=== PATIENT | male | born 1940 | race African-American/Black ===

== ENCOUNTER 2018-02-11 23:10 | Inpatient (IN) | payer OTHER ==
--- NOTE | 2018-02-11 23:20 | PDOC ---
History of Present Illness - General Stated Complaint: CHEST PAIN Time Seen by Provider: 02/11/18 23:20 - History of Present Illness Initial Comments: 02/11/18 23:20 Mr. Odell is a 77 yo male w/ pmh of HTN, HLD, CHF, IDDM, GERD, CVA (on eliquis) who presents for evaluation of 2-3 day history of chest pain to left and right chest he reports moves back and forth. Patient reports it got worse today and he decided to come in for evaluation. Patient reports pain is constant however exacerbated by movement. Further endorses cough over same time period however reports it is non-productive. Also endorses pain exacerbated by deep inspiration and SOB when helping his move in/out of wheelchair. The patient denies headache and dizziness. Denies fever, chills, nausea, vomit, diarrhea and constipation. Denies dysuria, frequency, urgency and hematuria. Allergies: NKDA Past History - Past Medical History Allergies/Adverse Reactions: Allergies Allergy/AdvReac Type Severity Reaction Status Date / Time No Known Allergies Allergy Verified 02/23/16 11:22 Home Medications: Ambulatory Orders Amlodipine Besylate [Norvasc -] 10 mg PO DAILY 02/23/16 Apixaban [Eliquis -] 5 mg PO BID 02/23/16 Carvedilol [Coreg -] 12.5 mg PO BID 02/23/16 Furosemide [Lasix -] 40 mg PO DAILY 02/23/16 Isosorbide Mononitrate [Imdur -] 30 mg PO DAILY 02/23/16 Rosuvastatin [Crestor -] 10 mg PO HS 02/23/16 Tamsulosin HCl [Flomax] 0.4 mg PO DAILY 02/23/16 Valsartan [Diovan] 80 mg PO BID 02/23/16 Anemia: No Asthma: No Cancer: No Cardiac Disorders: Yes CVA: Yes COPD: No CHF: Yes Dementia: No Diabetes: Yes GI Disorders: Yes (gerd) Disorders: No HTN: Yes Hypercholesterolemia: Yes Liver Disease: No Seizures: No Thyroid Disease: No - Surgical History Abdominal Surgery: No Appendectomy: No Cardiac Surgery: Yes (pacemaker, stent placement) Cholecystectomy: No Lung Surgery: No Neurologic Surgery: No Orthopedic Surgery: No - Suicide/Smoking/Psychosocial Hx Smoking Status: No Smoking History: Never smoked Years of Tobacco Use: 0 Have you smoked in the past 12 months: No Number of Cigarettes Smoked Daily: 0 Cigars Per Day: 0 Hx Alcohol Use: No Drug/Substance Use Hx: No Substance Use Type: None Hx Substance Use Treatment: No Review of Systems - Review of Systems Comments:: 02/11/18 23:21 GENERAL/CONSTITUTIONAL: No fever or chills. No weakness. HEAD, EYES, EARS, NOSE AND THROAT: No change in vision. No ear pain or discharge. No sore throat. CARDIOVASCULAR: +Chest pain / SOB as described. RESPIRATORY: +Non-productive cough; no wheezing or hemoptysis. GASTROINTESTINAL: No nausea, vomiting, diarrhea or constipation. GENITOURINARY: No dysuria, frequency, or change in urination. MUSCULOSKELETAL: No joint or muscle swelling or pain. No neck or back pain. SKIN: No rash NEUROLOGIC: No headache, vertigo, loss of consciousness, or change in strength/ sensation. ENDOCRINE: No increased thirst. No abnormal weight change HEMATOLOGIC/LYMPHATIC: No anemia, easy bleeding, or history of blood clots. ALLERGIC/IMMUNOLOGIC: No hives or skin allergy. *Physical Exam - Physical Exam Comments: 02/11/18 23:21 GENERAL: Awake, alert, and fully oriented, in no acute distress HEAD: No signs of trauma, normocephalic, atraumatic EYES: PERRLA, EOMI, sclera anicteric, conjunctiva clear ENT: Auricles normal inspection, hearing grossly normal, nares patent, oropharynx clear without exudates. Moist mucosa NECK: Normal ROM, supple, no lymphadenopathy, JVD, or masses LUNGS: +Coarse lung sounds appreciated in lower lung patel bilaterally. No distress, speaks full sentences HEART: Regular rate and rhythm, normal S1 and S2, no murmurs, rubs or gallops, peripheral pulses normal and equal bilaterally. ABDOMEN: Soft, nontender, normoactive bowel sounds. No guarding, no rebound. No masses EXTREMITIES: Normal inspection, Normal range of motion, no edema. No clubbing or cyanosis. NEUROLOGICAL: Cranial nerves II through XII grossly intact. Normal speech, normal gait, no focal sensorimotor deficits SKIN: Warm, Dry, normal turgor, no rashes or lesions noted. Heart Score/ECG Review - History History: Moderately suspicious - Electrocardiogram EKG: Non specific repolarization disturbance - Age Age: >/= 65 - Risk Factors Risk Factors Heart Score: Yes Hx Hypercholesterolemia, Yes Hx Hypertension, Yes Hx Diabetes Based on the list above the patient has:: >/=3 risk factors or Hx atherosclerotic disease - Troponin Troponin: </= normal limit - Score Heart Score - Total: 6 ED Treatment Course - LABORATORY CBC & Chemistry Diagram: 02/11/18 23:46 02/11/18 23:46 Medical Decision Making - Medical Decision Making 02/12/18 01:03 Mr. Odell is a 77 yo male w/ pmh as described who presents for evaluation of chest pain as described. Patient cardiac workup started w/ labs, CXR, EKG. EKG notable for flipped t waves in V5, V6, elongated MT interval (first degree heart block), intermittent pacing spikes, regular rhythm, normal access, no ST elevations or depressions. Abnormal EKG. 02/12/18 01:23 Patient Heart score 6. Labs as below. Patient reporting pain improved when not moving however returns with movement. Admitting patient for cardiac workup. *DC/Admit/Observation/Transfer Diagnosis at time of Disposition: Chest pain Qualifiers: Chest pain type: unspecified Qualified Code(s): R07.9 - Chest pain, unspecified - Discharge Dispostion Decision to Admit order: Yes - Referrals Referrals: Beka Lima MD [Primary Care Provider] - - Patient Instructions - Post Discharge Activity
[2018-02-11] MEDS ORDERED: ASPIRIN 81 MG CHEWABLE TABLETS PO ONE (23:21)
--- NOTE | 2018-02-11 23:26 | PDOC ---
Attending Attestation - HPI HPI: 02/12/18 00:17 The patient is a 77 year male with past medical history significant for HTN, HLD , CAD, paroxysmal atrial flutter (s/p pacemaker), AFib, DM type II and CKD presents to the emergency department with chest pain. The patient states the pain presented 2 days ago to the L. side of the chest; initially, he thought it was gas. The patient reports earlier today the pain spread across the chest with a change in severity, secondary to prior cardiac issues patient was concerned. The patient reports associated concern of shortness of breath. The patient reports he is the hha of this , who isnt ambulatory. The patient reports the SOB is exacerbated with strenuous activity. Patient denies the symptoms are similar to prior heart attack. 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 Allergies: NKA Social history: No past or present use of tobacco, alcohol or recreational drug use reported. Surgical history: Pacemaker and Stent placement. PCP: Dr. Beka Lima Ship Laborer: Dr. Horner - Physicial Exam PE: 02/12/18 00:17 GENERAL: The patient is in no acute distress. HEAD: Normal with no signs of trauma. EYES: PERRLA, EOMI, sclera anicteric, conjunctiva clear. ENT: Ears normal, nares patent, oropharynx clear without exudates. Moist mucous membranes. NECK: Normal range of motion, supple without lymphadenopathy, JVD, or masses. LUNGS: Breath sounds equal, clear to auscultation bilaterally. No wheezes, and no crackles. HEART:Regular rate and rhythm, normal S1 and S2 without murmur, rub or gallop. ABDOMEN: Soft, nontender, normoactive bowel sounds. No guarding, no rebound. No masses palpable. EXTREMITIES: Normal range of motion, no edema. No clubbing or cyanosis. No erythema, or tenderness. NEUROLOGICAL: Cranial nerves II through XII grossly intact. Normal speech. No focal neurological deficits. MUSCULOSKELETAL: Back non-tender to palpation, no CVA tenderness SKIN: Warm, Dry, normal turgor, no rashes or lesions noted. - Medical Decision Making 02/12/18 00:17 Documentation prepared by Leticia Johnston, acting as medical office administrator for Lilian Gabriel MD. <Leticia Johsnton - Last Filed: 02/12/18 00:17> - Resident Resident Name: Jason Bailey - ED Attending Attestation I have performed the following: I have examined & evaluated the patient, The case was reviewed & discussed with the resident, I agree w/resident's findings & plan, Exceptions are as noted - Medical Decision Making Mr Odell is a 77 yo M presenting to the ER with a complaint of chest pain pt has multiple risk factors for CAD and prior [place] Pain has been present for the past 2 days intermittently and worsened this evening Pain is described as "gas pain" DD: ACS, Gastritis, Pancreatitis, PE, Dissection Will do: Labs, EKG, CXR Anticipate Admission HEART score 6 02/12/18 00:52 Laboratory Tests 02/11/18 23:46 WBC 4.3 Hgb 12.3 Hct 34.9 L Plt Count 183 02/12/18 00:57 02/12/18 01:02 EKG: NSR rate of 60 bpm, axis nml, no ST elevation or depression, t wave inversion v5 , v6, intervals abn: pr:400ms, QRS nml, QTc: 418ms 02/12/18 01:09 Laboratory Tests 02/11/18 23:46 PT with INR 14.50 H INR 1.28 H <Lilian Gabriel - Last Filed: 02/12/18 01:10> Heart Score/ECG Review - History History: Highly suspicious - Electrocardiogram EKG: Normal - Age Age: >/= 65 - Risk Factors Risk Factors Heart Score: Yes Hx Hypercholesterolemia, Yes Hx Hypertension, Yes Hx Diabetes Based on the list above the patient has:: >/=3 risk factors or Hx atherosclerotic disease - Troponin Troponin: </= normal limit - Score Heart Score - Total: 6 <Lilian Gabriel - Last Filed: 02/12/18 01:10>
[2018-02-11] MEDS ORDERED: ASPIRIN 81 MG CHEWABLE TABLETS ONE (23:58)
[2018-02-12 00:01] LABS: BASO % 1.1 % (0-2.0); EOS % 7.2 % (0-4.5); HEMATOCRIT 34.9 % (35.4-49); HEMOGLOBIN 12.3 GM/dL (11.7-16.9); LYMPH % 22.3 % (8-40); MCH 31.8 pg (25.7-33.7); MCHC 35.3 g/dl (32.0-35.9); MEAN CELL VOLUME 90.1 fl (80-96); MEAN PLT VOLUME 7.1 fl (7.5-11.1); MONO % 11.4 % (3.8-10.2); PLATELET COUNT 183 K/MM3 (134-434); RBC 3.87 M/mm3 (4.00-5.60); RDW 13.5 % (11.9-15.9); WHITE BLOOD COUNT 4.3 K/mm3 (4.0-10.0)
[2018-02-12 00:37] LABS: INR 1.28 (0.83-1.09); PROTHROMBIN TIME (PATIENT) 14.5 SEC (9.7-13.0)
[2018-02-12 01:14] LABS: ALBUMIN 3.8 g/dl (3.4-5.0); ALK PHOS 62 U/L (45-117); ANION GAP 5 MMOL/L (8-16); BILIRUBIN,TOTAL 0.3 mg/dL (0.2-1); BLOOD UREA NITROGEN 47 mg/dL (7-18); CALCIUM 8.9 mg/dL (8.5-10.1); CHLORIDE 104 mmol/L (98-107); CO2 28 mmol/L (21-32); CREATININE 2.3 mg/dL (0.55-1.3); GLUCOSE,RANDOM 221 mg/dL (74-106); LIPASE 212 U/L (73-393); MAGNESIUM 2.1 mg/dL (1.8-2.4); POTASSIUM 5.2 mmol/L (3.5-5.1); SGOT/AST 19 U/L (15-37); SGPT/ALT 20 U/L (13-61); SODIUM 137 mmol/L (136-145)
[2018-02-12] MEDS ORDERED: SODIUM POLYSTYRENE SULFONATE 15 GM/60 ML BOTTLE PO ONE (01:36)
[2018-02-12] MEDS ORDERED: FAMOTIDINE 20 MG/50 ML IVPB 20 MG/50 ML MG IVPB SCH (01:45)
[2018-02-12] MEDS ORDERED: SODIUM POLYSTYRENE SULFONATE 15 GM/60 ML BOTTLE ONE (01:52)
[2018-02-12] MEDS: ACETAMINOPHEN 325 MG TABLET (FP) PO SCH ×2 (02:00→09:06)
[2018-02-12] MEDS ORDERED: AZITHROMYCIN IVPB 500 MG in DEXTROSE 5%-WATER - 250 ML IVPB ONE (02:01)
[2018-02-12] MEDS ORDERED: CEFTRIAXONE 1 GM in DEXTROSE 5%-WATER - 50 ML IVPB ONE (02:01)
[2018-02-12] MEDS ORDERED: AZITHROMYCIN IVPB 250 ML IVPB ONE (02:10)
[2018-02-12] MEDS ORDERED: CEFTRIAXONE 1 GM/50 ML BAG ONE ×2 (02:10→02:11)
[2018-02-12 02:20] LABS: N-TERMINAL BNP 1522.7 pg/ml (5-450)
[2018-02-12 04:58] VITALS: BMI 25.9
[2018-02-12] MEDS: INSULIN SLIDING SCALE (NOVOLOG) 1 VIAL SQ SCH ×3 (06:02→16:48)
[2018-02-12 06:12] LABS: EOS % 7.5 % (0-4.5); HEMATOCRIT 36.6 % (35.4-49); HEMOGLOBIN 12.6 GM/dL (11.7-16.9); LYMPH % 29.7 % (8-40); MCHC 34.5 g/dl (32.0-35.9); MEAN CELL VOLUME 89.9 fl (80-96); MEAN PLT VOLUME 7.1 fl (7.5-11.1); MONO % 11.5 % (3.8-10.2); NEUT % 50.3 % (42.8-82.8); PLATELET COUNT 171 K/MM3 (134-434); RBC 4.07 M/mm3 (4.00-5.60); RDW 13.3 % (11.9-15.9); WHITE BLOOD COUNT 5.1 K/mm3 (4.0-10.0)
[2018-02-12 06:51] LABS: ALBUMIN 3.9 g/dl (3.4-5.0); ALK PHOS 65 U/L (45-117); ANION GAP 5 MMOL/L (8-16); BILIRUBIN,TOTAL 0.4 mg/dL (0.2-1); BLOOD UREA NITROGEN 40 mg/dL (7-18); CHLORIDE 103 mmol/L (98-107); CHOLESTEROL 157 mg/dL (50-200); CO2 29 mmol/L (21-32); GLUCOSE,RANDOM 205 mg/dL (74-106); HDL CHOLESTEROL 69 mg/dL (40-60); POTASSIUM 4.5 mmol/L (3.5-5.1); SGOT/AST 16 U/L (15-37); SGPT/ALT 20 U/L (13-61); SODIUM 138 mmol/L (136-145); TOT PROT 7.2 g/dl (6.4-8.2); TRIGLYCERIDES 76 mg/dL (0-150)
[2018-02-12] MEDS ORDERED: ACETAMINOPHEN 325 MG TABLET (FP) PO PRN (08:04)
[2018-02-12] MEDS: TAMSULOSIN HCL 0.4 MG CAP.ER.24H (FP) PO SCH (09:03)
[2018-02-12] MEDS: CARVEDILOL 12.5 MG TABLET (FP) PO SCH ×2 (09:03→21:27)
[2018-02-12] MEDS: amLODIPine BESYLATE 10 MG TABLET (FP) PO SCH (09:03)
[2018-02-12] MEDS: ASPIRIN 81 MG CHEWABLE TABLETS PO SCH (09:03)
[2018-02-12] MEDS: APIXABAN 5 MG TABLET PO SCH ×2 (09:03→21:27)
[2018-02-12] MEDS: VALSARTAN 80 MG TABLET (UD) PO SCH ×2 (09:03→21:26)
[2018-02-12] MEDS: FUROSEMIDE 40 MG TABLET (FP) PO SCH (09:04)
[2018-02-12] MEDS: ISOSORBIDE MONONITRATE 30 MG TAB.SR.24H (FP) PO SCH (09:04)
[2018-02-12] MEDS: RANITIDINE HCL 150 MG TABLET (FP) PO SCH (09:04)
--- NOTE | 2018-02-12 13:16 | HP ---
Admitting History and Physical - Primary Care Physician PCP: Beka Lima - Admission Chief Complaint: chest pain History of Present Illness: 77 yrs old pleasant, multiple medical Co-morbidities H/O HTN, Dyslipedemia, T2DM on Insulin, CKD stage 3, CAD s/p PCI, Sick sinus syndrome, PAfib s/p Ablation and sequential AV pacemaker, dHF with EF 60-65%, CVa s/p Tpa no residual weakness, present with Left sided chest pain, that he developed 2 days ago, reproducible localized in interscapular area and left shoulder blade medial aspect 7/10 aggravates with passive movement, prior to this patient had left sided pressure like pain, came to Ed for evaluation, hemodynamically stablea, EKG paced rhythm no acute St T changes admitted to R/O ACS, evaluated by cardiology consult. 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 [employer] Home Medications - Allergies Allergies/Adverse Reactions: Allergies Allergy/AdvReac Type Severity Reaction Status Date / Time No Known Allergies Allergy Verified 02/12/18 01:56 - Home Medications Home Medications: Ambulatory Orders Amlodipine Besylate [Norvasc -] 10 mg PO DAILY 02/23/16 Apixaban [Eliquis -] 5 mg PO BID 02/23/16 Carvedilol [Coreg -] 12.5 mg PO BID 02/23/16 Furosemide [Lasix -] 40 mg PO DAILY 02/23/16 Isosorbide Mononitrate [Imdur -] 30 mg PO DAILY 02/23/16 Rosuvastatin [Crestor -] 10 mg PO HS 02/23/16 Tamsulosin HCl [Flomax] 0.4 mg PO DAILY 02/23/16 Valsartan [Diovan] 80 mg PO BID 02/23/16 Family Disease History - Family Disease History Family History: Unremarkable Review of Systems - Review of Systems Constitutional: denies: Chills, Diaphoresis, Fever, Lethargy Eyes: reports: Blind Spots. denies: Blurred Vision, Double Vision, Recent Change in Vision HENT: denies: Difficult Swallowing, Ear Discharge Neck: denies: Decreased ROM, Lumps, Pain on Movement Cardiovascular: reports: Chest Pain, Edema, Shortness of Breath. denies: Palpitations Respiratory: denies: Cough, Exercise Intolerance, Hemoptysis, Orthopnea Genitourinary: denies: Burning, Discharge, Dysuria, Flank Pain, Frequency Musculoskeletal: denies: Back Pain, Crepitus, Decreased ROM, Extremity Pain Integumentary: denies: Blister, Bruising, Change in Color Neurological: denies: Change in LOC, Change in Speech, Confusion, Dizziness Endocrine: denies: Excessive Sweating, Flushing, Increased Hunger Hematology/Lymphatic: denies: Easily Bruised, Excessive Bleeding Psychiatric: denies: Altered Sleep Pattern Physical Examination Vital Signs: Vital Signs Temperature 97.6 F 02/12/18 08:56 Pulse Rate 64 02/12/18 08:56 Respiratory Rate 18 02/12/18 08:57 Blood Pressure 149/81 02/12/18 08:56 O2 Sat by Pulse Oximetry (%) 99 02/12/18 08:57 Constitutional: Yes: Well Nourished, No Distress, Calm, Diaphoresis. No: Mild Distress, Moderate Distress Eyes: Yes: Conjunctiva Clear, EOM Intact HENT: No: Atraumatic, Normocephalic Neck: Yes: Supple, Trachea Midline. No: Decreased ROM, Lymphadenopathy Cardiovascular: Yes: Regular Rate and Rhythm, JVD, S1, S2. No: Bradycardia, Tachycardia Respiratory: Yes: Regular, CTA Bilaterally, Other (Left sided interscapular tenderness) Gastrointestinal: Yes: Normal Bowel Sounds, Soft Extremities: Yes: Amputation. No: Calf Tenderness, Cold Edema: RUE: 1+, LLE: 1+ Peripheral Pulses WNL: Yes Peripheral Pulses: Left Doralis Pedis: 1+, Right Dorsalis Pedis: 1+ Neurological: Yes: WNL, Alert, Oriented ...Motor Strength: LUE, RUE, RLE Labs: CBC, BMP 02/12/18 05:03 02/12/18 05:03 Imaging - Results X-ray: Report Reviewed (no acute changes) EKG: Report Reviewed (65 AV sequential paced rhythm) Problem List - Problems (1) Chest pain Assessment/Plan: Patient has H/O CAD s/p PCI atypical chest pain considering risk factor admitted to R/O ACS cont ASA, Statin, B Blockers, Nitroglycerine PRN and Imdur, Ranexa, telemonitoring, Cardiac diet, serial ECHO and EKG, ECHO cardiogram Cardiology recommended inpatient NST. Code(s): R07.9 - CHEST PAIN, UNSPECIFIED Qualifiers: Chest pain type: unspecified Qualified Code(s): R07.9 - Chest pain, unspecified (2) Atrial fibrillation Assessment/Plan: s/p abalation AV sequential pacemaker on AC Code(s): I48.91 - UNSPECIFIED ATRIAL FIBRILLATION Qualifiers: Atrial fibrillation type: paroxysmal Qualified Code(s): I48.0 - Paroxysmal atrial fibrillation (3) Cerebrovascular accident (CVA) Assessment/Plan: in 2016 no residual weakness s/o tpa Code(s): I63.9 - CEREBRAL INFARCTION, UNSPECIFIED (4) Cardiac pacemaker in situ Assessment/Plan: Sick sinus syndrom s/p abalation and AV sequential pacemaker Code(s): Z95.0 - PRESENCE OF CARDIAC PACEMAKER (5) Coronary artery disease Assessment/Plan: H/O CAD s/p LAD PCI on ASA, imdur, Ranexa B Blockers, Code(s): I25.10 - ATHSCL HEART DISEASE OF [place] CORONARY ARTERY W/O ANG PCTRS (6) Chronic renal insufficiency Assessment/Plan: CKD stage 3 renal funcyionsa are at base line Code(s): N18.9 - CHRONIC KIDNEY DISEASE, UNSPECIFIED Qualifiers: Chronic kidney disease stage: stage 3 (moderate) Qualified Code(s): N18.3 - Chronic kidney disease, stage 3 (moderate) (7) Type 2 diabetes mellitus Assessment/Plan: Retinopathy and nephropathy on Lantus will switch to Levimer and correction dose insulin diabetic diet f/u HbA1C level Code(s): E11.9 - TYPE 2 DIABETES MELLITUS WITHOUT COMPLICATIONS (8) Dyslipidemia Assessment/Plan: On statin Code(s): E78.5 - HYPERLIPIDEMIA, UNSPECIFIED
--- NOTE | 2018-02-12 16:56 | CONS ---
DATE OF CONSULTATION: 02/12/2018 CARDIOLOGY CONSULTATION REQUESTED BY: Beka Lima MD CHIEF COMPLAINT: 1. Chest pain. 2. Fatigue. 3. Shortness of breath. The patient is a 77-year-old gentleman with long-standing history of coronary artery disease, status post myocardial infarction, status post PCI/stenting, angina pectoris, history of left ventricular systolic dysfunction, congestive heart failure, hypertension, hypertensive cardiovascular disease, diabetes mellitus type 2, chronic kidney disease, paroxysmal atrial fibrillation/flutter, status post cerebrovascular accident with left hemiparesis, history of diabetic nephropathy and retinopathy. Patient states that for the past 2 days he has been experiencing anterior pressure-like chest discomfort while taking care of his invalid , especially in helping her get to bed or pushing her wheelchair. Patient has been noticing fatigue. Patient, on the day of admission, developed anterior sharp chest pain, only associated with change in posture or movement. PAST HISTORY: As mentioned in the history of present illness. SURGICAL HISTORY: Status post pacemaker insertion. 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 He has never smoked and does not imbibe alcohol. He has 1 to 2 cups of coffee. FAMILY HISTORY: Father at age 58 of unknown cause. Mother at age 53 of sudden . He has no siblings. There is strong family history of coronary artery disease on the maternal side. ALLERGIES: None reported. CURRENT MEDICATIONS: 1. Valsartan 80 mg p.o. b.i.d. 2. Flomax 0.4 mg p.o. daily. 3. Eliquis 5 mg p.o. b.i.d. 4. Carvedilol 12.5 mg p.o. b.i.d. 5. Tylenol 650 mg p.o. q.6 h. p.r.n. 6. Amlodipine 10 mg p.o. daily. 7. Ranitidine 150 mg p.o. daily. 8. Rosuvastatin 10 mg p.o. daily. 9. NovoLog insulin according to sliding scale. 10. Isosorbide mononitrate 30 mg p.o. daily. 11. Furosemide 40 mg p.o. daily. 12. Aspirin 81 mg p.o. daily. REVIEW OF SYSTEMS: Constitutional: No history of chills, fever or night sweats. No history of unintentional weight loss. HEENT: No history of headaches, history of visual field cut, history of diabetic retinopathy. No history of epistaxis or hoarseness. No history of tinnitus. History of decreased hearing. Cardiovascular: See history of present illness. Respiratory: History of intermittent nonproductive cough. No history of hemoptysis. Gastrointestinal: Denies having any nausea, vomiting, melena, or hematemesis. No history of abdominal pain or discomfort or change in bowel habits. Neurological: See history of present illness. Endocrine: See history of present illness. No history of polyuria or polydipsia. Denies having intolerance to cold or warm weather. Musculoskeletal: Denies having myalgias or arthralgias. EXAMINATION: General: A 77-year-old gentleman, at the time of examination was in no acute distress. No pallor, cyanosis, clubbing, or jaundice. Vital Signs: Weight 181 pounds. Blood pressure 149/81 mmHg. Pulse 64 beats per minute and regular. Respirations 18 per minute. Oxygen saturation 99% on room air. Neck: Supple. No jugular venous distention. Carotids were equal. Upstrokes were normal. No bruits were heard and no thyromegaly was present. Heart: PMI was in the 5th intercostal space. No heaves or thrills. S1 and S2 were normal. Grade 1/6 decrescendo systolic murmur was heard at the apex. No gallops or rubs were heard. Lungs: Clear on auscultation. Abdomen: Soft, nontender. No hepatosplenomegaly or palpable masses were felt. Bowel sounds were present. No bruits were appreciated. Extremities: No calf tenderness. There was 1+ bilateral ankle edema. Dorsalis pedis and posterior tibial pulses could not be palpated. Femoral pulses were 2+. LABORATORY DATA: CBC, February 12, 2018: WBC 5100, hemoglobin 12.6 g/dL, hematocrit 36.6%, platelet count 171,000. Differential revealed elevated monocytes of 11.5%, eosinophils were elevated at 7.5%. Chemistry on admission, February 11: Sodium 137, potassium 5.2, chloride 104, CO2 28 mmol/L, BUN 47, creatinine 2.3 mg/dL, random glucose 221 mg/dL, calcium 8.9 mg/dL, magnesium 2.1 mg/dL. Normal liver function tests. CK was 82, troponins were less than 0.02, BNP was elevated at 1522.7. Total cholesterol 157, LDL cholesterol 81, HDL cholesterol 69, triglycerides 76 mg/dL on February 12, 2018. X-ray of chest, February 11, 2018. Shallow inspirations with low lung volume. No evidence of airspace consolidation or pleural effusion. Electrocardiogram, February 11, 2018, AV sequential pacemaker was functioning appropriately with appropriate capture. IMPRESSION: 1. Coronary artery disease, status post myocardial infarction, status post percutaneous coronary intervention/stenting, suspect recurrence of angina pectoris. 2. Sharp pleuritic chest pain. Clinical presentation is compatible with pain of musculoskeletal origin. 3. Left ventricular failure. 4. Left ventricular systolic dysfunction. 5. Hypertension, hypertensive cardiovascular disease. 6. Chronic kidney disease. 7. Diabetes mellitus type 2. 8. Diabetic nephropathy. 9. Hypercholesterolemia. 10. Status post cerebrovascular accident with left hemiparesis. 11. History of paroxysmal atrial fibrillation/flutter. 12. Status post permanent pacemaker. RECOMMENDATIONS: 1. Echocardiogram is pending. 2. Lexiscan Myoview stress test. 3. Dose of carvedilol could be increased to 25 mg p.o. b.i.d., provided blood pressure remains stable. 4. If pains were recur, isosorbide could be increased to 60 mg p.o. daily. 5. Patient may require extra dose of Lasix. 6. Hemoglobin A1c. 7. Further suggestions will depend upon the results of the above-mentioned tests. Prognosis guarded. Thank you for your referral. Yours sincerely, LEO STACK M.D. [id number]
--- NOTE | 2018-02-12 17:06 | EKG ---
Test Reason : Blood Pressure : / mmHG Vent. Rate : 060 BPM Atrial Rate : 060 BPM P-R Int : 000 ms QRS Dur : 124 ms QT Int : 418 ms P-R-T Axes : -20 -09 -25 degrees QTc Int : 418 ms AV SEQUENTIAL OR DUAL CHAMBER ELECTRONIC PACEMAKER Confirmed by MD Blake Daniel ([id number]) on 02/12/2018 5:05:52 PM Referred By: Confirmed By:Osiel Blake MD
[2018-02-12] MEDS: ROSUVASTATIN CA 10 MG TABLET (FP) PO SCH (21:27)
[2018-02-13] MEDS: INSULIN SLIDING SCALE (NOVOLOG) 1 VIAL SQ SCH ×3 (06:29→16:42)
--- NOTE | 2018-02-13 08:36 | PN ---
Progress Note, Physician Chief Complaint: Left sided reproducible CP - Current Medication List Current Medications: Active Medications Acetaminophen (Tylenol -) 650 mg PO Q6H PRN PRN Reason: PAIN LEVEL 1-5 Amlodipine Besylate (Norvasc -) 10 mg PO DAILY [facility] Last Admin: 02/12/18 09:03 Dose: 10 mg Apixaban (Eliquis -) 5 mg PO BID [facility] Last Admin: 02/12/18 21:27 Dose: 5 mg Aspirin (Asa -) 81 mg PO DAILY [facility] Last Admin: 02/12/18 09:03 Dose: 81 mg Carvedilol (Coreg -) 12.5 mg PO BID [facility] Last Admin: 02/12/18 21:27 Dose: 12.5 mg Furosemide (Lasix -) 40 mg PO DAILY [facility] Last Admin: 02/12/18 09:04 Dose: 40 mg Insulin Aspart (Novolog Vial Sliding Scale -) 1 vial SQ TIDAC [facility]; Protocol Last Admin: 02/13/18 06:29 Dose: Not Given Isosorbide Mononitrate (Imdur -) 30 mg PO DAILY [facility] Last Admin: 02/12/18 09:04 Dose: 30 mg Ranitidine HCl (Zantac -) 150 mg PO DAILY [facility] Last Admin: 02/12/18 09:04 Dose: 150 mg Rosuvastatin Calcium (Crestor -) 10 mg PO HS [facility] Last Admin: 02/12/18 21:27 Dose: 10 mg Tamsulosin HCl (Flomax -) 0.4 mg PO DAILY@0830 [facility] Last Admin: 02/12/18 09:03 Dose: 0.4 mg Valsartan (Diovan -) 80 mg PO BID [facility] Last Admin: 02/12/18 21:26 Dose: 80 mg - Objective Vital Signs: Vital Signs Temperature 98.4 F 02/13/18 01:25 Pulse Rate 78 02/13/18 06:00 Respiratory Rate 18 02/13/18 06:00 Blood Pressure 115/65 02/13/18 06:00 O2 Sat by Pulse Oximetry (%) 100 02/12/18 21:00 Constitutional: Well Nourished, No Distress, Calm, Diaphoresis. No: Mild Distress, Moderate Distress HEENT: : Conjunctiva Clear, EOM Intact, Atraumatic, Normocephalic Neck: Supple, Trachea Midline. No: Decreased ROM, Lymphadenopathy Cardiovascular: Regular Rate and Rhythm, JVD, S1, S2. No: Bradycardia, Tachycardia Respiratory: Yes: Regular, CTA Bilaterally Gastrointestinal: Yes: Normal Bowel Sounds, Soft Extremities: No Calf Tenderness, no Edema: RUE: 1+, LLE: 1+Peripheral Pulses Left Doralis Pedis: 1+, Right Dorsalis Pedis: 1+ Neurological: WNL, Alert, Oriented, Motor Strength: LUE, RUE, RLE Constitutional: Yes: Pallor Labs: CBC, BMP 02/12/18 05:03 02/12/18 05:03 INR, PTT INR 1.28 (0.83-1.09) H 02/11/18 23:46 Problem List - Problems (1) Chest pain Assessment/Plan: Normal serial CE and stable EKGs F/U NST result and cardiology input Code(s): R07.9 - CHEST PAIN, UNSPECIFIED Qualifiers: Chest pain type: unspecified Qualified Code(s): R07.9 - Chest pain, unspecified (2) Atrial fibrillation Assessment/Plan: s/p abalation AV sequential pacemaker on AC Code(s): I48.91 - UNSPECIFIED ATRIAL FIBRILLATION Qualifiers: Atrial fibrillation type: paroxysmal Qualified Code(s): I48.0 - Paroxysmal atrial fibrillation (3) Cerebrovascular accident (CVA) Assessment/Plan: in 2016 no residual weakness s/o tpa Code(s): I63.9 - CEREBRAL INFARCTION, UNSPECIFIED (4) Cardiac pacemaker in situ Assessment/Plan: Sick sinus syndrom s/p ablation and AV sequential pacemaker Code(s): Z95.0 - PRESENCE OF CARDIAC PACEMAKER (5) Coronary artery disease Assessment/Plan: H/O CAD s/p LAD PCI on ASA, imdur, Ranexa B Blockers, Code(s): I25.10 - ATHSCL HEART DISEASE OF [place] CORONARY ARTERY W/O ANG PCTRS (6) Chronic renal insufficiency Assessment/Plan: CKD stage 3 renal funcyionsa are at base line Code(s): N18.9 - CHRONIC KIDNEY DISEASE, UNSPECIFIED Qualifiers: Chronic kidney disease stage: stage 3 (moderate) Qualified Code(s): N18.3 - Chronic kidney disease, stage 3 (moderate) (7) Type 2 diabetes mellitus Assessment/Plan: Retinopathy and nephropathy on Lantus will switch to Levimer and correction dose insulin diabetic diet f/u HbA1C level Code(s): E11.9 - TYPE 2 DIABETES MELLITUS WITHOUT COMPLICATIONS (8) Dyslipidemia Assessment/Plan: On statin Code(s): E78.5 - HYPERLIPIDEMIA, UNSPECIFIED
[2018-02-13] MEDS ORDERED: REGADENOSON 0.4 MG/5 ML PRE-FILLED SYRINGE IVPUSH ONE ×2 (11:00→11:36)
[2018-02-13] MEDS: APIXABAN 5 MG TABLET PO SCH ×2 (13:06→23:27)
[2018-02-13] MEDS: ISOSORBIDE MONONITRATE 30 MG TAB.SR.24H (FP) PO SCH (13:07)
[2018-02-13] MEDS: RANITIDINE HCL 150 MG TABLET (FP) PO SCH (13:07)
[2018-02-13] MEDS: CARVEDILOL 12.5 MG TABLET (FP) PO SCH ×2 (13:07→23:32)
[2018-02-13] MEDS: VALSARTAN 80 MG TABLET (UD) PO SCH ×2 (13:07→23:32)
[2018-02-13] MEDS: amLODIPine BESYLATE 10 MG TABLET (FP) PO SCH (13:07)
[2018-02-13] MEDS: FUROSEMIDE 40 MG TABLET (FP) PO SCH (13:07)
[2018-02-13] MEDS: ASPIRIN 81 MG CHEWABLE TABLETS PO SCH (13:08)
[2018-02-13] MEDS: TAMSULOSIN HCL 0.4 MG CAP.ER.24H (FP) PO SCH (13:08)
[2018-02-13] MEDS ORDERED: INSULIN (NOVOLOG) ASPART 100 UNITS/ML 10ML VIAL ONE (13:15)
--- NOTE | 2018-02-13 18:13 | ECHO ---
Name: PALLAVI PETERS Exam:Adult Echocardiogram Study Date: 02/13/2018 08:04 AM Age: 77 yrs Reason For Study: SYNCOPE Height: 70 in Weight: 175 lb BSA: 2.0 m2 MMode/2D Measurements & Calculations IVSd: 1.2 cm Ao root diam: 3.4 cm LVIDd: 4.7 cm LA dimension: 3.9 cm LVIDs: 3.5 cm LVPWd: 1.1 cm EDV(Teich): 100.9 ml LAV (MOD-bp): 47.0 ml ESV(Teich): 50.2 ml Doppler Measurements & Calculations MV E max neil: 64.5 cm/sec MR max neil: 491.6 cm/sec MV A max neil: 103.3 cm/sec MR max P.3 mmHg MV E/A: 0.62 MV dec time: 0.08 sec TR max neil: 192.2 cm/sec Med Peak E' Neil: 6.2 cm/sec TR max P.1 mmHg Med E/e': 10.4 Lat Peak E' Neil: 20.3 cm/sec Lat E/e': 3.2 PI Vmax: 118.1 cm/sec Procedure The study was technically adequate with some images being suboptimal in quality. Left Ventricle The left ventricular size, thickness and function are normal. Ejection Fraction = 60-65%. Apical wall motion abnormality may reflect pacemaker activation. Right Ventricle The right ventricle is normal in size and function. There is a pacemaker lead in the right ventricle. Atria The left atrium is borderline dilated. Borderline right atrial enlargement. Mitral Valve The mitral valve is normal in structure and function. There is trace to mild mitral regurgitation. Tricuspid Valve The tricuspid valve is not well visualized, but is grossly normal. There is trace tricuspid regurgita tion. There was insufficient TR detected to calculate RV systolic pressure. Aortic Valve The aortic valve opens well. Trace aortic regurgitation. Pulmonic Valve The pulmonic valve is not well visualized. There is no pulmonic valvular regurgitation. Great Vessels The aortic root is normal size. Pericardium/Pleura There is no pericardial effusion. Interpretation Summary Compared to the prior echo report on 07/03/2015, there is no significant change. The left ventricular size, thickness and function are normal The right ventricle is normal in size and function. Trace aortic regurgitation. The left atrium is borderline dilated. There is trace tricuspid regurgitation. Ejection Fraction = 60-65%. There is trace to mild mitral regurgitation. Cristofer Sam MD 02/13/2018 06:12 PM
--- NOTE | 2018-02-13 20:38 | PN ---
Progress Note (short form) - Note Progress Note: 77 year old AA male known case of CAD angina pectoris, HTN,CVA, paroxysmal atrial fib.dyslipidemia,h/o CHF,s/p PPM DM type II with multisystem involved including CKD, PAD admitted with recurring chest pains, fatigue and SOB , had myocardial perfusion scam and reveals a moderate size reversible defect consistent with ischemia. No chest pain or discomfort reported, no SOB. Active Medications Acetaminophen (Tylenol -) 650 mg PO Q6H PRN PRN Reason: PAIN LEVEL 1-5 Amlodipine Besylate (Norvasc -) 10 mg PO DAILY [facility] Last Admin: 02/13/18 13:07 Dose: 10 mg Apixaban (Eliquis -) 5 mg PO BID [facility] Last Admin: 02/13/18 13:06 Dose: 5 mg Aspirin (Asa -) 81 mg PO DAILY [facility] Last Admin: 02/13/18 13:08 Dose: 81 mg Carvedilol (Coreg -) 12.5 mg PO BID [facility] Last Admin: 02/13/18 13:07 Dose: 12.5 mg Furosemide (Lasix -) 40 mg PO DAILY [facility] Last Admin: 02/13/18 13:07 Dose: 40 mg Insulin Aspart (Novolog Vial Sliding Scale -) 1 vial SQ TIDAC [facility]; Protocol Last Admin: 02/13/18 16:42 Dose: 12 units Isosorbide Mononitrate (Imdur -) 30 mg PO DAILY [facility] Last Admin: 02/13/18 13:07 Dose: 30 mg Ranitidine HCl (Zantac -) 150 mg PO DAILY [facility] Last Admin: 02/13/18 13:07 Dose: 150 mg Rosuvastatin Calcium (Crestor -) 10 mg PO HS [facility] Last Admin: 02/12/18 21:27 Dose: 10 mg Tamsulosin HCl (Flomax -) 0.4 mg PO DAILY@0830 [facility] Last Admin: 02/13/18 13:08 Dose: 0.4 mg Valsartan (Diovan -) 80 mg PO BID [facility] Last Admin: 02/13/18 13:07 Dose: 80 mg Last Vital Signs Temp Pulse Resp BP Pulse Ox 98.0 F 60 18 120/57 L 100 02/13/18 17:15 02/13/18 17:15 02/13/18 17:15 02/13/18 17:15 02/13/18 09:00 NECK: supple, no JVD, HJR-ve. HEART: S1&S2 grade I/ systolic murmur, no gallops. LUNGS: Clear on auscultation. ABDOMEN: Soft, nontender, no organomegaly. EXTREMITIES: no calf tenderness or dependent edema. CBC, BMP 02/12/18 05:03 02/12/18 05:03 IMPRESSION: 1. CAD,s/p PCI/stenting, progressive angina pectoris. 2. DM wih multisystem involvement. 3. HTN/HCVD. 4. S/p CVA with left hemiparesis. 5. Paroxysmal atrial fib. 6. Dyslipidemia. RECOMMENDATIONS: 1. In view of clinical presentation and moderate size reversible inferolateral defect coronary angiography needs to to considered. 2. Patient is agreeable and understands the risks, including but not limited to renal failure requiring dialysis. 3. Continue current therapy. 4. D/C Eliquis. 5. May start heparin according to protocal without bolus. 6. NPO after midnight.
[2018-02-13] MEDS: ROSUVASTATIN CA 10 MG TABLET (FP) PO SCH (23:29)
[2018-02-13] MEDS: RANOLAZINE E.R. 500 MG TABLET (FP) PO SCH (23:38)
[2018-02-14] MEDS: INSULIN SLIDING SCALE (NOVOLOG) 1 VIAL SQ SCH ×3 (06:37→16:40)
[2018-02-14 06:48] LABS: BASO % 0.9 % (0-2.0); EOS % 5.4 % (0-4.5); HEMATOCRIT 32.4 % (35.4-49); HEMOGLOBIN 11.2 GM/dL (11.7-16.9); LYMPH % 26.9 % (8-40); MCHC 34.5 g/dl (32.0-35.9); MEAN CELL VOLUME 89.9 fl (80-96); MEAN PLT VOLUME 7.1 fl (7.5-11.1); MONO % 11.5 % (3.8-10.2); NEUT % 55.3 % (42.8-82.8); PLATELET COUNT 158 K/MM3 (134-434); RBC 3.61 M/mm3 (4.00-5.60); RDW 13.1 % (11.9-15.9); WHITE BLOOD COUNT 4.7 K/mm3 (4.0-10.0)
[2018-02-14 07:20] LABS: ANION GAP 9 MMOL/L (8-16); BLOOD UREA NITROGEN 41 mg/dL (7-18); CALCIUM 8.7 mg/dL (8.5-10.1); CHLORIDE 108 mmol/L (98-107); CO2 26 mmol/L (21-32); CREATININE 1.9 mg/dL (0.55-1.3); GLUCOSE,RANDOM 146 mg/dL (74-106); POTASSIUM 4.4 mmol/L (3.5-5.1); SODIUM 143 mmol/L (136-145)
--- NOTE | 2018-02-14 07:51 | PN ---
Progress Note, Physician Chief Complaint: Left sided reproducible CP in interscapular area - Current Medication List Current Medications: Active Medications Acetaminophen (Tylenol -) 650 mg PO Q6H PRN PRN Reason: PAIN LEVEL 1-5 Amlodipine Besylate (Norvasc -) 10 mg PO DAILY [facility] Last Admin: 02/13/18 13:07 Dose: 10 mg Aspirin (Asa -) 81 mg PO DAILY [facility] Last Admin: 02/13/18 13:08 Dose: 81 mg Carvedilol (Coreg -) 12.5 mg PO BID [facility] Last Admin: 02/13/18 23:32 Dose: 12.5 mg Furosemide (Lasix -) 40 mg PO DAILY [facility] Last Admin: 02/13/18 13:07 Dose: 40 mg Insulin Aspart (Novolog Vial Sliding Scale -) 1 vial SQ TIDAC [facility]; Protocol Last Admin: 02/14/18 06:37 Dose: Not Given Isosorbide Mononitrate (Imdur -) 30 mg PO DAILY [facility] Last Admin: 02/13/18 13:07 Dose: 30 mg Ranitidine HCl (Zantac -) 150 mg PO DAILY [facility] Last Admin: 02/13/18 13:07 Dose: 150 mg Ranolazine (Ranexa -) 500 mg PO BID [facility] Last Admin: 02/13/18 23:38 Dose: 500 mg Rosuvastatin Calcium (Crestor -) 10 mg PO HS [facility] Last Admin: 02/13/18 23:29 Dose: 10 mg Tamsulosin HCl (Flomax -) 0.4 mg PO DAILY@0830 [facility] Last Admin: 02/13/18 13:08 Dose: 0.4 mg Valsartan (Diovan -) 80 mg PO BID [facility] Last Admin: 02/13/18 23:32 Dose: Not Given - Objective Vital Signs: Vital Signs Temperature 98.8 F 02/14/18 01:30 Pulse Rate 71 02/14/18 01:30 Respiratory Rate 18 02/14/18 01:30 Blood Pressure 115/60 02/14/18 01:30 O2 Sat by Pulse Oximetry (%) 100 02/13/18 09:00 Constitutional: Well Nourished, No Distress, Calm, Diaphoresis. No: Mild Distress, Moderate Distress HEENT: : Conjunctiva Clear, EOM Intact, Atraumatic, Normocephalic Neck: Supple, Trachea Midline. No: Decreased ROM, Lymphadenopathy Cardiovascular: Regular Rate and Rhythm, JVD, S1, S2. No: Bradycardia, Tachycardia Respiratory: Yes: Regular, CTA Bilaterally Gastrointestinal: Yes: Normal Bowel Sounds, Soft Extremities: No Calf Tenderness, no Edema: RUE: 1+, LLE: 1+Peripheral Pulses Left Doralis Pedis: 1+, Right Dorsalis Pedis: 1+ Neurological: WNL, Alert, Oriented, Motor Strength: LUE, RUE, RLE Labs: CBC, BMP 02/14/18 05:30 02/14/18 05:30 INR, PTT INR 1.28 (0.83-1.09) H 02/11/18 23:46 - ....Imaging Other: Report Reviewed (NST: Moderate size reversible schemia) Problem List - Problems (1) Chest pain Assessment/Plan: Normal serial CE and stable EKGs F/U NST result +, agrees for cath will F/U cardiology Code(s): R07.9 - CHEST PAIN, UNSPECIFIED Qualifiers: Chest pain type: unspecified Qualified Code(s): R07.9 - Chest pain, unspecified (2) Atrial fibrillation Assessment/Plan: s/p abalation AV sequential pacemaker off AC for possible cath. Code(s): I48.91 - UNSPECIFIED ATRIAL FIBRILLATION Qualifiers: Atrial fibrillation type: paroxysmal Qualified Code(s): I48.0 - Paroxysmal atrial fibrillation (3) Cerebrovascular accident (CVA) Assessment/Plan: in 2016 no residual weakness s/o tpa Code(s): I63.9 - CEREBRAL INFARCTION, UNSPECIFIED (4) Cardiac pacemaker in situ Assessment/Plan: Sick sinus syndrom s/p ablation and AV sequential pacemaker Code(s): Z95.0 - PRESENCE OF CARDIAC PACEMAKER (5) Coronary artery disease Assessment/Plan: H/O CAD s/p LAD PCI on ASA, imdur, Ranexa B Blockers, stress test + agrees forcath will F/U with Cardiology consult for arrangement. Code(s): I25.10 - ATHSCL HEART DISEASE OF [place] CORONARY ARTERY W/O ANG PCTRS (6) Chronic renal insufficiency Assessment/Plan: CKD stage 3 renal funcyionsa are at base line Code(s): N18.9 - CHRONIC KIDNEY DISEASE, UNSPECIFIED Qualifiers: Chronic kidney disease stage: stage 3 (moderate) Qualified Code(s): N18.3 - Chronic kidney disease, stage 3 (moderate) (7) Type 2 diabetes mellitus Assessment/Plan: Retinopathy and nephropathy on Lantus will switch to Levimer and correction dose insulin diabetic diet f/u HbA1C level Code(s): E11.9 - TYPE 2 DIABETES MELLITUS WITHOUT COMPLICATIONS (8) Dyslipidemia Assessment/Plan: On statin Code(s): E78.5 - HYPERLIPIDEMIA, UNSPECIFIED
[2018-02-14] MEDS: RANOLAZINE E.R. 500 MG TABLET (FP) PO SCH ×2 (09:11→21:12)
[2018-02-14] MEDS: VALSARTAN 80 MG TABLET (UD) PO SCH ×2 (09:11→21:12)
[2018-02-14] MEDS: ASPIRIN 81 MG CHEWABLE TABLETS PO SCH (09:11)
[2018-02-14] MEDS: FUROSEMIDE 40 MG TABLET (FP) PO SCH (09:11)
[2018-02-14] MEDS: CARVEDILOL 12.5 MG TABLET (FP) PO SCH ×2 (09:11→21:12)
[2018-02-14] MEDS: ISOSORBIDE MONONITRATE 30 MG TAB.SR.24H (FP) PO SCH (09:11)
[2018-02-14] MEDS: TAMSULOSIN HCL 0.4 MG CAP.ER.24H (FP) PO SCH (09:11)
[2018-02-14] MEDS: RANITIDINE HCL 150 MG TABLET (FP) PO SCH (09:11)
[2018-02-14] MEDS: amLODIPine BESYLATE 10 MG TABLET (FP) PO SCH (09:11)
--- NOTE | 2018-02-14 09:57 | PN ---
Progress Note (short form) - Note Progress Note: 77 year old AA male known case of CAD angina pectoris, HTN,CVA, paroxysmal atrial fib.dyslipidemia,h/o CHF,s/p PPM DM type II with multisystem involved including CKD, PAD admitted with recurring chest pains, fatigue and SOB , had myocardial perfusion scan and reveals a moderate size reversible defect consistent with ischemia.ambulating, no chest pain or discomfort, no SOB Spoke to photographic laboratory supervisor at [facility] and and to be transferred for further evaluation and cardiac cath. Active Medications Generic Name Dose Route Start Last Admin Trade Name Freq PRN Reason Stop Dose Admin Acetaminophen 650 mg 02/12/18 08:04 Tylenol - PO Q6H PRN PAIN LEVEL 1-5 Amlodipine Besylate 10 mg 02/12/18 10:00 02/14/18 09:11 Norvasc - PO 10 mg DAILY [facility] Administration Aspirin 81 mg 02/12/18 10:00 02/14/18 09:11 Asa - PO 81 mg DAILY [facility] Administration Carvedilol 12.5 mg 02/12/18 10:00 02/14/18 09:11 Coreg - PO 12.5 mg BID [facility] Administration Furosemide 40 mg 02/12/18 10:00 02/14/18 09:11 Lasix - PO 40 mg DAILY [facility] Administration Insulin Aspart 1 vial 02/12/18 07:00 02/14/18 06:37 Novolog Vial Sliding Scale - SQ Not Given TIDAC [facility] Protocol Isosorbide Mononitrate 30 mg 02/12/18 10:00 02/14/18 09:11 Imdur - PO 30 mg DAILY [facility] Administration Ranitidine HCl 150 mg 02/12/18 10:00 02/14/18 09:11 Zantac - PO 150 mg DAILY [facility] Administration Ranolazine 500 mg 02/13/18 23:00 02/14/18 09:11 Ranexa - PO 500 mg BID [facility] Administration Rosuvastatin Calcium 10 mg 02/12/18 22:00 02/13/18 23:29 Crestor - PO 10 mg HS [facility] Administration Tamsulosin HCl 0.4 mg 02/12/18 08:30 02/14/18 09:11 Flomax - PO 0.4 mg DAILY@0830 [facility] Administration Valsartan 80 mg 02/12/18 10:00 02/14/18 09:11 Diovan - PO 80 mg BID [facility] Administration Last Vital Signs Temp Pulse Resp BP Pulse Ox 98.8 F 71 18 115/60 100 02/14/18 01:30 02/14/18 01:30 02/14/18 01:30 02/14/18 01:30 02/13/18 09:00 NECK: supple, no JVD, HJR-ve. HEART: S1&S2 grade I/ systolic murmur, no gallops. LUNGS: Clear on auscultation. ABDOMEN: Soft, nontender, no organomegaly. EXTREMITIES: no calf tenderness or dependent edema. CBC, BMP 02/14/18 05:30 02/14/18 05:30 IMPRESSION: 1. CAD,s/p PCI/stenting, progressive angina pectoris. 2. DM wih multisystem involvement. 3. HTN/HCVD. 4. S/p CVA with left hemiparesis. 5. Paroxysmal atrial fib. 6. Dyslipidemia. 7. S/p LV failure. 8. S/p PPM. 9. CKD. RECOMMENDATIONS: 1. In view of clinical presentation and moderate size reversible inferolateral defect coronary angiography. 2. Patient is agreeable and understands the risks, including but not limited to renal failure requiring dialysis. 3. Continue current therapy. 4. No anticoagulation. 5. Patient can be feed. 6. On list for transfer to [facility].
[2018-02-14] MEDS ORDERED: COMBIGAN 0.2% OP SCH (12:00)
[2018-02-14] MEDS: ROSUVASTATIN CA 10 MG TABLET (FP) PO SCH (21:12)
[2018-02-15] MEDS: INSULIN SLIDING SCALE (NOVOLOG) 1 VIAL SQ SCH ×2 (06:18→12:49)
[2018-02-15 06:19] LABS: BASO % 0.6 % (0-2.0); EOS % 6.4 % (0-4.5); HEMATOCRIT 31.7 % (35.4-49); HEMOGLOBIN 11.1 GM/dL (11.7-16.9); LYMPH % 23.6 % (8-40); MCH 31.2 pg (25.7-33.7); MEAN CELL VOLUME 89.3 fl (80-96); MEAN PLT VOLUME 7.1 fl (7.5-11.1); MONO % 12.4 % (3.8-10.2); PLATELET COUNT 159 K/MM3 (134-434); RBC 3.55 M/mm3 (4.00-5.60); RDW 13.3 % (11.9-15.9); WHITE BLOOD COUNT 4.5 K/mm3 (4.0-10.0)
[2018-02-15 06:48] LABS: ANION GAP 7 MMOL/L (8-16); BLOOD UREA NITROGEN 46 mg/dL (7-18); CHLORIDE 108 mmol/L (98-107); CO2 27 mmol/L (21-32); CREATININE 1.9 mg/dL (0.55-1.3); GLUCOSE,RANDOM 259 mg/dL (74-106); POTASSIUM 4.6 mmol/L (3.5-5.1); SODIUM 141 mmol/L (136-145)
[2018-02-15] MEDS: TAMSULOSIN HCL 0.4 MG CAP.ER.24H (FP) PO SCH (10:16)
[2018-02-15] MEDS: ASPIRIN 81 MG CHEWABLE TABLETS PO SCH (10:16)
[2018-02-15] MEDS: VALSARTAN 80 MG TABLET (UD) PO SCH (10:17)
[2018-02-15] MEDS: CARVEDILOL 12.5 MG TABLET (FP) PO SCH (10:17)
[2018-02-15] MEDS: ISOSORBIDE MONONITRATE 30 MG TAB.SR.24H (FP) PO SCH (10:17)
[2018-02-15] MEDS: amLODIPine BESYLATE 10 MG TABLET (FP) PO SCH (10:18)
[2018-02-15] MEDS: RANITIDINE HCL 150 MG TABLET (FP) PO SCH (10:18)
[2018-02-15] MEDS: FUROSEMIDE 40 MG TABLET (FP) PO SCH (10:18)
[2018-02-15] MEDS: RANOLAZINE E.R. 500 MG TABLET (FP) PO SCH (10:18)
--- NOTE | 2018-02-15 11:46 | PN ---
Progress Note, Physician Chief Complaint: Left sided reproducible CP in interscapular area, awaiting transfer to [facility] for Cath - Current Medication List Current Medications: Active Medications Acetaminophen (Tylenol -) 650 mg PO Q6H PRN PRN Reason: PAIN LEVEL 1-5 Amlodipine Besylate (Norvasc -) 10 mg PO DAILY [facility] Last Admin: 02/15/18 10:18 Dose: 10 mg Aspirin (Asa -) 81 mg PO DAILY [facility] Last Admin: 02/15/18 10:16 Dose: 81 mg Carvedilol (Coreg -) 12.5 mg PO BID [facility] Last Admin: 02/15/18 10:17 Dose: 12.5 mg Furosemide (Lasix -) 40 mg PO DAILY [facility] Last Admin: 02/15/18 10:18 Dose: 40 mg Insulin Aspart ([facility] Vial Sliding Scale -) [facility] Protocol Last Admin: 02/15/18 06:18 Dose: 4 units Isosorbide Mononitrate (Imdur -) 30 mg PO DAILY [facility] Last Admin: 02/15/18 10:17 Dose: 30 mg Non-Formulary Medication (Travatan 0.004%) 1 drop OP [facility] Non-Formulary Medication (Combigan 0.2%) 1 drop OP BID [facility] Ranitidine HCl (Zantac -) 150 mg PO DAILY [facility] Last Admin: 02/15/18 10:18 Dose: 150 mg Ranolazine (Ranexa -) 500 mg PO BID [facility] Last Admin: 02/15/18 10:18 Dose: 500 mg Rosuvastatin Calcium (Crestor -) 10 mg PO [facility] Last Admin: 02/14/18 21:12 Dose: 10 mg Tamsulosin HCl (Flomax -) 0.4 mg PO DAILY@0830 [facility] Last Admin: 02/15/18 10:16 Dose: 0.4 mg Valsartan (Diovan -) 80 mg PO BID [facility] Last Admin: 02/15/18 10:17 Dose: 80 mg - Objective Vital Signs: Vital Signs Temperature 97.8 F 02/15/18 10:12 Pulse Rate 60 02/15/18 10:12 Respiratory Rate 18 02/15/18 10:12 Blood Pressure 124/62 02/15/18 10:12 O2 Sat by Pulse Oximetry (%) 98 02/14/18 21:00 Constitutional: Well Nourished, No Distress, Calm, Diaphoresis. No: Mild Distress, Moderate Distress HEENT: : Conjunctiva Clear, EOM Intact, Atraumatic, Normocephalic Neck: Supple, Trachea Midline. No: Decreased ROM, Lymphadenopathy Cardiovascular: Regular Rate and Rhythm, JVD, S1, S2. No: Bradycardia, Tachycardia Respiratory: Yes: Regular, CTA Bilaterally Gastrointestinal: Yes: Normal Bowel Sounds, Soft Extremities: No Calf Tenderness, no Edema: RUE: 1+, LLE: 1+Peripheral Pulses Left Doralis Pedis: 1+, Right Dorsalis Pedis: 1+ Neurological: WNL, Alert, Oriented, Motor Strength: LUE, RUE, RLE Labs: CBC, BMP 02/15/18 05:30 02/15/18 05:30 INR, PTT INR 1.28 (0.83-1.09) H 02/11/18 23:46 Problem List - Problems (1) Chest pain Assessment/Plan: Normal serial CE and stable EKGs F/U NST result +, agrees for cath will F/U cardiology Code(s): R07.9 - CHEST PAIN, UNSPECIFIED Qualifiers: Chest pain type: unspecified Qualified Code(s): R07.9 - Chest pain, unspecified (2) Atrial fibrillation Assessment/Plan: s/p abalation AV sequential pacemaker off AC for possible cath. Code(s): I48.91 - UNSPECIFIED ATRIAL FIBRILLATION Qualifiers: Atrial fibrillation type: paroxysmal Qualified Code(s): I48.0 - Paroxysmal atrial fibrillation (3) Cerebrovascular accident (CVA) Assessment/Plan: in 2016 no residual weakness s/o tpa Code(s): I63.9 - CEREBRAL INFARCTION, UNSPECIFIED (4) Cardiac pacemaker in situ Assessment/Plan: Sick sinus syndrom s/p ablation and AV sequential pacemaker Code(s): Z95.0 - PRESENCE OF CARDIAC PACEMAKER (5) Coronary artery disease Assessment/Plan: H/O CAD s/p LAD PCI on ASA, imdur, Ranexa B Blockers, stress test + agrees forcath will F/U with Cardiology consult for arrangement. Code(s): I25.10 - ATHSCL HEART DISEASE OF [place] CORONARY ARTERY W/O ANG PCTRS (6) Chronic renal insufficiency Assessment/Plan: CKD stage 3 renal funcyionsa are at base line Code(s): N18.9 - CHRONIC KIDNEY DISEASE, UNSPECIFIED Qualifiers: Chronic kidney disease stage: stage 3 (moderate) Qualified Code(s): N18.3 - Chronic kidney disease, stage 3 (moderate) (7) Type 2 diabetes mellitus Assessment/Plan: Retinopathy and nephropathy on Lantus will switch to Levimer and correction dose insulin diabetic diet f/u HbA1C level Code(s): E11.9 - TYPE 2 DIABETES MELLITUS WITHOUT COMPLICATIONS (8) Dyslipidemia Assessment/Plan: On statin Code(s): E78.5 - HYPERLIPIDEMIA, UNSPECIFIED
--- NOTE | 2018-02-15 13:32 | PN ---
Progress Note (short form) - Note Progress Note: 77 year old AA male known case of CAD angina pectoris, HTN,CVA, paroxysmal atrial fib.dyslipidemia,h/o CHF,s/p PPM DM type II with multisystem involved including CKD, PAD admitted with recurring chest pains, fatigue and SOB , had myocardial perfusion scan and reveals a moderate size reversible defect consistent with ischemia. No chest pain or discomfort, no SOB. Awaiting transfer to [facility]. Spoke to the call center, there is no bed available and advised to check if patient is going to have a cardiac cath today, and if not patient is to be given his lunch. Active Medications Acetaminophen (Tylenol -) 650 mg PO Q6H PRN PRN Reason: PAIN LEVEL 1-5 Amlodipine Besylate (Norvasc -) 10 mg PO DAILY [facility] Last Admin: 02/15/18 10:18 Dose: 10 mg Aspirin (Asa -) 81 mg PO DAILY [facility] Last Admin: 02/15/18 10:16 Dose: 81 mg Carvedilol (Coreg -) 12.5 mg PO BID [facility] Last Admin: 02/15/18 10:17 Dose: 12.5 mg Furosemide (Lasix -) 40 mg PO DAILY [facility] Last Admin: 02/15/18 10:18 Dose: 40 mg Insulin Aspart (Novolog Vial Sliding Scale -) 1 vial SQ TIDAC [facility]; Protocol Last Admin: 02/15/18 12:49 Dose: Not Given Isosorbide Mononitrate (Imdur -) 30 mg PO DAILY [facility] Last Admin: 02/15/18 10:17 Dose: 30 mg Non-Formulary Medication (Travatan 0.004%) 1 drop OP [facility] Non-Formulary Medication (Combigan 0.2%) 1 drop OP BID [facility] Ranitidine HCl (Zantac -) 150 mg PO DAILY [facility] Last Admin: 02/15/18 10:18 Dose: 150 mg Ranolazine (Ranexa -) 500 mg PO BID [facility] Last Admin: 02/15/18 10:18 Dose: 500 mg Rosuvastatin Calcium (Crestor -) 10 mg PO HS [facility] Last Admin: 02/14/18 21:12 Dose: 10 mg Tamsulosin HCl (Flomax -) 0.4 mg PO DAILY@0830 [facility] Last Admin: 02/15/18 10:16 Dose: 0.4 mg Valsartan (Diovan -) 80 mg PO BID [facility] Last Admin: 02/15/18 10:17 Dose: 80 mg Last Vital Signs Temp Pulse Resp BP Pulse Ox 97.8 F 60 18 124/62 98 02/15/18 10:12 02/15/18 10:12 02/15/18 10:12 02/15/18 10:12 02/14/18 21:00 NECK: supple, no JVD, HJR-ve. HEART: S1&S2 grade I/ systolic murmur, no gallops. LUNGS: Clear on auscultation. ABDOMEN: Soft, nontender, no organomegaly. EXTREMITIES: no calf tenderness or dependent edema. CBC, BMP 02/15/18 05:30 02/15/18 05:30 Laboratory Results - last 24 hr 02/14/18 02/15/18 02/15/18 16:38 05:30 05:30 WBC 4.5 RBC 3.55 L Hgb 11.1 L Hct 31.7 L MCV 89.3 MCH 31.2 MCHC 35.0 RDW 13.3 Plt Count 159 MPV 7.1 L Absolute Neuts (auto) 2.6 Neutrophils % 57.0 Lymphocytes % 23.6 Monocytes % 12.4 H Eosinophils % 6.4 H Basophils % 0.6 Nucleated RBC % 0 Sodium 141 Potassium 4.6 Chloride 108 H Carbon Dioxide 27 Anion Gap 7 L BUN 46 H Creatinine 1.9 H Creat Clearance w eGFR 34.55 POC Glucometer 209 Random Glucose 259 H Calcium 9.0 02/15/18 02/15/18 05:42 12:48 WBC RBC Hgb Hct MCV MCH MCHC RDW Plt Count MPV Absolute Neuts (auto) Neutrophils % Lymphocytes % Monocytes % Eosinophils % Basophils % Nucleated RBC % Sodium Potassium Chloride Carbon Dioxide Anion Gap BUN Creatinine Creat Clearance w eGFR POC Glucometer 242 148 Random Glucose Calcium IMPRESSION: 1. CAD,s/p PCI/stenting, progressive angina pectoris. 2. DM wih multisystem involvement. 3. HTN/HCVD. 4. S/p CVA with left hemiparesis. 5. Paroxysmal atrial fib. 6. Dyslipidemia. 7. S/p LV failure. 8. S/p PPM for advanced AV block. 9. CKD. RECOMMENDATIONS: 1. Awaiting transfer to [facility]. 2. Call center contacted to find when bed will be available. 3. Continue current medications.
[2018-02-15 15:50] VITALS: BP 122/73; PULSE 61; TEMP 98
[2018-02-15] MEDS ORDERED: BRIMONIDINE TARTRATE 0.2% OPHTHALMIC 5 ML BOTTLE OU SCH (22:00)
[2018-02-15] MEDS ORDERED: TIMOLOL 0.5% OPHTHALMIC SOL 5 ML BOTTLE OU SCH (22:00)
[2018-02-15] MEDS ORDERED: LATANOPROST 0.005% OPHTH SOLN 2.5ML BOTTLE OU SCH (22:00)
--- NOTE | 2018-02-16 03:30 | DS ---
Physical Examination Vital Signs: Vital Signs Temperature 98 F 02/15/18 14:10 Pulse Rate 61 02/15/18 14:10 Respiratory Rate 18 02/15/18 14:10 Blood Pressure 122/73 02/15/18 14:10 O2 Sat by Pulse Oximetry (%) 99 02/15/18 09:00 Constitutional: Well Nourished, No Distress, Calm, Diaphoresis. No: Mild Distress, Moderate Distress HEENT: : Conjunctiva Clear, EOM Intact, Atraumatic, Normocephalic Neck: Supple, Trachea Midline. No: Decreased ROM, Lymphadenopathy Cardiovascular: Regular Rate and Rhythm, JVD, S1, S2. No: Bradycardia, Tachycardia Respiratory: Yes: Regular, CTA Bilaterally Gastrointestinal: Yes: Normal Bowel Sounds, Soft Extremities: No Calf Tenderness, no Edema: RUE: 1+, LLE: 1+Peripheral Pulses Left Doralis Pedis: 1+, Right Dorsalis Pedis: 1+ Neurological: WNL, Alert, Oriented, Motor Strength: LUE, RUE, RLE Labs: CBC, BMP 02/15/18 05:30 02/15/18 05:30 Discharge Summary Reason For Visit: CHEST PAIN Procedures: Principal: stress test Hospital Course: 77 yrs old pleasant, multiple medical Co-morbidities H/O HTN, Dyslipedemia, T2DM on Insulin, CKD stage 3, CAD s/p PCI, Sick sinus syndrome, PAfib s/p Ablation and sequential AV pacemaker, dHF with EF 60-65%, CVa s/p Tpa no residual weakness, present with Left sided chest pain, that he developed 2 days ago, reproducible localized in interscapular area and left shoulder blade medial aspect 7/10 aggravates with passive movement, marco serial CE, normal echo , perfusion scan moderate size inf and inf lateral ischemia Condition: Improved - Instructions Referrals: Beka Lima MD [Primary Care Provider] - Disposition: TRANSFER ACUTE CARE/OTHER HOSP - Home Medications Comprehensive Discharge Medication List: Ambulatory Orders Amlodipine Besylate [Norvasc -] 10 mg PO DAILY 02/23/16 Apixaban [Eliquis -] 5 mg PO BID 02/23/16 Carvedilol [Coreg -] 12.5 mg PO BID 02/23/16 Furosemide [Lasix -] 40 mg PO DAILY 02/23/16 Isosorbide Mononitrate [Imdur -] 30 mg PO DAILY 02/23/16 Rosuvastatin [Crestor -] 10 mg PO HS 02/23/16 Tamsulosin HCl [Flomax] 0.4 mg PO DAILY 02/23/16 Valsartan [Diovan] 80 mg PO BID 02/23/16
== END 2018-02-15 16:30 | disposition short-term general hospital (02) | DRG 303 ==
LOC: JER 23:10 → JERBED 02-12 01:28 → J4W 02-12 02:38
PROVIDERS: ADMIT Internal Medicine; ATTEND Internal Medicine
DX: I25.110 Atherosclerotic heart disease of native coronary artery with unstable angina pectoris (principal); I48.1 Persistent atrial fibrillation; I69.354 Hemiplegia and hemiparesis following cerebral infarction affecting left non-dominant side; I13.0 Hypertensive heart and chronic kidney disease with heart failure and stage 1 through stage 4 chronic kidney disease, or unspecified chronic kidney disease; I10 Essential (primary) hypertension; E78.5 Hyperlipidemia, unspecified; K21.9 Gastro-esophageal reflux disease without esophagitis; I48.0 Paroxysmal atrial fibrillation; E11.22 Type 2 diabetes mellitus with diabetic chronic kidney disease; N18.3 Chronic kidney disease, stage 3 (moderate); E11.51 Type 2 diabetes mellitus with diabetic peripheral angiopathy without gangrene; Z95.5 Presence of coronary angioplasty implant and graft; Z95.0 Presence of cardiac pacemaker; Z79.4 Long term (current) use of insulin
CPT/HCPCS: 36415; 71045-TC-FY; 78452-TC; 80048; 80053; 80061; 82550; 82962; 83036; 83690; 83721; 83735; 83880; 84484; 85025; 85610; 86850; 86900; 86901; 87040; 93005; 93010; 93017; 93306-TC; 99282-25; A9502; J2785

== ENCOUNTER 2018-11-24 18:09 | Inpatient (IN) | payer OTHER ==
--- NOTE | 2018-11-24 18:16 | PDOC ---
Rapid Medical Evaluation Time Seen by Provider: 11/24/18 18:14 Medical Evaluation: Allergies Allergy/AdvReac Type Severity Reaction Status Date / Time No Known Allergies Allergy Verified 02/12/18 01:56 11/24/18 18:14 HPI:hematuria x2 days sent by PCP Beka Lima PE: ambulates ORDERS: Labs Discharge Disposition - Diagnosis Hematuria - Referrals Referrals: Beka Lima MD [Primary Care Provider] - - Patient Instructions - Post Discharge Activity
--- NOTE | 2018-11-24 19:16 | PDOC ---
History of Present Illness - History of Present Illness Initial Comments: The pt is a 78M w/ a history of CVA, CAD, T2DM, s/p stent, HLD, A-fib who presents from his PMD's office for evaluation of 2 days of painless hematuria. He has never had this happen before, endorses 2 days of NB diarrhea. Denies fevers/chills, chest pain, increased WINKLER/SOB, abdominal pain, dysuria, or change in sensation. Denies history of tobacco or EtOH use. 11/24/18 19:36 <Owen Mitchell - Last Filed: 11/24/18 21:45> <Margarita Austin - Last Filed: 11/25/18 02:37> - General Chief Complaint: Hematuria Stated Complaint: REF. BY DOC. ADMISSION Time Seen by Provider: 11/24/18 18:14 Past History - Past Medical History Anemia: No Asthma: No Cancer: No Cardiac Disorders: Yes CVA: Yes COPD: No CHF: Yes Dementia: No Diabetes: Yes GI Disorders: Yes (gerd) Disorders: No HTN: Yes Hypercholesterolemia: Yes Liver Disease: No Seizures: No Thyroid Disease: No - Surgical History Abdominal Surgery: No Appendectomy: No Cardiac Surgery: Yes (pacemaker, stent placement) Cholecystectomy: No Lung Surgery: No Neurologic Surgery: No Orthopedic Surgery: No - Suicide/Smoking/Psychosocial Hx Smoking Status: No Smoking History: Unknown if ever smoked Years of Tobacco Use: 0 Have you smoked in the past 12 months: No Number of Cigarettes Smoked Daily: 0 Cigars Per Day: 0 Hx Alcohol Use: No Drug/Substance Use Hx: No Substance Use Type: None Hx Substance Use Treatment: No <Owen Mitchell - Last Filed: 11/24/18 21:45> <Margarita Austin - Last Filed: 11/25/18 02:37> - Past Medical History Allergies/Adverse Reactions: Allergies Allergy/AdvReac Type Severity Reaction Status Date / Time No Known Allergies Allergy Verified 11/24/18 18:15 Home Medications: Ambulatory Orders Amlodipine Besylate [Norvasc -] 10 mg PO DAILY 02/23/16 Apixaban [Eliquis -] 5 mg PO BID 02/23/16 Carvedilol [Coreg -] 12.5 mg PO BID 02/23/16 Furosemide [Lasix -] 40 mg PO DAILY 02/23/16 Isosorbide Mononitrate [Imdur -] 30 mg PO DAILY 02/23/16 Tamsulosin HCl [Flomax] 0.4 mg PO DAILY 02/23/16 Valsartan [Diovan] 80 mg PO BID 02/23/16 Review of Systems - Review of Systems Able to Perform ROS?: Yes Comments:: GENERAL/CONSTITUTIONAL: No fever or chills. No weakness HEAD, EYES, EARS, NOSE AND THROAT: No change in vision. No ear pain or discharge. No sore throat CARDIOVASCULAR: No chest pain or shortness of breath RESPIRATORY: Denies cough, hemoptysis GASTROINTESTINAL: No nausea, vomiting, diarrhea or constipation GENITOURINARY: +hematuria; denies dysuria MUSCULOSKELETAL: No joint or muscle swelling or pain. No neck or back pain SKIN: No rash NEUROLOGIC: No headache, vertigo, loss of consciousness, or change in strength/ sensation ENDOCRINE: No increased thirst. No abnormal weight change HEMATOLOGIC/LYMPHATIC: No anemia, easy bleeding, or history of blood clots ALLERGIC/IMMUNOLOGIC: No hives or skin allergy 11/24/18 19:20 Is the patient limited [place] Islander proficient: No <Owen Mitchell - Last Filed: 11/24/18 21:45> *Physical Exam - Vital Signs Last Vital Signs Temp Pulse Resp BP Pulse Ox 98.4 F 60 20 129/67 100 11/24/18 18:18 11/24/18 18:18 11/24/18 18:18 11/24/18 18:18 11/24/18 18:18 - Physical Exam Comments: GENERAL: Awake, alert, and oriented to person/place/time, in no acute distress HEAD: No signs of trauma, normocephalic, atraumatic EYES: PERRLA, EOMI, sclera anicteric, conjunctiva clear ENT: Hearing grossly normal, nares patent, oropharynx clear without exudates. No uvular deviation. Moist mucosa CHEST: pacemaker in place LUNGS: No distress, speaks in full sentences, clear to auscultation bilaterally HEART: Regular rate and rhythm, normal S1 and S2, no murmurs appreciated, peripheral pulses normal and equal bilaterally ABDOMEN: Soft, nontender, normoactive bowel sounds. No guarding, no rebound EXTREMITIES: Normal inspection, Normal range of motion, no edema. No clubbing or cyanosis NEUROLOGICAL: Cranial nerves II through XII grossly intact. Normal speech, normal gait, no focal sensorimotor deficits SKIN: Warm, Dry 11/24/18 19:20 11/24/18 19:41 <Owen Mitchell - Last Filed: 11/24/18 21:45> - Vital Signs Last Vital Signs Temp Pulse Resp BP Pulse Ox 98.5 F 78 19 123/78 100 11/24/18 22:19 11/24/18 22:19 11/24/18 22:19 11/24/18 22:19 11/24/18 22:19 <Margarita Austin - Last Filed: 11/25/18 02:37> ED Treatment Course - LABORATORY CBC & Chemistry Diagram: 11/24/18 20:18 11/24/18 20:18 <Owen Mitchell - Last Filed: 11/24/18 21:45> - LABORATORY CBC & Chemistry Diagram: 11/24/18 20:18 11/24/18 20:18 <Margarita Austin - Last Filed: 11/25/18 02:37> Medical Decision Making - Medical Decision Making The pt is a 78M who presents for evaluation of 2 days of painless hematuria Ddx includes being 2/2 AC use, cystitis/UTI, nephrolithiasis, malignancy ED Course Labs sent ECG Renal and Bladder US No leukocytosis No anemia Lytes unremarkable LFTs unremarkable Cr near baseline 2.3 from 1.9 US w/o hydronephrosis or acute renal pathology. Possible bladder mass versus protruding prostate. Plan for admission for further evaluation and likely cystoscopy Dispo: Admit 11/24/18 21:44 <Owen Mitchell - Last Filed: 11/24/18 21:45> *DC/Admit/Observation/Transfer - Discharge Dispostion Decision to Admit order: Yes <Owen Mitchell - Last Filed: 11/24/18 21:45> <Margarita Austin - Last Filed: 11/25/18 02:37> Diagnosis at time of Disposition: Hematuria Qualifiers: Hematuria type: unspecified type Qualified Code(s): R31.9 - Hematuria, unspecified - Discharge Dispostion Condition at time of disposition: Good
--- NOTE | 2018-11-24 20:22 | PDOC ---
Documentation entered by Chantell Arias SCRIBE, acting as scribe for Margarita Autsin MD. Margarita Austin MD: This documentation has been prepared by the Hugo kohler Adrianna, SCRIBE, under my direction and personally reviewed by me in its entirety. I confirm that the documentation accurately reflects all work, treatment, procedures, and medical decision making performed by me. Attending Attestation - Resident Resident Name: PaulaOwen - ED Attending Attestation I have performed the following: I have examined & evaluated the patient, The case was reviewed & discussed with the resident, I agree w/resident's findings & plan, Exceptions are as noted - HPI HPI: The patient is a 78 year old male, with a significant PMH of HTN, HLD, CAD, paroxysmal atrial flutter (s/p pacemaker), AFib, DM type II, chronic SOB, and CKD, who presents to the ED for evaluation of hematuria for two days. Patient states he has been experiencing red-tinged urine, without dysuria. He additionally endorses associated NB diarrhea. Patient was seen in his PCPs office today for this complaint, who advised the patient to come to the ED for admission. He denies any history of similar symptoms. Denies CP, SOB, headache, focal weakness/numbness, abd pain, LE edema, rashes. [facility] office today Allergies: NKA, NKDA Social history: Denies EtOH, tobacco, or illicit drug use Surgical history: Pacemaker and Stent placement PCP: Dr. Beka Lima Industrial Engineering Analyst: Dr. Horner - Physicial Exam PE: 11/24/18 20:18 agree with resident exam - Medical Decision Making 11/24/18 20:18 78yo M presents to the ED with painless hematuria Vitals wnl DDx includes bleeding 2/2 AC vs malignancy vs UTI Plan for labs, US, UA, admission per Dr. Gay ED Treatment Course - LABORATORY CBC & Chemistry Diagram: 11/24/18 20:18 11/24/18 20:18 - RADIOLOGY Radiology Studies Ordered: EXAM#: TYPE/EXAM: RESULT: [id number] US/KIDNEY / RENAL US Impression: The kidneys appear unremarkable demonstrating no sonographic abnormality. There has been no definite interval change in comparison to a prior ultrasound exam of 07/06/2015. A post void residual urinary volume of 280 mL is noted. Prevoid volume 660 mL. Enlarged prostate gland. Reported By: Corky Sofia MD 11/24/18 21:41 EXAM#: TYPE/EXAM: RESULT: [id number] US/PELVIC / BLADDER US ADDENDUM ADDENDUM #1 Addendum: Additional review of the exam demonstrates a possible approximately 4 x 4 x 3 cm soft tissue mass lesion along the floor of the urinary bladder versus representing invagination of the enlarged prostate gland. Correlate with cystoscopy. ORIGINAL REPORT Impression: A post void residual urinary volume of 280 mL is noted. Prevoid volume 660 mL. Enlarged prostate gland. Reported By: Corky Sofia MD 11/24/18 21:41
[2018-11-24 20:26] LABS: EOS % 5.5 % (0-4.5); HEMATOCRIT 34.7 % (35.4-49); HEMOGLOBIN 11.7 GM/dL (11.7-16.9); LYMPH % 23.5 % (8-40); MCH 30.4 pg (25.7-33.7); MCHC 33.6 g/dl (32.0-35.9); MEAN CELL VOLUME 90.4 fl (80-96); MEAN PLT VOLUME 7.2 fl (7.5-11.1); MONO % 13.7 % (3.8-10.2); NEUT % 56.3 % (42.8-82.8); PLATELET COUNT 177 K/MM3 (134-434); RBC 3.84 M/mm3 (4.00-5.60); RDW 13.9 % (11.9-15.9); RETICULOCYTES 0.99 % (0.5-1.5); WHITE BLOOD COUNT 4.9 K/mm3 (4.0-10.0)
[2018-11-24 20:44] LABS: ALBUMIN 3.7 g/dl (3.4-5.0); BILIRUBIN,TOTAL 0.4 mg/dL (0.2-1); BLOOD UREA NITROGEN 45.9 mg/dL (7-18); CALCIUM 9.3 mg/dL (8.5-10.1); CREATININE 2.3 mg/dL (0.55-1.3); INR 1.61 (0.83-1.09); POTASSIUM 4.7 mmol/L (3.5-5.1); PROTHROMBIN TIME (PATIENT) 19.1 SEC (9.7-13.0); TOT PROT 6.5 g/dl (6.4-8.2)
[2018-11-24 22:48] LABS: EPI CELLS 0.1 /HPF (0-5/HPF); HYALINE CASTS 1 /lpf (0-8); PH,URINE 5.5 (5.0-8.0); URINE APPEARANCE CLEAR; URINE BACTERIA 0.8 /hpf (NEGATIVE); URINE BILIRUBIN NEGATIVE (NEGATIVE); URINE COLOR YELLOW; URINE GLUCOSE (UA) NEGATIVE (NEGATIVE); URINE KETONE NEGATIVE (NEGATIVE); URINE LEUK ESTERASE NEGATIVE (NEGATIVE); URINE NITRITE NEGATIVE (NEGATIVE); URINE PROTEIN 2+ (NEGATIVE); URINE RBC 22 /hpf (0-4); URINE UROBILINOGEN 0.2 mg/dL (0.2-1.0); URINE WBC 1 /hpf (0-5)
--- NOTE | 2018-11-25 09:29 | HP ---
DATE OF ADMISSION: 11/24/2018 A 78-year-old male, well known to me, history of CVA, coronary artery disease, diabetes, status post stent, atrial fibrillation; came to my office yesterday with complaints of hematuria, no pain. No abdominal pain. No fever. No chills. No diarrhea. 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 Has grown-up children. Not a smoker. No alcohol abuse. PRESENT MEDICATIONS: Amlodipine 10 mg daily, Eliquis 5 mg b.i.d., carvedilol 12.5 b.i.d., Lasix 40 mg daily, isosorbide 30 mg daily, Flomax 0.4 mg daily, and Diovan 80 mg b.i.d. He is also followed by Dr. Horner, the licensed optical dispenser. At present, this morning, patient says he still has bloody urine. PHYSICAL EXAMINATION: Vital Signs: Blood pressure 145/74, pulse 64, respirations 20, temperature 98.6. HEENT: Unremarkable. Neck: Supple. No JVD. Lungs: Clear. Heart: S1, S2. Normal. No S3, S4. Abdomen: Soft. Legs: No edema. Genitourinary: No scrotal swelling. No urethral discharge. Neurological: Grossly normal. DIAGNOSES: 1. Hematuria. 2. Benign prostatic hypertrophy. 3. Old cerebrovascular accident. 4. Atrial fibrillation. PLAN: Continue his present medications. Stop Eliquis for the time being. consult, Dr. Leong; Dr. Schafer. Will follow. Sharlene [id number]
[2018-11-25] MEDS: amLODIPine BESYLATE 10 MG TABLET (FP) PO SCH (10:18)
[2018-11-25] MEDS: CARVEDILOL 12.5 MG TABLET (FP) PO SCH ×2 (10:18→21:19)
[2018-11-25] MEDS: ISOSORBIDE MONONITRATE 30 MG TAB.SR.24H (FP) PO SCH (10:18)
[2018-11-25] MEDS: VALSARTAN 80 MG TABLET (UD) PO SCH ×2 (10:18→21:19)
[2018-11-25] MEDS: FUROSEMIDE 40 MG TABLET (FP) PO SCH (10:18)
[2018-11-26] MEDS: TAMSULOSIN HCL 0.4 MG CAP PO SCH (08:34)
[2018-11-26] MEDS ORDERED: PT OWN MED DRAWER 7, Y5N ONE (09:35)
[2018-11-26] MEDS: ISOSORBIDE MONONITRATE 30 MG TAB.SR.24H (FP) PO SCH (09:36)
[2018-11-26] MEDS: CARVEDILOL 12.5 MG TABLET (FP) PO SCH ×2 (09:36→21:41)
[2018-11-26] MEDS: FUROSEMIDE 40 MG TABLET (FP) PO SCH (09:36)
[2018-11-26] MEDS: VALSARTAN 80 MG TABLET (UD) PO SCH ×2 (09:36→21:41)
[2018-11-26] MEDS: amLODIPine BESYLATE 10 MG TABLET (FP) PO SCH (09:36)
--- NOTE | 2018-11-26 12:13 | PN ---
Progress Note, Physician Chief Complaint: non new complaints - Current Medication List Current Medications: Active Medications Amlodipine Besylate (Norvasc -) 10 mg PO DAILY [facility] Last Admin: 11/26/18 09:36 Dose: 10 mg Brimonidine Tartrate (Alphagan 0.2% -) 1 drop OU BID [facility] Carvedilol (Coreg -) 12.5 mg PO BID [facility] Last Admin: 11/26/18 09:36 Dose: 12.5 mg Furosemide (Lasix -) 40 mg PO DAILY [facility] Last Admin: 11/26/18 09:36 Dose: 40 mg Isosorbide Mononitrate (Imdur -) 30 mg PO DAILY [facility] Last Admin: 11/26/18 09:36 Dose: 30 mg Latanoprost (Xalatan 0.005% Eye Drops -) 1 drop OU [facility] Tamsulosin HCl (Flomax -) 0.4 mg PO DAILY@0830 [facility] Last Admin: 11/26/18 08:34 Dose: 0.4 mg Timolol Maleate (Timoptic 0.5%) 1 drop OU BID [facility] Valsartan (Diovan -) 80 mg PO BID [facility] Last Admin: 11/26/18 09:36 Dose: 80 mg - Objective Vital Signs: Vital Signs Temperature 98.2 F 11/26/18 09:03 Pulse Rate 60 11/26/18 09:03 Respiratory Rate 20 11/26/18 09:03 Blood Pressure 141/65 11/26/18 09:03 O2 Sat by Pulse Oximetry (%) 99 11/26/18 09:00 Constitutional: Yes: Well Nourished, No Distress Eyes: Yes: Conjunctiva Clear HENT: Yes: Atraumatic, Normocephalic Neck: Yes: Supple, Trachea Midline Cardiovascular: Yes: Regular Rate and Rhythm, S1, S2. No: JVD, Gallop, Murmur Respiratory: Yes: Regular, CTA Bilaterally Gastrointestinal: Yes: Normal Bowel Sounds, Soft Edema: Yes Edema: LLE: 1+, RLE: 1+ Peripheral Pulses WNL: Yes Peripheral Pulses: Left Doralis Pedis: 2+, Right Dorsalis Pedis: 2+ Neurological: Yes: Alert, Oriented, Cran Nerves II-XII Intact ...Motor Strength: WNL, LUE, LLE, RUE, RLE Labs: CBC, BMP 11/24/18 20:18 07/05/19 20:18 INR, PTT INR 1.61 (0.83-1.09) H 11/24/18 20:18 Problem List - Problems (1) Hematuria Assessment/Plan: Due to retention and BPH on AC will Hold AC F/U recommondations Code(s): R31.9 - HEMATURIA, UNSPECIFIED Qualifiers: Hematuria type: unspecified type Qualified Code(s): R31.9 - Hematuria, unspecified (2) Atrial fibrillation Assessment/Plan: Rtae controlled off AC Code(s): I48.91 - UNSPECIFIED ATRIAL FIBRILLATION Qualifiers: (3) Cardiac pacemaker in situ Assessment/Plan: Recently interogated Code(s): Z95.0 - PRESENCE OF CARDIAC PACEMAKER (4) Cerebrovascular accident (CVA) Assessment/Plan: No residual weakness cont Statin of AC Code(s): I63.9 - CEREBRAL INFARCTION, UNSPECIFIED (5) Coronary artery disease Assessment/Plan: No actibve issue currently stable cont home meds Code(s): I25.10 - ATHSCL HEART DISEASE OF [place] CORONARY ARTERY W/O ANG PCTRS (6) Diabetes mellitus Assessment/Plan: T2 Hold Po meds cont correction dose Insulin with accu checks Code(s): E11.9 - TYPE 2 DIABETES MELLITUS WITHOUT COMPLICATIONS (7) Chronic renal insufficiency Assessment/Plan: Due to DM renl function are stable Code(s): N18.9 - CHRONIC KIDNEY DISEASE, UNSPECIFIED Qualifiers: Chronic kidney disease stage: stage 3 (moderate) Qualified Code(s): N18.3 - Chronic kidney disease, stage 3 (moderate) (8) Diastolic dysfunction without heart failure Assessment/Plan: compensated cont current meds Code(s): I51.9 - HEART DISEASE, UNSPECIFIED (9) S/P coronary artery stent placement Assessment/Plan: S/P revascularization no active issue Code(s): Z95.5 - PRESENCE OF CORONARY ANGIOPLASTY IMPLANT AND GRAFT (10) Pre-op evaluation Assessment/Plan: 78 yrs old man with multiple co-morbidities H/O HTN, CAD, CHF Afib CKD stage 3 admitted with hematuria , needs cystoscopy , at present patient is compensated, if indicated surgery can be performed, will closely observe perioperative care should take B Blockers 6.00 am on the day of surgery. Code(s): Z01.818 - ENCOUNTER FOR OTHER PREPROCEDURAL EXAMINATION
[2018-11-26] MEDS: BRIMONIDINE TARTRATE 0.2% OPHTHALMIC 5 ML BOTTLE OU SCH ×2 (12:26→21:41)
--- NOTE | 2018-11-26 12:33 | CONSULT ---
Consult Consult Specialty:: UROLOGY Reason for Consultation:: Gross hematuria - History of Present Illness Chief Complaint: 78 Y/O Male patient with history of DM, AF, CAD, CVA and BPH deveolped gross hematuria last week for 2 days, void with hesitency, no dysuria. O/E soft abd no palpable bladder. 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: CVA Cardio/Vascular: Yes: AFIB, CAD, CHF, HTN, Hyperlipdemia Renal/: Yes: Renal Inusuff Endocrine: Yes: Diabetes Mellitus - Past Surgical History Past Surgical History: Yes: Permanent Pacemaker, Stent - Alcohol/Substance Use Hx Alcohol Use: No - Smoking History Smoking history: Unknown if ever smoked Have you smoked in the past 12 months: No Aproximately how many cigarettes per day: 0 - Social History ADL: Independent Occupation: [employer] in [place] Home Medications - Allergies Allergies/Adverse Reactions: Allergies Allergy/AdvReac Type Severity Reaction Status Date / Time No Known Allergies Allergy Verified 11/24/18 18:15 - Home Medications Home Medications: Ambulatory Orders Amlodipine Besylate [Norvasc -] 10 mg PO DAILY 02/23/16 Apixaban [Eliquis -] 5 mg PO BID 02/23/16 Carvedilol [Coreg -] 12.5 mg PO BID 02/23/16 Furosemide [Lasix -] 40 mg PO DAILY 02/23/16 Isosorbide Mononitrate [Imdur -] 30 mg PO DAILY 02/23/16 Tamsulosin HCl [Flomax] 0.4 mg PO DAILY 02/23/16 Valsartan [Diovan] 80 mg PO BID 02/23/16 Physical Exam Vital Signs: Vital Signs Temperature 98.2 F 11/26/18 09:03 Pulse Rate 60 11/26/18 09:03 Respiratory Rate 20 11/26/18 09:03 Blood Pressure 141/65 11/26/18 09:03 O2 Sat by Pulse Oximetry (%) 99 11/26/18 09:00 Labs: CBC, BMP 11/24/18 20:18 11/24/18 20:18 Assessment/Plan BPH Gross hematuria Plan: cystoscopy and TUVP, will need cardiology clearance.
--- NOTE | 2018-11-26 13:29 | EKG ---
Test Reason : Blood Pressure : / mmHG Vent. Rate : 060 BPM Atrial Rate : 059 BPM P-R Int : 190 ms QRS Dur : 190 ms QT Int : 504 ms P-R-T Axes : 000 -65 093 degrees QTc Int : 504 ms AV SEQUENTIAL OR DUAL CHAMBER ELECTRONIC PACEMAKER ABNORMAL ECG Confirmed by MD NATE, TRISTIN ([id number]) on 11/26/2018 1:28:41 PM Referred By: Confirmed By:TRISTIN SULLIVAN MD
--- NOTE | 2018-11-26 16:16 | CONS ---
CARDIOLOGY CONSULTATION DATE OF CONSULTATION: DATE OF DICTATION: 11/26/2018 CONSULTATION REQUESTED BY: Beka Lima MD CHIEF COMPLAINT: Painless hematuria; preoperative evaluation for urological procedure. HISTORY OF PRESENT ILLNESS: The patient is a 78-year-old gentleman with a longstanding history of coronary artery disease status post myocardial infarction, status post PCI/stenting, angina pectoris, history of left ventricular systolic dysfunction, status post congestive heart failure, hypertension, hypertensive cardiovascular disease, history of diabetes mellitus type 2, chronic kidney disease, paroxysmal atrial fibrillation/flutter, status post cerebrovascular accident with left hemiparesis, history of diabetic retinopathy and nephropathy. The patient was admitted with recurring episodes of painless hematuria. He denies having recent shortness of breath either at rest or with exertion, no exertional dyspnea, paroxysmal nocturnal dyspnea or orthopnea reported. No history of recent chest, arm, back, jaw pain or discomfort. No history of pedal edema. No history of palpitations, lightheadedness, dizziness, presyncope or syncope. No history of cough or expectoration. PAST HISTORY: As mentioned in the history of present illness. History of glaucoma. SURGICAL HISTORY: 1. Status post pacemaker insertion. 2. Status post PCI/stenting. 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 Does not drink. Has 1-2 cups of caffeine. FAMILY HISTORY: Father at age 50 of unknown cause. Mother had sudden at age 53. He has no sibling. There is a strong family history from the maternal side of coronary artery disease. ALLERGIES: None reported. MEDICATIONS: 1. Alphagan 0.2% 1 drop both eyes b.i.d. 2. Timolol maleate 0.5% 1 drop both eyes. 3. Flomax 0.4 mg p.o. daily. 4. Diovan 80 mg p.o. b.i.d. 5. Amlodipine 10 mg p.o. daily. 6. Furosemide 40 mg p.o. daily. 7. Isosorbide mononitrate 50 mg p.o. daily. 8. Latanoprost 0.005% one drop both eyes at bedtime. Prior to admission the patient had been on Eliquis which has been discontinued. REVIEW OF SYSTEMS:Constitutional: No history of chills, fever or night sweats. History of unintentional weight loss. HEENT: No history of headaches. History of visual disturbances with decreased visual acuity and apparently has field cuts. No history of epistaxis, hoarseness, tinnitus or deafness reported. Cardiovascular: See history of present illness. No history of recent chest pain or dyspnea. Respiratory: No history of cough, expectoration or hemoptysis. No history of tuberculosis. Gastrointestinal: Denies having nausea, vomiting, melena or hematemesis. No history of early satiety. No history of abdominal pain or discomfort. No history of change in bowel habits. Neurologic: See history of present illness. No history of recent seizures or syncope. History of hemiparesis. Musculoskeletal: No history of myalgias or arthralgias reported. Endocrine: See history of present illness. Genitourinary: See history of present illness. Hematologic: History of painless hematuria. No history of ecchymosis. PHYSICAL EXAMINATION: General: A 78-year-old gentleman was in no acute distress, no pallor, cyanosis, clubbing or jaundice. Vital Signs: Weight 77.247 kg. Blood pressure 135/59 mmHg, pulse 62 beats per minute, respirations 20 per minute, temperature 98.5 degrees Fahrenheit, oxygen saturation 99% on room air. Neck: Supple. No jugular venous distention. Carotids were 2+, upstrokes were normal. No bruits were heard and there was no thyromegaly. Heart: PMI was in the 5th intercostal space, no heaves or thrills, S1 and S2 are normal. A grade 1/6 decrescendo systolic murmur was heard at the apex. No gallops or diastolic murmur were heard. Lungs: Clear to auscultation. Chest: Normal AP diameter, expansion was symmetrical. There was a well-healed surgical scar over the upper left anterior chest (back ). Abdomen: Soft, nontender, no hepatosplenomegaly or palpable masses were felt. Extremities: No calf tenderness or dependent edema. Femoral pulses were 2+, dorsalis pedis and posterior tibial pulses could not be palpated. LABORATORY DATA: X-ray chest dated September 09, 2018, impression: No acute chest pathology. ECG: November 24, 2018: Atrial rhythm is uncertain. AV sequential pacemaker was seen functioning appropriately. Her lab data November 24, 2018: CBC: WBC 4900, hemoglobin 11.7 g/dL, hematocrit 34.7%, platelet count 177,000. Differential revealed elevated monocytes, 13.7%, and eosinophils 5.5%. Chemistry: Sodium 142, potassium 4.7, chloride 109, CO2 27 Mmole/L. BUN 45.9, creatinine 2.3 mg/dL. Random glucose 181 mg/dL. INR on November 24, 2018, was 1.61. IMPRESSION:1. Coronary artery disease, status post myocardial infarction, status post percutaneous coronary intervention/stenting, angina pectoris, clinically stable. 2. History of paroxysmal atrial fibrillation/ flutter. 3. Status post permanent pacemaker. 4. Diabetes mellitus with multisystem involvement. 5. Hypertension, hypertensive cardiovascular disease. 6. History of congestive heart failure, currently compensated. 7. Hypercholesterolemia. 8. Painless hematuria. RECOMMENDATIONS: There appears to be no absolute contraindication to the contemplated procedure, but patient is at higher risk for cardiopulmonary event in view of multiple comorbid conditions. 1. Close cardiopulmonary monitoring. 2. Postoperative followup on telemetry. 3. APTT. 4. Postoperative ECG and cardiac enzymes. PROGNOSIS: Guarded. Thank you for your referral. LEO STACK M.D. [id number]
[2018-11-26] MEDS: LATANOPROST 0.005% OPHTH SOLN 2.5ML BOTTLE OU SCH (21:41)
[2018-11-26] MEDS: TIMOLOL 0.5% OPHTHALMIC SOL 5 ML BOTTLE OU SCH (21:41)
[2018-11-27 07:28] LABS: BASO % 0.8 % (0-2.0); EOS % 5.5 % (0-4.5); HEMATOCRIT 35.7 % (35.4-49); HEMOGLOBIN 12.4 GM/dL (11.7-16.9); LYMPH % 22.7 % (8-40); MCHC 34.8 g/dl (32.0-35.9); MEAN CELL VOLUME 89.1 fl (80-96); MEAN PLT VOLUME 7.2 fl (7.5-11.1); MONO % 13.1 % (3.8-10.2); NEUT % 57.9 % (42.8-82.8); PLATELET COUNT 161 K/MM3 (134-434); RDW 13.7 % (11.9-15.9); WHITE BLOOD COUNT 4.4 K/mm3 (4.0-10.0)
[2018-11-27 07:40] LABS: BILIRUBIN,TOTAL 0.5 mg/dL (0.2-1); BLOOD UREA NITROGEN 37.2 mg/dL (7-18); CALCIUM 8.6 mg/dL (8.5-10.1); CREATININE 1.6 mg/dL (0.55-1.3); POTASSIUM 4.1 mmol/L (3.5-5.1); TOT PROT 5.6 g/dl (6.4-8.2)
[2018-11-27 07:53] LABS: INR 1.08 (0.83-1.09); PROTHROMBIN TIME (PATIENT) 12.8 SEC (9.7-13.0)
--- NOTE | 2018-11-27 09:20 | PN ---
Progress Note, Physician Chief Complaint: No urine bleeding History of Present Illness: Dr Cervantes cardiology consult and clearance appreciated No hematuria now - Current Medication List Current Medications: Active Medications Amlodipine Besylate (Norvasc -) 10 mg PO DAILY [facility] Last Admin: 11/26/18 09:36 Dose: 10 mg Brimonidine Tartrate (Alphagan 0.2% -) 1 drop OU BID [facility] Last Admin: 11/26/18 21:41 Dose: 1 drop Carvedilol (Coreg -) 12.5 mg PO BID [facility] Last Admin: 11/26/18 21:41 Dose: 12.5 mg Furosemide (Lasix -) 40 mg PO DAILY [facility] Last Admin: 11/26/18 09:36 Dose: 40 mg Isosorbide Mononitrate (Imdur -) 30 mg PO DAILY [facility] Last Admin: 11/26/18 09:36 Dose: 30 mg Latanoprost (Xalatan 0.005% Eye Drops -) 1 drop OU HS [facility] Last Admin: 11/26/18 21:41 Dose: 1 drop Tamsulosin HCl (Flomax -) 0.4 mg PO DAILY@0830 [facility] Last Admin: 11/26/18 08:34 Dose: 0.4 mg Timolol Maleate (Timoptic 0.5%) 1 drop OU BID [facility] Last Admin: 11/26/18 21:41 Dose: 1 drop Valsartan (Diovan -) 80 mg PO BID [facility] Last Admin: 11/26/18 21:41 Dose: 80 mg - Objective Vital Signs: Vital Signs Temperature 97.9 F 11/27/18 05:00 Pulse Rate 60 11/27/18 05:00 Respiratory Rate 18 11/26/18 21:51 Blood Pressure 143/69 11/27/18 05:00 O2 Sat by Pulse Oximetry (%) 99 11/26/18 21:00 Constitutional: Yes: No Distress Eyes: Yes: WNL HENT: Yes: WNL Neck: Yes: WNL Cardiovascular: Yes: WNL Respiratory: Yes: Regular Gastrointestinal: Yes: WNL ...Rectal Exam: Yes: Deferred Breast(s): Yes: WNL Edema: No Labs: CBC, BMP 11/27/18 06:45 11/27/18 06:45 INR, PTT INR 1.08 (0.83-1.09) 11/27/18 06:45 Assessment/Plan Cleared for TURP in am
[2018-11-27] MEDS ORDERED: PT OWN MED DRAWER 7, Y5N ONE (09:37)
[2018-11-27] MEDS: CARVEDILOL 12.5 MG TABLET (FP) PO SCH ×2 (09:40→21:35)
[2018-11-27] MEDS: TAMSULOSIN HCL 0.4 MG CAP PO SCH (09:40)
[2018-11-27] MEDS: FUROSEMIDE 40 MG TABLET (FP) PO SCH (09:40)
[2018-11-27] MEDS: amLODIPine BESYLATE 10 MG TABLET (FP) PO SCH (09:41)
[2018-11-27] MEDS: ISOSORBIDE MONONITRATE 30 MG TAB.SR.24H (FP) PO SCH (09:41)
[2018-11-27] MEDS: VALSARTAN 80 MG TABLET (UD) PO SCH ×2 (09:41→21:35)
[2018-11-27] MEDS: TIMOLOL 0.5% OPHTHALMIC SOL 5 ML BOTTLE OU SCH ×2 (09:41→21:35)
[2018-11-27] MEDS: BRIMONIDINE TARTRATE 0.2% OPHTHALMIC 5 ML BOTTLE OU SCH ×2 (09:42→21:36)
--- NOTE | 2018-11-27 18:02 | PN ---
Progress Note (short form) - Note Progress Note: 78 year old AA male, admitted with gross painless hematuria. h/o of CAD, s/p [place] / PCI/ stenting, LV systolic dysfunction. IDDM, h/o CHF.Hypertension/HCVD, dyslipidemia. No further hematuria, awaiting cystoscopy, no chest pain or discomfort. No SOB, palpitations, dizziness or syncope. tolerating his medications. Active Medications Amlodipine Besylate (Norvasc -) 10 mg PO DAILY [facility] Last Admin: 11/27/18 09:41 Dose: 10 mg Brimonidine Tartrate (Alphagan 0.2% -) 1 drop OU BID [facility] Last Admin: 11/27/18 09:42 Dose: 1 drop Carvedilol (Coreg -) 12.5 mg PO BID [facility] Last Admin: 11/27/18 09:40 Dose: 12.5 mg Furosemide (Lasix -) 40 mg PO DAILY [facility] Last Admin: 11/27/18 09:40 Dose: 40 mg Isosorbide Mononitrate (Imdur -) 30 mg PO DAILY [facility] Last Admin: 11/27/18 09:41 Dose: 30 mg Latanoprost (Xalatan 0.005% Eye Drops -) 1 drop OU HS [facility] Last Admin: 11/26/18 21:41 Dose: 1 drop Tamsulosin HCl (Flomax -) 0.4 mg PO DAILY@0830 [facility] Last Admin: 11/27/18 09:40 Dose: 0.4 mg Timolol Maleate (Timoptic 0.5%) 1 drop OU BID [facility] Last Admin: 11/27/18 09:41 Dose: 1 drop Valsartan (Diovan -) 80 mg PO BID [facility] Last Admin: 11/27/18 09:41 Dose: 80 mg Last Vital Signs Temp Pulse Resp BP Pulse Ox 97.6 F 61 20 126/66 97 11/27/18 15:37 11/27/18 15:37 11/27/18 15:37 11/27/18 15:37 11/27/18 09:00 NECK: Supple, no JVD, carotids equal. HEART: PMI in the 5th ICS, no HJR, carotids 2+, no bruits. LUNGS: Clear on auscultation. ABDOMEN: soft, nontender, no organomegaly. EXTREMITIES: No calf tenderness or dependent edema. CBC, BMP 11/27/18 06:45 11/27/18 06:45 IMPRESSION: 1. CAD, s/p AK, s/p PCI/DAISY. 2. Dyslipidemia. 3. S/p CHF. 4. H/o LV systolic dysfunction. 5. Painless hematuria. 6. CKD. 7. DM. RECOMMENDATIONS: 1. Continue medications. 2. Please refer to consultation..
--- NOTE | 2018-11-27 21:38 | PN ---
Progress Note (short form) - Note Progress Note: UROLOGY NOTE BPH and Gross hematuria. Plan: NPO after midnight for tomorrow TURP and TURBT
[2018-11-27] MEDS: LATANOPROST 0.005% OPHTH SOLN 2.5ML BOTTLE OU SCH (21:40)
[2018-11-28] MEDS: TAMSULOSIN HCL 0.4 MG CAP PO SCH (09:00)
--- NOTE | 2018-11-28 09:04 | PN ---
Progress Note, Physician Chief Complaint: Feels sleepy No hematuria History of Present Illness: Scheduled for TURP to day - Current Medication List Current Medications: Active Medications Amlodipine Besylate (Norvasc -) 10 mg PO DAILY [facility] Last Admin: 11/27/18 09:41 Dose: 10 mg Brimonidine Tartrate (Alphagan 0.2% -) 1 drop OU BID [facility] Last Admin: 11/27/18 21:36 Dose: 1 drop Carvedilol (Coreg -) 12.5 mg PO BID [facility] Last Admin: 11/27/18 21:35 Dose: 12.5 mg Furosemide (Lasix -) 40 mg PO DAILY [facility] Last Admin: 11/27/18 09:40 Dose: 40 mg Isosorbide Mononitrate (Imdur -) 30 mg PO DAILY [facility] Last Admin: 11/27/18 09:41 Dose: 30 mg Latanoprost (Xalatan 0.005% Eye Drops -) 1 drop OU HS [facility] Last Admin: 11/27/18 21:40 Dose: 1 drop Tamsulosin HCl (Flomax -) 0.4 mg PO DAILY@0830 [facility] Last Admin: 11/27/18 09:40 Dose: 0.4 mg Timolol Maleate (Timoptic 0.5%) 1 drop OU BID [facility] Last Admin: 11/27/18 21:35 Dose: 1 drop Valsartan (Diovan -) 80 mg PO BID [facility] Last Admin: 11/27/18 21:35 Dose: 80 mg - Objective Vital Signs: Vital Signs Temperature 98.1 F 11/28/18 06:51 Pulse Rate 65 11/28/18 06:51 Respiratory Rate 21 H 11/28/18 06:51 Blood Pressure 133/74 11/28/18 06:51 O2 Sat by Pulse Oximetry (%) 98 11/27/18 20:35 Constitutional: Yes: No Distress Eyes: Yes: WNL HENT: Yes: WNL Neck: Yes: WNL Cardiovascular: Yes: Pulse Irregular Respiratory: Yes: WNL Gastrointestinal: Yes: WNL ...Rectal Exam: Yes: Deferred Genitourinary: Yes: WNL Breast(s): Yes: WNL Extremities: Yes: WNL Neurological: Yes: Alert Psychiatric: Yes: Alert Labs: CBC, BMP 11/27/18 06:45 11/27/18 06:45 INR, PTT INR 1.08 (0.83-1.09) 11/27/18 06:45 Assessment/Plan Cleared for surgery
[2018-11-28] MEDS: CARVEDILOL 12.5 MG TABLET (FP) PO SCH ×2 (10:44→21:46)
[2018-11-28] MEDS: ISOSORBIDE MONONITRATE 30 MG TAB.SR.24H (FP) PO SCH (10:44)
[2018-11-28] MEDS: VALSARTAN 80 MG TABLET (UD) PO SCH ×2 (10:44→21:47)
[2018-11-28] MEDS: amLODIPine BESYLATE 10 MG TABLET (FP) PO SCH (10:44)
[2018-11-28] MEDS: FUROSEMIDE 40 MG TABLET (FP) PO SCH (10:45)
[2018-11-28] MEDS: BRIMONIDINE TARTRATE 0.2% OPHTHALMIC 5 ML BOTTLE OU SCH ×2 (10:45→21:48)
[2018-11-28] MEDS: TIMOLOL 0.5% OPHTHALMIC SOL 5 ML BOTTLE OU SCH ×2 (10:47→21:47)
--- NOTE | 2018-11-28 12:17 | PN ---
Progress Note (short form) - Note Progress Note: 78 year old AA male, admitted with gross painless hematuria. h/o of CAD, s/p [place] / PCI/ stenting, LV systolic dysfunction. IDDM, history of CHF. Hypertension/ hypertensive cardiovascular disease, dyslipidemia. History of CVA with right hemiparesis. No further hematuria, awaiting cystoscopy, no chest pain or discomfort. No SOB, palpitations, dizziness or syncope. tolerating his medications. Active Medications Amlodipine Besylate (Norvasc -) 10 mg PO DAILY [facility] Last Admin: 11/28/18 10:44 Dose: 10 mg Brimonidine Tartrate (Alphagan 0.2% -) 1 drop OU BID [facility] Last Admin: 11/28/18 10:45 Dose: 1 drop Carvedilol (Coreg -) 12.5 mg PO BID [facility] Last Admin: 11/28/18 10:44 Dose: 12.5 mg Furosemide (Lasix -) 40 mg PO DAILY [facility] Last Admin: 11/28/18 10:45 Dose: Not Given Isosorbide Mononitrate (Imdur -) 30 mg PO DAILY [facility] Last Admin: 11/28/18 10:44 Dose: 30 mg Latanoprost (Xalatan 0.005% Eye Drops -) 1 drop OU HS [facility] Last Admin: 11/27/18 21:40 Dose: 1 drop Tamsulosin HCl (Flomax -) 0.4 mg PO DAILY@0830 [facility] Last Admin: 11/28/18 09:00 Dose: 0.4 mg Timolol Maleate (Timoptic 0.5%) 1 drop OU BID [facility] Last Admin: 11/28/18 10:47 Dose: 1 drop Valsartan (Diovan -) 80 mg PO BID [facility] Last Admin: 11/28/18 10:44 Dose: 80 mg Last Vital Signs Temp Pulse Resp BP Pulse Ox 99.2 F 62 20 135/71 98 11/28/18 10:00 11/28/18 10:00 11/28/18 10:00 11/28/18 10:00 11/27/18 20:35 NECK: Supple, no jugular venous distention, carotids equal. HEART: PMI in the 5th intercostal space, no hepatojugular reflux, carotids 2+, no bruits. LUNGS: Clear on auscultation. ABDOMEN: soft, nontender, no organomegaly. EXTREMITIES: No calf tenderness or dependent edema. CBC, BMP 11/27/18 06:45 11/27/18 06:45 IMPRESSION: 1. CAD, s/p [place], s/p PCI/DAISY. 2. Dyslipidemia. 3. S/p CHF. 4. H/o LV systolic dysfunction. 5. Painless hematuria. 6. CKD. 7. DM. 8. 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 RECOMMENDATIONS: 1. Continue medications. 2. Please refer to consultation. Javier Horner M.D. ADDENDUM 2:10pm 11/28/18: Spoke to the anesthesiologist Dr. Lisa Israel regarding patient's cardiac status and advised he has multi-vessel coronary artery disease along with multiple co-morbid conditions (see above diagnoses). She is aware that patient is at a high risk for a cardiopulmonary event and the case needs to be discussed with the urologist. Dr. Schafer was present in the OR and spoke to him about the patient's status and it was decided that he will only perform a cystoscopy to determine the source of bleeding and then determine what other procedure will need to be undertaken and will be scheduled for a later date ( patient was scheduled for TURP). Following the procedure, if there is no obvious source of bleeding, anticoagulation with Eliquis should be re-started as soon as possible and in view of underlying coronary artery disease, patient should also be on low dose Aspirin.
[2018-11-28] MEDS ORDERED: LIDOCAINE HCL 2% JELLY (5 ML/TUBE) ONE (14:13)
[2018-11-28] MEDS ORDERED: PROPOFOL 20 ML ONE (14:14)
[2018-11-28] MEDS ORDERED: MIDAZOLAM HCL 2 MG/2 ML SINGLE DOSE VIAL ONE (14:14)
[2018-11-28] MEDS ORDERED: LIDOCAINE HCL 2% JELLY 10 ML CARTRIDGE ONE ×2 (14:23→16:46)
[2018-11-28] MEDS ORDERED: ONDANSETRON 4 MG/2 ML VIAL IVPUSH PRN ×2 (14:33→15:19)
--- NOTE | 2018-11-28 15:13 | OP ---
Operative Note - Note: Operative Date: 11/28/18 Pre-Operative Diagnosis: Hematuria Operation: Cysto Findings: Severe bleeding from prostatic urethra. Bladder could not be examined properly as pt. was having pain. Post-Operative Diagnosis: Same as Pre-op Surgeon: Rosendo Schafer Anesthesia: Fractional Operative Report Dictated: Yes
[2018-11-28] MEDS ORDERED: LIDOCAINE HCL 2% JELLY 10 ML CARTRIDGE UR ONE (16:49)
--- NOTE | 2018-11-28 17:06 | PN ---
Progress Note (short form) - Note Progress Note: Pt started having severe bleeding from leger. 3 way leger inserted and CBI started.
--- NOTE | 2018-11-28 21:12 | OP ---
DATE OF OPERATION: 11/28/2018 SURGEON: Rosendo Schafer MD ANESTHESIA: Fractional sedation. PREOPERATIVE DIAGNOSIS: Hematuria. POSTOPERATIVE DIAGNOSIS: Hematuria, enlarged prostate, and hemostatic prostatitis. PROCEDURE: Cystoscopy. FINDINGS: Urethra were normal. Bladder neck obstructed with large prostate with severe, hemorrhagic varices. The bladder visualization was grossly limited because the patient was squirming with pain. Unable to see the full bladder completely. Ureteral orifices normally located. Bladder was markedly trabeculated. DESCRIPTION OF PROCEDURE: Patient in lithotomy position under anesthesia was prepped and draped in the usual manner. Using 22 scope, cystoscopy performed, and findings were noted above. Patient tolerated the procedure well and left the operating room under satisfactory condition. ROSENDO SCHAFER M.D. [id number]
[2018-11-28] MEDS: LATANOPROST 0.005% OPHTH SOLN 2.5ML BOTTLE OU SCH (21:48)
[2018-11-28] MEDS ORDERED: CARVEDILOL 12.5 MG TABLET (FP) PO SCH ×2 (22:00)
[2018-11-28] MEDS ORDERED: APIXABAN 5 MG TABLET PO SCH ×2 (22:00)
[2018-11-29 08:11] LABS: BASO % 0.4 % (0-2.0); EOS % 0.3 % (0-4.5); HEMOGLOBIN 13.1 GM/dL (11.7-16.9); LYMPH % 6.9 % (8-40); MCH 30.6 pg (25.7-33.7); MCHC 34.6 g/dl (32.0-35.9); MEAN CELL VOLUME 88.4 fl (80-96); MEAN PLT VOLUME 7.4 fl (7.5-11.1); MONO % 7.3 % (3.8-10.2); NEUT % 85.1 % (42.8-82.8); PLATELET COUNT 194 K/MM3 (134-434); RBC 4.29 M/mm3 (4.00-5.60); RDW 13.6 % (11.9-15.9); WHITE BLOOD COUNT 8.9 K/mm3 (4.0-10.0)
[2018-11-29] MEDS: TAMSULOSIN HCL 0.4 MG CAP PO SCH (08:30)
[2018-11-29] MEDS: ACETAMINOPHEN WITH CODEINE 300MG/30MG TABLET PO PRN ×5 (08:31→20:18)
[2018-11-29 08:59] LABS: ALBUMIN 3.3 g/dl (3.4-5.0); BILIRUBIN,TOTAL 0.5 mg/dL (0.2-1); BLOOD UREA NITROGEN 34.7 mg/dL (7-18); CREATININE 1.5 mg/dL (0.55-1.3); POTASSIUM 4.5 mmol/L (3.5-5.1); TOT PROT 6.3 g/dl (6.4-8.2)
--- NOTE | 2018-11-29 09:09 | PN ---
Progress Note, Physician Chief Complaint: Pain when urine comes History of Present Illness: S/P cystoscopy on CBI - Current Medication List Current Medications: Active Medications Acetaminophen/Codeine Phosphate (Tylenol # 3 -) 1 tab PO Q4H PRN PRN Reason: PAIN LEVEL 4 - 6 Last Admin: 11/29/18 08:31 Dose: 1 tab Amlodipine Besylate (Norvasc -) 10 mg PO DAILY [facility] Apixaban (Eliquis -) 5 mg PO BID [facility] Last Admin: 11/28/18 21:47 Dose: 5 mg Brimonidine Tartrate (Alphagan 0.2% -) 1 drop OU BID [facility] Last Admin: 11/28/18 21:48 Dose: 1 drop Carvedilol (Coreg -) 12.5 mg PO BID [facility] Last Admin: 11/28/18 21:46 Dose: 12.5 mg Furosemide (Lasix -) 40 mg PO DAILY [facility] Isosorbide Mononitrate (Imdur -) 30 mg PO DAILY [facility] Latanoprost (Xalatan 0.005% Eye Drops -) 1 drop OU HS [facility] Last Admin: 11/28/18 21:48 Dose: 1 drop Ondansetron HCl (Zofran Injection) 4 mg IVPUSH Q6H PRN PRN Reason: NAUSEA AND/OR VOMITING Tamsulosin HCl (Flomax -) 0.4 mg PO DAILY@0830 [facility] Last Admin: 11/29/18 08:30 Dose: 0.4 mg Timolol Maleate (Timoptic 0.5%) 1 drop OU BID [facility] Last Admin: 11/28/18 21:47 Dose: 1 drop Valsartan (Diovan -) 80 mg PO BID [facility] Last Admin: 11/28/18 21:47 Dose: 80 mg - Objective Vital Signs: Vital Signs Temperature 99.1 F 11/29/18 06:22 Pulse Rate 63 11/29/18 06:22 Respiratory Rate 18 11/29/18 06:22 Blood Pressure 152/71 11/29/18 06:22 O2 Sat by Pulse Oximetry (%) 100 11/28/18 21:00 Constitutional: Yes: Moderate Distress Eyes: Yes: WNL HENT: Yes: WNL Neck: Yes: WNL Cardiovascular: Yes: WNL Respiratory: Yes: WNL Gastrointestinal: Yes: WNL ...Rectal Exam: Yes: Deferred Genitourinary: Yes: Kumar Present, Hematuria Psychiatric: Yes: Alert Labs: CBC, BMP 11/29/18 06:55 11/29/18 06:55 INR, PTT INR 1.08 (0.83-1.09) 11/27/18 06:45 Assessment/Plan KOLBY grullon
[2018-11-29] MEDS ORDERED: FUROSEMIDE 40 MG TABLET (FP) PO SCH ×2 (10:00)
[2018-11-29] MEDS ORDERED: ISOSORBIDE MONONITRATE 30 MG TAB.SR.24H (FP) PO SCH ×2 (10:00)
[2018-11-29] MEDS ORDERED: TAMSULOSIN HCL 0.4 MG CAP PO SCH ×2 (10:00)
[2018-11-29] MEDS ORDERED: amLODIPine BESYLATE 10 MG TABLET (FP) PO SCH ×2 (10:00)
[2018-11-29] MEDS: amLODIPine BESYLATE 10 MG TABLET (FP) PO SCH (10:08)
[2018-11-29] MEDS: CARVEDILOL 12.5 MG TABLET (FP) PO SCH ×2 (10:08→21:43)
[2018-11-29] MEDS: ISOSORBIDE MONONITRATE 30 MG TAB.SR.24H (FP) PO SCH (10:08)
[2018-11-29] MEDS: VALSARTAN 80 MG TABLET (UD) PO SCH ×2 (10:08→21:43)
[2018-11-29] MEDS: FUROSEMIDE 40 MG TABLET (FP) PO SCH (10:09)
[2018-11-29] MEDS: BRIMONIDINE TARTRATE 0.2% OPHTHALMIC 5 ML BOTTLE OU SCH ×2 (10:10→21:44)
[2018-11-29] MEDS: TIMOLOL 0.5% OPHTHALMIC SOL 5 ML BOTTLE OU SCH ×2 (10:11→21:44)
--- NOTE | 2018-11-29 14:34 | PN ---
Progress Note (short form) - Note Progress Note: Pt. is doing well. Urine return is clear, Will dc CBI. If urine is clear tomorrow will discontinue leger in am. If pt. requires prostate surgery, may consider sending him to [facility] for surgery where interventional cardiology will be available should he require it during any urological procedure as per anesthesia and cardiology.
--- NOTE | 2018-11-29 20:30 | PN ---
Progress Note (short form) - Note Progress Note: 78 year old AA male, admitted with gross painless hematuria. h/o of CAD, s/p [place] / PCI/ stenting, LV systolic dysfunction. IDDM, history of CHF. Hypertension/ hypertensive cardiovascular disease, dyslipidemia. History of CVA with right hemiparesis. Patient had cystoscopy, and has leger in place. Mild hematuria noted. No chest pain or discomfort. Active Medications Acetaminophen/Codeine Phosphate (Tylenol # 3 -) 1 tab PO Q4H PRN PRN Reason: PAIN LEVEL 4 - 6 Last Admin: 11/29/18 20:18 Dose: 1 tab Acetaminophen/Codeine Phosphate (Tylenol # 3 -) 2 tab PO Q4H PRN PRN Reason: PAIN SCALE 7-10 Last Admin: 11/30/18 06:33 Dose: 2 tab Amlodipine Besylate (Norvasc -) 10 mg PO DAILY [facility] Last Admin: 11/30/18 10:11 Dose: 10 mg Brimonidine Tartrate (Alphagan 0.2% -) 1 drop OU BID [facility] Last Admin: 11/30/18 10:16 Dose: 1 drop Carvedilol (Coreg -) 12.5 mg PO BID [facility] Last Admin: 11/30/18 10:11 Dose: 12.5 mg Furosemide (Lasix -) 40 mg PO DAILY [facility] Last Admin: 11/30/18 10:11 Dose: 40 mg Insulin Aspart (Novolog Vial Sliding Scale -) 1 vial SQ [facility]; Protocol Last Admin: 11/30/18 06:32 Dose: 3 units Isosorbide Mononitrate (Imdur -) 30 mg PO DAILY [facility] Last Admin: 11/30/18 10:11 Dose: 30 mg Latanoprost (Xalatan 0.005% Eye Drops -) 1 drop OU HS [facility] Last Admin: 11/29/18 21:45 Dose: 1 drop Ondansetron HCl (Zofran Injection) 4 mg IVPUSH Q6H PRN PRN Reason: NAUSEA AND/OR VOMITING Tamsulosin HCl (Flomax -) 0.4 mg PO DAILY@0830 [facility] Last Admin: 11/30/18 10:11 Dose: 0.4 mg Timolol Maleate (Timoptic 0.5%) 1 drop OU BID [facility] Last Admin: 11/30/18 10:14 Dose: 1 drop Valsartan (Diovan -) 80 mg PO BID [facility] Last Admin: 11/30/18 10:10 Dose: 80 mg Last Vital Signs Temp Pulse Resp BP Pulse Ox 99.1 63 18 152/71 98 11/29/18 06:22 11/29/18 06:22 11/29/18 06:22 11/29/18 06:22 11/29/18 06:22 NECK: Supple, no jugular venous distention, carotids equal. HEART: PMI in the 5th intercostal space, no hepatojugular reflux, carotids 2+, no bruits. LUNGS: Clear on auscultation. ABDOMEN: soft, nontender, no organomegaly. EXTREMITIES: No calf tenderness or dependent edema. 1. CAD, s/p [place], s/p PCI/DAISY. 2. Dyslipidemia. 3. S/p CHF. 4. H/o LV systolic dysfunction. 5. S/p cystoscopy, BPH. 6. CKD. 7. DM. 8. 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 RECOMMENDATIONS: 1. Case to be discussed with urologist regards further management of BPH and whether patient requires further surgical intervention. 2. Resume anticoagulation as soon as possible. 3. Follow-up CBC and BMP. Javier Horner M.D.
[2018-11-29] MEDS ORDERED: INSULIN (NOVOLOG) ASPART 100 UNITS/ML 10ML VIAL ONE (21:26)
[2018-11-29] MEDS: INSULIN SLIDING SCALE (NOVOLOG) 1 VIAL SQ SCH (21:39)
[2018-11-29] MEDS: LATANOPROST 0.005% OPHTH SOLN 2.5ML BOTTLE OU SCH (21:45)
[2018-11-30] MEDS: ACETAMINOPHEN WITH CODEINE 300MG/30MG TABLET PO PRN ×4 (01:57→20:05)
[2018-11-30] MEDS: INSULIN SLIDING SCALE (NOVOLOG) 1 VIAL SQ SCH ×4 (06:32→22:05)
[2018-11-30 07:47] LABS: BASO % 0.4 % (0-2.0); HEMOGLOBIN 10.8 GM/dL (11.7-16.9); LYMPH % 12.6 % (8-40); MCH 31.1 pg (25.7-33.7); MCHC 34.9 g/dl (32.0-35.9); MEAN PLT VOLUME 7.5 fl (7.5-11.1); MONO % 10.2 % (3.8-10.2); NEUT % 74.8 % (42.8-82.8); PLATELET COUNT 165 K/MM3 (134-434); RBC 3.48 M/mm3 (4.00-5.60); RDW 14.2 % (11.9-15.9)
[2018-11-30 08:06] LABS: ALBUMIN 2.7 g/dl (3.4-5.0); BILIRUBIN,TOTAL 0.4 mg/dL (0.2-1); BLOOD UREA NITROGEN 42.7 mg/dL (7-18); CALCIUM 8.3 mg/dL (8.5-10.1); CREATININE 1.9 mg/dL (0.55-1.3); POTASSIUM 4.6 mmol/L (3.5-5.1); TOT PROT 5.3 g/dl (6.4-8.2)
--- NOTE | 2018-11-30 09:15 | PN ---
Progress Note, Physician Chief Complaint: Feels better History of Present Illness: CBI off,has leger with some blood stains - Current Medication List Current Medications: Active Medications Acetaminophen/Codeine Phosphate (Tylenol # 3 -) 1 tab PO Q4H PRN PRN Reason: PAIN LEVEL 4 - 6 Last Admin: 11/29/18 20:18 Dose: 1 tab Acetaminophen/Codeine Phosphate (Tylenol # 3 -) 2 tab PO Q4H PRN PRN Reason: PAIN SCALE 7-10 Last Admin: 11/30/18 06:33 Dose: 2 tab Amlodipine Besylate (Norvasc -) 10 mg PO DAILY [facility] Last Admin: 11/29/18 10:08 Dose: 10 mg Brimonidine Tartrate (Alphagan 0.2% -) 1 drop OU BID [facility] Last Admin: 11/29/18 21:44 Dose: 1 drop Carvedilol (Coreg -) 12.5 mg PO BID [facility] Last Admin: 11/29/18 21:43 Dose: 12.5 mg Furosemide (Lasix -) 40 mg PO DAILY [facility] Last Admin: 11/29/18 10:09 Dose: 40 mg Insulin Aspart (Novolog Vial Sliding Scale -) [address] [facility]; Protocol Last Admin: 11/30/18 06:32 Dose: 3 units Isosorbide Mononitrate (Imdur -) 30 mg PO DAILY [facility] Last Admin: 11/29/18 10:08 Dose: 30 mg Latanoprost (Xalatan 0.005% Eye Drops -) 1 drop OU HS [facility] Last Admin: 11/29/18 21:45 Dose: 1 drop Ondansetron HCl (Zofran Injection) 4 mg IVPUSH Q6H PRN PRN Reason: NAUSEA AND/OR VOMITING Tamsulosin HCl (Flomax -) 0.4 mg PO DAILY@0830 [facility] Last Admin: 11/29/18 08:30 Dose: 0.4 mg Timolol Maleate (Timoptic 0.5%) 1 drop OU BID [facility] Last Admin: 11/29/18 21:44 Dose: 1 drop Valsartan (Diovan -) 80 mg PO BID [facility] Last Admin: 11/29/18 21:43 Dose: 80 mg - Objective Vital Signs: Vital Signs Temperature 98.6 F 11/30/18 05:56 Pulse Rate 61 11/30/18 05:56 Respiratory Rate 20 07/11/19 05:56 Blood Pressure 111/61 11/30/18 05:56 O2 Sat by Pulse Oximetry (%) 98 11/29/18 22:00 Constitutional: Yes: Mild Distress Eyes: Yes: WNL HENT: Yes: WNL Neck: Yes: WNL Cardiovascular: Yes: WNL Respiratory: Yes: WNL Gastrointestinal: Yes: Normal Bowel Sounds ...Rectal Exam: Yes: Deferred Genitourinary: Yes: Leger Present Breast(s): Yes: WNL Musculoskeletal: Yes: Muscle Weakness Edema: No Neurological: Yes: Alert Labs: CBC, BMP 11/30/18 06:45 11/30/18 06:45 INR, PTT INR 1.08 (0.83-1.09) 11/27/18 06:45 Assessment/Plan Continue same trt
[2018-11-30] MEDS: VALSARTAN 80 MG TABLET (UD) PO SCH ×2 (10:10→22:05)
[2018-11-30] MEDS: CARVEDILOL 12.5 MG TABLET (FP) PO SCH ×2 (10:11→22:05)
[2018-11-30] MEDS: TAMSULOSIN HCL 0.4 MG CAP PO SCH (10:11)
[2018-11-30] MEDS: amLODIPine BESYLATE 10 MG TABLET (FP) PO SCH (10:11)
[2018-11-30] MEDS: ISOSORBIDE MONONITRATE 30 MG TAB.SR.24H (FP) PO SCH (10:11)
[2018-11-30] MEDS: FUROSEMIDE 40 MG TABLET (FP) PO SCH (10:11)
[2018-11-30] MEDS: TIMOLOL 0.5% OPHTHALMIC SOL 5 ML BOTTLE OU SCH ×2 (10:14→22:00)
--- NOTE | 2018-11-30 10:15 | PN ---
Progress Note (short form) - Note Progress Note: 78 year old AA male, admitted with gross painless hematuria. h/o of CAD, s/p [place] / PCI/ stenting, LV systolic dysfunction. IDDM, history of CHF. Hypertension/ hypertensive cardiovascular disease, dyslipidemia. History of CVA with right hemiparesis. Patient had cystoscopy, and has leger in place. Mild bleeding noted. No chest pain or discomfort. Active Medications Acetaminophen/Codeine Phosphate (Tylenol # 3 -) 1 tab PO Q4H PRN PRN Reason: PAIN LEVEL 4 - 6 Last Admin: 11/29/18 20:18 Dose: 1 tab Acetaminophen/Codeine Phosphate (Tylenol # 3 -) 2 tab PO Q4H PRN PRN Reason: PAIN SCALE 7-10 Last Admin: 11/30/18 06:33 Dose: 2 tab Amlodipine Besylate (Norvasc -) 10 mg PO DAILY [facility] Last Admin: 11/29/18 10:08 Dose: 10 mg Brimonidine Tartrate (Alphagan 0.2% -) 1 drop OU BID [facility] Last Admin: 11/29/18 21:44 Dose: 1 drop Carvedilol (Coreg -) 12.5 mg PO BID [facility] Last Admin: 11/29/18 21:43 Dose: 12.5 mg Furosemide (Lasix -) 40 mg PO DAILY [facility] Last Admin: 11/29/18 10:09 Dose: 40 mg Insulin Aspart (Novolog Vial Sliding Scale -) 1 vial SQ [facility]; Protocol Last Admin: 11/30/18 06:32 Dose: 3 units Isosorbide Mononitrate (Imdur -) 30 mg PO DAILY [facility] Last Admin: 11/29/18 10:08 Dose: 30 mg Latanoprost (Xalatan 0.005% Eye Drops -) 1 drop OU HS [facility] Last Admin: 11/29/18 21:45 Dose: 1 drop Ondansetron HCl (Zofran Injection) 4 mg IVPUSH Q6H PRN PRN Reason: NAUSEA AND/OR VOMITING Tamsulosin HCl (Flomax -) 0.4 mg PO DAILY@0830 [facility] Last Admin: 11/29/18 08:30 Dose: 0.4 mg Timolol Maleate (Timoptic 0.5%) 1 drop OU BID [facility] Last Admin: 11/29/18 21:44 Dose: 1 drop Valsartan (Diovan -) 80 mg PO BID [facility] Last Admin: 11/29/18 21:43 Dose: 80 mg Last Vital Signs Temp Pulse Resp BP Pulse Ox 98.6 F 61 20 111/61 98 11/30/18 05:56 11/30/18 05:56 11/30/18 05:56 11/30/18 05:56 11/29/18 22:00 NECK: Supple, no jugular venous distention, carotids equal. HEART: PMI in the 5th intercostal space, no hepatojugular reflux, carotids 2+, no bruits. LUNGS: Clear on auscultation. ABDOMEN: soft, nontender, no organomegaly. EXTREMITIES: No calf tenderness or dependent edema. CBC, BMP 11/30/18 06:45 11/30/18 06:45 Impression: 1. CAD, s/p [place], s/p PCI/DAISY. 2. Dyslipidemia. 3. S/p CHF. 4. H/o LV systolic dysfunction. 5. Painless hematuria. 6. CKD. 7. DM. 8. 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 Recommendations: 1. Continue medications. 2. Resume further management of hemeturia with urologist. 3. Anticoagulation should be resumed. Prognosis: Javier Horner M.D.
[2018-11-30] MEDS: BRIMONIDINE TARTRATE 0.2% OPHTHALMIC 5 ML BOTTLE OU SCH ×2 (10:16→22:00)
--- NOTE | 2018-11-30 15:26 | PN ---
Progress Note (short form) - Note Progress Note: 78 year old AA male, admitted with gross painless hematuria. h/o of CAD, s/p [place] / PCI/ stenting, LV systolic dysfunction. IDDM, history of CHF. Hypertension/ hypertensive cardiovascular disease, dyslipidemia. History of CVA with right hemiparesis. Spoke to Dr. Schafer earlier and he could not fully visualised the bladder, patient apparently had arrhythmias and procedure was aborted. Patient is experiencing spasmodic pain, leger still in place. Active Medications Acetaminophen/Codeine Phosphate (Tylenol # 3 -) 1 tab PO Q4H PRN PRN Reason: PAIN LEVEL 4 - 6 Last Admin: 11/29/18 20:18 Dose: 1 tab Acetaminophen/Codeine Phosphate (Tylenol # 3 -) 2 tab PO Q4H PRN PRN Reason: PAIN SCALE 7-10 Last Admin: 11/30/18 06:33 Dose: 2 tab Amlodipine Besylate (Norvasc -) 10 mg PO DAILY [facility] Last Admin: 11/30/18 10:11 Dose: 10 mg Brimonidine Tartrate (Alphagan 0.2% -) 1 drop OU BID [facility] Last Admin: 11/30/18 10:16 Dose: 1 drop Carvedilol (Coreg -) 12.5 mg PO BID [facility] Last Admin: 11/30/18 10:11 Dose: 12.5 mg Furosemide (Lasix -) 40 mg PO DAILY [facility] Last Admin: 11/30/18 10:11 Dose: 40 mg Insulin Aspart (Novolog Vial Sliding Scale -) 1 vial SQ [facility]; Protocol Last Admin: 11/30/18 12:01 Dose: 3 units Isosorbide Mononitrate (Imdur -) 30 mg PO DAILY [facility] Last Admin: 11/30/18 10:11 Dose: 30 mg Latanoprost (Xalatan 0.005% Eye Drops -) 1 drop OU HS [facility] Last Admin: 11/29/18 21:45 Dose: 1 drop Ondansetron HCl (Zofran Injection) 4 mg IVPUSH Q6H PRN PRN Reason: NAUSEA AND/OR VOMITING Tamsulosin HCl (Flomax -) 0.4 mg PO DAILY@0830 [facility] Last Admin: 11/30/18 10:11 Dose: 0.4 mg Timolol Maleate (Timoptic 0.5%) 1 drop OU BID [facility] Last Admin: 11/30/18 10:14 Dose: 1 drop Valsartan (Diovan -) 80 mg PO BID [facility] Last Admin: 11/30/18 10:10 Dose: 80 mg Last Vital Signs Temp Pulse Resp BP Pulse Ox 99.0 F 61 20 139/68 95 11/30/18 14:25 11/30/18 14:25 11/30/18 10:00 11/30/18 14:25 11/30/18 10:00 NECK: Supple, no jugular venous distention, carotids equal. HEART: PMI in the 5th intercostal space, no hepatojugular reflux, carotids 2+, no bruits. LUNGS: Clear on auscultation. ABDOMEN: soft, nontender, no organomegaly. EXTREMITIES: No calf tenderness or dependent edema. CBC, BMP 11/30/18 06:45 11/30/18 06:45 Impression: 1. CAD, s/p VT, s/p PCI/DAISY. 2. Dyslipidemia. 3. S/p CHF. 4. H/o LV systolic dysfunction. 5. Painless hematuria. 6. CKD. 7. DM. 8. 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 RECOMMENDATIONS: 1. Urologist feels patient should be managed at medical center. 2. Resume anticoagulation as soon as possible. 3. Follow-up CBC and BMP. 4. Leger should be removed NESTOR. Javier Horner M.D.
[2018-11-30] MEDS: LATANOPROST 0.005% OPHTH SOLN 2.5ML BOTTLE OU SCH (22:00)
[2018-12-01] MEDS: INSULIN SLIDING SCALE (NOVOLOG) 1 VIAL SQ SCH ×4 (06:40→21:42)
[2018-12-01] MEDS: ACETAMINOPHEN WITH CODEINE 300MG/30MG TABLET PO PRN ×2 (06:47→21:45)
[2018-12-01] MEDS: TAMSULOSIN HCL 0.4 MG CAP PO SCH (08:45)
--- NOTE | 2018-12-01 09:36 | DS ---
Physical Examination Vital Signs: Vital Signs Temperature 98.1 F 12/01/18 08:37 Pulse Rate 63 12/01/18 08:37 Respiratory Rate 16 12/01/18 08:37 Blood Pressure 140/70 12/01/18 08:37 O2 Sat by Pulse Oximetry (%) 97 11/30/18 21:00 Findings/Remarks: Admitted with hematuria Cystoscopy done by Dr Polk ,no bladder findings,bleeding probably from prostate Constitutional: Yes: No Distress Eyes: Yes: WNL HENT: Yes: WNL Neck: Yes: WNL Cardiovascular: Yes: WNL Respiratory: Yes: Regular Gastrointestinal: Yes: WNL ...Rectal Exam: Yes: Deferred Renal/: Yes: WNL, Other (will DC leger before he leaves) Edema: No Neurological: Yes: Alert Labs: CBC, BMP 11/30/18 06:45 11/30/18 06:45 Discharge Summary Reason For Visit: HEMATURIA,TYPE 2 DIABETES MELLITUS, Current Active Problems Hematuria (Acute) Pre-op evaluation (Acute) Condition: Good - Instructions - Home Medications Comprehensive Discharge Medication List: Ambulatory Orders Amlodipine Besylate [Norvasc -] 10 mg PO DAILY 02/23/16 Apixaban [Eliquis -] 5 mg PO BID 02/23/16 Carvedilol [Coreg -] 12.5 mg PO BID 02/23/16 Furosemide [Lasix -] 40 mg PO DAILY 02/23/16 Isosorbide Mononitrate [Imdur -] 30 mg PO DAILY 02/23/16 Tamsulosin HCl [Flomax] 0.4 mg PO DAILY 02/23/16 Valsartan [Diovan] 80 mg PO BID 02/23/16
[2018-12-01] MEDS: amLODIPine BESYLATE 10 MG TABLET (FP) PO SCH (09:53)
[2018-12-01] MEDS: VALSARTAN 80 MG TABLET (UD) PO SCH ×2 (09:53→21:43)
[2018-12-01] MEDS: FUROSEMIDE 40 MG TABLET (FP) PO SCH (09:53)
[2018-12-01] MEDS: CARVEDILOL 12.5 MG TABLET (FP) PO SCH ×2 (09:53→21:43)
[2018-12-01] MEDS: ISOSORBIDE MONONITRATE 30 MG TAB.SR.24H (FP) PO SCH (09:53)
[2018-12-01] MEDS: POLYETHYLENE GLYCOL 3350 119 GM BTL PO SCH (09:54)
[2018-12-01] MEDS: BRIMONIDINE TARTRATE 0.2% OPHTHALMIC 5 ML BOTTLE OU SCH ×2 (09:54→21:43)
[2018-12-01] MEDS: TIMOLOL 0.5% OPHTHALMIC SOL 5 ML BOTTLE OU SCH ×2 (09:55→21:43)
[2018-12-01] MEDS: APIXABAN 2.5 MG TABLET PO SCH ×2 (11:00→21:43)
[2018-12-01] MEDS ORDERED: INSULIN (NOVOLOG) ASPART 100 UNITS/ML 10ML VIAL ONE (11:36)
--- NOTE | 2018-12-01 16:29 | PN ---
Progress Note (short form) - Note Progress Note: 78 year old AA male, admitted with gross painless hematuria. h/o of CAD, s/p [place] / PCI/ stenting, LV systolic dysfunction. IDDM, history of CHF. Hypertension/ hypertensive cardiovascular disease, dyslipidemia. History of CVA with right hemiparesis. Spoke to Dr. Schafer earlier and he could not fully visualised the bladder, patient apparently had arrhythmias and procedure was aborted. Patient is experiencing spasmodic pain, leger still in place. Active Medications Acetaminophen/Codeine Phosphate (Tylenol # 3 -) 1 tab PO Q4H PRN PRN Reason: PAIN LEVEL 4 - 6 Last Admin: 11/29/18 20:18 Dose: 1 tab Acetaminophen/Codeine Phosphate (Tylenol # 3 -) 2 tab PO Q4H PRN PRN Reason: PAIN SCALE 7-10 Last Admin: 12/01/18 06:47 Dose: 2 tab Amlodipine Besylate (Norvasc -) 10 mg PO DAILY [facility] Last Admin: 12/01/18 09:53 Dose: 10 mg Apixaban (Eliquis -) 2.5 mg PO BID [facility] Last Admin: 12/01/18 11:00 Dose: 2.5 mg Brimonidine Tartrate (Alphagan 0.2% -) 1 drop OU BID [facility] Last Admin: 12/01/18 09:54 Dose: 1 drop Carvedilol (Coreg -) 12.5 mg PO BID [facility] Last Admin: 12/01/18 09:53 Dose: 12.5 mg Furosemide (Lasix -) 40 mg PO DAILY [facility] Last Admin: 12/01/18 09:53 Dose: 40 mg Insulin Aspart (Novolog Vial Sliding Scale -) 1 vial SQ [facility]; Protocol Last Admin: 12/01/18 11:44 Dose: 9 units Isosorbide Mononitrate (Imdur -) 30 mg PO DAILY [facility] Last Admin: 12/01/18 09:53 Dose: 30 mg Latanoprost (Xalatan 0.005% Eye Drops -) 1 drop OU HS [facility] Last Admin: 11/30/18 22:00 Dose: 1 drop Ondansetron HCl (Zofran Injection) 4 mg IVPUSH Q6H PRN PRN Reason: NAUSEA AND/OR VOMITING Polyethylene Glycol (Miralax (For Daily Use) -) 17 gm PO DAILY [facility] Last Admin: 12/01/18 09:54 Dose: Not Given Tamsulosin HCl (Flomax -) 0.4 mg PO DAILY@0830 [facility] Last Admin: 12/01/18 08:45 Dose: 0.4 mg Timolol Maleate (Timoptic 0.5%) 1 drop OU BID [facility] Last Admin: 12/01/18 09:55 Dose: 1 drop Valsartan (Diovan -) 80 mg PO BID [facility] Last Admin: 12/01/18 09:53 Dose: 80 mg Last Vital Signs Temp Pulse Resp BP Pulse Ox 97.3 F L 66 16 153/83 97 12/01/18 15:27 12/01/18 15:27 12/01/18 08:37 12/01/18 15:27 12/01/18 09:00 NECK: Supple, no jugular venous distention, carotids equal. HEART: PMI in the 5th intercostal space, no hepatojugular reflux, carotids 2+, no bruits. LUNGS: Clear on auscultation. ABDOMEN: soft, nontender, no organomegaly. EXTREMITIES: No calf tenderness or dependent edema. CBC, BMP 11/30/18 06:45 11/30/18 06:45 Impression: 1. CAD, s/p [place], s/p PCI/DAISY. 2. Dyslipidemia. 3. S/p CHF. 4. H/o LV systolic dysfunction. 5. Painless hematuria. 6. CKD. 7. DM. 8. 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 RECOMMENDATIONS: 1. Urologist feels patient should be managed at medical center. 2. Resume anticoagulation as soon as possible. 3. Follow-up CBC and BMP. 4. Leger should be removed NESTOR. Javier Horner M.D.
[2018-12-01] MEDS: LATANOPROST 0.005% OPHTH SOLN 2.5ML BOTTLE OU SCH (21:43)
[2018-12-02] MEDS: INSULIN SLIDING SCALE (NOVOLOG) 1 VIAL SQ SCH ×4 (06:25→22:39)
[2018-12-02] MEDS: ISOSORBIDE MONONITRATE 30 MG TAB.SR.24H (FP) PO SCH (09:19)
[2018-12-02] MEDS: VALSARTAN 80 MG TABLET (UD) PO SCH ×2 (09:19→22:38)
[2018-12-02] MEDS: TAMSULOSIN HCL 0.4 MG CAP PO SCH (09:19)
[2018-12-02] MEDS: amLODIPine BESYLATE 10 MG TABLET (FP) PO SCH (09:19)
[2018-12-02] MEDS: BRIMONIDINE TARTRATE 0.2% OPHTHALMIC 5 ML BOTTLE OU SCH ×2 (09:19→22:38)
[2018-12-02] MEDS: FUROSEMIDE 40 MG TABLET (FP) PO SCH (09:19)
[2018-12-02] MEDS: APIXABAN 2.5 MG TABLET PO SCH ×2 (09:19→22:38)
[2018-12-02] MEDS: CARVEDILOL 12.5 MG TABLET (FP) PO SCH ×2 (09:19→22:38)
[2018-12-02] MEDS: TIMOLOL 0.5% OPHTHALMIC SOL 5 ML BOTTLE OU SCH ×2 (09:20→22:39)
[2018-12-02] MEDS: POLYETHYLENE GLYCOL 3350 119 GM BTL PO SCH (09:25)
[2018-12-02] MEDS: ACETAMINOPHEN WITH CODEINE 300MG/30MG TABLET PO PRN (09:47)
--- NOTE | 2018-12-02 12:04 | PN ---
Progress Note, Physician Chief Complaint: Low grade fever last night mild dysuria still mild hematuria - Current Medication List Current Medications: Active Medications Acetaminophen/Codeine Phosphate (Tylenol # 3 -) 1 tab PO Q4H PRN PRN Reason: PAIN LEVEL 4 - 6 Last Admin: 12/02/18 09:47 Dose: 1 tab Amlodipine Besylate (Norvasc -) 10 mg PO DAILY [facility] Last Admin: 12/02/18 09:19 Dose: 10 mg Apixaban (Eliquis -) 2.5 mg PO BID [facility] Last Admin: 12/02/18 09:19 Dose: 2.5 mg Brimonidine Tartrate (Alphagan 0.2% -) 1 drop OU BID [facility] Last Admin: 12/02/18 09:19 Dose: 1 drop Carvedilol (Coreg -) 12.5 mg PO BID [facility] Last Admin: 12/02/18 09:19 Dose: 12.5 mg Furosemide (Lasix -) 40 mg PO DAILY [facility] Last Admin: 12/02/18 09:19 Dose: 40 mg Insulin Aspart (Novolog Vial Sliding Scale -) 1 vial SQ [facility]; Protocol Last Admin: 12/02/18 11:43 Dose: 6 units Isosorbide Mononitrate (Imdur -) 30 mg PO DAILY [facility] Last Admin: 12/02/18 09:19 Dose: 30 mg Latanoprost (Xalatan 0.005% Eye Drops -) 1 drop OU HS [facility] Last Admin: 12/01/18 21:43 Dose: 1 drop Ondansetron HCl (Zofran Injection) 4 mg IVPUSH Q6H PRN PRN Reason: NAUSEA AND/OR VOMITING Polyethylene Glycol (Miralax (For Daily Use) -) 17 gm PO DAILY [facility] Last Admin: 12/02/18 09:25 Dose: 17 gm Tamsulosin HCl (Flomax -) 0.4 mg PO DAILY@0830 [facility] Last Admin: 12/02/18 09:19 Dose: 0.4 mg Timolol Maleate (Timoptic 0.5%) 1 drop OU BID [facility] Last Admin: 12/02/18 09:20 Dose: 1 drop Valsartan (Diovan -) 80 mg PO BID [facility] Last Admin: 12/02/18 09:19 Dose: 80 mg - Objective Vital Signs: Vital Signs Temperature 98.8 F 12/02/18 08:07 Pulse Rate 64 12/02/18 08:07 Respiratory Rate 14 12/02/18 08:07 Blood Pressure 123/60 12/02/18 08:07 O2 Sat by Pulse Oximetry (%) 98 12/02/18 09:00 Elderly man not in distress HEENT: Mm moist, no anemia, PERRLA, EOMI NECK: No JVd No Bruit CHEST: CTA B/L CVS: s1 S2 R no m/g/r ABD: No distention, non tender , mild suprapubic Tenderness, no CVA Tenderness EXT: No edema feet, no calf tenderness [employer]: AOX3 non focal Labs: CBC, BMP 11/30/18 06:45 11/30/18 06:45 INR, PTT INR 1.08 (0.83-1.09) 11/27/18 06:45 Problem List - Problems (1) Hematuria Assessment/Plan: Due to retention and BPH tolerating AC F/U recommendations, patient will go home with Foleys Code(s): R31.9 - HEMATURIA, UNSPECIFIED Qualifiers: Hematuria type: unspecified type Qualified Code(s): R31.9 - Hematuria, unspecified (2) Atrial fibrillation Assessment/Plan: Rate controlled on Apaxiban 2.5 mg BID Code(s): I48.91 - UNSPECIFIED ATRIAL FIBRILLATION Qualifiers: (3) Cardiac pacemaker in situ Assessment/Plan: Recently interogated Code(s): Z95.0 - PRESENCE OF CARDIAC PACEMAKER (4) Cerebrovascular accident (CVA) Assessment/Plan: No residual weakness cont Statin of AC Code(s): I63.9 - CEREBRAL INFARCTION, UNSPECIFIED (5) Coronary artery disease Assessment/Plan: No actibve issue currently stable cont home meds Code(s): I25.10 - ATHSCL HEART DISEASE OF [place] CORONARY ARTERY W/O ANG PCTRS (6) Diabetes mellitus Assessment/Plan: T2 Hold Po meds cont correction dose Insulin with accu checks Code(s): E11.9 - TYPE 2 DIABETES MELLITUS WITHOUT COMPLICATIONS (7) Chronic renal insufficiency Assessment/Plan: Due to DM renl function are stable Code(s): N18.9 - CHRONIC KIDNEY DISEASE, UNSPECIFIED Qualifiers: Chronic kidney disease stage: stage 3 (moderate) Qualified Code(s): N18.3 - Chronic kidney disease, stage 3 (moderate) (8) Diastolic dysfunction without heart failure Assessment/Plan: compensated cont current meds Code(s): I51.9 - HEART DISEASE, UNSPECIFIED (9) S/P coronary artery stent placement Assessment/Plan: S/P revascularization no active issue Code(s): Z95.5 - PRESENCE OF CORONARY ANGIOPLASTY IMPLANT AND GRAFT (10) Fever Assessment/Plan: Low grade fever on Foleys F/U UA, CBC, BMP subsequent management as per lab resulrt. Code(s): R50.9 - FEVER, UNSPECIFIED
[2018-12-02 13:39] LABS: BASO % 0.6 % (0-2.0); EOS % 2.4 % (0-4.5); HEMATOCRIT 31.7 % (35.4-49); LYMPH % 9.1 % (8-40); MCH 31.2 pg (25.7-33.7); MCHC 34.7 g/dl (32.0-35.9); MEAN PLT VOLUME 7.4 fl (7.5-11.1); MONO % 11.4 % (3.8-10.2); NEUT % 76.5 % (42.8-82.8); RBC 3.52 M/mm3 (4.00-5.60); RDW 14.3 % (11.9-15.9); WHITE BLOOD COUNT 8.5 K/mm3 (4.0-10.0)
[2018-12-02 14:04] LABS: CALCIUM 9.3 mg/dL (8.5-10.1); POTASSIUM 4.6 mmol/L (3.5-5.1)
[2018-12-02 14:21] LABS: EPI CELLS 0.6 /HPF (0-5/HPF); HYALINE CASTS 13 /lpf (0-8); URINE APPEARANCE CLOUDY; URINE BACTERIA 1339.4 /hpf (NEGATIVE); URINE BILIRUBIN NEGATIVE (NEGATIVE); URINE COLOR YELLOW; URINE GLUCOSE (UA) NEGATIVE (NEGATIVE); URINE KETONE NEGATIVE (NEGATIVE); URINE LEUK ESTERASE 2+ (NEGATIVE); URINE NITRITE NEGATIVE (NEGATIVE); URINE PROTEIN 3+ (NEGATIVE); URINE RBC 334 /hpf (0-4); URINE UROBILINOGEN 0.2 mg/dL (0.2-1.0); URINE WBC 93 /hpf (0-5)
[2018-12-02 14:22] LABS: PLATELET COUNT 183 K/MM3 (134-434)
--- NOTE | 2018-12-02 18:01 | PN ---
Progress Note (short form) - Note Progress Note: 78 year old AA male, admitted with gross painless hematuria. h/o of CAD, s/p [place] / PCI/ stenting, LV systolic dysfunction. IDDM, history of CHF. Hypertension/ hypertensive cardiovascular disease, dyslipidemia. History of CVA with right hemiparesis. Patient is experiencing spasmodic Penile and suprapubic pain, had low grade temp. no chills or fever reported. Hematuria persists. Active Medications Generic Name Dose Route Start Last Admin Trade Name Freq PRN Reason Stop Dose Admin Acetaminophen/Codeine Phosphate 1 tab 11/28/18 19:23 12/02/18 09:47 Tylenol # 3 - PO 1 tab Q4H PRN Administration PAIN LEVEL 4 - 6 Amlodipine Besylate 10 mg 11/29/18 10:00 12/02/18 09:19 Norvasc - PO 10 mg DAILY [facility] Administration Apixaban 2.5 mg 12/01/18 10:00 12/02/18 09:19 Eliquis - PO 2.5 mg BID [facility] Administration Brimonidine Tartrate 1 drop 11/28/18 22:00 12/02/18 09:19 Alphagan 0.2% - OU 1 drop BID [facility] Administration Carvedilol 12.5 mg 11/28/18 22:00 12/02/18 09:19 Coreg - PO 12.5 mg BID [facility] Administration Furosemide 40 mg 11/29/18 10:00 12/02/18 09:19 Lasix - PO 40 mg DAILY [facility] Administration Insulin Aspart 1 vial 11/29/18 22:00 12/02/18 17:17 Novolog Vial Sliding Scale - SQ 6 units ACHS [facility] Administration Protocol Isosorbide Mononitrate 30 mg 11/29/18 10:00 12/02/18 09:19 Imdur - PO 30 mg DAILY [facility] Administration Latanoprost 1 drop 11/28/18 22:00 12/01/18 21:43 Xalatan 0.005% Eye Drops - OU 1 drop HS [facility] Administration Levofloxacin 250 mg 12/03/18 06:00 Levaquin - PO 12/08/18 06:01 DAILY@0600 [facility] Ondansetron HCl 4 mg 11/28/18 15:19 Zofran Injection IVPUSH Q6H PRN NAUSEA AND/OR VOMITING Polyethylene Glycol 17 gm 12/01/18 10:00 12/02/18 09:25 Miralax (For Daily Use) - PO 17 gm DAILY [facility] Administration Tamsulosin HCl 0.4 mg 11/29/18 08:30 12/02/18 09:19 Flomax - PO 0.4 mg DAILY@0830 [facility] Administration Timolol Maleate 1 drop 11/28/18 22:00 12/02/18 09:20 Timoptic 0.5% OU 1 drop BID [facility] Administration Valsartan 80 mg 11/28/18 22:00 12/02/18 09:19 Diovan - PO 80 mg BID [facility] Administration Last Vital Signs Temp Pulse Resp BP Pulse Ox 98.6 F 63 14 133/73 98 12/02/18 15:21 12/02/18 15:21 12/02/18 08:07 12/02/18 15:21 12/02/18 09:00 NECK: Supple, no jugular venous distention, carotids equal. HEART: PMI in the 5th intercostal space, no hepatojugular reflux, carotids 2+, no bruits. LUNGS: Clear on auscultation. ABDOMEN: Soft, nontender, no organomegaly. EXTREMITIES: No calf tenderness or dependent edema. CBC, BMP 12/02/18 12:55 12/02/18 12:55 Intake & Output 11/29/18 11/30/18 12/01/18 12/02/18 23:59 23:59 23:59 23:59 Intake Total 16403 840 1210 590 Output Total 52198 1100 2450 600 Balance -1630 -260 -1240 -10 Weight 77.111 kg 77.111 kg 78.018 kg 76.113 kg Impression: 1. CAD, s/p [place], s/p PCI/DAISY, Stable angina. 2. Dyslipidemia. 3. S/p CHF. 4. H/o LV systolic dysfunction. 5. Hematuria/ BPH 6. CKD. 7. DM. 8. 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 9. Low grade Temp RECOMMENDATIONS: 1. Continue cardiac therapy. 2. Consider low dose ASA, in view of underlying CAD. 3. Decision regarding further management of urological issues need to be discussed with urologist. Javier Horner M.D.
[2018-12-02] MEDS: LATANOPROST 0.005% OPHTH SOLN 2.5ML BOTTLE OU SCH (22:39)
[2018-12-03] MEDS: INSULIN SLIDING SCALE (NOVOLOG) 1 VIAL SQ SCH ×4 (06:55→21:05)
[2018-12-03] MEDS: APIXABAN 2.5 MG TABLET PO SCH ×2 (10:18→21:04)
[2018-12-03] MEDS: CARVEDILOL 12.5 MG TABLET (FP) PO SCH ×2 (10:18→21:05)
[2018-12-03] MEDS: FUROSEMIDE 40 MG TABLET (FP) PO SCH (10:18)
[2018-12-03] MEDS: TAMSULOSIN HCL 0.4 MG CAP PO SCH (10:18)
[2018-12-03] MEDS: amLODIPine BESYLATE 10 MG TABLET (FP) PO SCH (10:18)
[2018-12-03] MEDS: VALSARTAN 80 MG TABLET (UD) PO SCH ×2 (10:18→21:05)
[2018-12-03] MEDS: ISOSORBIDE MONONITRATE 30 MG TAB.SR.24H (FP) PO SCH (10:18)
[2018-12-03] MEDS: BRIMONIDINE TARTRATE 0.2% OPHTHALMIC 5 ML BOTTLE OU SCH ×2 (10:20→21:09)
[2018-12-03] MEDS: TIMOLOL 0.5% OPHTHALMIC SOL 5 ML BOTTLE OU SCH ×2 (10:21→21:09)
[2018-12-03] MEDS ORDERED: INSULIN (NOVOLOG) ASPART 100 UNITS/ML 10ML VIAL ONE (11:44)
[2018-12-03] MEDS: POLYETHYLENE GLYCOL 3350 119 GM BTL PO SCH (11:55)
--- NOTE | 2018-12-03 12:21 | PN ---
Progress Note, Physician Chief Complaint: Feels weak and tired no fever UA + - Current Medication List Current Medications: Active Medications Acetaminophen/Codeine Phosphate (Tylenol # 3 -) 1 tab PO Q4H PRN PRN Reason: PAIN LEVEL 4 - 6 Last Admin: 12/02/18 09:47 Dose: 1 tab Amlodipine Besylate (Norvasc -) 10 mg PO DAILY [facility] Last Admin: 12/03/18 10:18 Dose: 10 mg Apixaban (Eliquis -) 2.5 mg PO BID [facility] Last Admin: 12/03/18 10:18 Dose: 2.5 mg Brimonidine Tartrate (Alphagan 0.2% -) 1 drop OU BID [facility] Last Admin: 12/03/18 10:20 Dose: 1 drop Carvedilol (Coreg -) 12.5 mg PO BID [facility] Last Admin: 12/03/18 10:18 Dose: 12.5 mg Furosemide (Lasix -) 40 mg PO DAILY [facility] Last Admin: 12/03/18 10:18 Dose: 40 mg Sodium Chloride (Normal Saline -) 1,000 mls @ 75 mls/hr IV ASDIR [facility] Insulin Aspart (Novolog Vial Sliding Scale -) 1 vial SQ ACHS [facility]; Protocol Last Admin: 12/03/18 11:55 Dose: 9 units Isosorbide Mononitrate (Imdur -) 30 mg PO DAILY [facility] Last Admin: 12/03/18 10:18 Dose: 30 mg Latanoprost (Xalatan 0.005% Eye Drops -) 1 drop OU HS [facility] Last Admin: 12/02/18 22:39 Dose: 1 drop Levofloxacin (Levaquin -) 250 mg PO DAILY@0600 [facility] Stop: 12/08/18 06:01 Last Admin: 12/03/18 06:55 Dose: 250 mg Ondansetron HCl (Zofran Injection) 4 mg IVPUSH Q6H PRN PRN Reason: NAUSEA AND/OR VOMITING Polyethylene Glycol (Miralax (For Daily Use) -) 17 gm PO DAILY [facility] Last Admin: 12/03/18 11:55 Dose: 17 gm Tamsulosin HCl (Flomax -) 0.4 mg PO DAILY@0830 [facility] Last Admin: 12/03/18 10:18 Dose: 0.4 mg Timolol Maleate (Timoptic 0.5%) 1 drop OU BID [facility] Last Admin: 12/03/18 10:21 Dose: 1 drop Valsartan (Diovan -) 80 mg PO BID [facility] Last Admin: 12/03/18 10:18 Dose: 80 mg - Objective Vital Signs: Vital Signs Temperature 98.7 F 12/03/18 10:00 Pulse Rate 61 12/03/18 10:00 Respiratory Rate 16 12/03/18 10:00 Blood Pressure 138/69 12/03/18 10:00 O2 Sat by Pulse Oximetry (%) 98 12/03/18 09:00 Elderly man not in distress, looks lethargic HEENT: Mm moist, no anemia, PERRLA, EOMI NECK: No JVd No Bruit CHEST: CTA B/L CVS: s1 S2 R no m/g/r ABD: No distention, non tender , mild suprapubic Tenderness, no CVA Tenderness EXT: No edema feet, no calf tenderness [employer]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 grossly non focal Labs: CBC, BMP 12/02/18 12:55 12/02/18 12:55 INR, PTT INR 1.08 (0.83-1.09) 11/27/18 06:45 UA WBC 93 Problem List - Problems (1) Hematuria Assessment/Plan: Due to retention and BPH tolerating AC F/U recommendations, patient will go home with Foleys Code(s): R31.9 - HEMATURIA, UNSPECIFIED Qualifiers: Hematuria type: unspecified type Qualified Code(s): R31.9 - Hematuria, unspecified (2) Atrial fibrillation Assessment/Plan: Rate controlled on Apaxiban 2.5 mg BID Code(s): I48.91 - UNSPECIFIED ATRIAL FIBRILLATION Qualifiers: (3) Cardiac pacemaker in situ Assessment/Plan: Recently interogated Code(s): Z95.0 - PRESENCE OF CARDIAC PACEMAKER (4) Cerebrovascular accident (CVA) Assessment/Plan: No residual weakness cont Statin of AC Code(s): I63.9 - CEREBRAL INFARCTION, UNSPECIFIED (5) Coronary artery disease Assessment/Plan: No actibve issue currently stable cont home meds Code(s): I25.10 - ATHSCL HEART DISEASE OF [place] CORONARY ARTERY W/O ANG PCTRS (6) Diabetes mellitus Assessment/Plan: T2 Hold Po meds cont correction dose Insulin with accu checks Code(s): E11.9 - TYPE 2 DIABETES MELLITUS WITHOUT COMPLICATIONS (7) Chronic renal insufficiency Assessment/Plan: Due to DM renl function are stable Code(s): N18.9 - CHRONIC KIDNEY DISEASE, UNSPECIFIED Qualifiers: Chronic kidney disease stage: stage 3 (moderate) Qualified Code(s): N18.3 - Chronic kidney disease, stage 3 (moderate) (8) Diastolic dysfunction without heart failure Assessment/Plan: compensated cont current meds Code(s): I51.9 - HEART DISEASE, UNSPECIFIED (9) S/P coronary artery stent placement Assessment/Plan: S/P revascularization no active issue Code(s): Z95.5 - PRESENCE OF CORONARY ANGIOPLASTY IMPLANT AND GRAFT (10) Fever Assessment/Plan: Low grade fever on Foleys F/U UA, CBC, BMP subsequent management as per lab resulrt. Code(s): R50.9 - FEVER, UNSPECIFIED (11) UTI (urinary tract infection) Assessment/Plan: On IV abx FU Urine culture Code(s): N39.0 - URINARY TRACT INFECTION, SITE NOT SPECIFIED (12) Dehydration Assessment/Plan: Clinically dehydrated add Ns 75 Cc /HR F/U BMP Code(s): E86.0 - DEHYDRATION
[2018-12-03] MEDS ORDERED: SODIUM CHLORIDE 1,000 ML IV SCH (12:30)
[2018-12-03] MEDS ORDERED: ACETAMINOPHEN 325 MG TABLET (FP) PO ONE (14:45)
--- NOTE | 2018-12-03 15:33 | PN ---
Progress Note (short form) - Note Progress Note: 78 year old AA male, admitted with gross painless hematuria. h/o of CAD, s/p MT / PCI/ stenting, LV systolic dysfunction. IDDM, history of CHF. Hypertension/ hypertensive cardiovascular disease, dyslipidemia. History of CVA with right hemiparesis. Since cystosopy patient continues to have hematuria and developed low grade temp.was on oral antibiotics. Patient c/o of feeling cold around 11Am according to the nurse and found to have a fever of 102.9F. Received Tylenol 2tabs. Complained severe bladder spasms. found to dyspneic, diaphoretic, cold and clammy. No chest pain or discomfort reported. Confused and lethargic. and daughter were present and spoke to them in detailed regarding the status of the patient, and advised them thay he is critically ill and has sepsis and also suspect CHF. Will be transferred to CCU, IV fluids were in progress. Active Medications Acetaminophen/Codeine Phosphate (Tylenol # 3 -) 1 tab PO Q4H PRN PRN Reason: PAIN LEVEL 4 - 6 Last Admin: 12/02/18 09:47 Dose: 1 tab Amlodipine Besylate (Norvasc -) 10 mg PO DAILY [facility] Last Admin: 12/03/18 10:18 Dose: 10 mg Apixaban (Eliquis -) 2.5 mg PO BID [facility] Last Admin: 12/03/18 10:18 Dose: 2.5 mg Brimonidine Tartrate (Alphagan 0.2% -) 1 drop OU BID [facility] Last Admin: 12/03/18 10:20 Dose: 1 drop Carvedilol (Coreg -) 12.5 mg PO BID [facility] Last Admin: 12/03/18 10:18 Dose: 12.5 mg Furosemide (Lasix -) 40 mg PO DAILY [facility] Last Admin: 12/03/18 10:18 Dose: 40 mg Sodium Chloride (Normal Saline -) 1,000 mls @ 75 mls/hr IV ASDIR [facility] Last Admin: 12/03/18 12:00 Dose: 75 mls/hr Meropenem 1 gm/ Dextrose 100 mls @ 200 mls/hr IVPB Q12H [facility] Stop: 12/04/18 03:44 Last Admin: 12/03/18 16:00 Dose: 200 mls/hr Insulin Aspart (Novolog Vial Sliding Scale -) 1 vial SQ ACHS [facility]; Protocol Last Admin: 12/03/18 17:01 Dose: Not Given Isosorbide Mononitrate (Imdur -) 30 mg PO DAILY [facility] Last Admin: 12/03/18 10:18 Dose: 30 mg Latanoprost (Xalatan 0.005% Eye Drops -) 1 drop OU HS [facility] Last Admin: 12/02/18 22:39 Dose: 1 drop Ondansetron HCl (Zofran Injection) 4 mg IVPUSH Q6H PRN PRN Reason: NAUSEA AND/OR VOMITING Polyethylene Glycol (Miralax (For Daily Use) -) 17 gm PO DAILY [facility] Last Admin: 12/03/18 11:55 Dose: 17 gm Tamsulosin HCl (Flomax -) 0.4 mg PO DAILY@0830 [facility] Last Admin: 12/03/18 10:18 Dose: 0.4 mg Timolol Maleate (Timoptic 0.5%) 1 drop OU BID [facility] Last Admin: 12/03/18 10:21 Dose: 1 drop Valsartan (Diovan -) 80 mg PO BID [facility] Last Admin: 12/03/18 10:18 Dose: 80 mg Lethargic, confused diaphoretic and tachypneic. Last Vital Signs Temp Pulse Resp BP Pulse Ox 98.9 F 61 26 and shallow 111/54 L 98 12/03/18 16:34 12/03/18 16:34 12/03/18 16:34 12/03/18 16:34 12/03/18 09:00 NECK: Supple, no JVD,+ve HJR, carotids2+, no bruits heard. HEART: PMI in the 5th ICS, no heaves or thrills.S1 normal, S2 split grade I/ apical systolic murmur, ?S3 gallop. LUNGS: scattered fine creps. ABDOMEN: Soft nontender, no organomegaly or palpable masses. EXTREMITIES: No dependent edema or calf tenderness. CBC, BMP 12/02/18 12:55 12/03/18 16:37 EK12/03/18 16:51 AV sequentional pacemaker is sensing and pacing appropriately.Occasional single SPBs. Impression: 1. Clinical presentation consistent with acute sepsis 2. CAD, s/p MT,s/p PCI/DAISY, 3. Acute LV failure needs exclusion. 4. H/o LV systolic dysfunction. 5. Ongoing hematuria with probable UTI 6. CKD. 7. Type II DM. 8. 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 RECOMMENDATIONS: 1. Transfer to CCU ( notified). 2. BNP and BMP STAT. 3. ABG STAT. 4. Xray chest STAT. 5. ECG STAT. 6. Lactic acid level STAT. 7. CK and trop.STAT and F/U. 8. F/u EKG. In attendance 2:10PM to 6:15PM. Provided care on 6S. Stablised patient and was alert,hemodynamically stable prior to transfer. ABG were pending. 12/03/18 16:37 Troponin I 0.05 B-Natriuretic Peptide 81859.5 H Addendum: Increase BNP may also be related to sepsis, Repeat lasix as necessary , received morning dose 40mg. Javier Horner M.D.
[2018-12-03] MEDS ORDERED: DEXTROSE 5%-WATER 100 ML IVPB ONE (15:36)
[2018-12-03] MEDS ORDERED: MEROPENEM 1 GM VIAL (RESTRICTED TO ID) IVPB ONE (15:36)
[2018-12-03] MEDS: MEROPENEM 1 GM in DEXTROSE 5%-WATER 100 ML IVPB SCH (16:00)
[2018-12-03 17:31] LABS: ARTERIAL BLD GAS O2 SATURATION 98.8 % (95-98); ARTERIAL BLOOD GAS BASE EXCESS -3.2 meq/l (-2-2); ARTERIAL BLOOD GAS PCO2 25.5 mmHg (35-45); ARTERIAL BLOOD GAS PO2 110 mmHg (80-105); ARTERIAL BLOOD GAS pH 7.49 (7.35-7.45)
[2018-12-03 17:32] LABS: ALLENS TEST POSITIVE
[2018-12-03 17:35] LABS: BLOOD UREA NITROGEN 67.2 mg/dL (7-18); CALCIUM 8.3 mg/dL (8.5-10.1); CREATININE 2.2 mg/dL (0.55-1.3); N-TERMINAL BNP 11199.5 pg/ml (5-450); POTASSIUM 4.1 mmol/L (3.5-5.1)
--- NOTE | 2018-12-03 18:23 | CONSULT ---
Consult - text type - Consultation Consultation Note: PULMONARY / CRITICAL CARE CONSULT: HPI: Briefly, 78 M IDDM with significant vascular disease including CAD s/p ME, multiple revascularization procedures, CHF and CVA with R hemiparesis. He presented to the hospital with painless hematurea. He underwent cystoscopy, which was challenging, and a leger was placed for CBI. He was on the floor doing well until today when he began having fevers to 103 with tachycardia and SOB. He was cultured, UA is dirty, no other obvious source. He was given IVF and stated on Meropenem. He was transferred to ICU for closer monitoring. Current Medications Acetaminophen/Codeine Phosphate (Tylenol # 3 -) 1 tab PO Q4H PRN PRN Reason: PAIN LEVEL 4 - 6 Last Admin: 12/02/18 09:47 Dose: 1 tab Amlodipine Besylate (Norvasc -) 10 mg PO DAILY [facility] Last Admin: 12/03/18 10:18 Dose: 10 mg Apixaban (Eliquis -) 2.5 mg PO BID [facility] Last Admin: 12/03/18 10:18 Dose: 2.5 mg Brimonidine Tartrate (Alphagan 0.2% -) 1 drop OU BID [facility] Last Admin: 12/03/18 10:20 Dose: 1 drop Carvedilol (Coreg -) 12.5 mg PO BID [facility] Last Admin: 12/03/18 10:18 Dose: 12.5 mg Furosemide (Lasix -) 40 mg PO DAILY [facility] Last Admin: 12/03/18 10:18 Dose: 40 mg Sodium Chloride (Normal Saline -) 1,000 mls @ 75 mls/hr IV ASDIR [facility] Last Admin: 12/03/18 12:00 Dose: 75 mls/hr Meropenem 1 gm/ Dextrose 100 mls @ 200 mls/hr IVPB Q12H [facility] Stop: 12/04/18 03:44 Last Admin: 12/03/18 16:00 Dose: 200 mls/hr Insulin Aspart (Novolog Vial Sliding Scale -) 1 vial SQ ACHS [facility]; Protocol Last Admin: 12/03/18 17:01 Dose: Not Given Isosorbide Mononitrate (Imdur -) 30 mg PO DAILY [facility] Last Admin: 12/03/18 10:18 Dose: 30 mg Latanoprost (Xalatan 0.005% Eye Drops -) 1 drop OU HS [facility] Last Admin: 12/02/18 22:39 Dose: 1 drop Ondansetron HCl (Zofran Injection) 4 mg IVPUSH Q6H PRN PRN Reason: NAUSEA AND/OR VOMITING Polyethylene Glycol (Miralax (For Daily Use) -) 17 gm PO DAILY [facility] Last Admin: 12/03/18 11:55 Dose: 17 gm Tamsulosin HCl (Flomax -) 0.4 mg PO DAILY@0830 [facility] Last Admin: 12/03/18 10:18 Dose: 0.4 mg Timolol Maleate (Timoptic 0.5%) 1 drop OU BID [facility] Last Admin: 12/03/18 10:21 Dose: 1 drop Valsartan (Diovan -) 80 mg PO BID [facility] Last Admin: 12/03/18 10:18 Dose: 80 mg Vital Signs Temp 98.9 F 12/03/18 16:34 Pulse 61 12/03/18 16:34 Resp 18 12/03/18 16:34 BP 111/54 L 12/03/18 16:34 Pulse Ox 98 12/03/18 09:00 Intake & Output 12/02/18 12/03/18 12/03/18 18:59 06:59 18:59 Intake Total 350 1650 Output Total 639 205 0031 Balance -50 -500 -600 Weight 76.385 kg Intake: IV 600 Normal Saline - 1,000 ml 600 @ 75 mls/hr IV ASDIR [facility] Rx#:[id number] Oral 350 250 CBI Intake 800 Output: Urine 489 230 8269 [place] 197 374 9120 Other: Voiding Method Indwelling Catheter Indwelling Catheter Bowel Movement No Weight Measurement Method Built in [facility] EXAM: neuro: alert HEENT: PERRL chest: clear lungs heart: RRR abd: soft, non-tender ext: warm, no edema skin: warm, dry CBC, BMP 12/02/18 12:55 12/03/18 16:37 ASSESSMENT: -Urosepsis -CAD -IDDM -CHF -CVA -CKD -Hematurea -BPH PLAN: -Antibiotics -Follow up cultures -CBI - consider leger removal if ok with -Fever control -Cardiac meds -PPx Critically ill CCT 45" [facility] [employer] MAINTENAN[employer]IST
[2018-12-03 19:54] LABS: BASO % 0.1 % (0-2.0); EOS % 0.1 % (0-4.5); HEMATOCRIT 31.7 % (35.4-49); HEMOGLOBIN 10.7 GM/dL (11.7-16.9); LYMPH % 1.7 % (8-40); MCH 31.3 pg (25.7-33.7); MCHC 33.6 g/dl (32.0-35.9); MONO % 14.1 % (3.8-10.2); PLATELET COUNT 160 K/MM3 (134-434); RBC 3.41 M/mm3 (4.00-5.60); RDW 14.6 % (11.9-15.9); WHITE BLOOD COUNT 14.8 K/mm3 (4.0-10.0)
[2018-12-03] MEDS: LATANOPROST 0.005% OPHTH SOLN 2.5ML BOTTLE OU SCH (21:10)
[2018-12-04] MEDS ORDERED: DEXTROSE 5%-WATER 100 ML IVPB ONE (03:27)
[2018-12-04] MEDS ORDERED: MEROPENEM 1 GM VIAL (RESTRICTED TO ID) IVPB ONE (03:27)
[2018-12-04] MEDS: MEROPENEM 1 GM in DEXTROSE 5%-WATER 100 ML IVPB SCH (03:32)
[2018-12-04] MEDS: INSULIN SLIDING SCALE (NOVOLOG) 1 VIAL SQ SCH ×4 (06:16→22:05)
[2018-12-04 06:30] LABS: BASO % 0.3 % (0-2.0); EOS % 1.4 % (0-4.5); HEMATOCRIT 32.4 % (35.4-49); HEMOGLOBIN 11.1 GM/dL (11.7-16.9); LYMPH % 6.7 % (8-40); MCH 31.2 pg (25.7-33.7); MCHC 34.3 g/dl (32.0-35.9); MEAN PLT VOLUME 7.7 fl (7.5-11.1); MONO % 14.6 % (3.8-10.2); PLATELET COUNT 164 K/MM3 (134-434); RBC 3.56 M/mm3 (4.00-5.60); RDW 13.9 % (11.9-15.9); WHITE BLOOD COUNT 13.2 K/mm3 (4.0-10.0)
[2018-12-04] MEDS: TAMSULOSIN HCL 0.4 MG CAP PO SCH (08:42)
[2018-12-04] MEDS: BRIMONIDINE TARTRATE 0.2% OPHTHALMIC 5 ML BOTTLE OU SCH ×2 (09:42→22:05)
[2018-12-04] MEDS: VALSARTAN 80 MG TABLET (UD) PO SCH ×2 (09:42→23:27)
[2018-12-04] MEDS: FUROSEMIDE 40 MG TABLET (FP) PO SCH (09:42)
[2018-12-04] MEDS: ISOSORBIDE MONONITRATE 30 MG TAB.SR.24H (FP) PO SCH (09:43)
[2018-12-04] MEDS: APIXABAN 2.5 MG TABLET PO SCH ×2 (09:43→22:04)
[2018-12-04] MEDS: amLODIPine BESYLATE 10 MG TABLET (FP) PO SCH (09:43)
[2018-12-04] MEDS: CARVEDILOL 12.5 MG TABLET (FP) PO SCH ×2 (09:43→22:04)
--- NOTE | 2018-12-04 09:55 | PN ---
Progress Note, Physician Chief Complaint: Feels better History of Present Illness: Was in sepsis ,in ICU on CBI - Current Medication List Current Medications: Active Medications Acetaminophen/Codeine Phosphate (Tylenol # 3 -) 1 tab PO Q4H PRN PRN Reason: PAIN LEVEL 4 - 6 Last Admin: 12/02/18 09:47 Dose: 1 tab Amlodipine Besylate (Norvasc -) 10 mg PO DAILY [facility] Last Admin: 12/04/18 09:43 Dose: 10 mg Apixaban (Eliquis -) 2.5 mg PO BID [facility] Last Admin: 12/04/18 09:43 Dose: 2.5 mg Brimonidine Tartrate (Alphagan 0.2% -) 1 drop OU BID [facility] Last Admin: 12/04/18 09:42 Dose: 1 drop Carvedilol (Coreg -) 12.5 mg PO BID [facility] Last Admin: 12/04/18 09:43 Dose: 12.5 mg Furosemide (Lasix -) 40 mg PO DAILY [facility] Last Admin: 12/04/18 09:42 Dose: 40 mg Insulin Aspart (Novolog Vial Sliding Scale -) 1 [facility]; Protocol Last Admin: 12/04/18 06:16 Dose: 9 units Isosorbide Mononitrate (Imdur -) 30 mg PO DAILY [facility] Last Admin: 12/04/18 09:43 Dose: 30 mg Latanoprost (Xalatan 0.005% Eye Drops -) 1 drop OU HS [facility] Last Admin: 12/03/18 21:10 Dose: 1 drop Ondansetron HCl (Zofran Injection) 4 mg IVPUSH Q6H PRN PRN Reason: NAUSEA AND/OR VOMITING Polyethylene Glycol (Miralax (For Daily Use) -) 17 gm PO DAILY [facility] Last Admin: 12/03/18 11:55 Dose: 17 gm Tamsulosin HCl (Flomax -) 0.4 mg PO DAILY@0830 [facility] Last Admin: 12/04/18 08:42 Dose: 0.4 mg Timolol Maleate (Timoptic 0.5%) 1 drop OU BID [facility] Last Admin: 12/03/18 21:09 Dose: 1 drop Valsartan (Diovan -) 80 mg PO BID [facility] Last Admin: 12/04/18 09:42 Dose: 80 mg - Objective Vital Signs: Vital Signs Temperature 98.0 F 12/04/18 08:00 Pulse Rate 65 12/04/18 09:00 Respiratory Rate 16 12/04/18 09:00 Blood Pressure 125/59 L 12/04/18 09:00 O2 Sat by Pulse Oximetry (%) 100 12/04/18 08:09 Constitutional: Yes: No Distress Eyes: Yes: WNL HENT: Yes: WNL Neck: Yes: WNL, Rigid Respiratory: Yes: WNL Gastrointestinal: Yes: WNL ...Rectal Exam: Yes: Deferred Genitourinary: Yes: Kumar Present Musculoskeletal: Yes: WNL Edema: No Integumentary: Yes: WNL Neurological: Yes: Alert Labs: CBC, BMP 12/04/18 05:50 12/03/18 16:37 INR, PTT INR 1.08 (0.83-1.09) 11/27/18 06:45 Assessment/Plan Continue same trt
[2018-12-04] MEDS: POLYETHYLENE GLYCOL 3350 119 GM BTL PO SCH ×2 (10:09→10:16)
[2018-12-04] MEDS: TIMOLOL 0.5% OPHTHALMIC SOL 5 ML BOTTLE OU SCH ×2 (10:11→22:05)
--- NOTE | 2018-12-04 10:39 | CON.ID ---
Consult Consult Specialty:: infectious diseases Referred by:: Reason for Consultation:: sepsis - History of Present Illness Chief Complaint: fever History of Present Illness: 78 year old male, with a significant PMH of HTN, HLD, CAD, paroxysmal atrial flutter (s/p pacemaker), AFib, DM type II, chronic SOB, and CKD, who presents to the ED for evaluation of hematuria for two days. Patient states he has been experiencing red-tinged urine, without dysuria. He additionally endorses associated NB diarrhea. Patient was seen in his PCPs office today for this complaint, who advised the patient to come to the ED for admission. He denies any history of similar symptoms. the above was the admission history patient was then seen by urology and the patient was taken to the or for cystoscopy post procedure patient became septic confused and started spiking fever and i was called to evalaute the patient and the patient was txed to ICU Patient received fluids and after discussion patient was started on mahogany patient initially had got levoflox currently patient looks stable - History Source History Provided By: Patient, Medical Record Limitations to Obtaining History: Clinical Condition - Past Medical History TOMATO GRADER: Yes: CVA Cardio/Vascular: Yes: AFIB, CAD, CHF, HTN, Hyperlipdemia Renal/: Yes: Renal Inusuff Endocrine: Yes: Diabetes Mellitus - Past Surgical History Past Surgical History: Yes: Permanent Pacemaker, Stent - Alcohol/Substance Use Hx Alcohol Use: No - Smoking History Smoking history: Unknown if ever smoked Have you smoked in the past 12 months: No Aproximately how many cigarettes per day: 0 - Social History ADL: Independent 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 [employer] Home Medications - Allergies Allergies/Adverse Reactions: Allergies Allergy/AdvReac Type Severity Reaction Status Date / Time No Known Allergies Allergy Verified 11/24/18 18:15 - Home Medications Home Medications: Ambulatory Orders Amlodipine Besylate [Norvasc -] 10 mg PO DAILY 02/23/16 Apixaban [Eliquis -] 5 mg PO BID 02/23/16 Carvedilol [Coreg -] 12.5 mg PO BID 02/23/16 Furosemide [Lasix -] 40 mg PO DAILY 02/23/16 Isosorbide Mononitrate [Imdur -] 30 mg PO DAILY 02/23/16 Tamsulosin HCl [Flomax] 0.4 mg PO DAILY 02/23/16 Valsartan [Diovan] 80 mg PO BID 02/23/16 Apixaban [Eliquis] 5 mg PO DAILY #30 tablet 12/01/18 Review of Systems - Review of Systems Constitutional: reports: Chills, Fever Eyes: reports: No Symptoms HENT: reports: No Symptoms Neck: reports: No Symptoms Cardiovascular: reports: No Symptoms Respiratory: reports: No Symptoms Gastrointestinal: reports: No Symptoms Genitourinary: reports: Burning, Hematuria Musculoskeletal: reports: No Symptoms Integumentary: reports: No Symptoms Neurological: reports: No Symptoms Endocrine: reports: No Symptoms Hematology/Lymphatic: reports: No Symptoms Psychiatric: reports: No Symptoms Physical Exam Vital Signs: Vital Signs Temperature 98.0 F 12/04/18 08:00 Pulse Rate 65 12/04/18 09:00 Respiratory Rate 16 12/04/18 09:00 Blood Pressure 125/59 L 12/04/18 09:00 O2 Sat by Pulse Oximetry (%) 100 12/04/18 08:09 Constitutional: Yes: No Distress, Calm Cardiovascular: Yes: Pulse Irregular, S1, S2 Respiratory: Yes: Regular, CTA Bilaterally Gastrointestinal: Yes: Normal Bowel Sounds, Soft Renal/: Yes: Kumar Present Musculoskeletal: Yes: WNL Extremities: Yes: WNL Neurological: Yes: Alert, Oriented Psychiatric: Yes: Alert, Oriented Labs: CBC, BMP 12/04/18 05:50 12/03/18 16:37 Imaging - Results Chest X-ray: Report Reviewed, Image Reviewed Ultrasound: Report Reviewed, Image Reviewed Assessment/Plan Problem List - Problems (1) Hematuria Code(s): R31.9 - HEMATURIA, UNSPECIFIED Qualifiers: Hematuria type: unspecified type Qualified Code(s): R31.9 - Hematuria, unspecified (2) Atrial fibrillation Code(s): I48.91 - UNSPECIFIED ATRIAL FIBRILLATION Qualifiers: (3) Cardiac pacemaker in situ Code(s): Z95.0 - PRESENCE OF CARDIAC PACEMAKER (4) Cerebrovascular accident (CVA) Code(s): I63.9 - CEREBRAL INFARCTION, UNSPECIFIED (5) Coronary artery disease Code(s): I25.10 - ATHSCL HEART DISEASE OF [place] CORONARY ARTERY W/O ANG PCTRS (6) Diabetes mellitus Code(s): E11.9 - TYPE 2 DIABETES MELLITUS WITHOUT COMPLICATIONS (7) Chronic renal insufficiency Code(s): N18.9 - CHRONIC KIDNEY DISEASE, UNSPECIFIED Qualifiers: Chronic kidney disease stage: stage 3 (moderate) Qualified Code(s): N18.3 - Chronic kidney disease, stage 3 (moderate) (8) Diastolic dysfunction without heart failure Code(s): I51.9 - HEART DISEASE, UNSPECIFIED (9) S/P coronary artery stent placement Code(s): Z95.5 - PRESENCE OF CORONARY ANGIOPLASTY IMPLANT AND GRAFT (10) Fever Code(s): R50.9 - FEVER, UNSPECIFIED (11) UTI (urinary tract infection) Code(s): N39.0 - URINARY TRACT INFECTION, SITE NOT SPECIFIED (12) Dehydration Code(s): E86.0 - DEHYDRATION plan will switch to zosyn iv fluids rest as per the icu await for finalization of the cx close watch cc 40 min
[2018-12-04] MEDS ORDERED: PIPERACILLIN/TAZOBACTAM 2.25 GM VIAL IVPB ONE ×3 (11:19→21:29)
[2018-12-04] MEDS ORDERED: DEXTROSE 5%-WATER - 50 ML IVPB ONE ×3 (11:20→21:29)
[2018-12-04] MEDS: PIPERACILLIN/TAZOB 2.25 GM 2.25 GM in DEXTROSE 5%-WATER - 50 ML IVPB SCH ×3 (11:24→22:03)
[2018-12-04 11:43] LABS: BLOOD UREA NITROGEN 67.2 mg/dL (7-18); CALCIUM 8.7 mg/dL (8.5-10.1); CREATININE 2.2 mg/dL (0.55-1.3); N-TERMINAL BNP 10794.5 pg/ml (5-450); POTASSIUM 4.4 mmol/L (3.5-5.1)
--- NOTE | 2018-12-04 12:22 | PN ---
Teaching Attending Note Name of Resident: River Gallardo ATTENDING PHYSICIAN STATEMENT I saw and evaluated the patient. I reviewed the resident's note and discussed the case with the resident. I agree with the resident's findings and plan as documented. SUBJECTIVE: Patient seen and examined in the ICU. Awake and alert. Denies CP or SOB. Hemodynamics are currently stable. Intake & Output 12/01/18 12/02/18 12/03/18 12/04/18 23:59 23:59 23:59 23:59 Intake Total 0291 671 7146 Output Total 2450 600 2750 17040 Balance -1240 -10 -1100 -86061 Weight 172 lb 167 lb 12.8 oz 168 lb 6.4 oz 179 lb 4.8 oz Last Vital Signs Temp Pulse Resp BP Pulse Ox 98.0 F 63 16 129/60 100 12/04/18 08:00 12/04/18 11:00 12/04/18 09:00 12/04/18 11:00 12/04/18 08:09 Active Medications Acetaminophen/Codeine Phosphate (Tylenol # 3 -) 1 tab PO Q4H PRN PRN Reason: PAIN LEVEL 4 - 6 Last Admin: 12/02/18 09:47 Dose: 1 tab Amlodipine Besylate (Norvasc -) 10 mg PO DAILY [facility] Last Admin: 12/04/18 09:43 Dose: 10 mg Apixaban (Eliquis -) 2.5 mg PO BID [facility] Last Admin: 12/04/18 09:43 Dose: 2.5 mg Brimonidine Tartrate (Alphagan 0.2% -) 1 drop OU BID [facility] Last Admin: 12/04/18 09:42 Dose: 1 drop Carvedilol (Coreg -) 12.5 mg PO BID [facility] Last Admin: 12/04/18 09:43 Dose: 12.5 mg Furosemide (Lasix -) 40 mg PO DAILY [facility] Last Admin: 12/04/18 09:42 Dose: 40 mg Piperacillin Sod/Tazobactam (Sod 2.25 gm/ Dextrose) 50 mls @ 100 mls/hr IVPB Q6H-IV [facility]; Protocol Last Admin: 12/04/18 11:24 Dose: 100 mls/hr Insulin Aspart (Novolog Vial Sliding Scale -) 1 vial SQ ACHS [facility]; Protocol Last Admin: 12/04/18 12:17 Dose: 12 units Isosorbide Mononitrate (Imdur -) 30 mg PO DAILY [facility] Last Admin: 12/04/18 09:43 Dose: 30 mg Latanoprost (Xalatan 0.005% Eye Drops -) 1 drop OU HS [facility] Last Admin: 12/03/18 21:10 Dose: 1 drop Ondansetron HCl (Zofran Injection) 4 mg IVPUSH Q6H PRN PRN Reason: NAUSEA AND/OR VOMITING Polyethylene Glycol (Miralax (For Daily Use) -) 17 gm PO DAILY [facility] Last Admin: 12/04/18 10:16 Dose: Not Given Tamsulosin HCl (Flomax -) 0.4 mg PO DAILY@0830 [facility] Last Admin: 12/04/18 08:42 Dose: 0.4 mg Timolol Maleate (Timoptic 0.5%) 1 drop OU BID [facility] Last Admin: 12/04/18 10:11 Dose: 1 drop Valsartan (Diovan -) 80 mg PO BID [facility] Last Admin: 12/04/18 09:42 Dose: 80 mg GENERAL: Awake, alert, and oriented, NAD HEAD: No signs of trauma, normocephalic, atraumatic EYES: sclera anicteric, conjunctiva clear ENT: Moist mucosa CHEST: pacemaker in place LUNGS: Clear to auscultation HEART: S1 and S2, (+) ESM ABDOMEN: Soft, nontender, normoactive bowel sounds. No guarding, no rebound EXTREMITIES: Normal inspection, Normal range of motion, no edema. No clubbing or cyanosis NEUROLOGICAL: Non-focal SKIN: Warm Laboratory Results - last 24 hr 12/01/18 12/01/18 12/01/18 11:34 16:06 20:48 WBC RBC Hgb Hct MCV MCH MCHC RDW Plt Count MPV Absolute Neuts (auto) Neutrophils % Lymphocytes % Monocytes % Eosinophils % Basophils % Nucleated RBC % Anticoagulation Therapy Puncture Site ABG pH ABG pCO2 at Pt Temp ABG pO2 at Pt Temp ABG HCO3 ABG O2 Sat (Measured) ABG O2 Content ABG Base Excess Cain Test O2 Delivery Device Oxygen Flow Rate Vent Mode Vent Rate Mechanical Rate Pressure Support Vent Sodium Potassium Chloride Carbon Dioxide Anion Gap BUN Creatinine Est GFR (CKD-EPI)AfAm Est GFR (CKD-EPI)NonAf POC Glucometer 278 199 173 Random Glucose Lactic Acid Calcium Creatine Kinase Troponin I B-Natriuretic Peptide 12/02/18 12/02/18 12/02/18 05:53 11:41 16:32 WBC RBC Hgb Hct MCV MCH MCHC RDW Plt Count MPV Absolute Neuts (auto) Neutrophils % Lymphocytes % Monocytes % Eosinophils % Basophils % Nucleated RBC % Anticoagulation Therapy Puncture Site ABG pH ABG pCO2 at Pt Temp ABG pO2 at Pt Temp ABG HCO3 ABG O2 Sat (Measured) ABG O2 Content ABG Base Excess Cain Test O2 Delivery Device Oxygen Flow Rate Vent Mode Vent Rate Mechanical Rate Pressure Support Vent Sodium Potassium Chloride Carbon Dioxide Anion Gap BUN Creatinine Est GFR (CKD-EPI)AfAm Est GFR (CKD-EPI)NonAf POC Glucometer 294 214 240 Random Glucose Lactic Acid Calcium Creatine Kinase Troponin I B-Natriuretic Peptide 12/02/18 12/03/18 12/03/18 22:37 06:54 11:39 WBC RBC Hgb Hct MCV MCH MCHC RDW Plt Count MPV Absolute Neuts (auto) Neutrophils % Lymphocytes % Monocytes % Eosinophils % Basophils % Nucleated RBC % Anticoagulation Therapy Puncture Site ABG pH ABG pCO2 at Pt Temp ABG pO2 at Pt Temp ABG HCO3 ABG O2 Sat (Measured) ABG O2 Content ABG Base Excess Cain Test O2 Delivery Device Oxygen Flow Rate Vent Mode Vent Rate Mechanical Rate Pressure Support Vent Sodium Potassium Chloride Carbon Dioxide Anion Gap BUN Creatinine Est GFR (CKD-EPI)AfAm Est GFR (CKD-EPI)NonAf POC Glucometer 342 185 265 Random Glucose Lactic Acid Calcium Creatine Kinase Troponin I B-Natriuretic Peptide 12/03/18 12/03/18 12/03/18 16:21 16:37 16:37 WBC RBC Hgb Hct MCV MCH MCHC RDW Plt Count MPV Absolute Neuts (auto) Neutrophils % Lymphocytes % Monocytes % Eosinophils % Basophils % Nucleated RBC % Anticoagulation Therapy Puncture Site ABG pH ABG pCO2 at Pt Temp ABG pO2 at Pt Temp ABG HCO3 ABG O2 Sat (Measured) ABG O2 Content ABG Base Excess Cain Test O2 Delivery Device Oxygen Flow Rate Vent Mode Vent Rate Mechanical Rate Pressure Support Vent Sodium 142 Potassium 4.1 Chloride 110 H Carbon Dioxide 23 Anion Gap 9 BUN 67.2 H Creatinine 2.2 H Est GFR (CKD-EPI)AfAm 32.06 Est GFR (CKD-EPI)NonAf 27.67 POC Glucometer 117 Random Glucose 122 H Lactic Acid 1.7 Calcium 8.3 L Creatine Kinase 25 L Troponin I 0.05 B-Natriuretic Peptide 07186.5 H 12/03/18 12/03/18 12/03/18 17:20 19:39 19:39 WBC 14.8 H RBC 3.41 L Hgb 10.7 L Hct 31.7 L MCV 93.0 MCH 31.3 MCHC 33.6 RDW 14.6 Plt Count 160 MPV 8.0 Absolute Neuts (auto) 12.4 H Neutrophils % 84.0 H Lymphocytes % 1.7 L D Monocytes % 14.1 H Eosinophils % 0.1 D Basophils % 0.1 Nucleated RBC % 0 Anticoagulation Therapy No Result Required. Puncture Site Right radial ABG pH 7.49 H ABG pCO2 at Pt Temp 25.5 L ABG pO2 at Pt Temp 110 H ABG HCO3 19.0 L ABG O2 Sat (Measured) 98.8 H ABG O2 Content 11.9 L ABG Base Excess -3.2 L Cain Test Positive O2 Delivery Device Room air Oxygen Flow Rate No Result Required. Vent Mode No Result Required. Vent Rate No Result Required. Mechanical Rate No Result Required. Pressure Support Vent No Result Required. Sodium Potassium Chloride Carbon Dioxide Anion Gap BUN Creatinine Est GFR (CKD-EPI)AfAm Est GFR (CKD-EPI)NonAf POC Glucometer Random Glucose Lactic Acid 1.7 Calcium Creatine Kinase Troponin I B-Natriuretic Peptide 12/03/18 12/04/18 12/04/18 20:50 05:39 05:50 WBC 13.2 H RBC 3.56 L Hgb 11.1 L Hct 32.4 L MCV 91.0 MCH 31.2 MCHC 34.3 RDW 13.9 Plt Count 164 MPV 7.7 Absolute Neuts (auto) 10.1 H Neutrophils % 77.0 Lymphocytes % 6.7 L D Monocytes % 14.6 H Eosinophils % 1.4 D Basophils % 0.3 Nucleated RBC % 0 Anticoagulation Therapy Puncture Site ABG pH ABG pCO2 at Pt Temp ABG pO2 at Pt Temp ABG HCO3 ABG O2 Sat (Measured) ABG O2 Content ABG Base Excess Cain Test O2 Delivery Device Oxygen Flow Rate Vent Mode Vent Rate Mechanical Rate Pressure Support Vent Sodium Potassium Chloride Carbon Dioxide Anion Gap BUN Creatinine Est GFR (CKD-EPI)AfAm Est GFR (CKD-EPI)NonAf POC Glucometer 285 255 Random Glucose Lactic Acid Calcium Creatine Kinase Troponin I B-Natriuretic Peptide 12/04/18 12/04/18 12/04/18 08:30 10:54 12:13 WBC RBC Hgb Hct MCV MCH MCHC RDW Plt Count MPV Absolute Neuts (auto) Neutrophils % Lymphocytes % Monocytes % Eosinophils % Basophils % Nucleated RBC % Anticoagulation Therapy Puncture Site ABG pH ABG pCO2 at Pt Temp ABG pO2 at Pt Temp ABG HCO3 ABG O2 Sat (Measured) ABG O2 Content ABG Base Excess Cain Test O2 Delivery Device Oxygen Flow Rate Vent Mode Vent Rate Mechanical Rate Pressure Support Vent Sodium 140 Potassium 4.4 Chloride 110 H Carbon Dioxide 23 Anion Gap 7 L BUN 67.2 H Creatinine 2.2 H Est GFR (CKD-EPI)AfAm 32.06 Est GFR (CKD-EPI)NonAf 27.67 POC Glucometer 158 310 Random Glucose 299 H Lactic Acid Calcium 8.7 Creatine Kinase Troponin I B-Natriuretic Peptide 76202.5 H ASSESSMENT: -Sepsis due to a source -CAD -IDDM -CHF -CVA -CKD -Hematurea -BPH PLAN: -Antibiotics per ID -Follow up final cultures -CBI - Kumar management per -Cardiac meds as ordered -Cardiac Telemetry monitoring Dr Jones
--- NOTE | 2018-12-04 15:12 | PN ---
Physical Exam: SUBJECTIVE: Patient seen and examined at the bedside. Overnight, patient was having fevers to 103, tachycardia, and shortness of breath. Septic workup was started and patient was started on meropenem and received 1L of fluids and brought to the ICU. Today, patient is stable, doing well. Complained of painful urination. Denied cp, sob, abd pain, n/v, headache, fever, chills, swellings of extremities, dizziness, weakness. OBJECTIVE: Vital Signs Period Temp Pulse Resp BP Sys/Guardado Pulse Ox Last 24 Hr 97.9 F-98.9 F 61-109 12-20 101-176/47-112 98-100 GENERAL: The patient is awake, alert, and fully oriented, in no acute distress. HEAD: Normal with no signs of trauma. EYES: PERRL, extraocular movements intact, sclera anicteric, conjunctiva clear. No ptosis. NECK: Trachea midline, full range of motion, supple. LUNGS: Breath sounds equal, clear to auscultation bilaterally, no wheezes, no crackles, no accessory muscle use. HEART: Regular rate and rhythm, S1, S2 without murmur, rub or gallop. ABDOMEN: Soft, nontender, nondistended, normoactive bowel sounds, no guarding, no rebound, no masses. UROLOGIC: leger in place, no blood or discharge at the urethral meatus EXTREMITIES: 1+ pulses, warm, well-perfused, no edema. NEUROLOGICAL: Cranial nerves II through XII grossly intact. Normal speech, gait not observed. PSYCH: Normal mood, normal affect. SKIN: Warm, dry, normal turgor, no rashes or lesions noted. Laboratory Results - last 24 hr 12/01/18 12/01/18 12/01/18 11:34 16:06 20:48 WBC RBC Hgb Hct MCV MCH MCHC RDW Plt Count MPV Absolute Neuts (auto) Neutrophils % Lymphocytes % Monocytes % Eosinophils % Basophils % Nucleated RBC % Anticoagulation Therapy Puncture Site ABG pH ABG pCO2 at Pt Temp ABG pO2 at Pt Temp ABG HCO3 ABG O2 Sat (Measured) ABG O2 Content ABG Base Excess Cain Test O2 Delivery Device Oxygen Flow Rate Vent Mode Vent Rate Mechanical Rate Pressure Support Vent Sodium Potassium Chloride Carbon Dioxide Anion Gap BUN Creatinine Est GFR (CKD-EPI)AfAm Est GFR (CKD-EPI)NonAf POC Glucometer 278 199 173 Random Glucose Lactic Acid Calcium Creatine Kinase Troponin I B-Natriuretic Peptide 12/02/18 12/02/18 12/02/18 05:53 11:41 16:32 WBC RBC Hgb Hct MCV MCH MCHC RDW Plt Count MPV Absolute Neuts (auto) Neutrophils % Lymphocytes % Monocytes % Eosinophils % Basophils % Nucleated RBC % Anticoagulation Therapy Puncture Site ABG pH ABG pCO2 at Pt Temp ABG pO2 at Pt Temp ABG HCO3 ABG O2 Sat (Measured) ABG O2 Content ABG Base Excess Cain Test O2 Delivery Device Oxygen Flow Rate Vent Mode Vent Rate Mechanical Rate Pressure Support Vent Sodium Potassium Chloride Carbon Dioxide Anion Gap BUN Creatinine Est GFR (CKD-EPI)AfAm Est GFR (CKD-EPI)NonAf POC Glucometer 294 214 240 Random Glucose Lactic Acid Calcium Creatine Kinase Troponin I B-Natriuretic Peptide 12/02/18 12/03/18 12/03/18 22:37 06:54 11:39 WBC RBC Hgb Hct MCV MCH MCHC RDW Plt Count MPV Absolute Neuts (auto) Neutrophils % Lymphocytes % Monocytes % Eosinophils % Basophils % Nucleated RBC % Anticoagulation Therapy Puncture Site ABG pH ABG pCO2 at Pt Temp ABG pO2 at Pt Temp ABG HCO3 ABG O2 Sat (Measured) ABG O2 Content ABG Base Excess Cain Test O2 Delivery Device Oxygen Flow Rate Vent Mode Vent Rate Mechanical Rate Pressure Support Vent Sodium Potassium Chloride Carbon Dioxide Anion Gap BUN Creatinine Est GFR (CKD-EPI)AfAm Est GFR (CKD-EPI)NonAf POC Glucometer 342 185 265 Random Glucose Lactic Acid Calcium Creatine Kinase Troponin I B-Natriuretic Peptide 12/03/18 12/03/18 12/03/18 16:21 16:37 16:37 WBC RBC Hgb Hct MCV MCH MCHC RDW Plt Count MPV Absolute Neuts (auto) Neutrophils % Lymphocytes % Monocytes % Eosinophils % Basophils % Nucleated RBC % Anticoagulation Therapy Puncture Site ABG pH ABG pCO2 at Pt Temp ABG pO2 at Pt Temp ABG HCO3 ABG O2 Sat (Measured) ABG O2 Content ABG Base Excess Cain Test O2 Delivery Device Oxygen Flow Rate Vent Mode Vent Rate Mechanical Rate Pressure Support Vent Sodium 142 Potassium 4.1 Chloride 110 H Carbon Dioxide 23 Anion Gap 9 BUN 67.2 H Creatinine 2.2 H Est GFR (CKD-EPI)AfAm 32.06 Est GFR (CKD-EPI)NonAf 27.67 POC Glucometer 117 Random Glucose 122 H Lactic Acid 1.7 Calcium 8.3 L Creatine Kinase 25 L Troponin I 0.05 B-Natriuretic Peptide 25986.5 H 12/03/18 12/03/18 12/03/18 17:20 19:39 19:39 WBC 14.8 H RBC 3.41 L Hgb 10.7 L Hct 31.7 L MCV 93.0 MCH 31.3 MCHC 33.6 RDW 14.6 Plt Count 160 MPV 8.0 Absolute Neuts (auto) 12.4 H Neutrophils % 84.0 H Lymphocytes % 1.7 L D Monocytes % 14.1 H Eosinophils % 0.1 D Basophils % 0.1 Nucleated RBC % 0 Anticoagulation Therapy No Result Required. Puncture Site Right radial ABG pH 7.49 H ABG pCO2 at Pt Temp 25.5 L ABG pO2 at Pt Temp 110 H ABG HCO3 19.0 L ABG O2 Sat (Measured) 98.8 H ABG O2 Content 11.9 L ABG Base Excess -3.2 L Cain Test Positive O2 Delivery Device Room air Oxygen Flow Rate No Result Required. Vent Mode No Result Required. Vent Rate No Result Required. Mechanical Rate No Result Required. Pressure Support Vent No Result Required. Sodium Potassium Chloride Carbon Dioxide Anion Gap BUN Creatinine Est GFR (CKD-EPI)AfAm Est GFR (CKD-EPI)NonAf POC Glucometer Random Glucose Lactic Acid 1.7 Calcium Creatine Kinase Troponin I B-Natriuretic Peptide 12/03/18 12/04/18 12/04/18 20:50 05:39 05:50 WBC 13.2 H RBC 3.56 L Hgb 11.1 L Hct 32.4 L MCV 91.0 MCH 31.2 MCHC 34.3 RDW 13.9 Plt Count 164 MPV 7.7 Absolute Neuts (auto) 10.1 H Neutrophils % 77.0 Lymphocytes % 6.7 L D Monocytes % 14.6 H Eosinophils % 1.4 D Basophils % 0.3 Nucleated RBC % 0 Anticoagulation Therapy Puncture Site ABG pH ABG pCO2 at Pt Temp ABG pO2 at Pt Temp ABG HCO3 ABG O2 Sat (Measured) ABG O2 Content ABG Base Excess Cain Test O2 Delivery Device Oxygen Flow Rate Vent Mode Vent Rate Mechanical Rate Pressure Support Vent Sodium Potassium Chloride Carbon Dioxide Anion Gap BUN Creatinine Est GFR (CKD-EPI)AfAm Est GFR (CKD-EPI)NonAf POC Glucometer 285 255 Random Glucose Lactic Acid Calcium Creatine Kinase Troponin I B-Natriuretic Peptide 12/04/18 12/04/18 12/04/18 08:30 10:54 12:13 WBC RBC Hgb Hct MCV MCH MCHC RDW Plt Count MPV Absolute Neuts (auto) Neutrophils % Lymphocytes % Monocytes % Eosinophils % Basophils % Nucleated RBC % Anticoagulation Therapy Puncture Site ABG pH ABG pCO2 at Pt Temp ABG pO2 at Pt Temp ABG HCO3 ABG O2 Sat (Measured) ABG O2 Content ABG Base Excess Cain Test O2 Delivery Device Oxygen Flow Rate Vent Mode Vent Rate Mechanical Rate Pressure Support Vent Sodium 140 Potassium 4.4 Chloride 110 H Carbon Dioxide 23 Anion Gap 7 L BUN 67.2 H Creatinine 2.2 H Est GFR (CKD-EPI)AfAm 32.06 Est GFR (CKD-EPI)NonAf 27.67 POC Glucometer 158 310 Random Glucose 299 H Lactic Acid Calcium 8.7 Creatine Kinase Troponin I B-Natriuretic Peptide 08834.5 H Active Medications Generic Name Dose Route Start Last Admin Trade Name Freq PRN Reason Stop Dose Admin Acetaminophen/Codeine Phosphate 1 tab 11/28/18 19:23 12/02/18 09:47 Tylenol # 3 - PO 1 tab Q4H PRN Administration PAIN LEVEL 4 - 6 Amlodipine Besylate 10 mg 11/29/18 10:00 12/04/18 09:43 Norvasc - PO 10 mg DAILY [facility] Administration Apixaban 2.5 mg 12/01/18 10:00 12/04/18 09:43 Eliquis - PO 2.5 mg BID [facility] Administration Brimonidine Tartrate 1 drop 11/28/18 22:00 12/04/18 09:42 Alphagan 0.2% - OU 1 drop BID [facility] Administration Carvedilol 12.5 mg 11/28/18 22:00 12/04/18 09:43 Coreg - PO 12.5 mg BID [facility] Administration Furosemide 40 mg 11/29/18 10:00 12/04/18 09:42 Lasix - PO 40 mg DAILY [facility] Administration Piperacillin Sod/Tazobactam 50 mls @ 100 mls/hr 12/04/18 11:00 12/04/18 15:05 Sod 2.25 gm/ Dextrose IVPB 100 mls/hr Q6H-IV [facility] Administration Protocol Insulin Aspart 1 vial 11/29/18 22:00 12/04/18 12:17 Novolog Vial Sliding Scale - SQ 12 units ACHS [facility] Administration Protocol Isosorbide Mononitrate 30 mg 11/29/18 10:00 12/04/18 09:43 Imdur - PO 30 mg DAILY [facility] Administration Latanoprost 1 drop 11/28/18 22:00 12/03/18 21:10 Xalatan 0.005% Eye Drops - OU 1 drop HS [facility] Administration Ondansetron HCl 4 mg 11/28/18 15:19 Zofran Injection IVPUSH Q6H PRN NAUSEA AND/OR VOMITING Polyethylene Glycol 17 gm 12/01/18 10:00 12/04/18 10:16 Miralax (For Daily Use) - PO Not Given DAILY [facility] Tamsulosin HCl 0.4 mg 11/29/18 08:30 12/04/18 08:42 Flomax - PO 0.4 mg DAILY@0830 [facility] Administration Timolol Maleate 1 drop 11/28/18 22:00 12/04/18 10:11 Timoptic 0.5% OU 1 drop BID [facility] Administration Valsartan 80 mg 11/28/18 22:00 12/04/18 09:42 Diovan - PO 80 mg BID [facility] Administration ASSESSMENT/PLAN: Dale Odell is a 78 year old male with a PMHx of DM, AF, CAD, CVA and BPH who presented to the hospital with painless hematuria and was admitted to the ICU after developing sepsis likely 2/2 to urinary tract infection. Sepsis 2/2 urinary tract infection CAD IDDM CHF CVA CKD Hematuria BPH NEUROLOGIC - stable CARDIOLOGY - continue home amlodipine 10mg daily - continue home Elliquis 2.mg bid - continue home Coreg 12.5mg bid - continue home Lasix 40mg daily - continue home isosoribide mononitrate 30mg daily - continue home valsartan 80mg bid RESPIRATORY - stable, no acute issues RENAL - DALI, CRE 2.2 likely 2/2 from sepsis - fluids given, 1 bag LR @ 83cc/hr GASTROINTESTINAL - no acute issues GENITOURINARY - s/p cystoscopy - leger in, continue as per urology - likely bleeding from prostatic urethra - Dr. Mccarty consulted, recs appreciated INFECTIOUS DISEASE - UA shows infection, 2+ LE, 93 WBC, 1339 bacteria - meropenem given once - Zosyn 2.25 q6h - Dr. Logan consulted, recs appreciated - Cxs show lactose and non lactose fermenting gram negative bacteria - blood cxs negative after 24 hours ENDOCRINE - BGM ACHS - ISS HEMATOLOGY - WBC count likely 2/2 infection MUSCULOSKELETAL - no acute issues PSYCHIATRY - no acute issues OPTHALMOLOGY - continue home eye drops F/E/N - 1L of fluid LR @ 83cc/hr - monitor electrolytes, replete as necessary - sodium controlled diet PROPHYLAXIS - on Elliquis CODE - full code DISPO - stable for transfer to telemetry CASE DISCUSSED WITH DR. ROSENTHAL AND PRIMARY TEAM KEITH INTERIANO DO - PGY-1 INTERNAL MEDICINE Visit type - Emergency Visit Emergency Visit: No - New Patient This patient is new to me today: Yes Date on this admission: 12/04/18 - Critical Care Critical Care patient: Yes Total Critical Care Time (in minutes): 35 Critical Care Statement: The care of this patient involved high complexity decision making to prevent further life threatening deterioration of the patient 's condition and/or to evaluate & treat vital organ system(s) failure or risk of failure. ATTENDING PHYSICIAN STATEMENT I saw and evaluated the patient. I reviewed the resident's note and discussed the case with the resident. I agree with the resident's findings and plan as documented. SUBJECTIVE: OBJECTIVE: ASSESSMENT AND PLAN:
[2018-12-04] MEDS ORDERED: LACTATED RINGERS SOLUTION 1,000 ML/1,000 ML INFUS.BAG IV SCH (15:30)
--- NOTE | 2018-12-04 16:45 | PN ---
Progress Note (short form) - Note Progress Note: CCU Followup: 78 year old AA male, admitted with gross painless hematuria. h/o of CAD, s/p OR / PCI/ stenting, LV systolic dysfunction. IDDM, history of CHF. Hypertension/ hypertensive cardiovascular disease, dyslipidemia. History of CVA with right hemiparesis. Acute urinary sepsis. Patient complains of weakness, is lethargic, hemodynamically has stabilized. No chest pain or discomfort reported. Patient is afebrile. Active Medications Acetaminophen/Codeine Phosphate (Tylenol # 3 -) 1 tab PO Q4H PRN PRN Reason: PAIN LEVEL 4 - 6 Last Admin: 12/02/18 09:47 Dose: 1 tab Amlodipine Besylate (Norvasc -) 10 mg PO DAILY [facility] Last Admin: 12/04/18 09:43 Dose: 10 mg Apixaban (Eliquis -) 2.5 mg PO BID [facility] Last Admin: 12/04/18 09:43 Dose: 2.5 mg Brimonidine Tartrate (Alphagan 0.2% -) 1 drop OU BID [facility] Last Admin: 12/04/18 09:42 Dose: 1 drop Carvedilol (Coreg -) 12.5 mg PO BID [facility] Last Admin: 12/04/18 09:43 Dose: 12.5 mg Furosemide (Lasix -) 40 mg PO DAILY [facility] Last Admin: 12/04/18 09:42 Dose: 40 mg Piperacillin Sod/Tazobactam (Sod 2.25 gm/ Dextrose) 50 mls @ 100 mls/hr IVPB Q6H-IV [facility]; Protocol Last Admin: 12/04/18 15:05 Dose: 100 mls/hr Lactated Ringer's (Lactated Ringers Solution) 1,000 ml in 1,000 mls @ 83 mls/ hr IV ASDIR [facility] Stop: 12/05/18 03:33 Insulin Aspart (Novolog Vial Sliding Scale -) 1 vial SQ ACHS [facility]; Protocol Last Admin: 12/04/18 12:17 Dose: 12 units Isosorbide Mononitrate (Imdur -) 30 mg PO DAILY [facility] Last Admin: 12/04/18 09:43 Dose: 30 mg Latanoprost (Xalatan 0.005% Eye Drops -) 1 drop OU HS [facility] Last Admin: 12/03/18 21:10 Dose: 1 drop Ondansetron HCl (Zofran Injection) 4 mg IVPUSH Q6H PRN PRN Reason: NAUSEA AND/OR VOMITING Polyethylene Glycol (Miralax (For Daily Use) -) 17 gm PO DAILY [facility] Last Admin: 12/04/18 10:16 Dose: Not Given Tamsulosin HCl (Flomax -) 0.4 mg PO DAILY@0830 [facility] Last Admin: 12/04/18 08:42 Dose: 0.4 mg Timolol Maleate (Timoptic 0.5%) 1 drop OU BID [facility] Last Admin: 12/04/18 10:11 Dose: 1 drop Valsartan (Diovan -) 80 mg PO BID [facility] Last Admin: 12/04/18 09:42 Dose: 80 mg Last Vital Signs Temp Pulse Resp BP Pulse Ox 98.9 F 63 18 109/56 L 100 12/04/18 13:00 12/04/18 15:00 12/04/18 15:00 12/04/18 15:00 12/04/18 08:09 NECK: Supple, no JVD,+ve HJR, carotids2+, no bruits heard. HEART: PMI in the 5th ICS, no heaves or thrills.S1 normal, S2 split grade I/ apical systolic murmur, ?S3 gallop. LUNGS: Fine right lower lobe crepitation. ABDOMEN: Soft nontender, no organomegaly or palpable masses. EXTREMITIES: No dependent edema or calf tenderness. CBC, BMP 12/04/18 05:50 12/04/18 10:54 Impression: 1. Recent urinary tract sepsis. 2. CAD, s/p OR,s/p PCI/DAISY, 3. Acute LV failure needs exclusion. 4. H/o LV systolic dysfunction. 5. Ongoing hematuria. 6. CKD. 7. Type II DM. 8. 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 RECOMMENDATIONS: 1. Continue current cardiac medications. 2. Family is aware of his status and seriousness of his current condition. 3. Followup x-ray chest. Prognosis: Critical Javier Horner M.D.
[2018-12-04] MEDS ORDERED: ONDANSETRON 4 MG/2 ML VIAL IVPUSH PRN (20:53)
[2018-12-04] MEDS ORDERED: INSULIN (NOVOLOG) ASPART 100 UNITS/ML 10ML VIAL ONE (21:58)
[2018-12-04] MEDS: LATANOPROST 0.005% OPHTH SOLN 2.5ML BOTTLE OU SCH (22:06)
[2018-12-05] MEDS ORDERED: DEXTROSE 5%-WATER - 50 ML IVPB ONE ×4 (02:32→21:20)
[2018-12-05] MEDS ORDERED: PIPERACILLIN/TAZOBACTAM 2.25 GM VIAL IVPB ONE ×4 (02:32→21:19)
[2018-12-05] MEDS: PIPERACILLIN/TAZOB 2.25 GM 2.25 GM in DEXTROSE 5%-WATER - 50 ML IVPB SCH ×4 (02:48→21:54)
[2018-12-05] MEDS: INSULIN SLIDING SCALE (NOVOLOG) 1 VIAL SQ SCH ×4 (06:57→21:55)
[2018-12-05] MEDS: TAMSULOSIN HCL 0.4 MG CAP PO SCH (09:17)
[2018-12-05] MEDS: VALSARTAN 80 MG TABLET (UD) PO SCH ×2 (09:17→22:22)
[2018-12-05] MEDS: CARVEDILOL 12.5 MG TABLET (FP) PO SCH ×2 (09:17→21:54)
[2018-12-05] MEDS: APIXABAN 2.5 MG TABLET PO SCH ×2 (09:17→21:54)
[2018-12-05] MEDS: POLYETHYLENE GLYCOL 3350 119 GM BTL PO SCH (09:20)
[2018-12-05] MEDS: FUROSEMIDE 40 MG TABLET (FP) PO SCH (09:20)
[2018-12-05] MEDS: amLODIPine BESYLATE 10 MG TABLET (FP) PO SCH (09:20)
[2018-12-05] MEDS: ISOSORBIDE MONONITRATE 30 MG TAB.SR.24H (FP) PO SCH (09:20)
[2018-12-05] MEDS: BRIMONIDINE TARTRATE 0.2% OPHTHALMIC 5 ML BOTTLE OU SCH ×2 (09:23→22:05)
[2018-12-05] MEDS: TIMOLOL 0.5% OPHTHALMIC SOL 5 ML BOTTLE OU SCH ×2 (09:23→22:05)
--- NOTE | 2018-12-05 09:43 | PN ---
Progress Note, Physician Chief Complaint: Feels better History of Present Illness: Urine culture grew Group D strep - Current Medication List Current Medications: Active Medications Amlodipine Besylate (Norvasc -) 10 mg PO DAILY [facility] Last Admin: 12/05/18 09:20 Dose: 10 mg Apixaban (Eliquis -) 2.5 mg PO BID [facility] Last Admin: 12/05/18 09:17 Dose: 2.5 mg Brimonidine Tartrate (Alphagan 0.2% -) 1 drop OU BID [facility] Last Admin: 12/05/18 09:23 Dose: 1 drop Carvedilol (Coreg -) 12.5 mg PO BID [facility] Last Admin: 12/05/18 09:17 Dose: 12.5 mg Furosemide (Lasix -) 40 mg PO DAILY [facility] Last Admin: 12/05/18 09:20 Dose: 40 mg Piperacillin Sod/Tazobactam (Sod 2.25 gm/ Dextrose) 50 mls @ 100 mls/hr IVPB Q6H-IV [facility]; Protocol Last Admin: 12/05/18 09:17 Dose: 100 mls/hr Insulin Aspart (Novolog Vial Sliding Scale -) 1 vial SQ ACHS [facility]; Protocol Last Admin: 12/05/18 06:57 Dose: 6 units Isosorbide Mononitrate (Imdur -) 30 mg PO DAILY [facility] Last Admin: 12/05/18 09:20 Dose: 30 mg Latanoprost (Xalatan 0.005% Eye Drops -) 1 drop OU HS [facility] Last Admin: 12/04/18 22:06 Dose: 1 drop Ondansetron HCl (Zofran Injection) 4 mg IVPUSH Q6H PRN PRN Reason: NAUSEA AND/OR VOMITING Polyethylene Glycol (Miralax (For Daily Use) -) 17 gm PO DAILY [facility] Last Admin: 12/05/18 09:20 Dose: Not Given Tamsulosin HCl (Flomax -) 0.4 mg PO DAILY@0830 [facility] Last Admin: 12/05/18 09:17 Dose: 0.4 mg Timolol Maleate (Timoptic 0.5%) 1 drop OU BID [facility] Last Admin: 12/05/18 09:23 Dose: 1 drop Valsartan (Diovan -) 80 mg PO BID [facility] Last Admin: 12/05/18 09:17 Dose: 80 mg - Objective Vital Signs: Vital Signs Temperature 98.9 F 12/05/18 08:04 Pulse Rate 72 12/05/18 08:04 Respiratory Rate 18 12/05/18 08:04 Blood Pressure 130/63 12/05/18 08:04 O2 Sat by Pulse Oximetry (%) 99 12/05/18 08:04 Constitutional: Yes: No Distress Eyes: Yes: WNL HENT: Yes: WNL Neck: Yes: WNL Cardiovascular: Yes: WNL Respiratory: Yes: Regular Gastrointestinal: Yes: WNL Genitourinary: Yes: Kumar Present Breast(s): Yes: WNL Musculoskeletal: Yes: Muscle Weakness Edema: No Neurological: Yes: Alert ...Motor Strength: WNL Labs: CBC, BMP 12/04/18 05:50 12/04/18 10:54 INR, PTT INR 1.08 (0.83-1.09) 11/27/18 06:45 Assessment/Plan DC CBI Trasfer to regular floor
--- NOTE | 2018-12-05 09:44 | PN ---
Progress Note, Physician - Current Medication List Current Medications: Active Medications Amlodipine Besylate (Norvasc -) [address] [facility] Last Admin: 12/05/18 09:20 Dose: 10 mg Apixaban (Eliquis -) 2.[address] [facility] Last Admin: 12/05/18 09:17 Dose: 2.5 mg Brimonidine Tartrate (Alphagan 0.2% -) [address] [facility] Last Admin: 12/05/18 09:23 Dose: 1 drop Carvedilol (Coreg -) 12.[address] [facility] Last Admin: 12/05/18 09:17 Dose: 12.5 mg Furosemide (Lasix -) [address] [facility] Last Admin: 12/05/18 09:20 Dose: 40 mg Piperacillin Sod/Tazobactam (Sod 2.25 gm/ Dextrose) 50 mls @ 100 mls/hr IVPB Q6H-IV [facility]; Protocol Last Admin: 12/05/18 09:17 Dose: 100 mls/hr Insulin Aspart (Novolog Vial Sliding Scale -) [address] [facility]; Protocol Last Admin: 12/05/18 06:57 Dose: 6 units Isosorbide Mononitrate (Imdur -) [address] [facility] Last Admin: 12/05/18 09:20 Dose: 30 mg Latanoprost (Xalatan 0.005% Eye Drops -) [address] [facility] Last Admin: 12/04/18 22:06 Dose: 1 drop Ondansetron HCl (Zofran Injection) 4 mg IVPUSH Q6H PRN PRN Reason: NAUSEA AND/OR VOMITING Polyethylene Glycol (Miralax (For Daily Use) -) [address] [facility] Last Admin: 12/05/18 09:20 Dose: Not Given Tamsulosin HCl (Flomax -) 0.4 mg PO DAILY@0830 [facility] Last Admin: 12/05/18 09:17 Dose: 0.4 mg Timolol Maleate (Timoptic 0.5%) [address] [facility] Last Admin: 12/05/18 09:23 Dose: 1 drop Valsartan (Diovan -) [address] [facility] Last Admin: 12/05/18 09:17 Dose: 80 mg - Objective Vital Signs: Vital Signs Temperature 98.9 F 12/05/18 08:04 Pulse Rate 72 12/05/18 08:04 Respiratory Rate 18 12/05/18 08:04 Blood Pressure 130/63 12/05/18 08:04 O2 Sat by Pulse Oximetry (%) 99 12/05/18 08:04 Labs: CBC, BMP 12/04/18 05:50 12/04/18 10:54 INR, PTT INR 1.08 (0.83-1.09) 11/27/18 06:45
--- NOTE | 2018-12-05 10:25 | PN ---
Progress Note (short form) - Note Progress Note: UROLOGY NOTE BPH and Gross hematuria. Plan: NPO after midnight for tomorrow TURP and TURBT
--- NOTE | 2018-12-05 10:28 | PN ---
Progress Note (short form) - Note Progress Note: UROLOGY NOTE BPH and Gross hematuria. S/P Cystoscopy on leger catheter, doing well no hematuria. off CBI with clear urine drainage. Plan: Leger to leg bag, RTC 1 week for D/C leger.
--- NOTE | 2018-12-05 10:46 | PN ---
Progress Note (short form) - Note Progress Note: CCU Followup: 78 year old AA male, admitted with gross painless hematuria. h/o of CAD, s/p [place] / PCI/ stenting, LV systolic dysfunction. IDDM, history of CHF. Hypertension/ hypertensive cardiovascular disease, dyslipidemia. History of CVA with right hemiparesis, recent sepsis related to urinary tract infection. Patient is hemodynamically stable complaining of lethargy and weakness. No chest pain or discomfort, no dyspnea, palpitations, or lightheadedness reported. Active Medications Amlodipine Besylate (Norvasc -) 10 mg PO DAILY [facility] Last Admin: 12/05/18 09:20 Dose: 10 mg Apixaban (Eliquis -) 2.5 mg PO BID [facility] Last Admin: 12/05/18 09:17 Dose: 2.5 mg Brimonidine Tartrate (Alphagan 0.2% -) 1 drop OU BID [facility] Last Admin: 12/05/18 09:23 Dose: 1 drop Carvedilol (Coreg -) 12.5 mg PO BID [facility] Last Admin: 12/05/18 09:17 Dose: 12.5 mg Furosemide (Lasix -) 40 mg PO DAILY [facility] Last Admin: 12/05/18 09:20 Dose: 40 mg Piperacillin Sod/Tazobactam (Sod 2.25 gm/ Dextrose) 50 mls @ 100 mls/hr IVPB Q6H-IV [facility]; Protocol Last Admin: 12/05/18 09:17 Dose: 100 mls/hr Insulin Aspart (Novolog Vial Sliding Scale -) 1 vial SQ ACHS [facility]; Protocol Last Admin: 12/05/18 06:57 Dose: 6 units Isosorbide Mononitrate (Imdur -) 30 mg PO DAILY [facility] Last Admin: 12/05/18 09:20 Dose: 30 mg Latanoprost (Xalatan 0.005% Eye Drops -) 1 drop OU HS [facility] Last Admin: 12/04/18 22:06 Dose: 1 drop Ondansetron HCl (Zofran Injection) 4 mg IVPUSH Q6H PRN PRN Reason: NAUSEA AND/OR VOMITING Polyethylene Glycol (Miralax (For Daily Use) -) 17 gm PO DAILY [facility] Last Admin: 12/05/18 09:20 Dose: Not Given Tamsulosin HCl (Flomax -) 0.4 mg PO DAILY@0830 [facility] Last Admin: 12/05/18 09:17 Dose: 0.4 mg Timolol Maleate (Timoptic 0.5%) 1 drop OU BID [facility] Last Admin: 12/05/18 09:23 Dose: 1 drop Valsartan (Diovan -) 80 mg PO BID [facility] Last Admin: 12/05/18 09:17 Dose: 80 mg Last Vital Signs Temp Pulse Resp BP Pulse Ox 98.9 F 72 18 130/63 99 12/05/18 08:04 12/05/18 08:04 12/05/18 08:04 12/05/18 08:04 12/05/18 08:04 NECK: Supple, no JVD,+ve HJR, carotids2+, no bruits heard. HEART: PMI in the 5th ICS, no heaves or thrills.S1 normal, S2 split grade I/ apical systolic murmur, ?S3 gallop. LUNGS: Clear on auscultation. ABDOMEN: Soft nontender, no organomegaly or palpable masses. EXTREMITIES: No dependent edema or calf tenderness. CBC, BMP 12/04/18 05:50 12/04/18 10:54 Impression: 1. Acute urinary sepsis, resolved. 2. CAD, s/p PR,s/p PCI/DAISY, 3. Acute LV failure resolved. 4. H/o LV systolic dysfunction. 5. Ongoing hematuria. 6. CKD. 7. Type II DM. 8. 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 RECOMMENDATIONS: 1.Continue current medications. 2. Increase ambulation. Javier Horner M.D.
--- NOTE | 2018-12-05 15:18 | PN ---
Progress Note, Physician History of Present Illness: stable no new issues hematuria resolving - Current Medication List Current Medications: Active Medications Amlodipine Besylate (Norvasc -) 10 mg PO DAILY [facility] Last Admin: 12/05/18 09:20 Dose: 10 mg Apixaban (Eliquis -) 2.5 mg PO BID [facility] Last Admin: 12/05/18 09:17 Dose: 2.5 mg Brimonidine Tartrate (Alphagan 0.2% -) 1 drop OU BID [facility] Last Admin: 12/05/18 09:23 Dose: 1 drop Carvedilol (Coreg -) 12.5 mg PO BID [facility] Last Admin: 12/05/18 09:17 Dose: 12.5 mg Furosemide (Lasix -) 40 mg PO DAILY [facility] Last Admin: 12/05/18 09:20 Dose: 40 mg Piperacillin Sod/Tazobactam (Sod 2.25 gm/ Dextrose) 50 mls @ 100 mls/hr IVPB Q6H-IV [facility]; Protocol Last Admin: 12/05/18 15:16 Dose: 100 mls/hr Insulin Aspart (Novolog Vial Sliding Scale -) 1 vial SQ ACHS [facility]; Protocol Last Admin: 12/05/18 11:22 Dose: 9 units Isosorbide Mononitrate (Imdur -) 30 mg PO DAILY [facility] Last Admin: 12/05/18 09:20 Dose: 30 mg Latanoprost (Xalatan 0.005% Eye Drops -) 1 drop OU HS [facility] Last Admin: 12/04/18 22:06 Dose: 1 drop Ondansetron HCl (Zofran Injection) 4 mg IVPUSH Q6H PRN PRN Reason: NAUSEA AND/OR VOMITING Polyethylene Glycol (Miralax (For Daily Use) -) 17 gm PO DAILY [facility] Last Admin: 12/05/18 09:20 Dose: Not Given Tamsulosin HCl (Flomax -) 0.4 mg PO DAILY@0830 [facility] Last Admin: 12/05/18 09:17 Dose: 0.4 mg Timolol Maleate (Timoptic 0.5%) 1 drop OU BID [facility] Last Admin: 12/05/18 09:23 Dose: 1 drop Valsartan (Diovan -) 80 mg PO BID [facility] Last Admin: 12/05/18 09:17 Dose: 80 mg - Objective Vital Signs: Vital Signs Temperature 97.8 F 12/05/18 14:00 Pulse Rate 61 12/05/18 14:00 Respiratory Rate 20 12/05/18 14:00 Blood Pressure 119/56 L 12/05/18 14:00 O2 Sat by Pulse Oximetry (%) 99 12/05/18 08:04 Constitutional: Yes: No Distress, Calm Cardiovascular: Yes: Regular Rate and Rhythm Respiratory: Yes: Regular, CTA Bilaterally Gastrointestinal: Yes: Normal Bowel Sounds, Soft Genitourinary: Yes: Kumar Present Musculoskeletal: Yes: WNL Extremities: Yes: WNL Neurological: Yes: Alert, Oriented Psychiatric: Yes: Alert, Oriented Labs: CBC, BMP 12/04/18 05:50 12/04/18 10:54 INR, PTT INR 1.08 (0.83-1.09) 11/27/18 06:45 Assessment/Plan Problem List - Problems (1) Hematuria Code(s): R31.9 - HEMATURIA, UNSPECIFIED Qualifiers: Hematuria type: unspecified type Qualified Code(s): R31.9 - Hematuria, unspecified (2) Atrial fibrillation Code(s): I48.91 - UNSPECIFIED ATRIAL FIBRILLATION Qualifiers: (3) Cardiac pacemaker in situ Code(s): Z95.0 - PRESENCE OF CARDIAC PACEMAKER (4) Cerebrovascular accident (CVA) Code(s): I63.9 - CEREBRAL INFARCTION, UNSPECIFIED (5) Coronary artery disease Code(s): I25.10 - ATHSCL HEART DISEASE OF [place] CORONARY ARTERY W/O ANG PCTRS (6) Diabetes mellitus Code(s): E11.9 - TYPE 2 DIABETES MELLITUS WITHOUT COMPLICATIONS (7) Chronic renal insufficiency Code(s): N18.9 - CHRONIC KIDNEY DISEASE, UNSPECIFIED Qualifiers: Chronic kidney disease stage: stage 3 (moderate) Qualified Code(s): N18.3 - Chronic kidney disease, stage 3 (moderate) (8) Diastolic dysfunction without heart failure Code(s): I51.9 - HEART DISEASE, UNSPECIFIED (9) S/P coronary artery stent placement Code(s): Z95.5 - PRESENCE OF CORONARY ANGIOPLASTY IMPLANT AND GRAFT (10) Fever Code(s): R50.9 - FEVER, UNSPECIFIED (11) UTI (urinary tract infection) Code(s): N39.0 - URINARY TRACT INFECTION, SITE NOT SPECIFIED (12) Dehydration Code(s): E86.0 - DEHYDRATION plan zosyn monitor hematuria
[2018-12-05] MEDS: LATANOPROST 0.005% OPHTH SOLN 2.5ML BOTTLE OU SCH (22:04)
[2018-12-06] MEDS ORDERED: PIPERACILLIN/TAZOBACTAM 2.25 GM VIAL IVPB ONE ×4 (01:12→20:03)
[2018-12-06] MEDS ORDERED: DEXTROSE 5%-WATER - 50 ML IVPB ONE ×4 (01:12→20:04)
[2018-12-06] MEDS: PIPERACILLIN/TAZOB 2.25 GM 2.25 GM in DEXTROSE 5%-WATER - 50 ML IVPB SCH ×4 (03:11→20:08)
[2018-12-06] MEDS: INSULIN SLIDING SCALE (NOVOLOG) 1 VIAL SQ SCH ×4 (06:45→21:26)
--- NOTE | 2018-12-06 09:16 | PN ---
Progress Note, Physician Chief Complaint: Feels OK History of Present Illness: Admitted with hematuria Developed urosepsis,on IV antibiotics - Current Medication List Current Medications: Active Medications Amlodipine Besylate (Norvasc -) 10 mg PO DAILY [facility] Last Admin: 12/05/18 09:20 Dose: 10 mg Apixaban (Eliquis -) 2.5 mg PO BID [facility] Last Admin: 12/05/18 21:54 Dose: 2.5 mg Brimonidine Tartrate (Alphagan 0.2% -) 1 drop OU BID [facility] Last Admin: 12/05/18 22:05 Dose: 1 drop Carvedilol (Coreg -) 12.5 mg PO BID [facility] Last Admin: 12/05/18 21:54 Dose: 12.5 mg Furosemide (Lasix -) 40 mg PO DAILY [facility] Last Admin: 12/05/18 09:20 Dose: 40 mg Piperacillin Sod/Tazobactam (Sod 2.25 gm/ Dextrose) 50 mls @ 100 mls/hr IVPB Q6H-IV [facility]; Protocol Last Admin: 12/06/18 03:11 Dose: 100 mls/hr Insulin Aspart (Novolog Vial Sliding Scale -) 1 vial SQ ACHS [facility]; Protocol Last Admin: 12/06/18 06:45 Dose: 3 units Isosorbide Mononitrate (Imdur -) 30 mg PO DAILY [facility] Last Admin: 12/05/18 09:20 Dose: 30 mg Latanoprost (Xalatan 0.005% Eye Drops -) 1 drop OU HS [facility] Last Admin: 12/05/18 22:04 Dose: 1 drop Ondansetron HCl (Zofran Injection) 4 mg IVPUSH Q6H PRN PRN Reason: NAUSEA AND/OR VOMITING Polyethylene Glycol (Miralax (For Daily Use) -) 17 gm PO DAILY [facility] Last Admin: 12/05/18 09:20 Dose: Not Given Tamsulosin HCl (Flomax -) 0.4 mg PO DAILY@0830 [facility] Last Admin: 12/05/18 09:17 Dose: 0.4 mg Timolol Maleate (Timoptic 0.5%) 1 drop OU BID [facility] Last Admin: 12/05/18 22:05 Dose: 1 drop Valsartan (Diovan -) 80 mg PO BID [facility] Last Admin: 07/16/19 22:22 Dose: 80 mg - Objective Vital Signs: Vital Signs Temperature 97.4 F L 12/06/18 04:53 Pulse Rate 65 12/06/18 04:53 Respiratory Rate 20 12/06/18 04:53 Blood Pressure 145/70 12/06/18 04:53 O2 Sat by Pulse Oximetry (%) 99 12/05/18 08:04 Constitutional: Yes: Anxious Eyes: Yes: WNL HENT: Yes: WNL Neck: Yes: WNL Cardiovascular: Yes: WNL Respiratory: Yes: WNL Gastrointestinal: Yes: WNL ...Rectal Exam: Yes: Deferred Genitourinary: Yes: Kumar Present Musculoskeletal: Yes: WNL Edema: No Neurological: Yes: Alert Labs: CBC, BMP 12/04/18 05:50 12/04/18 10:54 INR, PTT INR 1.08 (0.83-1.09) 11/27/18 06:45 Assessment/Plan PT for ambulation
[2018-12-06] MEDS ORDERED: PT OWN MED DRAWER 7, Y5N ONE (09:20)
[2018-12-06] MEDS: CARVEDILOL 12.5 MG TABLET (FP) PO SCH ×2 (09:33→21:25)
[2018-12-06] MEDS: FUROSEMIDE 40 MG TABLET (FP) PO SCH (09:33)
[2018-12-06] MEDS: VALSARTAN 80 MG TABLET (UD) PO SCH ×2 (09:33→21:25)
[2018-12-06] MEDS: BRIMONIDINE TARTRATE 0.2% OPHTHALMIC 5 ML BOTTLE OU SCH ×2 (09:34→21:29)
[2018-12-06] MEDS: POLYETHYLENE GLYCOL 3350 119 GM BTL PO SCH (09:34)
[2018-12-06] MEDS: APIXABAN 2.5 MG TABLET PO SCH ×2 (09:34→21:25)
[2018-12-06] MEDS: TIMOLOL 0.5% OPHTHALMIC SOL 5 ML BOTTLE OU SCH ×2 (09:34→21:31)
[2018-12-06] MEDS: amLODIPine BESYLATE 10 MG TABLET (FP) PO SCH (09:34)
[2018-12-06] MEDS: TAMSULOSIN HCL 0.4 MG CAP PO SCH (09:34)
[2018-12-06] MEDS: ISOSORBIDE MONONITRATE 30 MG TAB.SR.24H (FP) PO SCH (09:34)
[2018-12-06] MEDS ORDERED: INSULIN (NOVOLOG) ASPART 100 UNITS/ML 10ML VIAL ONE (11:47)
--- NOTE | 2018-12-06 12:55 | PN ---
Progress Note, Physician History of Present Illness: comfortable no new issues - Current Medication List Current Medications: Active Medications Amlodipine Besylate (Norvasc -) 10 mg PO DAILY [facility] Last Admin: 12/06/18 09:34 Dose: 10 mg Apixaban (Eliquis -) 2.5 mg PO BID [facility] Last Admin: 12/06/18 09:34 Dose: 2.5 mg Brimonidine Tartrate (Alphagan 0.2% -) 1 drop OU BID [facility] Last Admin: 12/06/18 09:34 Dose: 1 drop Carvedilol (Coreg -) 12.5 mg PO BID [facility] Last Admin: 12/06/18 09:33 Dose: 12.5 mg Furosemide (Lasix -) 40 mg PO DAILY [facility] Last Admin: 12/06/18 09:33 Dose: 40 mg Piperacillin Sod/Tazobactam (Sod 2.25 gm/ Dextrose) 50 mls @ 100 mls/hr IVPB Q6H-IV [facility]; Protocol Last Admin: 12/06/18 09:33 Dose: 100 mls/hr Insulin Aspart (Novolog Vial Sliding Scale -) 1 vial SQ ACHS [facility]; Protocol Last Admin: 12/06/18 11:48 Dose: 12 units Isosorbide Mononitrate (Imdur -) 30 mg PO DAILY [facility] Last Admin: 12/06/18 09:34 Dose: 30 mg Latanoprost (Xalatan 0.005% Eye Drops -) 1 drop OU HS [facility] Last Admin: 12/05/18 22:04 Dose: 1 drop Ondansetron HCl (Zofran Injection) 4 mg IVPUSH Q6H PRN PRN Reason: NAUSEA AND/OR VOMITING Polyethylene Glycol (Miralax (For Daily Use) -) 17 gm PO DAILY [facility] Last Admin: 12/06/18 09:34 Dose: Not Given Tamsulosin HCl (Flomax -) 0.4 mg PO DAILY@0830 [facility] Last Admin: 12/06/18 09:34 Dose: 0.4 mg Timolol Maleate (Timoptic 0.5%) 1 drop OU BID [facility] Last Admin: 12/06/18 09:34 Dose: 1 drop Valsartan (Diovan -) 80 mg PO BID [facility] Last Admin: 12/06/18 09:33 Dose: 80 mg - Objective Vital Signs: Vital Signs Temperature 97.4 F L 12/06/18 04:53 Pulse Rate 65 12/06/18 04:53 Respiratory Rate 20 12/06/18 04:53 Blood Pressure 145/70 12/06/18 04:53 O2 Sat by Pulse Oximetry (%) 99 12/05/18 08:04 Constitutional: Yes: No Distress, Calm Cardiovascular: Yes: S1, S2 Respiratory: Yes: Regular, CTA Bilaterally Gastrointestinal: Yes: Normal Bowel Sounds, Soft Musculoskeletal: Yes: WNL Extremities: Yes: WNL Neurological: Yes: Alert, Oriented Psychiatric: Yes: Alert, Oriented Labs: CBC, BMP 12/04/18 05:50 12/04/18 10:54 INR, PTT INR 1.08 (0.83-1.09) 11/27/18 06:45 Assessment/Plan Problem List - Problems (1) Hematuria Code(s): R31.9 - HEMATURIA, UNSPECIFIED Qualifiers: Hematuria type: unspecified type Qualified Code(s): R31.9 - Hematuria, unspecified (2) Atrial fibrillation Code(s): I48.91 - UNSPECIFIED ATRIAL FIBRILLATION Qualifiers: (3) Cardiac pacemaker in situ Code(s): Z95.0 - PRESENCE OF CARDIAC PACEMAKER (4) Cerebrovascular accident (CVA) Code(s): I63.9 - CEREBRAL INFARCTION, UNSPECIFIED (5) Coronary artery disease Code(s): I25.10 - ATHSCL HEART DISEASE OF [place] CORONARY ARTERY W/O ANG PCTRS (6) Diabetes mellitus Code(s): E11.9 - TYPE 2 DIABETES MELLITUS WITHOUT COMPLICATIONS (7) Chronic renal insufficiency Code(s): N18.9 - CHRONIC KIDNEY DISEASE, UNSPECIFIED Qualifiers: Chronic kidney disease stage: stage 3 (moderate) Qualified Code(s): N18.3 - Chronic kidney disease, stage 3 (moderate) (8) Diastolic dysfunction without heart failure Code(s): I51.9 - HEART DISEASE, UNSPECIFIED (9) S/P coronary artery stent placement Code(s): Z95.5 - PRESENCE OF CORONARY ANGIOPLASTY IMPLANT AND GRAFT (10) Fever Code(s): R50.9 - FEVER, UNSPECIFIED (11) UTI (urinary tract infection) Code(s): N39.0 - URINARY TRACT INFECTION, SITE NOT SPECIFIED (12) Dehydration Code(s): E86.0 - DEHYDRATION plan zosyn monitor hematuria will send a stat blood cx rest as per the team
--- NOTE | 2018-12-06 18:12 | PN ---
Progress Note (short form) - Note Progress Note: CCU Followup: 78 year old AA male, admitted with gross painless hematuria. h/o of CAD, s/p [place] / PCI/ stenting, LV systolic dysfunction. IDDM, history of CHF. Hypertension/ hypertensive cardiovascular disease, dyslipidemia. History of CVA with right hemiparesis. Acute urinary sepsis. Patient complains of weakness, is lethargic, hemodynamically has stabilized. No chest pain or discomfort reported. Patient is afebrile. Active Medications Amlodipine Besylate (Norvasc -) 10 mg PO DAILY [facility] Last Admin: 12/06/18 09:34 Dose: 10 mg Apixaban (Eliquis -) 2.5 mg PO BID [facility] Last Admin: 12/06/18 09:34 Dose: 2.5 mg Brimonidine Tartrate (Alphagan 0.2% -) 1 drop OU BID [facility] Last Admin: 12/06/18 09:34 Dose: 1 drop Carvedilol (Coreg -) 12.5 mg PO BID [facility] Last Admin: 12/06/18 09:33 Dose: 12.5 mg Furosemide (Lasix -) 40 mg PO DAILY [facility] Last Admin: 12/06/18 09:33 Dose: 40 mg Piperacillin Sod/Tazobactam (Sod 2.25 gm/ Dextrose) 50 mls @ 100 mls/hr IVPB Q6H-IV [facility]; Protocol Last Admin: 12/06/18 15:47 Dose: 100 mls/hr Insulin Aspart (Novolog Vial Sliding Scale -) 1 vial SQ ACHS [facility]; Protocol Last Admin: 12/06/18 16:43 Dose: 2 units Isosorbide Mononitrate (Imdur -) 30 mg PO DAILY [facility] Last Admin: 12/06/18 09:34 Dose: 30 mg Latanoprost (Xalatan 0.005% Eye Drops -) 1 drop OU HS [facility] Last Admin: 12/05/18 22:04 Dose: 1 drop Ondansetron HCl (Zofran Injection) 4 mg IVPUSH Q6H PRN PRN Reason: NAUSEA AND/OR VOMITING Polyethylene Glycol (Miralax (For Daily Use) -) 17 gm PO DAILY [facility] Last Admin: 12/06/18 09:34 Dose: Not Given Tamsulosin HCl (Flomax -) 0.4 mg PO DAILY@0830 [facility] Last Admin: 12/06/18 09:34 Dose: 0.4 mg Timolol Maleate (Timoptic 0.5%) 1 drop OU BID [facility] Last Admin: 12/06/18 09:34 Dose: 1 drop Valsartan (Diovan -) 80 mg PO BID [facility] Last Admin: 12/06/18 09:33 Dose: 80 mg Last Vital Signs Temp Pulse Resp BP Pulse Ox 98.5 F 66 20 114/56 L 99 12/06/18 17:18 12/06/18 17:18 12/06/18 17:18 12/06/18 17:18 12/05/18 08:04 NECK: Supple, no JVD,+ve HJR, carotids2+, no bruits heard. HEART: PMI in the 5th ICS, no heaves or thrills.S1 normal, S2 split grade I/ apical systolic murmur, ?S3 gallop. LUNGS: Fine right lower lobe crepitation. ABDOMEN: Soft nontender, no organomegaly or palpable masses. EXTREMITIES: No dependent edema or calf tenderness. CBC, BMP 12/04/18 05:50 12/04/18 10:54 Impression: 1. Recent urinary tract sepsis. 2. CAD, s/p [place],s/p PCI/DAISY, 3. Acute LV failure needs exclusion. 4. H/o LV systolic dysfunction. 5. Ongoing hematuria. 6. CKD. 7. Type II DM. 8. 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 RECOMMENDATIONS: 1. Continue current cardiac medications. 2. Family is aware of his status and seriousness of his current condition. 3. Followup x-ray chest. Prognosis: Critical Javier Horner M.D.
[2018-12-06] MEDS: LATANOPROST 0.005% OPHTH SOLN 2.5ML BOTTLE OU SCH (21:31)
[2018-12-07] MEDS ORDERED: DEXTROSE 5%-WATER - 50 ML IVPB ONE ×3 (02:08→20:32)
[2018-12-07] MEDS ORDERED: PIPERACILLIN/TAZOBACTAM 2.25 GM VIAL IVPB ONE ×3 (02:08→20:32)
[2018-12-07] MEDS: PIPERACILLIN/TAZOB 2.25 GM 2.25 GM in DEXTROSE 5%-WATER - 50 ML IVPB SCH ×5 (02:54→20:34)
[2018-12-07] MEDS: INSULIN SLIDING SCALE (NOVOLOG) 1 VIAL SQ SCH ×4 (07:07→22:31)
[2018-12-07] MEDS: amLODIPine BESYLATE 10 MG TABLET (FP) PO SCH (11:25)
[2018-12-07] MEDS: APIXABAN 2.5 MG TABLET PO SCH ×2 (11:25→22:25)
[2018-12-07] MEDS: VALSARTAN 80 MG TABLET (UD) PO SCH ×2 (11:25→22:25)
[2018-12-07] MEDS: CARVEDILOL 12.5 MG TABLET (FP) PO SCH ×2 (11:25→22:25)
[2018-12-07] MEDS: FUROSEMIDE 40 MG TABLET (FP) PO SCH (11:25)
[2018-12-07] MEDS: TAMSULOSIN HCL 0.4 MG CAP PO SCH (11:25)
[2018-12-07] MEDS: ISOSORBIDE MONONITRATE 30 MG TAB.SR.24H (FP) PO SCH (11:25)
[2018-12-07] MEDS: BRIMONIDINE TARTRATE 0.2% OPHTHALMIC 5 ML BOTTLE OU SCH ×2 (11:29→22:28)
[2018-12-07] MEDS: POLYETHYLENE GLYCOL 3350 119 GM BTL PO SCH (11:30)
[2018-12-07] MEDS: TIMOLOL 0.5% OPHTHALMIC SOL 5 ML BOTTLE OU SCH ×2 (11:30→22:28)
[2018-12-07] MEDS ORDERED: AMOX TR/POT CLAV 875MG/125MG TABLETS (FP) PO ONE (12:15)
[2018-12-07] MEDS ORDERED: INSULIN (NOVOLOG) ASPART 100 UNITS/ML 10ML VIAL ONE ×2 (12:46→18:33)
--- NOTE | 2018-12-07 13:11 | PN ---
Progress Note, Physician History of Present Illness: patient stable still having hematuria leaking around the leger blood cx result pending patient has lost his iv access - Current Medication List Current Medications: Active Medications Amlodipine Besylate (Norvasc -) 10 mg PO DAILY [facility] Last Admin: 12/07/18 11:25 Dose: 10 mg Apixaban (Eliquis -) 2.5 mg PO BID [facility] Last Admin: 12/07/18 11:25 Dose: 2.5 mg Brimonidine Tartrate (Alphagan 0.2% -) 1 drop OU BID [facility] Last Admin: 12/07/18 11:29 Dose: 1 drop Carvedilol (Coreg -) 12.5 mg PO BID [facility] Last Admin: 12/07/18 11:25 Dose: 12.5 mg Furosemide (Lasix -) 40 mg PO DAILY [facility] Last Admin: 12/07/18 11:25 Dose: 40 mg Piperacillin Sod/Tazobactam (Sod 2.25 gm/ Dextrose) 50 mls @ 100 mls/hr IVPB Q6H-IV [facility]; Protocol Last Admin: 12/07/18 12:51 Dose: Not Given Insulin Aspart (Novolog Vial Sliding Scale -) 1 vial SQ ACHS [facility]; Protocol Last Admin: 12/07/18 12:48 Dose: 12 units Isosorbide Mononitrate (Imdur -) 30 mg PO DAILY [facility] Last Admin: 12/07/18 11:25 Dose: 30 mg Latanoprost (Xalatan 0.005% Eye Drops -) 1 drop OU HS [facility] Last Admin: 12/06/18 21:31 Dose: 1 drop Ondansetron HCl (Zofran Injection) 4 mg IVPUSH Q6H PRN PRN Reason: NAUSEA AND/OR VOMITING Polyethylene Glycol (Miralax (For Daily Use) -) 17 gm PO DAILY [facility] Last Admin: 12/07/18 11:30 Dose: Not Given Tamsulosin HCl (Flomax -) 0.4 mg PO DAILY@0830 [facility] Last Admin: 12/07/18 11:25 Dose: 0.4 mg Timolol Maleate (Timoptic 0.5%) 1 drop OU BID [facility] Last Admin: 12/07/18 11:30 Dose: 1 drop Valsartan (Diovan -) 80 mg PO BID [facility] Last Admin: 12/07/18 11:25 Dose: 80 mg - Objective Vital Signs: Vital Signs Temperature 99.5 F 12/07/18 06:00 Pulse Rate 65 12/07/18 06:00 Respiratory Rate 20 12/07/18 06:00 Blood Pressure 132/56 L 12/07/18 06:00 O2 Sat by Pulse Oximetry (%) 99 12/06/18 21:00 Constitutional: Yes: No Distress, Calm Cardiovascular: Yes: S1, S2 Respiratory: Yes: Regular, CTA Bilaterally Gastrointestinal: Yes: Normal Bowel Sounds, Soft Musculoskeletal: Yes: WNL Extremities: Yes: WNL Neurological: Yes: Alert, Oriented Psychiatric: Yes: Alert, Oriented Labs: CBC, BMP 12/04/18 05:50 12/04/18 10:54 INR, PTT INR 1.08 (0.83-1.09) 11/27/18 06:45 Assessment/Plan Problem List - Problems (1) Hematuria Code(s): R31.9 - HEMATURIA, UNSPECIFIED Qualifiers: Hematuria type: unspecified type Qualified Code(s): R31.9 - Hematuria, unspecified (2) Atrial fibrillation Code(s): I48.91 - UNSPECIFIED ATRIAL FIBRILLATION Qualifiers: (3) Cardiac pacemaker in situ Code(s): Z95.0 - PRESENCE OF CARDIAC PACEMAKER (4) Cerebrovascular accident (CVA) Code(s): I63.9 - CEREBRAL INFARCTION, UNSPECIFIED (5) Coronary artery disease Code(s): I25.10 - ATHSCL HEART DISEASE OF [place] CORONARY ARTERY W/O ANG PCTRS (6) Diabetes mellitus Code(s): E11.9 - TYPE 2 DIABETES MELLITUS WITHOUT COMPLICATIONS (7) Chronic renal insufficiency Code(s): N18.9 - CHRONIC KIDNEY DISEASE, UNSPECIFIED Qualifiers: Chronic kidney disease stage: stage 3 (moderate) Qualified Code(s): N18.3 - Chronic kidney disease, stage 3 (moderate) (8) Diastolic dysfunction without heart failure Code(s): I51.9 - HEART DISEASE, UNSPECIFIED (9) S/P coronary artery stent placement Code(s): Z95.5 - PRESENCE OF CORONARY ANGIOPLASTY IMPLANT AND GRAFT (10) Fever Code(s): R50.9 - FEVER, UNSPECIFIED (11) UTI (urinary tract infection) Code(s): N39.0 - URINARY TRACT INFECTION, SITE NOT SPECIFIED (12) Dehydration Code(s): E86.0 - DEHYDRATION plan zosyn monitor hematuria await blood cx report rest as per the team
--- NOTE | 2018-12-07 17:28 | PN ---
Progress Note (short form) - Note Progress Note: CCU Followup: 78 year old AA male, admitted with gross painless hematuria. h/o of CAD, s/p MN / PCI/ stenting, LV systolic dysfunction. IDDM, history of CHF. Hypertension/ hypertensive cardiovascular disease, dyslipidemia. History of CVA with right hemiparesis. Acute urinary sepsis. Patient complains of weakness, is lethargic, hemodynamically has stabilized. No chest pain or discomfort reported. Patient is afebrile. Active Medications Amlodipine Besylate (Norvasc -) 10 mg PO DAILY [facility] Last Admin: 12/07/18 11:25 Dose: 10 mg Apixaban (Eliquis -) 2.5 mg PO BID [facility] Last Admin: 12/07/18 11:25 Dose: 2.5 mg Brimonidine Tartrate (Alphagan 0.2% -) 1 drop OU BID [facility] Last Admin: 12/07/18 11:29 Dose: 1 drop Carvedilol (Coreg -) 12.5 mg PO BID [facility] Last Admin: 12/07/18 11:25 Dose: 12.5 mg Furosemide (Lasix -) 40 mg PO DAILY [facility] Last Admin: 12/07/18 11:25 Dose: 40 mg Piperacillin Sod/Tazobactam (Sod 2.25 gm/ Dextrose) 50 mls @ 100 mls/hr IVPB Q6H-IV [facility]; Protocol Last Admin: 12/07/18 12:51 Dose: Not Given Insulin Aspart (Novolog Vial Sliding Scale -) 1 vial SQ ACHS [facility]; Protocol Last Admin: 12/07/18 12:48 Dose: 12 units Isosorbide Mononitrate (Imdur -) 30 mg PO DAILY [facility] Last Admin: 12/07/18 11:25 Dose: 30 mg Latanoprost (Xalatan 0.005% Eye Drops -) 1 drop OU HS [facility] Last Admin: 12/06/18 21:31 Dose: 1 drop Ondansetron HCl (Zofran Injection) 4 mg IVPUSH Q6H PRN PRN Reason: NAUSEA AND/OR VOMITING Polyethylene Glycol (Miralax (For Daily Use) -) 17 gm PO DAILY [facility] Last Admin: 12/07/18 11:30 Dose: Not Given Tamsulosin HCl (Flomax -) 0.4 mg PO DAILY@0830 [facility] Last Admin: 12/07/18 11:25 Dose: 0.4 mg Timolol Maleate (Timoptic 0.5%) 1 drop OU BID [facility] Last Admin: 12/07/18 11:30 Dose: 1 drop Valsartan (Diovan -) 80 mg PO BID [facility] Last Admin: 12/07/18 11:25 Dose: 80 mg Last Vital Signs Temp Pulse Resp BP Pulse Ox 98.5 F 64 20 123/59 L 98 12/07/18 17:19 12/07/18 17:19 12/07/18 17:19 12/07/18 17:19 12/07/18 09:00 NECK: Supple, no JVD,+ve HJR, carotids2+, no bruits heard. HEART: PMI in the 5th ICS, no heaves or thrills.S1 normal, S2 split grade I/ apical systolic murmur, ?S3 gallop. LUNGS: Fine right lower lobe crepitation. ABDOMEN: Soft nontender, no organomegaly or palpable masses. EXTREMITIES: No dependent edema or calf tenderness. CBC, BMP 12/04/18 05:50 12/04/18 10:54 Impression: 1. Recent urinary tract sepsis. 2. CAD, s/p MN,s/p PCI/DAISY, 3. Acute LV failure needs exclusion. 4. H/o LV systolic dysfunction. 5. Ongoing hematuria. 6. CKD. 7. Type II DM. 8. 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 RECOMMENDATIONS: 1. Continue current cardiac medications. 2. Family is aware of his status and seriousness of his current condition. 3. Followup x-ray chest. Prognosis: Critical Javier Horner M.D.
[2018-12-07] MEDS: LATANOPROST 0.005% OPHTH SOLN 2.5ML BOTTLE OU SCH (22:28)
[2018-12-08] MEDS ORDERED: PIPERACILLIN/TAZOBACTAM 2.25 GM VIAL IVPB ONE ×4 (01:51→21:12)
[2018-12-08] MEDS ORDERED: DEXTROSE 5%-WATER - 50 ML IVPB ONE ×4 (01:52→21:12)
[2018-12-08] MEDS: PIPERACILLIN/TAZOB 2.25 GM 2.25 GM in DEXTROSE 5%-WATER - 50 ML IVPB SCH ×4 (02:10→21:20)
[2018-12-08] MEDS: INSULIN SLIDING SCALE (NOVOLOG) 1 VIAL SQ SCH ×4 (06:51→22:21)
--- NOTE | 2018-12-08 09:09 | PN ---
Progress Note, Physician Chief Complaint: Feels better - Current Medication List Current Medications: Active Medications Amlodipine Besylate (Norvasc -) 10 mg PO DAILY [facility] Last Admin: 12/07/18 11:25 Dose: 10 mg Apixaban (Eliquis -) 2.5 mg PO BID [facility] Last Admin: 12/07/18 22:25 Dose: 2.5 mg Brimonidine Tartrate (Alphagan 0.2% -) 1 drop OU BID [facility] Last Admin: 12/07/18 22:28 Dose: 1 drop Carvedilol (Coreg -) 12.5 mg PO BID [facility] Last Admin: 12/07/18 22:25 Dose: 12.5 mg Furosemide (Lasix -) 40 mg PO DAILY [facility] Last Admin: 12/07/18 11:25 Dose: 40 mg Piperacillin Sod/Tazobactam (Sod 2.25 gm/ Dextrose) 50 mls @ 100 mls/hr IVPB Q6H-IV [facility]; Protocol Last Admin: 12/08/18 02:10 Dose: 100 mls/hr Insulin Aspart (Novolog Vial Sliding Scale -) 1 vial SQ ACHS [facility]; Protocol Last Admin: 12/08/18 06:51 Dose: 3 units Isosorbide Mononitrate (Imdur -) 30 mg PO DAILY [facility] Last Admin: 12/07/18 11:25 Dose: 30 mg Latanoprost (Xalatan 0.005% Eye Drops -) 1 drop OU HS [facility] Last Admin: 12/07/18 22:28 Dose: 1 drop Ondansetron HCl (Zofran Injection) 4 mg IVPUSH Q6H PRN PRN Reason: NAUSEA AND/OR VOMITING Polyethylene Glycol (Miralax (For Daily Use) -) 17 gm PO DAILY [facility] Last Admin: 12/07/18 11:30 Dose: Not Given Tamsulosin HCl (Flomax -) 0.4 mg PO DAILY@0830 [facility] Last Admin: 12/07/18 11:25 Dose: 0.4 mg Timolol Maleate (Timoptic 0.5%) 1 drop OU BID [facility] Last Admin: 12/07/18 22:28 Dose: 1 drop Valsartan (Diovan -) 80 mg PO BID [facility] Last Admin: 12/07/18 22:25 Dose: 80 mg - Objective Vital Signs: Vital Signs Temperature 98.9 F 12/08/18 05:00 Pulse Rate 64 12/08/18 05:00 Respiratory Rate 18 12/08/18 05:00 Blood Pressure 127/60 12/08/18 05:00 O2 Sat by Pulse Oximetry (%) 98 12/07/18 21:00 Constitutional: Yes: Anxious Eyes: Yes: WNL HENT: Yes: WNL Neck: Yes: WNL Respiratory: Yes: WNL Gastrointestinal: Yes: WNL ...Rectal Exam: Yes: Deferred Genitourinary: Yes: Kumar Present, Hematuria Breast(s): Yes: WNL Musculoskeletal: Yes: Muscle Weakness Neurological: Yes: Alert Labs: CBC, BMP 12/04/18 05:50 12/04/18 10:54 INR, PTT INR 1.08 (0.83-1.09) 11/27/18 06:45 Assessment/Plan Continue IV antibiotics Awaiting transfer to [facility]
[2018-12-08] MEDS: ISOSORBIDE MONONITRATE 30 MG TAB.SR.24H (FP) PO SCH (10:06)
[2018-12-08] MEDS: FUROSEMIDE 40 MG TABLET (FP) PO SCH (10:06)
[2018-12-08] MEDS: APIXABAN 2.5 MG TABLET PO SCH ×2 (10:06→22:21)
[2018-12-08] MEDS: VALSARTAN 80 MG TABLET (UD) PO SCH ×2 (10:06→22:20)
[2018-12-08] MEDS: amLODIPine BESYLATE 10 MG TABLET (FP) PO SCH (10:06)
[2018-12-08] MEDS: TAMSULOSIN HCL 0.4 MG CAP PO SCH (10:06)
[2018-12-08] MEDS: POLYETHYLENE GLYCOL 3350 119 GM BTL PO SCH (10:07)
[2018-12-08] MEDS: CARVEDILOL 12.5 MG TABLET (FP) PO SCH ×2 (10:07→22:20)
[2018-12-08] MEDS: BRIMONIDINE TARTRATE 0.2% OPHTHALMIC 5 ML BOTTLE OU SCH ×2 (10:19→22:20)
[2018-12-08] MEDS: TIMOLOL 0.5% OPHTHALMIC SOL 5 ML BOTTLE OU SCH ×2 (10:19→22:21)
[2018-12-08 12:56] VITALS: BMI 23.8
--- NOTE | 2018-12-08 16:16 | PN ---
Progress Note, Physician History of Present Illness: Pt seen and examined, chart reviewed, results noted. Pt states he feels well. No hematuria at this time. No other complaints. - Current Medication List Current Medications: Active Medications Amlodipine Besylate (Norvasc -) 10 mg PO DAILY [facility] Last Admin: 12/08/18 10:06 Dose: 10 mg Apixaban (Eliquis -) 2.5 mg PO BID [facility] Last Admin: 12/08/18 10:06 Dose: 2.5 mg Brimonidine Tartrate (Alphagan 0.2% -) 1 drop OU BID [facility] Last Admin: 12/08/18 10:19 Dose: 1 drop Carvedilol (Coreg -) 12.5 mg PO BID [facility] Last Admin: 12/08/18 10:07 Dose: 12.5 mg Furosemide (Lasix -) 40 mg PO DAILY [facility] Last Admin: 12/08/18 10:06 Dose: 40 mg Piperacillin Sod/Tazobactam (Sod 2.25 gm/ Dextrose) 50 mls @ 100 mls/hr IVPB Q6H-IV [facility]; Protocol Last Admin: 12/08/18 16:01 Dose: 100 mls/hr Insulin Aspart (Novolog Vial Sliding Scale -) 1 vial SQ ACHS [facility]; Protocol Last Admin: 12/08/18 12:03 Dose: 9 units Isosorbide Mononitrate (Imdur -) 30 mg PO DAILY [facility] Last Admin: 12/08/18 10:06 Dose: 30 mg Latanoprost (Xalatan 0.005% Eye Drops -) 1 drop OU HS [facility] Last Admin: 12/07/18 22:28 Dose: 1 drop Ondansetron HCl (Zofran Injection) 4 mg IVPUSH Q6H PRN PRN Reason: NAUSEA AND/OR VOMITING Polyethylene Glycol (Miralax (For Daily Use) -) 17 gm PO DAILY [facility] Last Admin: 12/08/18 10:07 Dose: Not Given Tamsulosin HCl (Flomax -) 0.4 mg PO DAILY@0830 [facility] Last Admin: 12/08/18 10:06 Dose: 0.4 mg Timolol Maleate (Timoptic 0.5%) 1 drop OU BID [facility] Last Admin: 12/08/18 10:19 Dose: 1 drop Valsartan (Diovan -) 80 mg PO BID [facility] Last Admin: 12/08/18 10:06 Dose: 80 mg - Objective Vital Signs: Vital Signs Temperature 98.1 F 12/08/18 13:57 Pulse Rate 61 12/08/18 13:57 Respiratory Rate 18 12/08/18 13:57 Blood Pressure 115/66 12/08/18 13:57 O2 Sat by Pulse Oximetry (%) 98 12/08/18 09:00 Constitutional: Yes: No Distress, Calm Cardiovascular: Yes: Regular Rate and Rhythm Respiratory: Yes: Regular Gastrointestinal: Yes: Normal Bowel Sounds, Soft Genitourinary: Yes: Kumar Present Extremities: Yes: WNL Integumentary: Yes: WNL Neurological: Yes: Alert, Oriented Labs: CBC, BMP 12/04/18 05:50 12/04/18 10:54 INR, PTT INR 1.08 (0.83-1.09) 11/27/18 06:45 Microbiology 12/03/18 14:15 Blood - Peripheral Venous Blood Culture - Final NO GROWTH AFTER 5 DAYS INCUBATION 12/06/18 13:10 Blood - Peripheral Venous Blood Culture - Preliminary NO GROWTH OBTAINED AFTER 48 HOURS, INCUBATION TO CONTINUE FOR 3 DAYS. 12/06/18 13:02 Blood - Peripheral Venous Blood Culture - Preliminary NO GROWTH OBTAINED AFTER 48 HOURS, INCUBATION TO CONTINUE FOR 3 DAYS. 12/03/18 14:30 Blood - Peripheral Venous Blood Culture - Final Enterococcus Faecalis 12/02/18 17:00 Urine - Urine Kumar Urine Culture - Final Enterobacter Aerogenes Enterococcus Faecalis 12/03/18 13:00 Urine - Urine Kumar Urine Culture - Final Enterobacter Aerogenes Enterococcus Faecalis 11/24/18 22:34 Urine - Urine Clean Catch Urine Culture - Final NO GROWTH OBTAINED Problem List - Problems (1) Fever Code(s): R50.9 - FEVER, UNSPECIFIED (2) Hematuria Code(s): R31.9 - HEMATURIA, UNSPECIFIED Qualifiers: Hematuria type: unspecified type Qualified Code(s): R31.9 - Hematuria, unspecified (3) UTI (urinary tract infection) Code(s): N39.0 - URINARY TRACT INFECTION, SITE NOT SPECIFIED (4) Atrial fibrillation Code(s): I48.91 - UNSPECIFIED ATRIAL FIBRILLATION Qualifiers: (5) Cardiac pacemaker in situ Code(s): Z95.0 - PRESENCE OF CARDIAC PACEMAKER (6) Cerebrovascular accident (CVA) Code(s): I63.9 - CEREBRAL INFARCTION, UNSPECIFIED (7) Chronic renal insufficiency Code(s): N18.9 - CHRONIC KIDNEY DISEASE, UNSPECIFIED Qualifiers: Chronic kidney disease stage: stage 3 (moderate) Qualified Code(s): N18.3 - Chronic kidney disease, stage 3 (moderate) (8) Coronary artery disease Code(s): I25.10 - ATHSCL HEART DISEASE OF [place] CORONARY ARTERY W/O ANG PCTRS (9) Diabetes mellitus Code(s): E11.9 - TYPE 2 DIABETES MELLITUS WITHOUT COMPLICATIONS (10) Diastolic dysfunction without heart failure Code(s): I51.9 - HEART DISEASE, UNSPECIFIED Assessment/Plan -- continue antibiotics -- repeat cbc -- repeat blood cultures negative hematuria seems to be resolved
--- NOTE | 2018-12-08 17:36 | PN ---
Progress Note (short form) - Note Progress Note: CCU Followup: 78 year old AA male, admitted with gross painless hematuria. h/o of CAD, s/p ND / PCI/ stenting, LV systolic dysfunction. IDDM, history of CHF. Hypertension/ hypertensive cardiovascular disease, dyslipidemia. History of CVA with right hemiparesis. Acute urinary sepsis. Patient complains of weakness, is lethargic, hemodynamically has stabilized. No chest pain or discomfort reported. Patient is afebrile. Active Medications Amlodipine Besylate (Norvasc -) 10 mg PO DAILY [facility] Last Admin: 12/08/18 10:06 Dose: 10 mg Apixaban (Eliquis -) 2.5 mg PO BID [facility] Last Admin: 12/08/18 10:06 Dose: 2.5 mg Brimonidine Tartrate (Alphagan 0.2% -) 1 drop OU BID [facility] Last Admin: 12/08/18 10:19 Dose: 1 drop Carvedilol (Coreg -) 12.5 mg PO BID [facility] Last Admin: 12/08/18 10:07 Dose: 12.5 mg Furosemide (Lasix -) 40 mg PO DAILY [facility] Last Admin: 12/08/18 10:06 Dose: 40 mg Piperacillin Sod/Tazobactam (Sod 2.25 gm/ Dextrose) 50 mls @ 100 mls/hr IVPB Q6H-IV [facility]; Protocol Last Admin: 12/08/18 16:01 Dose: 100 mls/hr Insulin Aspart (Novolog Vial Sliding Scale -) 1 vial SQ ACHS [facility]; Protocol Last Admin: 12/08/18 12:03 Dose: 9 units Isosorbide Mononitrate (Imdur -) 30 mg PO DAILY [facility] Last Admin: 12/08/18 10:06 Dose: 30 mg Latanoprost (Xalatan 0.005% Eye Drops -) 1 drop OU HS [facility] Last Admin: 12/07/18 22:28 Dose: 1 drop Ondansetron HCl (Zofran Injection) 4 mg IVPUSH Q6H PRN PRN Reason: NAUSEA AND/OR VOMITING Polyethylene Glycol (Miralax (For Daily Use) -) 17 gm PO DAILY [facility] Last Admin: 12/08/18 10:07 Dose: Not Given Tamsulosin HCl (Flomax -) 0.4 mg PO DAILY@0830 [facility] Last Admin: 12/08/18 10:06 Dose: 0.4 mg Timolol Maleate (Timoptic 0.5%) 1 drop OU BID [facility] Last Admin: 12/08/18 10:19 Dose: 1 drop Valsartan (Diovan -) 80 mg PO BID [facility] Last Admin: 12/08/18 10:06 Dose: 80 mg Last Vital Signs Temp Pulse Resp BP Pulse Ox 98.1 F 61 18 115/66 98 12/08/18 13:57 12/08/18 13:57 12/08/18 13:57 12/08/18 13:57 12/08/18 09:00 NECK: Supple, no JVD,+ve HJR, carotids2+, no bruits heard. HEART: PMI in the 5th ICS, no heaves or thrills.S1 normal, S2 split grade I/ apical systolic murmur, ?S3 gallop. LUNGS: Fine right lower lobe crepitation. ABDOMEN: Soft nontender, no organomegaly or palpable masses. EXTREMITIES: No dependent edema or calf tenderness. CBC, BMP 12/04/18 05:50 12/04/18 10:54 Impression: 1. Recent urinary tract sepsis, resolved 2. CAD, s/p ND,s/p PCI/DAISY,stable angina. 3. LV failure, resolved. 4. H/o LV systolic dysfunction. 5. Acute on CKI. 7. Type II DM. 8. 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 RECOMMENDATIONS: 1. Continue current cardiac medications. 2. Son is aware of the patient's status. 3. Awaiting transfer to SNF. Prognosis: Guarded. Javier Horner M.D.
[2018-12-08] MEDS ORDERED: INSULIN (NOVOLOG) ASPART 100 UNITS/ML 10ML VIAL ONE (17:39)
[2018-12-08] MEDS: LATANOPROST 0.005% OPHTH SOLN 2.5ML BOTTLE OU SCH (22:21)
[2018-12-09] MEDS ORDERED: PIPERACILLIN/TAZOBACTAM 2.25 GM VIAL IVPB ONE ×4 (01:39→21:18)
[2018-12-09] MEDS ORDERED: DEXTROSE 5%-WATER - 50 ML IVPB ONE ×4 (01:40→21:18)
[2018-12-09] MEDS: PIPERACILLIN/TAZOB 2.25 GM 2.25 GM in DEXTROSE 5%-WATER - 50 ML IVPB SCH ×4 (02:14→21:35)
[2018-12-09] MEDS: INSULIN SLIDING SCALE (NOVOLOG) 1 VIAL SQ SCH ×4 (06:48→21:40)
[2018-12-09] MEDS ORDERED: PT OWN MED DRAWER 7, Y5N ONE (09:12)
--- NOTE | 2018-12-09 09:14 | PN ---
Progress Note, Physician Chief Complaint: complaints - Current Medication List Current Medications: Active Medications Amlodipine Besylate (Norvasc -) 10 mg PO DAILY [facility] Last Admin: 12/08/18 10:06 Dose: 10 mg Apixaban (Eliquis -) 2.5 mg PO BID [facility] Last Admin: 12/08/18 22:21 Dose: 2.5 mg Brimonidine Tartrate (Alphagan 0.2% -) 1 drop OU BID [facility] Last Admin: 12/08/18 22:20 Dose: 1 drop Carvedilol (Coreg -) 12.5 mg PO BID [facility] Last Admin: 12/08/18 22:20 Dose: 12.5 mg Furosemide (Lasix -) 40 mg PO DAILY [facility] Last Admin: 12/08/18 10:06 Dose: 40 mg Piperacillin Sod/Tazobactam (Sod 2.25 gm/ Dextrose) 50 mls @ 100 mls/hr IVPB Q6H-IV [facility]; Protocol Last Admin: 12/09/18 02:14 Dose: 100 mls/hr Insulin Aspart (Novolog Vial Sliding Scale -) 1 vial SQ ACHS [facility]; Protocol Last Admin: 12/09/18 06:48 Dose: 6 units Isosorbide Mononitrate (Imdur -) 30 mg PO DAILY [facility] Last Admin: 12/08/18 10:06 Dose: 30 mg Latanoprost (Xalatan 0.005% Eye Drops -) 1 drop OU HS [facility] Last Admin: 12/08/18 22:21 Dose: 1 drop Ondansetron HCl (Zofran Injection) 4 mg IVPUSH Q6H PRN PRN Reason: NAUSEA AND/OR VOMITING Polyethylene Glycol (Miralax (For Daily Use) -) 17 gm PO DAILY [facility] Last Admin: 12/08/18 10:07 Dose: Not Given Tamsulosin HCl (Flomax -) 0.4 mg PO DAILY@0830 [facility] Last Admin: 12/08/18 10:06 Dose: 0.4 mg Timolol Maleate (Timoptic 0.5%) 1 drop OU BID [facility] Last Admin: 12/08/18 22:21 Dose: 1 drop Valsartan (Diovan -) 80 mg PO BID [facility] Last Admin: 12/08/18 22:20 Dose: 80 mg - Objective Vital Signs: Vital Signs Temperature 97.8 F 12/09/18 06:00 Pulse Rate 65 12/09/18 06:00 Respiratory Rate 20 12/09/18 06:00 Blood Pressure 147/72 12/09/18 06:00 O2 Sat by Pulse Oximetry (%) 98 12/08/18 09:00 Constitutional: Yes: Anxious Eyes: Yes: WNL HENT: Yes: WNL Neck: Yes: WNL Cardiovascular: Yes: WNL Respiratory: Yes: WNL Gastrointestinal: Yes: WNL Genitourinary: Yes: Kumar Present Breast(s): Yes: WNL Extremities: Yes: WNL Edema: No Neurological: Yes: Alert Labs: CBC, BMP 12/04/18 10:54 INR, PTT INR 1.08 (0.83-1.09) 11/27/18 06:45
[2018-12-09] MEDS: VALSARTAN 80 MG TABLET (UD) PO SCH ×2 (09:27→21:36)
[2018-12-09] MEDS: APIXABAN 2.5 MG TABLET PO SCH ×2 (09:27→21:36)
[2018-12-09] MEDS: CARVEDILOL 12.5 MG TABLET (FP) PO SCH ×2 (09:27→21:35)
[2018-12-09] MEDS: amLODIPine BESYLATE 10 MG TABLET (FP) PO SCH (09:27)
[2018-12-09] MEDS: TAMSULOSIN HCL 0.4 MG CAP PO SCH (09:27)
[2018-12-09] MEDS: FUROSEMIDE 40 MG TABLET (FP) PO SCH (09:27)
[2018-12-09] MEDS: ISOSORBIDE MONONITRATE 30 MG TAB.SR.24H (FP) PO SCH (09:28)
[2018-12-09] MEDS: POLYETHYLENE GLYCOL 3350 119 GM BTL PO SCH (09:28)
[2018-12-09] MEDS: BRIMONIDINE TARTRATE 0.2% OPHTHALMIC 5 ML BOTTLE OU SCH ×2 (09:29→21:38)
[2018-12-09] MEDS: TIMOLOL 0.5% OPHTHALMIC SOL 5 ML BOTTLE OU SCH ×2 (09:30→21:38)
[2018-12-09 09:52] LABS: BASO % 0.8 % (0-2.0); MCH 30.7 pg (25.7-33.7); MCHC 34.4 g/dl (32.0-35.9); MEAN CELL VOLUME 89.3 fl (80-96); MEAN PLT VOLUME 7.3 fl (7.5-11.1); NEUT % 73.2 % (42.8-82.8); RBC 3.25 M/mm3 (4.00-5.60); WHITE BLOOD COUNT 8.1 K/mm3 (4.0-10.0)
[2018-12-09 10:15] LABS: PLATELET COUNT 227 K/MM3 (134-434)
[2018-12-09] MEDS ORDERED: INSULIN (NOVOLOG) ASPART 100 UNITS/ML 10ML VIAL ONE (12:08)
--- NOTE | 2018-12-09 15:34 | PN ---
Progress Note, Physician History of Present Illness: No new events. Pt feels better. Hematuria resolved, remains afebrile, alert. - Current Medication List Current Medications: Active Medications Amlodipine Besylate (Norvasc -) 10 mg PO DAILY [facility] Last Admin: 12/09/18 09:27 Dose: 10 mg Apixaban (Eliquis -) 2.5 mg PO BID [facility] Last Admin: 12/09/18 09:27 Dose: 2.5 mg Brimonidine Tartrate (Alphagan 0.2% -) 1 drop OU BID [facility] Last Admin: 12/09/18 09:29 Dose: 1 drop Carvedilol (Coreg -) 12.5 mg PO BID [facility] Last Admin: 12/09/18 09:27 Dose: 12.5 mg Furosemide (Lasix -) 40 mg PO DAILY [facility] Last Admin: 12/09/18 09:27 Dose: 40 mg Piperacillin Sod/Tazobactam (Sod 2.25 gm/ Dextrose) 50 mls @ 100 mls/hr IVPB Q6H-IV [facility]; Protocol Last Admin: 12/09/18 09:28 Dose: 100 mls/hr Insulin Aspart (Novolog Vial Sliding Scale -) 1 vial SQ ACHS [facility]; Protocol Last Admin: 12/09/18 12:13 Dose: 9 units Isosorbide Mononitrate (Imdur -) 30 mg PO DAILY [facility] Last Admin: 12/09/18 09:28 Dose: 30 mg Latanoprost (Xalatan 0.005% Eye Drops -) 1 drop OU HS [facility] Last Admin: 12/08/18 22:21 Dose: 1 drop Ondansetron HCl (Zofran Injection) 4 mg IVPUSH Q6H PRN PRN Reason: NAUSEA AND/OR VOMITING Polyethylene Glycol (Miralax (For Daily Use) -) 17 gm PO DAILY [facility] Last Admin: 12/09/18 09:28 Dose: Not Given Tamsulosin HCl (Flomax -) 0.4 mg PO DAILY@0830 [facility] Last Admin: 12/09/18 09:27 Dose: 0.4 mg Timolol Maleate (Timoptic 0.5%) 1 drop OU BID [facility] Last Admin: 12/09/18 09:30 Dose: 1 drop Valsartan (Diovan -) 80 mg PO BID [facility] Last Admin: 12/09/18 09:27 Dose: 80 mg - Objective Vital Signs: Vital Signs Temperature 98.0 F 12/09/18 14:00 Pulse Rate 61 12/09/18 14:00 Respiratory Rate 20 12/09/18 14:00 Blood Pressure 129/65 12/09/18 14:00 O2 Sat by Pulse Oximetry (%) 98 12/08/18 09:00 Constitutional: Yes: No Distress, Calm Cardiovascular: Yes: Regular Rate and Rhythm Respiratory: Yes: Regular Gastrointestinal: Yes: Normal Bowel Sounds, Soft Genitourinary: Yes: Kumar Present Extremities: Yes: WNL Integumentary: Yes: WNL Neurological: Yes: Alert, Oriented Labs: CBC, BMP 12/09/18 07:16 12/04/18 10:54 INR, PTT INR 1.08 (0.83-1.09) 11/27/18 06:45 Microbiology 12/06/18 13:10 Blood - Peripheral Venous Blood Culture - Preliminary NO GROWTH OBTAINED AFTER 72 HOURS, INCUBATION TO CONTINUE FOR 2 DAYS. 12/06/18 13:02 Blood - Peripheral Venous Blood Culture - Preliminary NO GROWTH OBTAINED AFTER 72 HOURS, INCUBATION TO CONTINUE FOR 2 DAYS. 12/03/18 14:15 Blood - Peripheral Venous Blood Culture - Final NO GROWTH AFTER 5 DAYS INCUBATION 12/03/18 14:30 Blood - Peripheral Venous Blood Culture - Final Enterococcus Faecalis 12/02/18 17:00 Urine - Urine Kumar Urine Culture - Final Enterobacter Aerogenes Enterococcus Faecalis 12/03/18 13:00 Urine - Urine Kumar Urine Culture - Final Enterobacter Aerogenes Enterococcus Faecalis 11/24/18 22:34 Urine - Urine Clean Catch Urine Culture - Final NO GROWTH OBTAINED Problem List - Problems (1) Fever Code(s): R50.9 - FEVER, UNSPECIFIED (2) Hematuria Code(s): R31.9 - HEMATURIA, UNSPECIFIED Qualifiers: Hematuria type: unspecified type Qualified Code(s): R31.9 - Hematuria, unspecified (3) UTI (urinary tract infection) Code(s): N39.0 - URINARY TRACT INFECTION, SITE NOT SPECIFIED (4) Atrial fibrillation Code(s): I48.91 - UNSPECIFIED ATRIAL FIBRILLATION Qualifiers: (5) Cardiac pacemaker in situ Code(s): Z95.0 - PRESENCE OF CARDIAC PACEMAKER (6) Cerebrovascular accident (CVA) Code(s): I63.9 - CEREBRAL INFARCTION, UNSPECIFIED (7) Chronic renal insufficiency Code(s): N18.9 - CHRONIC KIDNEY DISEASE, UNSPECIFIED Qualifiers: Chronic kidney disease stage: stage 3 (moderate) Qualified Code(s): N18.3 - Chronic kidney disease, stage 3 (moderate) (8) Coronary artery disease Code(s): I25.10 - ATHSCL HEART DISEASE OF [place] CORONARY ARTERY W/O ANG PCTRS (9) Diabetes mellitus Code(s): E11.9 - TYPE 2 DIABETES MELLITUS WITHOUT COMPLICATIONS (10) Diastolic dysfunction without heart failure Code(s): I51.9 - HEART DISEASE, UNSPECIFIED Assessment/Plan UTI with Bacteremia Hematuria - resolved s/p Sepsis CKD Hx of CVA CHF -- continue antibiotics -- repeat wbc normal -- repeat blood cultures negative
--- NOTE | 2018-12-09 19:43 | PN ---
Progress Note (short form) - Note Progress Note: 78 year old AA male, admitted with gross painless hematuria. h/o of CAD, s/p MA / PCI/ stenting, LV systolic dysfunction. IDDM, history of CHF. Hypertension/ hypertensive cardiovascular disease, dyslipidemia. History of CVA with right hemiparesis. Acute urinary sepsis. Patient is on a surgical floor, and resting comfortably, no SOB or chest pain, appetite is good and remains good. Active Medications Generic Name Dose Route Start Last Admin Trade Name Frejose PRN Reason Stop Dose Admin Amlodipine Besylate 10 mg 12/05/18 10:00 12/09/18 09:27 Norvasc - PO 10 mg DAILY JASS Administration Apixaban 2.5 mg 12/04/18 22:00 12/09/18 09:27 Eliquis - PO 2.5 mg BID JASS Administration Brimonidine Tartrate 1 drop 12/04/18 22:00 12/09/18 09:29 Alphagan 0.2% - OU 1 drop BID JASS Administration Carvedilol 12.5 mg 12/04/18 22:00 12/09/18 09:27 Coreg - PO 12.5 mg BID JASS Administration Furosemide 40 mg 12/05/18 10:00 12/09/18 09:27 Lasix - PO 40 mg DAILY JASS Administration Piperacillin Sod/Tazobactam 50 mls @ 100 mls/hr 12/04/18 21:00 12/09/18 15:44 Sod 2.25 gm/ Dextrose IVPB 100 mls/hr Q6H-IV JASS Administration Protocol Insulin Aspart 1 vial 12/04/18 22:00 12/09/18 15:47 Novolog Vial Sliding Scale - SQ Not Given ACHS JASS Protocol Isosorbide Mononitrate 30 mg 12/05/18 10:00 12/09/18 09:28 Imdur - PO 30 mg DAILY JASS Administration Latanoprost 1 drop 12/04/18 22:00 12/08/18 22:21 Xalatan 0.005% Eye Drops - OU 1 drop HS JASS Administration Polyethylene Glycol 17 gm 12/05/18 10:00 12/09/18 09:28 Miralax (For Daily Use) - PO Not Given DAILY JASS Tamsulosin HCl 0.4 mg 12/05/18 08:30 12/09/18 09:27 Flomax - PO 0.4 mg DAILY@0830 JASS Administration Timolol Maleate 1 drop 12/04/18 22:00 12/09/18 09:30 Timoptic 0.5% OU 1 drop BID JASS Administration Valsartan 80 mg 12/04/18 22:00 12/09/18 09:27 Diovan - PO 80 mg BID JASS Administration Patient is in no distress, no pallor, cyanosis,clubbing or jaundice. Last Vital Signs Temp Pulse Resp BP Pulse Ox 98.7 F 60 18 125/61 98 12/09/18 18:00 12/09/18 18:00 12/09/18 18:00 12/09/18 18:00 12/09/18 09:00 NECK: Supple, no JVD,+ve HJR, carotids 2+, no bruits heard. HEART: PMI in the 5th ICS, no heaves or thrills.S1 and S2 are normal.Grade I/ apical systolic murmur, no gallop. LUNGS: clesr on auscultation. ABDOMEN: Soft nontender, no organomegaly or palpable masses. EXTREMITIES: No dependent edema or calf tenderness. CBC, BMP 12/09/18 07:16 12/04/18 10:54 Impression: 1. Recent urinary tract sepsis, resolved 2. CAD, s/p MA,s/p PCI/DAISY,stable angina. 3. LV failure, resolved. 4. H/o LV systolic dysfunction. 5. Acute on CKI. 7. Type II DM. 8. 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 9. Anemia. RECOMMENDATIONS: 1. Awaiting transfer to SNF. 2. Close f/u of anemia and may need intervention if HCT falls further. 3. Continue cardiac medications. Prognosis: Guarded. Javier Horner M.D.
[2018-12-09] MEDS ORDERED: ACETAMINOPHEN 325 MG TABLET (FP) PO PRN (19:55)
[2018-12-09] MEDS: LATANOPROST 0.005% OPHTH SOLN 2.5ML BOTTLE OU SCH (21:39)
[2018-12-10] MEDS ORDERED: DEXTROSE 5%-WATER - 50 ML IVPB ONE ×3 (02:36→15:53)
[2018-12-10] MEDS ORDERED: PIPERACILLIN/TAZOBACTAM 2.25 GM VIAL IVPB ONE ×3 (02:36→15:53)
[2018-12-10] MEDS: PIPERACILLIN/TAZOB 2.25 GM 2.25 GM in DEXTROSE 5%-WATER - 50 ML IVPB SCH ×3 (02:50→15:58)
[2018-12-10] MEDS: INSULIN SLIDING SCALE (NOVOLOG) 1 VIAL SQ SCH ×4 (06:42→21:56)
[2018-12-10] MEDS ORDERED: PT OWN MED DRAWER 7, Y5N ONE (09:10)
[2018-12-10] MEDS: CARVEDILOL 12.5 MG TABLET (FP) PO SCH ×2 (09:15→21:53)
[2018-12-10] MEDS: ISOSORBIDE MONONITRATE 30 MG TAB.SR.24H (FP) PO SCH (09:15)
[2018-12-10] MEDS: VALSARTAN 80 MG TABLET (UD) PO SCH ×2 (09:15→21:54)
[2018-12-10] MEDS: TAMSULOSIN HCL 0.4 MG CAP PO SCH (09:15)
[2018-12-10] MEDS: FUROSEMIDE 40 MG TABLET (FP) PO SCH (09:15)
[2018-12-10] MEDS: amLODIPine BESYLATE 10 MG TABLET (FP) PO SCH (09:15)
[2018-12-10] MEDS: APIXABAN 2.5 MG TABLET PO SCH ×2 (09:16→21:54)
[2018-12-10] MEDS: TIMOLOL 0.5% OPHTHALMIC SOL 5 ML BOTTLE OU SCH ×2 (09:16→21:56)
[2018-12-10] MEDS: POLYETHYLENE GLYCOL 3350 119 GM BTL PO SCH (09:16)
[2018-12-10] MEDS: BRIMONIDINE TARTRATE 0.2% OPHTHALMIC 5 ML BOTTLE OU SCH ×2 (09:16→21:55)
--- NOTE | 2018-12-10 13:49 | PN ---
Progress Note, Physician Chief Complaint: Feels better enjoying lunch remained aferile - Current Medication List Current Medications: Active Medications Acetaminophen (Tylenol -) 650 mg PO Q6H PRN PRN Reason: FEVER Amlodipine Besylate (Norvasc -) 10 mg PO DAILY [facility] Last Admin: 12/10/18 09:15 Dose: 10 mg Apixaban (Eliquis -) 2.5 mg PO BID [facility] Last Admin: 12/10/18 09:16 Dose: 2.5 mg Brimonidine Tartrate (Alphagan 0.2% -) 1 drop OU BID [facility] Last Admin: 12/10/18 09:16 Dose: 1 drop Carvedilol (Coreg -) 12.5 mg PO BID [facility] Last Admin: 12/10/18 09:15 Dose: 12.5 mg Furosemide (Lasix -) 40 mg PO DAILY [facility] Last Admin: 12/10/18 09:15 Dose: 40 mg Piperacillin Sod/Tazobactam (Sod 2.25 gm/ Dextrose) 50 mls @ 100 mls/hr IVPB Q6H-IV [facility]; Protocol Last Admin: 12/10/18 09:15 Dose: 100 mls/hr Insulin Aspart (Novolog Vial Sliding Scale -) 1 vial SQ ACHS [facility]; Protocol Last Admin: 12/10/18 11:04 Dose: 6 units Isosorbide Mononitrate (Imdur -) 30 mg PO DAILY [facility] Last Admin: 12/10/18 09:15 Dose: 30 mg Latanoprost (Xalatan 0.005% Eye Drops -) 1 drop OU HS [facility] Last Admin: 12/09/18 21:39 Dose: 1 drop Polyethylene Glycol (Miralax (For Daily Use) -) 17 gm PO DAILY [facility] Last Admin: 12/10/18 09:16 Dose: Not Given Tamsulosin HCl (Flomax -) 0.4 mg PO DAILY@0830 [facility] Last Admin: 12/10/18 09:15 Dose: 0.4 mg Timolol Maleate (Timoptic 0.5%) 1 drop OU BID [facility] Last Admin: 12/10/18 09:16 Dose: 1 drop Valsartan (Diovan -) 80 mg PO BID [facility] Last Admin: 12/10/18 09:15 Dose: 80 mg - Objective Vital Signs: Vital Signs Temperature 98.4 F 12/10/18 05:00 Pulse Rate 66 12/10/18 05:00 Respiratory Rate 18 12/10/18 05:00 Blood Pressure 154/72 12/10/18 05:00 O2 Sat by Pulse Oximetry (%) 99 12/09/18 21:00 Elderly man not in distress, looks lethargic HEENT: Mm moist, no anemia, PERRLA, EOMI NECK: No JVd No Bruit CHEST: CTA B/L CVS: s1 S2 R no m/g/r ABD: No distention, non tender , No suprapubic Tenderness, no CVA Tenderness, foleys at place EXT: No edema feet, no calf tenderness DREDGE OR BARGE SHORE HAND: AOX3 lethargic grossly non focal Labs: CBC, BMP 12/09/18 07:16 12/04/18 10:54 INR, PTT INR 1.08 (0.83-1.09) 11/27/18 06:45 Problem List - Problems (1) Hematuria Assessment/Plan: Cont current abx will needs 7 more days of abx go home with Fole[facility] Code(s): R31.9 - HEMATURIA, UNSPECIFIED Qualifiers: Hematuria type: unspecified type Qualified Code(s): R31.9 - Hematuria, unspecified (2) Atrial fibrillation Assessment/Plan: Rate controlled on Apaxiban 2.5 mg BID Code(s): I48.91 - UNSPECIFIED ATRIAL FIBRILLATION Qualifiers: (3) Cardiac pacemaker in situ Assessment/Plan: Recently interogated Code(s): Z95.0 - PRESENCE OF CARDIAC PACEMAKER (4) Cerebrovascular accident (CVA) Assessment/Plan: No residual weakness cont Statin of AC Code(s): I63.9 - CEREBRAL INFARCTION, UNSPECIFIED (5) Coronary artery disease Assessment/Plan: No actibve issue currently stable cont home meds Code(s): I25.10 - ATHSCL HEART DISEASE OF [place] CORONARY ARTERY W/O ANG PCTRS (6) Diabetes mellitus Assessment/Plan: T2 Hold Po meds cont correction dose Insulin with accu checks Code(s): E11.9 - TYPE 2 DIABETES MELLITUS WITHOUT COMPLICATIONS (7) Chronic renal insufficiency Assessment/Plan: Due to DM renl function are stable Code(s): N18.9 - CHRONIC KIDNEY DISEASE, UNSPECIFIED Qualifiers: Chronic kidney disease stage: stage 3 (moderate) Qualified Code(s): N18.3 - Chronic kidney disease, stage 3 (moderate) (8) Diastolic dysfunction without heart failure Assessment/Plan: compensated cont current meds Code(s): I51.9 - HEART DISEASE, UNSPECIFIED (9) S/P coronary artery stent placement Assessment/Plan: S/P revascularization no active issue Code(s): Z95.5 - PRESENCE OF CORONARY ANGIOPLASTY IMPLANT AND GRAFT (10) Sepsis secondary to UTI Assessment/Plan: Grew E Fecalis in urine and blood c on Zosyn since 12/04/18 neewds total 2 wjks of abx Code(s): A41.9 - SEPSIS, UNSPECIFIED ORGANISM; N39.0 - URINARY TRACT INFECTION, SITE NOT SPECIFIED
--- NOTE | 2018-12-10 16:09 | PN ---
Progress Note, Physician History of Present Illness: Pt is doing well. Remains afebrile. Has no complaints. - Current Medication List Current Medications: Active Medications Acetaminophen (Tylenol -) 650 mg PO Q6H PRN PRN Reason: FEVER Amlodipine Besylate (Norvasc -) 10 mg PO DAILY [facility] Last Admin: 12/10/18 09:15 Dose: 10 mg Apixaban (Eliquis -) 2.5 mg PO BID [facility] Last Admin: 12/10/18 09:16 Dose: 2.5 mg Brimonidine Tartrate (Alphagan 0.2% -) 1 drop OU BID [facility] Last Admin: 12/10/18 09:16 Dose: 1 drop Carvedilol (Coreg -) 12.5 mg PO BID [facility] Last Admin: 12/10/18 09:15 Dose: 12.5 mg Furosemide (Lasix -) 40 mg PO DAILY [facility] Last Admin: 12/10/18 09:15 Dose: 40 mg Piperacillin Sod/Tazobactam (Sod 2.25 gm/ Dextrose) 50 mls @ 100 mls/hr IVPB Q6H-IV [facility]; Protocol Last Admin: 12/10/18 15:58 Dose: 100 mls/hr Insulin Aspart (Novolog Vial Sliding Scale -) 1 vial SQ ACHS [facility]; Protocol Last Admin: 12/10/18 16:00 Dose: 6 units Isosorbide Mononitrate (Imdur -) 30 mg PO DAILY [facility] Last Admin: 12/10/18 09:15 Dose: 30 mg Latanoprost (Xalatan 0.005% Eye Drops -) 1 drop OU HS [facility] Last Admin: 12/09/18 21:39 Dose: 1 drop Polyethylene Glycol (Miralax (For Daily Use) -) 17 gm PO DAILY [facility] Last Admin: 12/10/18 09:16 Dose: Not Given Tamsulosin HCl (Flomax -) 0.4 mg PO DAILY@0830 [facility] Last Admin: 12/10/18 09:15 Dose: 0.4 mg Timolol Maleate (Timoptic 0.5%) 1 drop OU BID [facility] Last Admin: 12/10/18 09:16 Dose: 1 drop Valsartan (Diovan -) 80 mg PO BID [facility] Last Admin: 12/10/18 09:15 Dose: 80 mg - Objective Vital Signs: Vital Signs Temperature 98.6 F 12/10/18 15:33 Pulse Rate 64 12/10/18 15:33 Respiratory Rate 20 12/10/18 15:33 Blood Pressure 148/68 12/10/18 15:33 O2 Sat by Pulse Oximetry (%) 97 12/10/18 09:00 Constitutional: Yes: No Distress, Calm Eyes: Yes: Conjunctiva Clear Cardiovascular: Yes: Regular Rate and Rhythm Respiratory: Yes: CTA Bilaterally Gastrointestinal: Yes: Normal Bowel Sounds, Soft Genitourinary: Yes: Kumar Present Extremities: Yes: WNL Integumentary: Yes: WNL Neurological: Yes: Alert, Oriented Labs: CBC, BMP 12/09/18 07:16 12/04/18 10:54 INR, PTT INR 1.08 (0.83-1.09) 11/27/18 06:45 Microbiology 12/06/18 13:10 Blood - Peripheral Venous Blood Culture - Preliminary NO GROWTH OBTAINED AFTER 96 HOURS, INCUBATION TO CONTINUE FOR 1 DAYS. 12/06/18 13:02 Blood - Peripheral Venous Blood Culture - Preliminary NO GROWTH OBTAINED AFTER 96 HOURS, INCUBATION TO CONTINUE FOR 1 DAYS. 12/03/18 14:15 Blood - Peripheral Venous Blood Culture - Final NO GROWTH AFTER 5 DAYS INCUBATION 12/03/18 14:30 Blood - Peripheral Venous Blood Culture - Final Enterococcus Faecalis 12/02/18 17:00 Urine - Urine Kumar Urine Culture - Final Enterobacter Aerogenes Enterococcus Faecalis 12/03/18 13:00 Urine - Urine Kumar Urine Culture - Final Enterobacter Aerogenes Enterococcus Faecalis 11/24/18 22:34 Urine - Urine Clean Catch Urine Culture - Final NO GROWTH OBTAINED Problem List - Problems (1) Fever Code(s): R50.9 - FEVER, UNSPECIFIED (2) Hematuria Code(s): R31.9 - HEMATURIA, UNSPECIFIED Qualifiers: Hematuria type: unspecified type Qualified Code(s): R31.9 - Hematuria, unspecified (3) UTI (urinary tract infection) Code(s): N39.0 - URINARY TRACT INFECTION, SITE NOT SPECIFIED (4) Atrial fibrillation Code(s): I48.91 - UNSPECIFIED ATRIAL FIBRILLATION Qualifiers: (5) Cardiac pacemaker in situ Code(s): Z95.0 - PRESENCE OF CARDIAC PACEMAKER (6) Cerebrovascular accident (CVA) Code(s): I63.9 - CEREBRAL INFARCTION, UNSPECIFIED (7) Chronic renal insufficiency Code(s): N18.9 - CHRONIC KIDNEY DISEASE, UNSPECIFIED Qualifiers: Chronic kidney disease stage: stage 3 (moderate) Qualified Code(s): N18.3 - Chronic kidney disease, stage 3 (moderate) (8) Coronary artery disease Code(s): I25.10 - ATHSCL HEART DISEASE OF [place] CORONARY ARTERY W/O ANG PCTRS (9) Diabetes mellitus Code(s): E11.9 - TYPE 2 DIABETES MELLITUS WITHOUT COMPLICATIONS (10) Diastolic dysfunction without heart failure Code(s): I51.9 - HEART DISEASE, UNSPECIFIED Assessment/Plan UTI with Bacteremia Hematuria - resolved s/p Sepsis CKD Hx of CVA CHF -- may switch to augmentin 500 mg po bid x 7 days -- repeat blood cultures negative -- f/u with PMD Pt instructed to seek medical attention if develops return of symptoms such as fever, diarrhea, abd pain, rash
[2018-12-10] MEDS: LATANOPROST 0.005% OPHTH SOLN 2.5ML BOTTLE OU SCH (21:55)
[2018-12-11] MEDS: INSULIN SLIDING SCALE (NOVOLOG) 1 VIAL SQ SCH ×2 (06:49→11:57)
[2018-12-11 07:14] LABS: BASO % 0.8 % (0-2.0); HEMATOCRIT 29.9 % (35.4-49); HEMOGLOBIN 10.4 GM/dL (11.7-16.9); LYMPH % 15.9 % (8-40); MCH 31.2 pg (25.7-33.7); MCHC 34.8 g/dl (32.0-35.9); MEAN CELL VOLUME 89.5 fl (80-96); MEAN PLT VOLUME 7.2 fl (7.5-11.1); MONO % 9.4 % (3.8-10.2); NEUT % 68.9 % (42.8-82.8); PLATELET COUNT 274 K/MM3 (134-434); RBC 3.34 M/mm3 (4.00-5.60); RDW 14.4 % (11.9-15.9)
[2018-12-11 07:29] LABS: BLOOD UREA NITROGEN 43.6 mg/dL (7-18); CALCIUM 8.7 mg/dL (8.5-10.1); CREATININE 1.9 mg/dL (0.55-1.3); POTASSIUM 4.5 mmol/L (3.5-5.1)
[2018-12-11] MEDS ORDERED: AMOX TR/POT CLAV 500MG/125MG TABLETS (FP) PO SCH (08:00)
--- NOTE | 2018-12-11 09:14 | PN ---
Progress Note, Physician Chief Complaint: Feels better History of Present Illness: No bleeding ,urine through leger clear On PO antibiotics - Current Medication List Current Medications: Active Medications Acetaminophen (Tylenol -) 650 mg PO Q6H PRN PRN Reason: FEVER Amlodipine Besylate (Norvasc -) 10 mg PO DAILY [facility] Last Admin: 12/10/18 09:15 Dose: 10 mg Amoxicillin/Clavulanate Potassium (Augmentin - 500mg Tablet) 1 tab PO BID@0800, 1730 [facility] Apixaban (Eliquis -) 2.5 mg PO BID [facility] Last Admin: 12/10/18 21:54 Dose: 2.5 mg Brimonidine Tartrate (Alphagan 0.2% -) 1 drop OU BID [facility] Last Admin: 12/10/18 21:55 Dose: 1 drop Carvedilol (Coreg -) 12.5 mg PO BID [facility] Last Admin: 12/10/18 21:53 Dose: 12.5 mg Furosemide (Lasix -) 40 mg PO DAILY [facility] Last Admin: 12/10/18 09:15 Dose: 40 mg Insulin Aspart (Novolog Vial Sliding Scale -) 1 vial SQ [facility]; Protocol Last Admin: 12/11/18 06:49 Dose: 3 units Isosorbide Mononitrate (Imdur -) 30 mg PO DAILY [facility] Last Admin: 12/10/18 09:15 Dose: 30 mg Latanoprost (Xalatan 0.005% Eye Drops -) 1 drop OU [facility] Last Admin: 12/10/18 21:55 Dose: 1 drop Polyethylene Glycol (Miralax (For Daily Use) -) 17 gm PO DAILY [facility] Last Admin: 12/10/18 09:16 Dose: Not Given Tamsulosin HCl (Flomax -) 0.4 mg PO DAILY@0830 [facility] Last Admin: 12/10/18 09:15 Dose: 0.4 mg Timolol Maleate (Timoptic 0.5%) 1 drop OU BID [facility] Last Admin: 12/10/18 21:56 Dose: 1 drop Valsartan (Diovan -) 80 mg PO BID [facility] Last Admin: 12/10/18 21:54 Dose: 80 mg - Objective Vital Signs: Vital Signs Temperature 97.9 F 12/11/18 05:00 Pulse Rate 64 12/11/18 05:00 Respiratory Rate 18 12/11/18 05:00 Blood Pressure 142/65 12/11/18 05:00 O2 Sat by Pulse Oximetry (%) 97 12/10/18 21:00 Constitutional: Yes: No Distress Eyes: Yes: WNL HENT: Yes: WNL Neck: Yes: WNL Cardiovascular: Yes: WNL Respiratory: Yes: WNL Gastrointestinal: Yes: WNL ...Rectal Exam: Yes: Deferred Genitourinary: Yes: Leger Present Edema: No Psychiatric: Yes: Alert Labs: CBC, BMP 12/11/18 06:30 12/11/18 06:30 INR, PTT INR 1.08 (0.83-1.09) 11/27/18 06:45 Assessment/Plan Transfer to [facility]
[2018-12-11] MEDS: CARVEDILOL 12.5 MG TABLET (FP) PO SCH (09:23)
[2018-12-11] MEDS: amLODIPine BESYLATE 10 MG TABLET (FP) PO SCH (09:23)
[2018-12-11] MEDS: TAMSULOSIN HCL 0.4 MG CAP PO SCH (09:23)
[2018-12-11] MEDS: POLYETHYLENE GLYCOL 3350 119 GM BTL PO SCH (09:23)
[2018-12-11] MEDS: FUROSEMIDE 40 MG TABLET (FP) PO SCH (09:23)
[2018-12-11] MEDS: ISOSORBIDE MONONITRATE 30 MG TAB.SR.24H (FP) PO SCH (09:23)
[2018-12-11] MEDS: APIXABAN 2.5 MG TABLET PO SCH (09:23)
[2018-12-11] MEDS: VALSARTAN 80 MG TABLET (UD) PO SCH (09:23)
[2018-12-11] MEDS: BRIMONIDINE TARTRATE 0.2% OPHTHALMIC 5 ML BOTTLE OU SCH (09:26)
[2018-12-11] MEDS: TIMOLOL 0.5% OPHTHALMIC SOL 5 ML BOTTLE OU SCH (09:26)
--- NOTE | 2018-12-11 10:20 | PN ---
Progress Note, Physician History of Present Illness: stable doing much better - Current Medication List Current Medications: Active Medications Acetaminophen (Tylenol -) 650 mg PO Q6H PRN PRN Reason: FEVER Amlodipine Besylate (Norvasc -) 10 mg PO DAILY [facility] Last Admin: 12/11/18 09:23 Dose: 10 mg Amoxicillin/Clavulanate Potassium (Augmentin - 500mg Tablet) 1 tab PO BID@0800, 1730 [facility] Last Admin: 12/11/18 09:23 Dose: 1 tab Apixaban (Eliquis -) 2.5 mg PO BID [facility] Last Admin: 12/11/18 09:23 Dose: 2.5 mg Brimonidine Tartrate (Alphagan 0.2% -) 1 drop OU BID [facility] Last Admin: 12/11/18 09:26 Dose: 1 drop Carvedilol (Coreg -) 12.5 mg PO BID [facility] Last Admin: 12/11/18 09:23 Dose: 12.5 mg Furosemide (Lasix -) 40 mg PO DAILY [facility] Last Admin: 12/11/18 09:23 Dose: 40 mg Insulin Aspart (Novolog Vial Sliding Scale -) 1 vial SQ [facility]; Protocol Last Admin: 12/11/18 06:49 Dose: 3 units Isosorbide Mononitrate (Imdur -) 30 mg PO DAILY [facility] Last Admin: 12/11/18 09:23 Dose: 30 mg Latanoprost (Xalatan 0.005% Eye Drops -) 1 drop OU HS [facility] Last Admin: 12/10/18 21:55 Dose: 1 drop Polyethylene Glycol (Miralax (For Daily Use) -) 17 gm PO DAILY [facility] Last Admin: 12/11/18 09:23 Dose: Not Given Tamsulosin HCl (Flomax -) 0.4 mg PO DAILY@0830 [facility] Last Admin: 12/11/18 09:23 Dose: 0.4 mg Timolol Maleate (Timoptic 0.5%) 1 drop OU BID [facility] Last Admin: 12/11/18 09:26 Dose: 1 drop Valsartan (Diovan -) 80 mg PO BID [facility] Last Admin: 12/11/18 09:23 Dose: 80 mg - Objective Vital Signs: Vital Signs Temperature 97.9 F 12/11/18 05:00 Pulse Rate 64 12/11/18 05:00 Respiratory Rate 18 12/11/18 05:00 Blood Pressure 142/65 12/11/18 05:00 O2 Sat by Pulse Oximetry (%) 97 12/10/18 21:00 Constitutional: Yes: No Distress, Calm Cardiovascular: Yes: Regular Rate and Rhythm Respiratory: Yes: Regular, CTA Bilaterally Gastrointestinal: Yes: Normal Bowel Sounds, Soft Genitourinary: Yes: Kumar Present Musculoskeletal: Yes: WNL Extremities: Yes: WNL Neurological: Yes: Alert, Oriented Psychiatric: Yes: Alert, Oriented Labs: CBC, BMP 12/11/18 06:30 12/11/18 06:30 INR, PTT INR 1.08 (0.83-1.09) 11/27/18 06:45 Assessment/Plan Problem List - Problems (1) Hematuria Code(s): R31.9 - HEMATURIA, UNSPECIFIED Qualifiers: Hematuria type: unspecified type Qualified Code(s): R31.9 - Hematuria, unspecified (2) Atrial fibrillation Code(s): I48.91 - UNSPECIFIED ATRIAL FIBRILLATION Qualifiers: (3) Cardiac pacemaker in situ Code(s): Z95.0 - PRESENCE OF CARDIAC PACEMAKER (4) Cerebrovascular accident (CVA) Code(s): I63.9 - CEREBRAL INFARCTION, UNSPECIFIED (5) Coronary artery disease Code(s): I25.10 - ATHSCL HEART DISEASE OF [place] CORONARY ARTERY W/O ANG PCTRS (6) Diabetes mellitus Code(s): E11.9 - TYPE 2 DIABETES MELLITUS WITHOUT COMPLICATIONS (7) Chronic renal insufficiency Code(s): N18.9 - CHRONIC KIDNEY DISEASE, UNSPECIFIED Qualifiers: Chronic kidney disease stage: stage 3 (moderate) Qualified Code(s): N18.3 - Chronic kidney disease, stage 3 (moderate) (8) Diastolic dysfunction without heart failure Code(s): I51.9 - HEART DISEASE, UNSPECIFIED (9) S/P coronary artery stent placement Code(s): Z95.5 - PRESENCE OF CORONARY ANGIOPLASTY IMPLANT AND GRAFT (10) Fever Code(s): R50.9 - FEVER, UNSPECIFIED (11) UTI (urinary tract infection) Code(s): N39.0 - URINARY TRACT INFECTION, SITE NOT SPECIFIED (12) Dehydration Code(s): E86.0 - DEHYDRATION plan continue current mgmt foleys care rest as per the team
[2018-12-11 12:11] VITALS: BP 148/62; PULSE 61; TEMP 98.2
--- NOTE | 2019-01-16 09:36 | EKG ---
Test Reason : Blood Pressure : / mmHG Vent. Rate : 061 BPM Atrial Rate : 061 BPM P-R Int : 190 ms QRS Dur : 166 ms QT Int : 458 ms P-R-T Axes : 000 -69 109 degrees QTc Int : 461 ms AV SEQUENTIAL OR DUAL CHAMBER ELECTRONIC PACEMAKER Confirmed by Pedro Pablo Lora MD ([id number]) on 01/16/2019 9:36:35 AM Referred By: Confirmed By:Pedro Pablo Lora MD
== END 2018-12-11 16:35 | DRG 727 ==
LOC: JER 18:09 → JERBED 19:45 → J6S 23:31 → JICU 12-03 18:09 → J4W 12-04 18:55 → J8W 12-05 18:26
PROVIDERS: ADMIT Internal Medicine; ATTEND Internal Medicine
PROC: 3E1K78Z Irrigation of Genitourinary Tract using Irrigating Substance, Via Natural or Artificial Opening (ICD-10-PCS; 2018-11-28)
PROC: 0TJB8ZZ Inspection of Bladder, Via Natural or Artificial Opening Endoscopic (ICD-10-PCS; principal; 2018-11-28 14:00)
DX: N41.8 Other inflammatory diseases of prostate (principal); A41.9 Sepsis, unspecified organism; I13.0 Hypertensive heart and chronic kidney disease with heart failure and stage 1 through stage 4 chronic kidney disease, or unspecified chronic kidney disease; I69.351 Hemiplegia and hemiparesis following cerebral infarction affecting right dominant side; N39.0 Urinary tract infection, site not specified; N17.9 Acute kidney failure, unspecified; I25.10 Atherosclerotic heart disease of native coronary artery without angina pectoris; I48.91 Unspecified atrial fibrillation; I10 Essential (primary) hypertension; E78.5 Hyperlipidemia, unspecified; E11.9 Type 2 diabetes mellitus without complications; E11.22 Type 2 diabetes mellitus with diabetic chronic kidney disease; N18.3 Chronic kidney disease, stage 3 (moderate); I50.9 Heart failure, unspecified; N40.0 Benign prostatic hyperplasia without lower urinary tract symptoms; I25.2 Old myocardial infarction; E86.0 Dehydration; R50.9 Fever, unspecified; Z86.73 Personal history of transient ischemic attack (TIA), and cerebral infarction without residual deficits; Z95.0 Presence of cardiac pacemaker; Z95.5 Presence of coronary angioplasty implant and graft
CPT/HCPCS: 36415; 36600; 71045-TC-FY; 76775-TC; 76856-TC; 80048; 80053; 81003; 82550; 82803; 82962; 83605; 83880; 84484; 85025; 85044; 85610; 86850; 86900; 86901; 87040; 87086; 87186; 93005; 93010; 94760; 97116-GP; 97162-GP; 99284-25; J7030

== ENCOUNTER 2019-07-02 10:47 | Inpatient (IN) | payer OTHER ==
[2019-07-02 11:04] VITALS: BMI 24.4
[2019-07-02 12:36] LABS: BASO % 0.8 % (0-2.0); EOS % 3.9 % (0-4.5); HEMATOCRIT 33.7 % (35.4-49); HEMOGLOBIN 11.5 GM/dL (11.7-16.9); LYMPH % 20.3 % (8-40); MCH 29.2 pg (25.7-33.7); MEAN CELL VOLUME 85.8 fl (80-96); MEAN PLT VOLUME 7.4 fl (7.5-11.1); MONO % 13.3 % (3.8-10.2); NEUT % 61.7 % (42.8-82.8); PLATELET COUNT 172 K/MM3 (134-434); RBC 3.93 M/mm3 (4.00-5.60); RDW 15.6 % (11.9-15.9)
--- NOTE | 2019-07-02 12:46 | EKG ---
Test Reason : Blood Pressure : / mmHG Vent. Rate : 062 BPM Atrial Rate : 062 BPM P-R Int : 180 ms QRS Dur : 188 ms QT Int : 498 ms P-R-T Axes : 091 -68 098 degrees QTc Int : 505 ms Atrial-sensed ventricular-paced rhythm ABNORMAL ECG WHEN COMPARED WITH ECG OF 03-DEC-2018 16:52, P sensed V paced now present Confirmed by Jewel Payan ([id number]) on 07/02/2019 12:45:56 PM Referred By: Confirmed By:Jewel Payan
[2019-07-02 12:52] LABS: INR 1.5 (0.83-1.09); PROTHROMBIN TIME (PATIENT) 17.8 SEC (9.7-13.0)
[2019-07-02 12:55] LABS: ACTIVATED PTT 48.9 SECONDS (25.2-36.5)
[2019-07-02 13:10] LABS: ALBUMIN 3.1 g/dl (3.4-5.0); ALK PHOS 66 U/L (45-117); ANION GAP 7 MMOL/L (8-16); BILIRUBIN,TOTAL 0.5 mg/dL (0.2-1); BLOOD UREA NITROGEN 41.1 mg/dL (7-18); CALCIUM 8.7 mg/dL (8.5-10.1); CHLORIDE 102 mmol/L (98-107); CO2 26 mmol/L (21-32); CREATININE 2.4 mg/dL (0.55-1.3); GLUCOSE,RANDOM 275 mg/dL (74-106); MAGNESIUM 2.2 mg/dL (1.8-2.4); POTASSIUM 4.3 mmol/L (3.5-5.1); SGOT/AST 17 U/L (15-37); SGPT/ALT 16 U/L (13-61); SODIUM 135 mmol/L (136-145); TOT PROT 6.2 g/dl (6.4-8.2)
--- NOTE | 2019-07-02 13:18 | PDOC ---
History of Present Illness - General Chief Complaint: Congestive Heart Failure Stated Complaint: SENT BY DR PALACIO/EDEMA Time Seen by Provider: 07/02/19 11:33 History Source: Patient Exam Limitations: No Limitations - History of Present Illness Initial Comments: 07/02/19 13:17 78M with a PMH CVA, CAD, T2DM, s/p stent, HLD, A-fib on eliquis who is sent to the ER from his saw superintendent for evaluation of dyspnea on exertion. The patient states that he's had worsening WINKLER for the past "few" months. The patient endorses lower extremity swelling but denies CP, fever, chills, nausea, vomiting , abdominal pain, back pain, dysuria. Past History - Past Medical History Allergies/Adverse Reactions: Allergies Allergy/AdvReac Type Severity Reaction Status Date / Time No Known Allergies Allergy Verified 11/24/18 18:15 Home Medications: Ambulatory Orders Amlodipine Besylate [Norvasc -] 10 mg PO DAILY 02/23/16 Apixaban [Eliquis -] 5 mg PO BID 02/23/16 Carvedilol [Coreg -] 12.5 mg PO BID 02/23/16 Furosemide [Lasix -] 40 mg PO DAILY 02/23/16 Isosorbide Mononitrate [Imdur -] 30 mg PO DAILY 02/23/16 Tamsulosin HCl [Flomax] 0.4 mg PO DAILY 02/23/16 Valsartan [Diovan] 80 mg PO BID 02/23/16 Apixaban [Eliquis] 5 mg PO DAILY #30 tablet 12/01/18 Amlodipine Besylate [Norvasc -] 10 mg PO DAILY tablet 12/07/18 Apixaban [Eliquis -] 2.5 mg PO BID tablet 12/07/18 Brimonidine Tartrate [Alphagan 0.2% -] 1 drop OU BID drops 12/07/18 Carvedilol [Coreg -] 12.5 mg PO BID tablet 12/07/18 Furosemide [Lasix -] 40 mg PO DAILY tablet 12/07/18 Insulin Sliding Scale [Novolog Vial Sliding Scale -] 1 vial SQ ACHS units 12/07 Isosorbide Mononitrate [Imdur -] 30 mg PO DAILY tab.sr.24h 12/07/18 Latanoprost 0.005% Eye Drops [Xalatan 0.005% Eye Drops -] 1 drop OU HS drops Polyethylene Glycol 3350 [Miralax 119 gm Btl -] 17 gm PO DAILY bottle 12/07/18 Tamsulosin HCl [Flomax -] 0.4 mg PO DAILY@0830 cap.er.24h 12/07/18 Timolol 0.5% [Timoptic 0.5%] 1 drop OU BID drops 12/07/18 Valsartan [Diovan] 80 mg PO BID tablet 12/07/18 Amoxicillin/Potassium Clav [Augmentin 500-125 Tablet] 1 each PO BID 7 Days #14 tablet 12/10/18 Amox-Tr/K Cl [Augmentin 500-125mg Tablet -] 1 tab PO BID@0800,1730 7 Days tablet 12/11/18 Anemia: No Asthma: No Cancer: No Cardiac Disorders: Yes (Yes; CAD, [place] S/P STENTING, LV DYSFUNCTION) CVA: Yes COPD: No CHF: Yes Dementia: No Diabetes: Yes GI Disorders: Yes (gerd) Disorders: No HTN: Yes Hypercholesterolemia: Yes Liver Disease: No Seizures: No Thyroid Disease: No - Surgical History Abdominal Surgery: No Appendectomy: No Cardiac Surgery: Yes (pacemaker, stent placement) Cholecystectomy: No Lung Surgery: No Neurologic Surgery: No Orthopedic Surgery: No - Immunization History Immunization Up to Date: Yes - Psycho Social/Smoking Cessation Hx Smoking Status: No Smoking History: Never smoked Years of Tobacco Use: 0 Have you smoked in the past 12 months: No Number of Cigarettes Smoked Daily: 0 Cigars Per Day: 0 Hx Alcohol Use: No Drug/Substance Use Hx: No Substance Use Type: None Hx Substance Use Treatment: No Review of Systems - Review of Systems Able to Perform ROS?: Yes Comments:: 07/02/19 13:30 GENERAL/CONSTITUTIONAL: No fever or chills. No weakness. HEAD, EYES, EARS, NOSE AND THROAT: No change in vision. No ear pain or discharge. No sore throat. CARDIOVASCULAR: No chest pain, palpitations, or lightheadedness. RESPIRATORY: + for WINKLER. No cough, wheezing, or hemoptysis. GASTROINTESTINAL: No abdominal pain, nausea, vomiting, diarrhea, or constipation. GENITOURINARY: No dysuria, frequency, hematuria, or change in urination. MUSCULOSKELETAL: + for lower extremity swelling. No joint or muscle swelling or pain. No neck or back pain. SKIN: No rash or lesions. NEUROLOGIC: No headache, numbness, tingling, focal weakness, loss of consciousness, or change in strength/sensation. Is the patient limited [place] proficient: No *Physical Exam - Vital Signs Last Vital Signs Temp Pulse Resp BP Pulse Ox 97.9 F 60 17 130/77 100 07/02/19 10:58 07/02/19 10:58 07/02/19 10:58 07/02/19 10:58 07/02/19 10:58 - Physical Exam 07/02/19 13:30 GENERAL: Well developed, well nourished. Awake and alert. No acute distress. HEENT: Normocephalic, atraumatic. Hearing grossly normal. Moist mucous membranes. PERRLA, EOMI. No conjunctival pallor. Sclera are non-icteric. NECK: Supple. Full ROM. No JVD. CARDIOVASCULAR: Regular rate and rhythm. No murmurs, rubs, or gallops. PULMONARY: No evidence of respiratory distress. Lungs clear to auscultation bilaterally. No wheezing, rales, or rhonchi. ABDOMINAL: Soft. Non-tender. Non-distended. No rebound or guarding. GENITOURINARY: No CVA tenderness bilaterally. MUSCULOSKELETAL: Normal range of motion at all joints. No bony deformities or tenderness. EXTREMITIES: No cyanosis. No clubbing. 1-2+ pitting edema in b/l LE. No calf tenderness or swelling. SKIN: Warm and dry. Normal capillary refill. No rashes. No jaundice. NEUROLOGICAL: Alert, awake, appropriate. Cranial nerves 2-12 grossly intact. Normal speech. Gait is normal without ataxia. PSYCHIATRIC: Cooperative. Good eye contact. Appropriate mood and affect. Heart Score/ECG Review - History History: Slightly suspicious - Electrocardiogram EKG: Normal - Age Age: >/= 65 - Risk Factors Risk Factors Heart Score: Yes Hx Hypertension, Yes Positive family hx of cardiac disease Based on the list above the patient has:: 1-2 risk factors - Troponin Troponin: </= normal limit - Score Heart Score - Total: 3 #1 General ECG Interpretation: Normal Rate, Normal Intervals, No acute ischemic changes Compared to previous ECG there are: No significant change 07/02/19 13:32 Paced rhythm NV 180 QRS 188 QTc 505 No STD or SUZANNE Prolonged QT No signs of acute ischemia No priors ED Treatment Course - LABORATORY CBC & Chemistry Diagram: 07/02/19 12:10 07/02/19 12:10 - ADDITIONAL ORDERS Additional order review: Laboratory Results 07/02/19 07/02/19 07/02/19 12:10 12:10 12:10 PT with INR 17.80 H INR 1.50 H PTT (Actin FS) 48.9 H Sodium 135 L Potassium 4.3 Chloride 102 Carbon Dioxide 26 Anion Gap 7 L BUN 41.1 H Creatinine 2.4 H Est GFR (CKD-EPI)AfAm 28.86 Est GFR (CKD-EPI)NonAf 24.90 Random Glucose 275 H Calcium 8.7 Magnesium 2.2 Total Bilirubin 0.5 AST 17 ALT 16 Alkaline Phosphatase 66 Creatine Kinase 51 Troponin I < 0.02 B-Natriuretic Peptide 8795.9 H Total Protein 6.2 L Albumin 3.1 L 07/02/19 12:10 RBC 3.93 L MCV 85.8 MCHC 34.0 RDW 15.6 MPV 7.4 L Neutrophils % 61.7 Lymphocytes % 20.3 D Monocytes % 13.3 H Eosinophils % 3.9 Basophils % 0.8 - RADIOLOGY Radiology Studies Ordered: Category Date Time Status CHEST X-RAY PORTABLE* [RAD] Stat Radiology 07/02/19 11:37 Completed Medical Decision Making - Medical Decision Making 07/02/19 13:32 78M with MMP who was sent for evaluation of WINKLER concerning for CHF exacerbation (confirmed by elevated BNP). Case d/w Dr. Horner, pt's saw superintendent, who recommends 2.5 zaroxyln followed by 40 IV lasix. Orders placed. EKG unchanged. PE remarkable only for mild lower extremity edema. Will admit for CHF. Pt endorsed to Dr. Lima for admission. 07/02/19 14:38 Meds not given d/t availability in ED. RN spoke with upstairs RN to be given upstairs. Per Dr. Horner, Zaroxyln should be followed by IV lasix in 30 minutes. Please call [phone] for instructions. Discharge - Discharge Information Problems reviewed: Yes Clinical Impression/Diagnosis: Acute on chronic congestive heart failure Qualifiers: Heart failure type: unspecified Qualified Code(s): I50.9 - Heart failure, unspecified Condition: Guarded - Admission Yes - Follow up/Referral - Patient Discharge Instructions - Post Discharge Activity
--- NOTE | 2019-07-02 13:21 | PDOC ---
Documentation entered by Sole Stoddard SCRIBE, acting as scribe for Rosa Garcia MD. Rosa Garcia MD: This documentation has been prepared by the Richi kohler Nirvannie, SCRIBE, under my direction and personally reviewed by me in its entirety. I confirm that the documentation accurately reflects all work, treatment, procedures, and medical decision making performed by me. Attending Attestation - Resident Resident Name: LyCristofer - ED Attending Attestation I have performed the following: I have examined & evaluated the patient, The case was reviewed & discussed with the resident, I agree w/resident's findings & plan, Exceptions are as noted - HPI HPI: 07/02/19 12:29 The patient is a 78 year old male, with a significant past medical history of HTN, HLD, CAD, paroxysmal atrial flutter (s/p pacemaker), AFib, DM type II, chronic SOB, and CKD, who presents to the emergency department with 1 month of progressively worsening dyspnea upon exertion with associated bilateral lower extremity edema. Patients Lasix was recently changed to 40mg TID, with minimal relief. Patient was advised by her billiard player Dr. Horner to report to the ED for further evaluation. Allergies: NKDA Past surgical history: Pacemaker and cardiac stenting placement Social History: Nonsmoker. Denies EtOH use and recreational drug use. Primary Care Physician: Dr. Beka Lima Flooring Grader: Dr. Horner - Physicial Exam PE: GENERAL: Awake, alert, and fully oriented, in no acute distress HEAD: No signs of trauma EYES: PERRLA, EOMI, sclera anicteric, conjunctiva clear ENT: Auricles normal inspection, hearing grossly normal, nares patent, oropharynx clear without exudates. Moist mucosa NECK: Normal ROM, supple, no lymphadenopathy, JVD, or masses LUNGS: Good air entry B/L, +rales B/L upper lobes, as well as decreased air movement in the B/L lower lobes HEART: Regular rate and rhythm, normal S1 and S2, no murmurs, rubs or gallops ABDOMEN: Soft, nontender, normoactive bowel sounds. No guarding, no rebound. No masses EXTREMITIES: Normal range of motion, 2+ pitting edema BLE. No clubbing or cyanosis. No cords, erythema, or tenderness NEUROLOGICAL: Cranial nerves II through XII grossly intact. Normal speech. RUE with 4/5 motor. Motor otherwise 5/5 throughout. Sensation intact SKIN: Warm, dry, normal turgor, no rashes or lesions noted. - Medical Decision Making Pt sent by Dr. Horner for fluid overload, history of CHF. BNP is very high, exam is suspicious for fluid overload. Will give britton, d/w Dr. Horner, and admit.
[2019-07-02] MEDS ORDERED: METOLAZONE 2.5 MG TABLET (FP) PO ONE (13:32)
[2019-07-02] MEDS ORDERED: INSULIN (NOVOLOG) ASPART 100 UNITS/ML 10ML VIAL SQ ONE (18:45)
[2019-07-02] MEDS: APIXABAN 5 MG TABLET PO SCH (21:30)
[2019-07-02] MEDS: LATANOPROST 0.005% OPHTH SOLN 2.5ML BOTTLE OU SCH (21:30)
[2019-07-02] MEDS: CARVEDILOL 25 MG TABLET (FP) PO SCH (21:30)
[2019-07-03] MEDS: FUROSEMIDE 40 MG/4 ML INJECTABLE VIAL IVPUSH SCH (10:19)
--- NOTE | 2019-07-03 10:29 | HP ---
DATE OF ADMISSION: 07/02/2019 HISTORY: A 78-year-old male known to me for many years was sent to the emergency room yesterday by Dr. Horner because of increasing short of breath and leg edema. In the emergency room, he was found to be in CHF so got admitted. According to the patient, he is compliant with his medications. He is on multiple medications at this time. He had pacemaker inserted many years ago, also had stenting done. Not a smoker. He lives with his . had a CVA. PHYSICAL EXAMINATION: General: On examination this morning, patient is alert, oriented with his usual mind status. Vital Signs: BP 130/70, pulse 61, respiration 20, temperature 98. HEENT: Unremarkable. Neck: Supple. No JVD. Lungs: Few basilar rales present. Heart: S1, S2 normal. No S3, S4. Abdomen: Soft, nontender. Extremities: Legs, minimal edema. He had more edema yesterday. DIAGNOSTIC DATA: Lab reports; WBC 5, hemoglobin 11.5, hematocrit 33.7. Electrolytes; sodium 135, potassium 4.3, BUN 41, creatinine 2.4. Blood sugar 211, random glucose 275. B peptide 8795. Albumin 3.1. Chest x-ray; no acute changes. EKG; paced rhythm. IMPRESSION: 1. Congestive heart failure. 2. Diabetes. 3. Chronic ulcer, left leg. PLAN: Continue his present medications including Eliquis. Lasix changed to IV. Cardiology consult with Dr. Horner. We will give p.o. antibiotics for the infection of the leg. We will follow. Sharlene [id number]
[2019-07-03] MEDS: APIXABAN 5 MG TABLET PO SCH ×2 (10:52→21:30)
[2019-07-03] MEDS: CARVEDILOL 25 MG TABLET (FP) PO SCH ×2 (10:52→21:30)
[2019-07-03] MEDS: amLODIPine BESYLATE 10 MG TABLET (FP) PO SCH (10:52)
[2019-07-03] MEDS: ISOSORBIDE MONONITRATE 60 MG TAB.SR.24H (FP) PO SCH (10:52)
[2019-07-03] MEDS: RANOLAZINE E.R. 500 MG TABLET (FP) PO SCH (10:53)
[2019-07-03] MEDS: DOXYCYCLINE HYCLATE 100 MG CAPSULE PO SCH ×2 (10:53→17:59)
--- NOTE | 2019-07-03 13:23 | CONS ---
CARDIOLOGY CONSULTATION DATE OF CONSULTATION: DATE OF DICTATION: 07/03/2019 REQUESTING PHYSICIAN: Beka Lima MD CHIEF COMPLAINT: 1. Increasing shortness of breath. 2. Increased pedal edema. HISTORY: Patient is a 78-year-old gentleman with a history of coronary artery disease, status post myocardial infarction, status post PCI/stenting, angina pectoris, history of left ventricular systolic dysfunction, history of congestive heart failure, type 2 diabetes mellitus, hypertension, hypertensive cardiovascular disease, chronic kidney disease, paroxysmal atrial fibrillation/flutter, status post cerebrovascular accident with left hemiparesis and visual field cuts. Patient also has history of diabetic retinopathy and neuropathy. Patient was recently seen in the office for a routine follow up and was noted to have pedal edema, and on questioning, has had progressive dyspnea mostly on exertion. At the time of the office visit, he was significantly dyspneic. He also complained of orthopnea and was waking up at night with bouts of coughing. Denies having chest pain or discomfort either at rest or with exertion. No history of palpitations, lightheadedness, dizziness. Patient complained of generalized weakness. PAST HISTORY: As mentioned in the history of present illness. SURGICAL HISTORY: 1. Status post permanent pacemaker insertion. 2. Status post tonsillectomy. 3. History of laser surgery on the eyes. 4. Bilateral cataract extraction. SOCIAL HISTORY: . Two daughters and 3 sons who apparently are healthy. Patient is nonsmoker and does not drink alcohol but admits to poor dietary compliance. FAMILY HISTORY: Father in his 50s of unknown cause. Mother also in her 50s. Apparently had hypertension, ? myocardial infarction. He has no siblings. ALLERGIES: None reported. MEDICATIONS: Prior to admission, patient was on the following medicines: Eliquis 5 mg p.o. daily, Flomax 0.4 mg p.o. daily, amlodipine 10 mg p.o. daily, Crestor 20 mg p.o. daily, isosorbide mononitrate 60 mg p.o. daily, losartan 50 mg p.o. daily. Was recently held by PCP. Carvedilol 25 mg p.o. b.i.d., Travatan 0.004% 1 drop in each eye daily, Combivent 0.4 mg 1 drop in each eye b.i.d., Lantus insulin 24 units subcutaneous before meals breakfast, Humalog insulin 5 units before meals 3 times a day, furosemide 40 mg 1 p.o. b.i.d., Nitrostat 0.4 mg sublingually p.r.n. for chest , Ranexa 500 mg p.o. b.i.d. REVIEW OF SYSTEMS: Constitutional: No history of chills, fever, or night sweats. No history of unintentional weight loss. HEENT: No history of headaches. History of visual field cuts following cerebrovascular accident. History of diabetic retinopathy and glaucoma. No history of epistaxis or hoarseness. Denies having tinnitus or deafness. Cardiovascular: See history of present illness. Respiratory: See history of present illness. No history of hemoptysis or tuberculosis. Gastrointestinal: Complaining of intermittent left lower quadrant discomfort. No history of nausea, vomiting, melena, or hematemesis. No history of change in bowel habits reported. Endocrine: See history of present illness. No history of polydipsia, increased thirst or polyuria. No history of intolerance to cold or warm weather. Neurological: See history of present illness. No history of recent seizures, syncope. Genitourinary: History of gross hematuria in the past. History of nocturia 4 times a night. History of occasional urgency. Musculoskeletal: No history of myalgias or arthralgias reported. Hematological: No history of bleeding, ecchymosis, or anemia reported. PHYSICAL EXAMINATION: General: A 78-year-old gentleman is resting comfortably. There is no pallor or cyanosis. No clubbing or jaundice. Vital Signs: Weight is 77.564 kg, blood pressure is 129/66 mmHg, pulse is 61 beats per minute, irregular, respirations per minute, O2 saturation 100% on room air. Neck: Supple. Jugular venous distention at 30 degrees. Mildly positive hepatojugular reflux. Carotids are 2+. Upstrokes are normal. No bruits are heard, and no thyromegaly is present. Heart: PMI is in the 5th intercostal space. There is an apical heave. S1 is normal. S2 is split. Grade 2/6 decrescendo systolic murmur is heard along the left sternal border and apex with a grade 1/6 ejection systolic murmur heard at the 2nd right intercostal space. No diastolic murmur or gallops are heard. Lungs: Clear on auscultation. Abdomen: Soft. Slightly protuberant. There is mild left lower quadrant tenderness on palpation. No masses are felt. Bowel sounds are present. Extremities: No calf tenderness or dependent edema. Femoral pulses are 2+. Dorsalis pedis and posterior tibial pulses cannot be palpated. DIAGNOSTIC DATA: ECG: AV sequential pacemaker was seen functioning appropriately. X-ray chest July 02, 2019. Impression: No acute chest pathology. Lab data: CBC; WBC count 5000, hemoglobin 11.5 g/dL, hematocrit 33.7%. Normal cell indices. Platelet count 172,000. Differential; neutrophils 61.7%, lymphocytes 20.3%, monocytes 13.3%, eosinophils 3.9%, basophils 0.8%. Sodium 135, potassium 4.3, chloride 102, CO2 is 26 mmol/L, BUN 41.1, creatinine 2.4 mg/dL. Random glucose on July 02, 2019, 174 mg/dL, calcium 8.7, magnesium 2.2 mg/dL. Normal liver function tests. Troponin less than 0.02. CK was 51. BNP was 8795.9 pg/mL. IMPRESSION: 1. Congestive heart failure, [place] Heart Classification 3 probably precipitated by poor dietary compliance. 2. Coronary artery disease, status post myocardial infarction, status post percutaneous coronary intervention/stenting, angina pectoris. 3. Type 2 diabetes mellitus, insulin dependent. 4. Diabetic nephropathy. 5. Diabetic neuropathy. 6. Diabetic retinopathy. 7. Status post permanent pacemaker for advanced atrioventricular block. 8. History of severe peripheral arterial disease. 9. Dyslipidemia, type IIb. 10. Hypertension, hypertensive cardiovascular disease. 11. Poor dietary compliance. 12. Status post cerebrovascular accident with right hemiparesis and visual field cuts. 13. Glaucoma. RECOMMENDATIONS: 1. Concur with current line of treatment. 2. Check blood pressure supine and standing. 3. Patient was strongly counseled regarding his dietary restrictions and curtailing his sodium intake. 4. Patient should be restarted on all his diabetic medications including insulin. 5. Resume all his medications for glaucoma. 6. All his medications should be obtained from home for reconciliation. 7. Echocardiogram. 8. Prognosis guarded. Thank you for your referral. Yours Sincerely, LEO STACK M.D. MITCH/[id number]
[2019-07-03] MEDS: LATANOPROST 0.005% OPHTH SOLN 2.5ML BOTTLE OU SCH (21:30)
--- NOTE | 2019-07-04 09:16 | PN ---
Progress Note, Physician Chief Complaint: Feels better History of Present Illness: Dr Cervantes cardiology consult appreciated - Current Medication List Current Medications: Active Medications Amlodipine Besylate (Norvasc -) 10 mg PO DAILY [facility] Last Admin: 07/03/19 10:52 Dose: 10 mg Apixaban (Eliquis -) 5 mg PO BID [facility] Last Admin: 07/03/19 21:30 Dose: 5 mg Carvedilol (Coreg -) 25 mg PO BID [facility] Last Admin: 07/03/19 21:30 Dose: 25 mg Doxycycline Hyclate (Vibramycin -) 100 mg PO BID@1000,1800 [facility] Last Admin: 07/03/19 17:59 Dose: 100 mg Furosemide (Lasix Injection -) 40 mg IVPUSH DAILY [facility] Last Admin: 07/03/19 10:19 Dose: 40 mg Isosorbide Mononitrate (Imdur -) 60 mg PO DAILY [facility] Last Admin: 07/03/19 10:52 Dose: 60 mg Latanoprost (Xalatan 0.005% Eye Drops -) 1 drop OU HS [facility] Last Admin: 07/03/19 21:30 Dose: 1 drop Ranolazine (Ranexa -) 500 mg PO DAILY [facility] Last Admin: 07/03/19 10:53 Dose: 500 mg - Objective Vital Signs: Vital Signs Temperature 98.2 F 07/04/19 06:00 Pulse Rate 62 07/04/19 06:00 Respiratory Rate 20 07/04/19 06:00 Blood Pressure 130/70 07/04/19 06:00 O2 Sat by Pulse Oximetry (%) 97 07/03/19 21:00 Constitutional: Yes: No Distress Eyes: Yes: WNL HENT: Yes: WNL Neck: Yes: WNL Cardiovascular: Yes: Pulse Irregular Respiratory: Yes: WNL Gastrointestinal: Yes: WNL ...Rectal Exam: Yes: Deferred Extremities: Yes: WNL Integumentary: Yes: WNL Wound/Incision: Yes: Clean/Dry Labs: CBC, BMP 07/02/19 12:10 07/02/19 12:10 INR, PTT INR 1.50 (0.83-1.09) H 07/02/19 12:10 Assessment/Plan PT for ambulation
[2019-07-04] MEDS: FUROSEMIDE 40 MG/4 ML INJECTABLE VIAL IVPUSH SCH (09:55)
[2019-07-04] MEDS: RANOLAZINE E.R. 500 MG TABLET (FP) PO SCH (09:56)
[2019-07-04] MEDS: APIXABAN 5 MG TABLET PO SCH ×2 (09:56→21:09)
[2019-07-04] MEDS: amLODIPine BESYLATE 10 MG TABLET (FP) PO SCH (09:56)
[2019-07-04] MEDS: DOXYCYCLINE HYCLATE 100 MG CAPSULE PO SCH ×2 (09:56→17:34)
[2019-07-04] MEDS: CARVEDILOL 25 MG TABLET (FP) PO SCH ×2 (09:56→21:09)
[2019-07-04] MEDS: ISOSORBIDE MONONITRATE 60 MG TAB.SR.24H (FP) PO SCH (09:56)
--- NOTE | 2019-07-04 18:28 | PN ---
Progress Note (short form) - Note Progress Note: Patient is resting comfortably and congestive heart failure appears tohave resolved.he denies having dyspnea either at rest or with exertion, no paroxysmal nocturnal dyspnea or orthopnea. No history of chest pain or discomfort. Active Medications Generic Name Dose Route Start Last Admin Trade Name Marcq PRN Reason Stop Dose Admin Amlodipine Besylate 10 mg 07/03/19 10:00 07/04/19 09:56 Norvasc - PO 10 mg DAILY JASS Administration Apixaban 5 mg 07/02/19 22:00 07/04/19 09:56 Eliquis - PO 5 mg BID JASS Administration Carvedilol 25 mg 07/02/19 22:00 07/04/19 09:56 Coreg - PO 25 mg BID JASS Administration Doxycycline Hyclate 100 mg 07/03/19 10:00 07/04/19 17:34 Vibramycin - PO 100 mg BID@1000,1800 JASS Administration Furosemide 40 mg 07/03/19 10:00 07/04/19 09:55 Lasix Injection - IVPUSH 40 mg DAILY JASS Administration Isosorbide Mononitrate 60 mg 07/03/19 10:00 07/04/19 09:56 Imdur - PO 60 mg DAILY JASS Administration Latanoprost 1 drop 07/02/19 22:00 07/03/19 21:30 Xalatan 0.005% Eye Drops - OU 1 drop HS JASS Administration Ranolazine 500 mg 07/03/19 10:00 07/04/19 09:56 Ranexa - PO 500 mg DAILY JASS Administration Last Vital Signs Temp Pulse Resp BP Pulse Ox 99.6 F 63 20 124/65 97 07/04/19 14:15 07/04/19 14:15 07/04/19 14:15 07/04/19 14:15 07/04/19 09:00 Intake & Output 07/01/19 07/02/19 07/03/19 07/04/19 23:59 23:59 23:59 23:59 Intake Total 300 590 Output Total 300 500 400 Balance 0 90 -400 Weight 81.647 kg 77.564 kg 76.657 kg mpression: 1. Congestive heart failure, resolved. 2. Coronary artery disease, status post AR status post PCI/stenting, angina pectoris currently stable. 3. Diabetes mellitus type 2 4. Hypertension, hypertensive cardiovascular disease. 5. Status post pacemaker 6. Poor dietary compliance. Recommendations: 1. Patient has been counseled on multiple occasions regarding his dietary restrictions specially curtailing sodium intake. 2. Continue medications as outlined. 3. Resume all outpatient cardiac medications. 4. Close follow-up of electrolytes. 5. Switch to oral furosemide. 6.. Discharge when medically stable. Javier Horner MD.
[2019-07-04] MEDS: LATANOPROST 0.005% OPHTH SOLN 2.5ML BOTTLE OU SCH (21:08)
[2019-07-04] MEDS ORDERED: INSULIN (NOVOLOG) ASPART 100 UNITS/ML 10ML VIAL SQ ONE (22:00)
[2019-07-05 06:57] VITALS: TEMP 98
[2019-07-05] MEDS: FUROSEMIDE 40 MG/4 ML INJECTABLE VIAL IVPUSH SCH (09:05)
[2019-07-05] MEDS: APIXABAN 5 MG TABLET PO SCH (09:06)
[2019-07-05] MEDS: amLODIPine BESYLATE 10 MG TABLET (FP) PO SCH (09:06)
[2019-07-05] MEDS: DOXYCYCLINE HYCLATE 100 MG CAPSULE PO SCH (09:06)
[2019-07-05] MEDS: CARVEDILOL 25 MG TABLET (FP) PO SCH (09:06)
[2019-07-05] MEDS: ISOSORBIDE MONONITRATE 60 MG TAB.SR.24H (FP) PO SCH (09:06)
[2019-07-05] MEDS: RANOLAZINE E.R. 500 MG TABLET (FP) PO SCH (09:06)
--- NOTE | 2019-07-05 09:44 | DS ---
Physical Examination Vital Signs: Vital Signs Temperature 98 F 07/05/19 05:00 Pulse Rate 64 07/05/19 05:00 Respiratory Rate 17 07/05/19 05:00 Blood Pressure 136/70 07/05/19 05:00 O2 Sat by Pulse Oximetry (%) 100 07/04/19 21:00 Findings/Remarks: CHF diastlic heart failure Constitutional: Yes: No Distress Eyes: Yes: WNL HENT: Yes: WNL Neck: Yes: WNL Cardiovascular: Yes: WNL Respiratory: Yes: WNL Gastrointestinal: Yes: WNL ...Rectal Exam: Yes: Deferred Renal/: Yes: WNL Edema: No Peripheral Pulses WNL: Yes Wound/Incision: Yes: Clean/Dry Neurological: Yes: Alert ...Motor Strength: WNL Psychiatric: Yes: WNL Labs: CBC, BMP 07/02/19 12:10 07/02/19 12:10 Discharge Summary Problems reviewed: Yes Reason For Visit: ACUTE CHF, DIASTOLIC DYSFUNCTION WITHOUT HEART ALINA Current Active Problems Acute on chronic congestive heart failure (Acute) Condition: Guarded - Instructions Referrals: Beka Lima MD [Primary Care Provider] - - Home Medications Comprehensive Discharge Medication List: Ambulatory Orders Amlodipine Besylate [Norvasc -] 10 mg PO DAILY 02/23/16 Apixaban [Eliquis -] 5 mg PO BID 02/23/16 Carvedilol [Coreg -] 12.5 mg PO BID 02/23/16 Furosemide [Lasix -] 40 mg PO DAILY 02/23/16 Isosorbide Mononitrate [Imdur -] 30 mg PO DAILY 02/23/16 Tamsulosin HCl [Flomax] 0.4 mg PO DAILY 02/23/16 Valsartan [Diovan] 80 mg PO BID 02/23/16 Apixaban [Eliquis] 5 mg PO DAILY #30 tablet 12/01/18 Amlodipine Besylate [Norvasc -] 10 mg PO DAILY tablet 12/07/18 Apixaban [Eliquis -] 2.5 mg PO BID tablet 12/07/18 Brimonidine Tartrate [Alphagan 0.2% -] 1 drop OU BID drops 12/07/18 Carvedilol [Coreg -] 12.5 mg PO BID tablet 12/07/18 Furosemide [Lasix -] 40 mg PO DAILY tablet 12/07/18 Insulin Sliding Scale [Novolog Vial Sliding Scale -] 1 vial SQ ACHS units 12/07 Isosorbide Mononitrate [Imdur -] 30 mg PO DAILY tab.sr.24h 12/07/18 Latanoprost 0.005% Eye Drops [Xalatan 0.005% Eye Drops -] 1 drop OU HS drops Polyethylene Glycol 3350 [Miralax 119 gm Btl -] 17 gm PO DAILY bottle 12/07/18 Tamsulosin HCl [Flomax -] 0.4 mg PO DAILY@0830 cap.er.24h 12/07/18 Timolol 0.5% [Timoptic 0.5%] 1 drop OU BID drops 12/07/18 Valsartan [Diovan] 80 mg PO BID tablet 12/07/18 Amoxicillin/Potassium Clav [Augmentin 500-125 Tablet] 1 each PO BID 7 Days #14 tablet 12/10/18 Amox-Tr/K Cl [Augmentin 500-125mg Tablet -] 1 tab PO BID@0800,1730 7 Days tablet 12/11/18
[2019-07-05 10:49] VITALS: BP 136/80; PULSE 78
== END 2019-07-05 10:31 | disposition home health service (06) | DRG 291 ==
LOC: JER 10:47 → JERBED 13:19 → J4W 15:09
PROVIDERS: ADMIT Internal Medicine; ATTEND Internal Medicine
DX: I13.0 Hypertensive heart and chronic kidney disease with heart failure and stage 1 through stage 4 chronic kidney disease, or unspecified chronic kidney disease (principal); I50.33 Acute on chronic diastolic (congestive) heart failure; I48.92 Unspecified atrial flutter; E11.9 Type 2 diabetes mellitus without complications; N18.9 Chronic kidney disease, unspecified; I25.119 Atherosclerotic heart disease of native coronary artery with unspecified angina pectoris; Z95.5 Presence of coronary angioplasty implant and graft
CPT/HCPCS: 36415; 71045-TC-FY; 80053; 82550; 82962; 83735; 83880; 84484; 85025; 85610; 85730; 93005; 93010; 99285-25

== ENCOUNTER 2020-02-18 14:53 | Inpatient (IN) | payer OTHER ==
--- NOTE | 2020-02-18 15:12 | PDOC ---
Rapid Medical Evaluation Time Seen by Provider: 02/18/20 15:08 Medical Evaluation: Allergies Allergy/AdvReac Type Severity Reaction Status Date / Time No Known Allergies Allergy Verified 11/24/18 18:15 02/18/20 15:08 Pt presents for evaluation of shortness of breath and weakness . He was sent over by his PCP for evaluation Exam: No acute respiratory distress, non-ambulatory Orders: labs, EKG, CXR Pt to proceed to the ER for further evaluation Discharge Disposition - Diagnosis Weakness - Referrals - Patient Instructions - Post Discharge Activity
--- NOTE | 2020-02-18 15:38 | PDOC ---
History of Present Illness - General Chief Complaint: Weakness Stated Complaint: WEAKNESS Time Seen by Provider: 02/18/20 15:08 Past History - Medical History Allergies/Adverse Reactions: Allergies Allergy/AdvReac Type Severity Reaction Status Date / Time No Known Allergies Allergy Verified 02/18/20 15:16 Home Medications: Ambulatory Orders Tamsulosin HCl [Flomax] 0.4 mg PO DAILY 02/23/16 Brimonidine Tartrate [Alphagan 0.2% -] 1 drop OU BID drops 12/07/18 Furosemide [Lasix -] 40 mg PO DAILY tablet 12/07/18 Apixaban [Eliquis -] 5 mg PO BID tablet 07/05/19 Carvedilol [Coreg -] 25 mg PO BID tablet 07/05/19 Isosorbide Mononitrate [Imdur -] 60 mg PO DAILY tab.sr.24h 07/05/19 Latanoprost 0.005% Eye Drops [Xalatan 0.005% Eye Drops -] 1 drop OU HS drops 07/05/19 Ranolazine [Ranexa -] 500 mg PO DAILY tab 07/05/19 Amlodipine Besylate [Norvasc -] 10 mg PO DAILY 02/18/20 Anemia: No Asthma: No Cancer: No Cardiac Disorders: Yes (Yes; CAD, DE S/P STENTING, LV DYSFUNCTION) CVA: Yes COPD: No CHF: Yes Dementia: No Diabetes: Yes GI Disorders: Yes (gerd) Disorders: No HTN: Yes Hypercholesterolemia: Yes Liver Disease: No Seizures: No Thyroid Disease: No - Surgical History Abdominal Surgery: No Appendectomy: No Cardiac Surgery: Yes (pacemaker, stent placement) Cholecystectomy: No Lung Surgery: No Neurologic Surgery: No Orthopedic Surgery: No - Immunization History Immunization Up to Date: Yes - Psycho-Social/Smoking History Smoking Status: No Smoking History: Never smoked Years of Tobacco Use: 0 Have you smoked in the past 12 months: No Number of Cigarettes Smoked Daily: 0 Cigars Per Day: 0 *Physical Exam - Vital Signs Last Vital Signs Temp Pulse Resp BP Pulse Ox 98.1 F 63 18 115/60 100 02/18/20 15:14 02/18/20 15:14 02/18/20 15:14 02/18/20 15:14 02/18/20 15:14 ED Treatment Course - LABORATORY CBC & Chemistry Diagram: 02/18/20 16:10 02/22/20 06:07 Discharge - Discharge Information Clinical Impression/Diagnosis: Weakness - Follow up/Referral - Patient Discharge Instructions - Post Discharge Activity
[2020-02-18] MEDS ORDERED: FUROSEMIDE 40 MG/4 ML INJECTABLE VIAL IVPUSH ONE (16:33)
[2020-02-18 16:38] LABS: BASO % 0.9 % (0-2.0); EOS % 1.9 % (0-4.5); HEMATOCRIT 28.3 % (35.4-49); HEMOGLOBIN 9.2 GM/dL (11.7-16.9); LYMPH % 7.3 % (8-40); MCH 26.5 pg (25.7-33.7); MCHC 32.7 g/dl (32.0-35.9); MEAN CELL VOLUME 81.2 fl (80-96); MEAN PLT VOLUME 7.3 fl (7.5-11.1); MONO % 5.7 % (3.8-10.2); NEUT % 84.2 % (42.8-82.8); PLATELET COUNT 259 K/MM3 (134-434); RBC 3.48 M/mm3 (4.00-5.60); RDW 17.9 % (11.9-15.9); WHITE BLOOD COUNT 5.6 K/mm3 (4.0-10.0)
--- NOTE | 2020-02-18 16:42 | PDOC ---
Documentation entered by Alessandra May SCRIBE, acting as scribe for Ben Huertas MD. Ben Huertas MD: This documentation has been prepared by the Yadira kohler Xhesika, SCRIBE, under my direction and personally reviewed by me in its entirety. I confirm that the documentation accurately reflects all work, treatment, procedures, and medical decision making performed by me. Attending Attestation - Resident Resident Name: Mika Manzano - ED Attending Attestation I have performed the following: I have examined & evaluated the patient, The case was reviewed & discussed with the resident, I agree w/resident's findings & plan, Exceptions are as noted - HPI HPI: 02/18/20 16:22 The patient is a 79 year old male, with a significant past medical history of HTN, HLD, CAD, paroxysmal atrial flutter (s/p pacemaker), AFib, DM type II, chronic SOB, and CKD, who presents to the emergency department for weakness. Pt reports worsening BLE swelling as well as dyspnea on exertion. Allergies: NKDA Past surgical history: Pacemaker and cardiac stenting placement Social History: Nonsmoker. Denies EtOH use and recreational drug use. Primary Care Physician: Dr. Beka Lima Emergency Generator Mechanic: Dr. Horner - Physicial Exam PE: 02/18/20 16:43 See resident exam - Medical Decision Making 02/18/20 16:43 79 M with SOB, WINKLER, and BLE edema. Suspect volume overload. - Labs - CXR - Admit Discharge - Discharge Information Problems reviewed: Yes Clinical Impression/Diagnosis: Weakness Acute on chronic congestive heart failure Qualifiers: Heart failure type: unspecified Qualified Code(s): I50.9 - Heart failure, unspecified Condition: Fair Disposition: VNS/HOME HEALTH CARE - Follow up/Referral - Patient Discharge Instructions - Post Discharge Activity
[2020-02-18] MEDS ORDERED: FUROSEMIDE 40 MG/4 ML INJECTABLE VIAL ONE (16:44)
[2020-02-18 17:12] LABS: ALBUMIN 2.6 g/dl (3.4-5.0); ALK PHOS 81 U/L (45-117); ANION GAP 9 MMOL/L (8-16); BILIRUBIN,TOTAL 0.6 mg/dL (0.2-1); BLOOD UREA NITROGEN 80.4 mg/dL (7-18); CALCIUM 8.6 mg/dL (8.5-10.1); CHLORIDE 106 mmol/L (98-107); CO2 24 mmol/L (21-32); CREATININE 2.6 mg/dL (0.55-1.3); GLUCOSE,RANDOM 178 mg/dL (74-106); POTASSIUM 4.5 mmol/L (3.5-5.1); SGOT/AST 18 U/L (15-37); SGPT/ALT 17 U/L (13-61); SODIUM 138 mmol/L (136-145); TOT PROT 6.1 g/dl (6.4-8.2)
[2020-02-18 17:14] LABS: INR 2.47 (0.83-1.09); PROTHROMBIN TIME (PATIENT) 29.4 SEC (9.7-13.0)
--- OUTSIDE RECORDS SUMMARY | 2020-02-18 17:52 | XMS ---
:1940 Author Organization [facility] Care Team Providers Name Role Phone STACEY CARRINGTON Unavailable Unavailable AHMET JACKSON Unavailable Unavailable SABIANISM, HUMAYUN Unavailable Unavailable Iwai, Sei Unavailable Unavailable Iwai, Sei Unavailable Unavailable Iwai, Sei Unavailable Unavailable Iwai, Sei Unavailable Unavailable Iwai, Sei Unavailable Unavailable Iwai, Sei Unavailable Unavailable Iwai, Sei Unavailable Unavailable Iwai, Sei Unavailable Unavailable Iwai, Sei Unavailable Unavailable Iwai, Sei Unavailable Unavailable Iwai, Sei Unavailable Unavailable TONI NAYEL, NAYEL Unavailable Unavailable Re-disclosure Warning The records that you are about to access may contain information from federally- assisted alcohol or drug abuse programs. If such information is present, then the following federally mandated warning applies: This information has been disclosed to you from records protected by federal confidentiality rules (42 CFR part 2). The federal rules prohibit you from making any further disclosure of this information unless further disclosure is expressly permitted by the written consent of the person to whom it pertains or as otherwise permitted by 42 CFR part 2. A general authorization for the release of medical or other information is NOT sufficient for this purpose. The Federal rules restrict any use of the information to criminally investigate or prosecute any alcohol or drug abuse patient.The records that you are about to access may contain highly sensitive health information, the redisclosure of which is protected by Article 27-F of the [facility] Public Health law. If you continue you may haveaccess to information: Regarding HIV / AIDS; Provided by facilities licensed or operated by the [facility] Office of Mental Health; or Provided by the [facility] Office for People With Developmental Disabilities. If such information is present, then the following [facility] mandated warning applies: This information has been disclosed to you from confidential records which are protected by state law. State law prohibits you from making any further disclosure of this information without the specific written consent of the person to whom it pertains, or as otherwise permitted by law. Any unauthorized further disclosure in violation of state law may result in a fine or mcc sentence or both. A general authorization for the release of medical or other information is NOT sufficient authorization for further disclosure. Allergies and Adverse Reactions Type Description Substance Reaction Status Data Source(s ) Drug allergy No Known Drug No Known Drug [facility] [employer] [facility] Drug allergy No Known Allergies No Known [facility] [employer] [facility] Food allergy No Known Food No Known Food [facility] Encounters Encounter Providers Location Date Indications Data Source(s ) Outpatient Attender: 03/27/2019 Z12.5 N18.9 [facility], 04:25:00 PM [facility] MAdmitter: ASHLYN HERNANDEZReferrer: AHMET JACKSON Z12.5 N18.9 Outpatient Attender: Steven 02/15/2019 06:00:00 Z45.010 [facility] Steven SHINE [facility] IwaiReferrer: Steven Booker Ne rporation Z45.010 Outpatient Attender: DAVID 02/13/2019 I49.5,Z01.812 [facility] DAVIONUNAdmitter: SABIANISM, 03:43:00 PM [facility] HUMAYUNReferrer: Corporat eugenia MONI CARRINGTONY I49.5,Z01.812 Outpatient Admitter: TASHIA Landin 09/12/2018 08:06:00 AM [facility] Insurance Providers Payer name Policy type Policy ID Covered Covered republican's Policy P josie / Coverage republican ID relationship to Hope Inf ormation type hope [facility] [id number] SP [id number] SOLUTIONS GAIL MEDICARE [id number] [place] [id number] HEALTHCARE (MEDICARE) [place] [id number] HEALTHCARE (MEDICARE) MEDICARE [id number] SP [id number] A [place] [id number] SP [id number] HEALTHCARE (MEDICARE) [place] [id number] MEDICARE UNITED [id number] SP [id number] HEALTHCARE (MEDICARE) IME MEDICARE [id number] [facility] [id number] HEALTHCARE MCARE OPD Problems, Conditions, and Diagnoses Code Display Name Description Problem Type Effective Data Sour ce(s) Dates N18.9 Chronic kidney CHRONIC KIDNEY Diagnosis 03/27/2019 [facility] cara disease, unspecified DISEASE, 04:25:00 PM [facility] [employer] UNSPECIFIED EST Care [employer] Z12.5 Encounter for ENCOUNTER FOR Diagnosis 03/27/2019 [facility] screening for SCREENING FOR 04:25:00 PM [facility] malignant neoplasm MALIGNANT NEOPLASM EST Care of prostate OF PROSTATE Lightswitch Z79.4 long term care social worker (current) ACADEMIC SERVICES COORDINATOR (CURRENT) Diagnosis [address] [place] [address] use of insulin USE OF INSULIN 06:00:00 AM Replaced by [facility] [employer] EDT Care Light[employer] E78.00 Pure PURE Diagnosis 02/15/2019 [place] hypercholesterolemia HYPERCHOLESTEROLEMI 06:00: 00 AM [facility] , unspecified A, UNSPECIFIED EDT Care [employer] I12.9 Hypertensive chronic HYPERTENSIVE Diagnosis 02/15/2019 [facility] kidney disease with CHRONIC KIDNEY 06:00:00 AM [facility] stage 1 through DISEASE W STG EDT Care stage 4 chronic 1-4/UNSP CHR KDNY Co rporation kidney disease, or unspecified chronic kidney disease E11.22 Type 2 diabetes TYPE 2 DIABETES Diagnosis 02/15/2019 [place] mellitus with MELLITUS W DIABETIC 06:00:00 AM [facility] diabetic chronic CHRONIC KIDNEY EDT Care kidney disease DISEASE Corporatio n I25.10 Atherosclerotic ATHSCL HEART Diagnosis 02/15/2019 [facility] heart disease of DISEASE OF [place] 06:00:00 AM [facility] [place] coronary CORONARY ARTERY W/O EDT Care artery without ANG PCTRS Corporatio n angina pectoris I48.91 Unspecified atrial UNSPECIFIED ATRIAL Diagnosis 9 [place] fibrillation FIBRILLATION 06:00:00 AM [facility] [employer] Planet[employer] Care Lightswitch I49.5 Sick sinus syndrome SICK SINUS SYNDROME Diagnosis 019 [place] 06:00:00 AM [facility] EDT Care Corporation I44.2 Atrioventricular ATRIOVENTRICULAR Diagnosis 02/15/2019 [facility] block, complete BLOCK, COMPLETE 06:00:00 AM [facility] EDT Care Lightswitch Z45.010 Encounter for ENCNTR FOR CHECKING Diagnosis 02/15/2019 [facility] [place] checking and testing AND TEST OF CARD 06:00:00 AM [facility] of cardiac pacemaker PACEMAKER PULSE EDT [facility] pulse generator GNRTR Corporati on [battery] Z01.812 Encounter for ENCOUNTER FOR Diagnosis 02/13/2019 Sarah cooney preprocedural PREPROCEDURAL 03:43:00 PM [facility] laboratory LABORATORY EDT Care examination EXAMINATION Corporation 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
[2020-02-18 20:44] VITALS: BMI 23.7
--- OUTSIDE RECORDS SUMMARY | 2020-02-18 20:56 | XMS ---
:1940 Author Organization [facility] Care Team Providers Name Role Phone STACEY CARRINGTON Unavailable Unavailable AHMET JACKSON Unavailable Unavailable EVANGELICAL, HUMAYUN Unavailable Unavailable Iwai, Sei Unavailable Unavailable [...] is protected by Article 27-F of the [facility] Public Health law. If you continue you may haveaccess to information: Regarding HIV / AIDS; Provided by facilities licensed or operated by the [facility] Office of Mental Health; or Provided by the [facility] Office for People With Developmental Disabilities. If such information is present, then the following [facility] mandated warning applies: This information has been [...] law may result in a fine or alf sentence or both. A general authorization for the release of medical or other information is NOT sufficient authorization for further disclosure. Allergies and Adverse Reactions Type Description Substance Reaction Status Data Source(s ) Drug allergy No Known Drug No Known Drug [facility] [employer] [facility] Drug allergy No Known Allergies No Known [facility] [employer] [facility] Food allergy No Known Food No Known Food [facility] Encounters Encounter Providers Location Date Indications Data Source(s ) Outpatient Attender: 03/27/2019 Z12.5 N18.9 [facility], 04:25:00 PM [facility] MAdmitter: ASLHYN HERNANDEZReferrer: AHMET JACKSON Z12.5 N18.9 Outpatient Attender: Steven 02/15/2019 06:00:00 Z45.010 [facility] Steven SHINE [facility] IwaiReferrer: Steven Booker Ca rporation Z45.010 Outpatient Attender: DAVID 02/13/2019 I49.5,Z01.812 [facility] DAVIONUNAdmitter: EVANGELICAL, 03:43:00 PM [facility] HUMAYUNReferrer: Corporat eugenia MONI CARRINGTONY I49.5,Z01.812 Outpatient Admitter: TASHIA Landin 09/12/2018 08:06:[address] [facility] Insurance Providers Payer name Policy type Policy ID Covered Covered democrat's Policy P josie / Coverage democrat ID relationship to Hope Inf ormation type hope [place] [id number] SP [id number] [employer] (MEDICARE) [employer] [id number] SP [id number] SOLUTIONS IME MEDICARE [id number] [place] [id number] HEALTHCARE (MEDICARE) [place] [id number] SP [id number] HEALTHCARE (MEDICARE) MEDICARE [id number] SP [id number] A [place] [id number] HEALTHCARE (MEDICARE) [place] [id number] SP [id number] MEDICARE UNITED [id number] SP [id number] HEALTHCARE (MEDICARE) IME MEDICARE [id number] [facility] [id number] HEALTHCARE MCARE OPD Problems, Conditions, and Diagnoses Code Display Name Description Problem Type Effective Data Sour ce(s) Dates N18.9 Chronic kidney CHRONIC KIDNEY Diagnosis 03/27/2019 [facility] disease, unspecified DISEASE, 04:25:[address] 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 [address] [place] [address] use of insulin USE OF INSULIN 06:00:00 AM [facility] [employer] EDT Care Corporation E78.00 Pure PURE Diagnosis 02/15/2019 [place] hypercholesterolemia HYPERCHOLESTEROLEMI 06:00: 00 AM [facility] , unspecified A, UNSPECIFIED SmartestingT Hyperic I12.9 Hypertensive chronic HYPERTENSIVE Diagnosis 02/15/2019 [facility] kidney disease with CHRONIC KIDNEY 06:00:00 AM [facility] stage 1 through DISEASE W STG EDT Care stage 4 chronic 1-4/UNSP CHR KDNY Co rporation kidney disease, or unspecified chronic kidney disease E11.22 Type 2 diabetes TYPE 2 DIABETES Diagnosis 02/15/2019 [place] mellitus with MELLITUS W DIABETIC 06:00:00 AM [facility] diabetic chronic CHRONIC KIDNEY EDT Care kidney disease DISEASE Corporatio n I25.10 Atherosclerotic ATHSCL HEART Diagnosis 02/15/2019 [facility] heart disease of DISEASE OF [place] 06:00:00 AM [facility] [place] coronary CORONARY ARTERY W/O EDT Care artery without ANG PCTRS Corporatio n angina pectoris I48.91 Unspecified atrial UNSPECIFIED ATRIAL Diagnosis 9 [place] fibrillation FIBRILLATION 06:00:00 AM [facility] SmartestingT Care [employer] I49.5 Sick sinus syndrome SICK SINUS SYNDROME Diagnosis 019 [place] 06:00:00 AM [facility] EDT Care [employer] I44.2 Atrioventricular ATRIOVENTRICULAR Diagnosis 02/15/2019 [facility], complete BLOCK, COMPLETE 06:00:00 AM [facility] EDT Care Corporation Z45.010 Encounter for ENCNTR FOR CHECKING Diagnosis 02/15/2019 [facility] and testing AND TEST OF CARD 06:00:00 AM [facility] of cardiac pacemaker PACEMAKER PULSE EDT [facility] pulse generator [employer] Corporati on [battery] Z01.812 Encounter for ENCOUNTER FOR Diagnosis 02/13/2019 [facility] preprocedural PREPROCEDURAL 03:43:00 PM [facility] laboratory LABORATORY EDT [facility] examination EXAMINATION Corporation 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
[2020-02-18] MEDS ORDERED: INSULIN (NOVOLOG) ASPART 100 UNITS/ML 10ML VIAL ONE (22:18)
[2020-02-18] MEDS: INSULIN SLIDING SCALE (NOVOLOG) 1 VIAL SQ SCH (22:25)
[2020-02-19] MEDS: INSULIN SLIDING SCALE (NOVOLOG) 1 VIAL SQ SCH ×4 (06:13→21:58)
--- NOTE | 2020-02-19 10:16 | EKG ---
Test Reason : Blood Pressure : / mmHG Vent. Rate : 062 BPM Atrial Rate : 062 BPM P-R Int : 182 ms QRS Dur : 202 ms QT Int : 516 ms P-R-T Axes : 072 -67 104 degrees QTc Int : 523 ms AV dual-paced rhythm WITH OCCASIONAL PREMATURE VENTRICULAR COMPLEXES ABNORMAL ECG WHEN COMPARED WITH ECG OF 02-JUL-2019 11:10, PREMATURE VENTRICULAR COMPLEXES ARE NOW PRESENT Confirmed by MD Tori, Dlae ([id number]) on 02/19/2020 10:15:43 AM Referred By: Confirmed By:Dale Valle MD
--- NOTE | 2020-02-19 10:16 | HP ---
DATE OF ADMISSION: 02/18/2020 HISTORY: This is a 79-year-old male known to me for many years, diagnosed to have CHF, chronic renal failure, diabetes, was seen by Dr. Horner yesterday at his office. Patient was in CHF, so he advised him to get admitted. In the emergency room he was not breathing well. After getting Lasix IV his breathing status improved. His BNP was 353,000 and chest x-ray showed pulmonary edema, pulmonary congestion. This morning patient is feeling better. PHYSICAL EXAMINATION: Vital Signs: BP 120/70, pulse 60, respiration 20, temperature 98. HEENT: Unremarkable. Neck: Supple. No JVD. Lungs: Bibasilar rales present. Heart: S1, S2 normal. No S3, S4. Abdomen: Soft. Legs: Edema present. Chest x-ray shows pulmonary congestion, pacemaker in place. Lab reports WBC 5.6, hemoglobin 9.2, hematocrit 28. Chemistry: Sodium 138, potassium 4.5, chloride 106, CO2 of 94, BUN 80, creatinine 2.6. Blood sugar 178, albumin 2.6. COVID is pending. INR 2.4. IMPRESSION: 1. Worsening of congestive heart failure. 2. Hypertension. 3. Diabetes. 4. Chronic renal failure. Will continue IV Lasix. Cardiology followup with Dr. Horner. Continue present medications. Case discussed with his and daughter. Will follow. ALBER MAZA M.D. [id number]
[2020-02-19] MEDS: ISOSORBIDE MONONITRATE 30 MG TAB.SR.24H (FP) PO SCH (10:44)
[2020-02-19] MEDS: APIXABAN 5 MG TABLET PO SCH ×2 (10:44→21:58)
[2020-02-19] MEDS: CARVEDILOL 25 MG TABLET (FP) PO SCH ×2 (10:44→21:58)
[2020-02-19] MEDS: BRIMONIDINE TARTRATE 0.2% OPHTHALMIC 5 ML BOTTLE OU SCH ×2 (10:45→22:02)
--- NOTE | 2020-02-19 12:21 | CON.CARD ---
Consult Consult Specialty:: cardiology Referred by:: medicine Reason for Consultation:: CHF exacerbation - History of Present Illness Chief Complaint: shortness of breath History of Present Illness: 79M h/o HTN, HLD, CAD, paroxysmal afib s/p PPM, afib, DM, CKD p/w weakness, dyspnea on exertion, bilateral lower ext swelling. Sees Dr. Horner for cardio. He was seen in the office yesterday and advised to go to the ER given worsening dyspnea, edema over the last few weeks, getting even worse in the last few days. no chest pain, palps, dizziness. also notes feeling weak and tired, worse if he is talking for long periods of time or gets up to do anything. Received one dose of IV lasix yesterday, he is feeling a little better but still short of breath. 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 [employer] Home Medications - Allergies Allergies/Adverse Reactions: Allergies Allergy/AdvReac Type Severity Reaction Status Date / Time No Known Allergies Allergy Verified 02/18/20 15:16 - Home Medications Home Medications: Ambulatory Orders Tamsulosin HCl [Flomax] 0.4 mg PO DAILY 02/23/16 Brimonidine Tartrate [Alphagan 0.2% -] 1 drop OU BID drops 12/07/18 Furosemide [Lasix -] 40 mg PO DAILY tablet 12/07/18 Apixaban [Eliquis -] 5 mg PO BID tablet 07/05/19 Carvedilol [Coreg -] 25 mg PO BID tablet 07/05/19 Isosorbide Mononitrate [Imdur -] 60 mg PO DAILY tab.sr.24h 07/05/19 Latanoprost 0.005% Eye Drops [Xalatan 0.005% Eye Drops -] 1 drop OU HS drops 07/05/19 Ranolazine [Ranexa -] 500 mg PO DAILY tab 07/05/19 Amlodipine Besylate [Norvasc -] 10 mg PO DAILY 02/18/20 Family Medical History Family History: Unremarkable Review of Systems - Review of Systems Constitutional: reports: Weakness Eyes: reports: No Symptoms HENT: reports: No Symptoms Neck: reports: No Symptoms Cardiovascular: reports: Shortness of Breath Respiratory: reports: No Symptoms Gastrointestinal: reports: No Symptoms Genitourinary: reports: No Symptoms Musculoskeletal: reports: No Symptoms Integumentary: reports: No Symptoms Neurological: reports: No Symptoms Endocrine: reports: No Symptoms Hematology/Lymphatic: reports: No Symptoms Psychiatric: reports: No Symptoms Vital Signs: Vital Signs Temperature 97.9 F 02/19/20 10:00 Pulse Rate 69 02/19/20 10:00 Respiratory Rate 18 02/19/20 10:00 Blood Pressure 115/64 02/19/20 10:00 O2 Sat by Pulse Oximetry (%) 98 02/19/20 10:00 Constitutional: Yes: No Distress, Calm Eyes: Yes: Conjunctiva Clear, EOM Intact HENT: Yes: Atraumatic, Normocephalic Neck: Yes: Supple, Trachea Midline Respiratory: Yes: Regular, Rales (bases bilaterally) Gastrointestinal: Yes: Normal Bowel Sounds, Soft Cardiovascular: Yes: Regular Rate and Rhythm JVD: No Heart Sounds: Yes: S1, S2 Musculoskeletal: No: Back Pain Extremities: No: Cold Edema: Yes Edema: LLE: 1+, RLE: 1+ Integumentary: No: Jaundice Neurological: Yes: Alert, Oriented Psychiatric: No: Agitated - Other Data Labs, Other Data: CBC, BMP 02/18/20 16:10 02/18/20 16:10 INR, PTT INR 2.47 (0.83-1.09) H 02/18/20 16:10 Troponin, BNP 02/18/20 16:10 Troponin I < 0.02 B-Natriuretic Peptide 07458.0 H Troponin, BNP 02/18/20 16:10 Troponin I < 0.02 B-Natriuretic Peptide 30471.0 H Assessment/Plan EKG: AV paced, PVC CXR: +congestion echo 01/2018 nl LV/RV function, LA borderline dilated, tr TR, tr to mild MR 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, 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, 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 79M h/o HTN, HLD, CAD, paroxysmal afib s/p PPM, afib, DM, CKD p/w weakness, dyspnea on exertion, bilateral lower ext swelling acute on chronic diastolic heart failure - +congestion on CXR, BNP >34,000, appears volume overloaded - prior admissions for CHF exacerbation in setting of dietary noncompliance - symptoms improved with IV lasix yesterday, however remains short of breath - cont coreg, imdur - check bmp, if Cr stable will continue IV lasix 40 mg IV daily, monitor Cr, lytes, daily weights DALI on CKD - Cr 2.6, prior admission 11/2018 bl 1.9-2.2 - monitor with diuresis CAD - s/p [place], PCI - cont eliquis - unclear why not on statin HTN - cont current meds DM - manage per primary s/p PPM - nl function on EKG, tele - outpatient follow up aflutter - continue eliquis, carvedilol
[2020-02-19] MEDS ORDERED: FUROSEMIDE 40 MG/4 ML INJECTABLE VIAL IVPUSH ONE (16:33)
[2020-02-19 18:29] LABS: BLOOD UREA NITROGEN 69.9 mg/dL (7-18); CALCIUM 8.5 mg/dL (8.5-10.1); CREATININE 2.4 mg/dL (0.55-1.3)
[2020-02-19 20:14] LABS: EPI CELLS 5 /uL (0-25.1); HYALINE CASTS 0 /uL (0-3.1); URINE APPEARANCE CLEAR; URINE BACTERIA 2 /uL (0-1359); URINE BILIRUBIN NEGATIVE (NEGATIVE); URINE COLOR YELLOW; URINE GLUCOSE (UA) NEGATIVE (NEGATIVE); URINE KETONE NEGATIVE (NEGATIVE); URINE LEUK ESTERASE NEGATIVE (NEGATIVE); URINE NITRITE NEGATIVE (NEGATIVE); URINE PROTEIN 2+ (NEGATIVE); URINE RBC 43 /uL (0-23.9); URINE UROBILINOGEN 0.2 mg/dL (0.2-1.0); URINE WBC 5 /uL (0-25.8)
[2020-02-19] MEDS: LATANOPROST 0.005% OPHTH SOLN 2.5ML BOTTLE OU SCH (22:02)
[2020-02-20] MEDS: INSULIN SLIDING SCALE (NOVOLOG) 1 VIAL SQ SCH ×4 (06:45→22:00)
[2020-02-20 07:22] LABS: BLOOD UREA NITROGEN 65.8 mg/dL (7-18); CALCIUM 8.4 mg/dL (8.5-10.1); CREATININE 2.2 mg/dL (0.55-1.3); POTASSIUM 3.9 mmol/L (3.5-5.1)
--- NOTE | 2020-02-20 09:37 | PN ---
Progress Note, Physician Chief Complaint: Feels OK History of Present Illness: Admitted with CHF, feels better Dr Pollack cardiology consult appreciated - Current Medication List Current Medications: Active Medications Apixaban (Eliquis -) 5 mg PO BID [facility] Last Admin: 02/19/20 21:58 Dose: 5 mg Documented by: Brimonidine Tartrate (Alphagan 0.2% -) 1 drop OU BID [facility] Last Admin: 02/19/20 22:02 Dose: 1 drop Documented by: Carvedilol (Coreg -) 25 mg PO BID [facility] Last Admin: 02/19/20 21:58 Dose: 25 mg Documented by: Furosemide (Lasix Injection -) 40 mg IVPUSH DAILY [facility] Insulin Aspart (Novolog Vial Sliding Scale -) 1 vial SQ [facility]; Protocol Last Admin: 02/20/20 06:45 Dose: Not Given Documented by: Isosorbide Mononitrate (Imdur -) 30 mg PO DAILY [facility] Last Admin: 02/19/20 10:44 Dose: 30 mg Documented by: Latanoprost (Xalatan 0.005% Eye Drops -) 1 drop OU HS [facility] Last Admin: 02/19/20 22:02 Dose: 1 drop Documented by: Tamsulosin HCl (Flomax -) 0.4 mg PO DAILY@0830 [facility] - Objective Vital Signs: Vital Signs Temperature 97.8 F 02/20/20 01:46 Pulse Rate 66 02/20/20 06:00 Respiratory Rate 18 02/20/20 06:00 Blood Pressure 141/66 02/20/20 06:00 O2 Sat by Pulse Oximetry (%) 94 L 02/20/20 06:00 Constitutional: Yes: Anxious Eyes: Yes: WNL HENT: Yes: WNL Neck: Yes: WNL Cardiovascular: Yes: Regular Rate and Rhythm Respiratory: Yes: WNL Gastrointestinal: Yes: WNL ...Rectal Exam: Yes: Deferred Genitourinary: Yes: WNL, Scrotal Edema Musculoskeletal: Yes: Muscle Weakness Edema: LLE: Trace, RLE: Trace Neurological: Yes: Alert Labs: CBC, BMP 02/18/20 16:10 02/20/20 06:00 INR, PTT INR 2.47 (0.83-1.09) H 02/18/20 16:10 Assessment/Plan PT for ambulation
[2020-02-20] MEDS: FUROSEMIDE 40 MG/4 ML INJECTABLE VIAL IVPUSH SCH (10:25)
[2020-02-20] MEDS: TAMSULOSIN HCL 0.4 MG CAP PO SCH (10:25)
[2020-02-20] MEDS: APIXABAN 5 MG TABLET PO SCH ×2 (10:25→22:00)
[2020-02-20] MEDS: CARVEDILOL 25 MG TABLET (FP) PO SCH ×2 (10:25→22:00)
[2020-02-20] MEDS: BRIMONIDINE TARTRATE 0.2% OPHTHALMIC 5 ML BOTTLE OU SCH ×2 (10:25→22:01)
[2020-02-20] MEDS: ISOSORBIDE MONONITRATE 30 MG TAB.SR.24H (FP) PO SCH (10:25)
--- NOTE | 2020-02-20 11:51 | PN ---
Progress Note (short form) - Note Progress Note: Chief Complaint: shortness of breath s: breathing better today. no chest pain, palps, dizziness, edema Current Medications Generic Name Dose Route Start Last Admin Trade Name Americo PRN Reason Stop Dose Admin Apixaban 5 mg 02/19/20 10:00 02/20/20 10:25 Eliquis - PO 5 mg BID [facility] Administration Brimonidine Tartrate 1 drop 02/19/20 10:00 02/20/20 10:25 Alphagan 0.2% - OU 1 drop BID [facility] Administration Carvedilol 25 mg 02/19/20 10:00 02/20/20 10:25 Coreg - PO 25 mg BID [facility] Administration Furosemide 40 mg 02/20/20 10:00 02/20/20 10:25 Lasix Injection - IVPUSH 40 mg DAILY [facility] Administration Insulin Aspart 1 vial 02/18/20 22:00 02/20/20 06:45 Novolog Vial Sliding Scale - SQ Not Given ACHS JASS Protocol Isosorbide Mononitrate 30 mg 02/19/20 10:00 02/20/20 10:25 Imdur - PO 30 mg DAILY [facility] Administration Latanoprost 1 drop 02/19/20 22:00 02/19/20 22:02 Xalatan 0.005% Eye Drops - OU 1 drop HS [facility] Administration Tamsulosin HCl 0.4 mg 02/20/20 08:30 02/20/20 10:25 Flomax - PO 0.4 mg DAILY@0830 [facility] Administration Vital Signs Period Temp Pulse Resp BP Sys/Guardado Pulse Ox Last 24 Hr 97.3 F-98.6 F 60-73 16-20 115-141/58-66 94-98 Constitutional: Yes: No Distress, Calm Eyes: Yes: Conjunctiva Clear, EOM Intact HENT: Yes: Atraumatic, Normocephalic Neck: Yes: Supple, Trachea Midline Respiratory: Yes: Regular, Rales (bases bilaterally) Gastrointestinal: Yes: Normal Bowel Sounds, Soft Cardiovascular: Yes: Regular Rate and Rhythm JVD: No Heart Sounds: Yes: S1, S2 Musculoskeletal: No: Back Pain Extremities: No: Cold Edema: Yes Edema: LLE: 1+, RLE: 1+ Integumentary: No: Jaundice Neurological: Yes: Alert, Oriented Psychiatric: No: Agitated Laboratory Last Values WBC 5.6 K/mm3 (4.0-10.0) 02/18/20 16:10 RBC 3.48 M/mm3 (4.00-5.60) L 02/18/20 16:10 Hgb 9.2 GM/dL (11.7-16.9) L 02/18/20 16:10 Hct 28.3 % (35.4-49) L D 02/18/20 16:10 MCV 81.2 fl (80-96) 02/18/20 16:10 MCH 26.5 pg (25.7-33.7) 02/18/20 16:10 MCHC 32.7 g/dl (32.0-35.9) 02/18/20 16:10 RDW 17.9 % (11.9-15.9) H 02/18/20 16:10 Plt Count 259 K/MM3 (134-434) D 02/18/20 16:10 MPV 7.3 fl (7.5-11.1) L 02/18/20 16:10 Absolute Neuts (auto) 4.7 K/mm3 (1.5-8.0) 02/18/20 16:10 Neutrophils % 84.2 % (42.8-82.8) H D 02/18/20 16:10 Lymphocytes % 7.3 % (8-40) L D 02/18/20 16:10 Monocytes % 5.7 % (3.8-10.2) 02/18/20 16:10 Eosinophils % 1.9 % (0-4.5) 02/18/20 16:10 Basophils % 0.9 % (0-2.0) 02/18/20 16:10 Nucleated RBC % 0 % (0-0) 02/18/20 16:10 PT with INR 29.40 SEC (9.7-13.0) H 02/18/20 16:10 INR 2.47 (0.83-1.09) H 02/18/20 16:10 Sodium 143 mmol/L (136-145) 02/20/20 06:00 Potassium 3.9 mmol/L (3.5-5.1) 02/20/20 06:00 Chloride 110 mmol/L (98-107) H 02/20/20 06:00 Carbon Dioxide 25 mmol/L (21-32) 02/20/20 06:00 Anion Gap 8 MMOL/L (8-16) 02/20/20 06:00 BUN 65.8 mg/dL (7-18) H 02/20/20 06:00 Creatinine 2.2 mg/dL (0.55-1.3) H 02/20/20 06:00 Est GFR (CKD-EPI)AfAm 31.84 02/20/20 06:00 Est GFR (CKD-EPI)NonAf 27.47 02/20/20 06:00 POC Glucometer 109 UNITS (80-120) 02/20/20 06:05 Random Glucose 116 mg/dL (74-106) H 02/20/20 06:00 Calcium 8.4 mg/dL (8.5-10.1) L 02/20/20 06:00 Total Bilirubin 0.6 mg/dL (0.2-1) 02/18/20 16:10 AST 18 U/L (15-37) 02/18/20 16:10 ALT 17 U/L (13-61) 02/18/20 16:10 Alkaline Phosphatase 81 U/L (45-117) 02/18/20 16:10 Creatine Kinase 43 U/L (26-308) 02/18/20 16:10 Troponin I < 0.02 ng/ml (0.00-0.05) 02/18/20 16:10 B-Natriuretic Peptide 73814.0 pg/ml (5-450) H 02/18/20 16:10 Total Protein 6.1 g/dl (6.4-8.2) L 02/18/20 16:10 Albumin 2.6 g/dl (3.4-5.0) L 02/18/20 16:10 Urine Color Yellow 02/19/20 18:30 Urine Appearance Clear 02/19/20 18:30 Urine pH 5.0 (5.0-8.0) 02/19/20 18:30 Ur Specific [place] 1.014 (1.010-1.035) 02/19/20 18:30 Urine Protein 2+ (NEGATIVE) H 02/19/20 18:30 Urine Glucose (UA) Negative (NEGATIVE) 02/19/20 18:30 Urine Ketones Negative (NEGATIVE) 02/19/20 18:30 Urine Blood 1+ (NEGATIVE) H 02/19/20 18:30 Urine Nitrite Negative (NEGATIVE) 02/19/20 18:30 Urine Bilirubin Negative (NEGATIVE) 02/19/20 18:30 Urine Urobilinogen 0.2 mg/dL (0.2-1.0) 02/19/20 18:30 Ur Leukocyte Esterase Negative (NEGATIVE) 02/19/20 18:30 Urine WBC (Auto) 5 /uL (0-25.8) 02/19/20 18:30 Urine RBC (Auto) 43 /uL (0-23.9) 02/19/20 18:30 Urine Casts (Auto) 0 /uL (0-3.1) 02/19/20 18:30 U Epithel Cells (Auto) 5 /uL (0-25.1) 02/19/20 18:30 Urine Bacteria (Auto) 2 /uL (0-1359) 02/19/20 18:30 COVID-19 (NAVIN) Not detected (Not Detected) 02/18/20 18:00 Blood Type O POSITIVE 02/18/20 16:10 Antibody Screen Negative 02/18/20 16:10 Assessment/Plan EKG: AV paced, PVC CXR: +congestion echo 01/2018 nl LV/RV function, LA borderline dilated, tr TR, tr to mild MR 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, 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, 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, 3-6 beat NSVT 79M h/o HTN, HLD, CAD, paroxysmal afib s/p PPM, afib, DM, CKD p/w weakness, dyspnea on exertion, bilateral lower ext swelling acute on chronic diastolic heart failure - +congestion on CXR, BNP >34,000, appears volume overloaded - prior admissions for CHF exacerbation in setting of dietary noncompliance - symptoms improved with IV lasix yesterday, however remains short of breath - cont coreg, imdur - continue IV lasix 40 mg IV daily, monitor Cr, lytes, daily weights DALI on CKD - Cr 2.6, prior admission 11/2018 bl 1.9-2.2 - improving with diuresis CAD - s/p [place], PCI - cont eliquis - unclear why not on statin HTN - cont current meds DM - manage per primary s/p PPM - nl function on EKG, tele - outpatient follow up aflutter - continue eliquis, carvedilol
[2020-02-20] MEDS: LATANOPROST 0.005% OPHTH SOLN 2.5ML BOTTLE OU SCH (22:00)
[2020-02-21] MEDS: INSULIN SLIDING SCALE (NOVOLOG) 1 VIAL SQ SCH ×4 (06:39→22:06)
[2020-02-21 07:06] LABS: BLOOD UREA NITROGEN 50.2 mg/dL (7-18); CALCIUM 8.4 mg/dL (8.5-10.1); CREATININE 1.9 mg/dL (0.55-1.3); POTASSIUM 3.9 mmol/L (3.5-5.1)
[2020-02-21] MEDS: TAMSULOSIN HCL 0.4 MG CAP PO SCH (08:39)
[2020-02-21] MEDS: ISOSORBIDE MONONITRATE 30 MG TAB.SR.24H (FP) PO SCH (09:27)
[2020-02-21] MEDS: BRIMONIDINE TARTRATE 0.2% OPHTHALMIC 5 ML BOTTLE OU SCH ×2 (09:27→22:06)
[2020-02-21] MEDS: APIXABAN 5 MG TABLET PO SCH ×2 (09:27→22:05)
[2020-02-21] MEDS: FUROSEMIDE 40 MG/4 ML INJECTABLE VIAL IVPUSH SCH (09:27)
[2020-02-21] MEDS: CARVEDILOL 25 MG TABLET (FP) PO SCH ×2 (09:27→22:05)
--- NOTE | 2020-02-21 11:50 | PN ---
Progress Note (short form) - Note Progress Note: Chief Complaint: shortness of breath s: breathing better but still with sob and orthopnea and le edema. no chest pain, palps, dizziness Current Medications Generic Name Dose Route Start Last Admin Trade Name Americo PRN Reason Stop Dose Admin Apixaban 5 mg 02/19/20 10:00 02/21/20 09:27 Eliquis - PO 5 mg BID [facility] Administration Brimonidine Tartrate 1 drop 02/19/20 10:00 02/21/20 09:27 Alphagan 0.2% - OU 1 drop BID [facility]ASS Administration Carvedilol 25 mg 02/19/20 10:00 02/21/20 09:27 Coreg - PO 25 mg BID [facility] Administration Furosemide 40 mg 02/20/20 10:00 02/21/20 09:27 Lasix Injection - IVPUSH 40 mg DAILY [facility]ASS Administration Furosemide 40 mg 02/21/20 16:00 Lasix Injection - IVPUSH 02/21/20 16:01 ONCE ONE Insulin Aspart 1 vial 02/18/20 22:00 02/21/20 11:44 Novolog Vial Sliding Scale - SQ 4 units ACHS JASS Administration Protocol Isosorbide Mononitrate 30 mg 02/19/20 10:00 02/21/20 09:27 Imdur - PO 30 mg DAILY JASS Administration Latanoprost 1 drop 02/19/20 22:00 02/20/20 22:00 Xalatan 0.005% Eye Drops - OU 1 drop HS [facility]ASS Administration Tamsulosin HCl 0.4 mg 02/20/20 08:30 02/21/20 08:39 Flomax - PO 0.4 mg DAILY@0830 J[facility] Administration Vital Signs Period Temp Pulse Resp BP Sys/Guardado Pulse Ox Last 24 Hr 97.4 F-98.0 F 63-71 18-20 120-138/63-92 90-97 Constitutional: Yes: No Distress, Calm Eyes: Yes: Conjunctiva Clear Neck: Yes: Supple, Trachea Midline Respiratory: Yes: Regular, Rales (bases bilaterally) Gastrointestinal: Yes: Normal Bowel Sounds, Soft Cardiovascular: Yes: Regular Rate and Rhythm JVD: No Heart Sounds: Yes: S1, S2 Musculoskeletal: No: Back Pain Extremities: No: Cold Edema: Yes Edema: LLE: 1+, RLE: 1+ Integumentary: No: Jaundice Neurological: Yes: Alert, Oriented Psychiatric: No: Agitated CBC, BMP 02/18/20 16:10 02/21/20 06:15 Assessment/Plan EKG: AV paced, PVC CXR: +congestion echo 01/2018 nl LV/RV function, LA borderline dilated, tr TR, tr to mild MR 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 cr improving, will give additional dose of lasix 40 iv later today. - cont coreg, imdur - monitor Cr, lytes, daily weights DALI on CKD - Cr 2.6, prior admission 11/2018 bl 1.9-2.2 - improving with diuresis, likely cardiorenal CAD - s/p [place], PCI - cont eliquis - unclear why not on statin HTN - cont current meds DM - manage per primary s/p PPM - nl function on EKG, tele - outpatient follow up aflutter - continue eliquis, carvedilol
--- NOTE | 2020-02-21 15:31 | PN ---
Progress Note, Physician Chief Complaint: SOB on and off History of Present Illness: Dr Turner, cardiology follow up note noted - Current Medication List Current Medications: Active Medications Apixaban (Eliquis -) 5 mg PO BID [facility] Last Admin: 02/21/20 09:27 Dose: 5 mg Documented by: Brimonidine Tartrate (Alphagan 0.2% -) 1 drop OU BID [facility] Last Admin: 02/21/20 09:27 Dose: 1 drop Documented by: Carvedilol (Coreg -) 25 mg PO BID [facility] Last Admin: 02/21/20 09:27 Dose: 25 mg Documented by: Furosemide (Lasix Injection -) 40 mg IVPUSH DAILY [facility] Last Admin: 02/21/20 09:27 Dose: 40 mg Documented by: Furosemide (Lasix Injection -) 40 mg IVPUSH ONCE ONE Stop: 02/21/20 16:01 Insulin Aspart (Novolog Vial Sliding Scale -) 1 vial SQ [facility]; Protocol Last Admin: 02/21/20 11:44 Dose: 4 units Documented by: Isosorbide Mononitrate (Imdur -) 30 mg PO DAILY [facility] Last Admin: 02/21/20 09:27 Dose: 30 mg Documented by: Latanoprost (Xalatan 0.005% Eye Drops -) 1 drop OU HS [facility] Last Admin: 02/20/20 22:00 Dose: 1 drop Documented by: Tamsulosin HCl (Flomax -) 0.4 mg PO DAILY@0830 [facility] Last Admin: 02/21/20 08:39 Dose: 0.4 mg Documented by: - Objective Vital Signs: Vital Signs Temperature 98.0 F 02/21/20 14:26 Pulse Rate 67 02/21/20 14:26 Respiratory Rate 20 02/21/20 06:00 Blood Pressure 133/71 02/21/20 14:26 O2 Sat by Pulse Oximetry (%) 96 02/21/20 09:00 Constitutional: Yes: Anxious Eyes: Yes: WNL HENT: Yes: WNL Neck: Yes: WNL Cardiovascular: Yes: WNL Respiratory: Yes: Regular ...Rectal Exam: Yes: Deferred Genitourinary: Yes: WNL Extremities: Yes: WNL Edema: RUE: Trace, LLE: Trace Integumentary: Yes: WNL Psychiatric: Yes: Alert Labs: CBC, BMP 02/18/20 16:10 02/21/20 06:15 INR, PTT INR 2.47 (0.83-1.09) H 02/18/20 16:10 Assessment/Plan A1c 6.7 Discharge plans to be discussed with family
[2020-02-21] MEDS ORDERED: FUROSEMIDE 40 MG/4 ML INJECTABLE VIAL IVPUSH ONE (16:00)
[2020-02-21] MEDS: LATANOPROST 0.005% OPHTH SOLN 2.5ML BOTTLE OU SCH (22:05)
--- NOTE | 2020-02-22 06:18 | PN ---
Progress Note, Physician Chief Complaint: Edema improved, still SOB Creat improving. WEIGHT 169lbs down from admission 176lbs History of Present Illness: CAD AFL Acute on chronic diast CHF SH: non smoker - Current Medication List Current Medications: Active Medications Apixaban (Eliquis -) 5 mg PO BID [facility] Last Admin: 02/21/20 22:05 Dose: 5 mg Documented by: Brimonidine Tartrate (Alphagan 0.2% -) 1 drop OU BID [facility] Last Admin: 02/21/20 22:06 Dose: 1 drop Documented by: Carvedilol (Coreg -) 25 mg PO BID [facility] Last Admin: 02/21/20 22:05 Dose: 25 mg Documented by: Furosemide (Lasix Injection -) 40 mg IVPUSH DAILY [facility] Last Admin: 02/21/20 09:27 Dose: 40 mg Documented by: Insulin Aspart (Novolog Vial Sliding Scale -) 1 vial SQ [facility]; Protocol Last Admin: 02/21/20 22:06 Dose: 4 units Documented by: Isosorbide Mononitrate (Imdur -) 30 mg PO DAILY [facility] Last Admin: 02/21/20 09:27 Dose: 30 mg Documented by: Latanoprost (Xalatan 0.005% Eye Drops -) 1 drop OU HS [facility] Last Admin: 02/21/20 22:05 Dose: 1 drop Documented by: Tamsulosin HCl (Flomax -) 0.4 mg PO DAILY@0830 [facility] Last Admin: 02/21/20 08:39 Dose: 0.4 mg Documented by: - Objective Vital Signs: Vital Signs Temperature 97.7 F 02/22/20 01:23 Pulse Rate 84 02/22/20 01:23 Respiratory Rate 20 02/22/20 01:23 Blood Pressure 125/79 02/22/20 01:23 O2 Sat by Pulse Oximetry (%) 96 02/21/20 21:00 Constitutional: Yes: No Distress, Calm Eyes: Yes: Conjunctiva Clear HENT: Yes: Atraumatic Neck: Yes: Supple, Trachea Midline Cardiovascular: Yes: Pulse Irregular Respiratory: Yes: Other (decreased basilar breath sounds, no rales or active wheezing) Gastrointestinal: Yes: Soft Edema: Yes Edema: LLE: 2+ (ankle), RLE: 2+ (ankle) Peripheral Pulses WNL: Yes Neurological: Yes: Alert, Oriented ...Motor Strength: WNL Labs: CBC, BMP 02/18/20 16:10 02/21/20 06:15 INR, PTT INR 2.47 (0.83-1.09) H 02/18/20 16:10 Laboratory Tests 02/20/20 02/21/20 02/22/20 06:00 06:15 06:07 Sodium 142 Potassium 3.9 BUN 65.8 H 50.2 H 50.1 H Creatinine 2.2 H 1.9 H 1.8 H - ....Imaging EKG: Image Reviewed (TELE: CONTROLLED AF; Single VPCs) Assessment/Plan Assessment/Plan EKG: AV paced, PVC CXR: +congestion echo 01/2018 nl LV/RV function, LA borderline dilated, tr TR, tr to mild MR 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 - prior admissions for CHF exacerbation in setting of dietary noncompliance - symptoms improving with IV lasix, however remains short of breath, le edema. cr improving. Will dose with additional dose Lasix 40mg IV again today in afternoon. - cont coreg, imdur - monitor Cr, lytes, daily weights DALI on CKD: - Cr 2.6, prior admission 11/2018 bl 1.9-2.2 - improving with diuresis, likely cardiorenal CAD: - s/p [place], PCI - cont eliquis - unclear why not on statin HTN: - cont current meds DM: - manage per primary s/p PPM: - nl function on EKG, tele - outpatient follow up aflutter: - continue eliquis, carvedilol
[2020-02-22] MEDS: INSULIN SLIDING SCALE (NOVOLOG) 1 VIAL SQ SCH ×4 (06:43→21:06)
[2020-02-22 07:14] LABS: BLOOD UREA NITROGEN 50.1 mg/dL (7-18); CALCIUM 8.5 mg/dL (8.5-10.1); CREATININE 1.8 mg/dL (0.55-1.3); POTASSIUM 3.9 mmol/L (3.5-5.1)
[2020-02-22] MEDS: TAMSULOSIN HCL 0.4 MG CAP PO SCH (08:16)
[2020-02-22] MEDS: APIXABAN 5 MG TABLET PO SCH ×2 (09:13→21:07)
[2020-02-22] MEDS: CARVEDILOL 25 MG TABLET (FP) PO SCH ×2 (09:13→21:07)
[2020-02-22] MEDS: FUROSEMIDE 40 MG/4 ML INJECTABLE VIAL IVPUSH SCH (09:13)
[2020-02-22] MEDS: ISOSORBIDE MONONITRATE 30 MG TAB.SR.24H (FP) PO SCH (09:13)
[2020-02-22] MEDS: BRIMONIDINE TARTRATE 0.2% OPHTHALMIC 5 ML BOTTLE OU SCH ×2 (09:13→21:06)
--- NOTE | 2020-02-22 09:33 | PN ---
Progress Note, Physician Chief Complaint: Still C/O sob History of Present Illness: Admitted with CHF Feels little better - Current Medication List Current Medications: Active Medications Apixaban (Eliquis -) 5 mg PO BID [facility] Last Admin: 02/22/20 09:13 Dose: 5 mg Documented by: Brimonidine Tartrate (Alphagan 0.2% -) 1 drop OU BID [facility] Last Admin: 02/22/20 09:13 Dose: 1 drop Documented by: Carvedilol (Coreg -) 25 mg PO BID [facility] Last Admin: 02/22/20 09:13 Dose: 25 mg Documented by: Furosemide (Lasix Injection -) 40 mg IVPUSH DAILY [facility] Last Admin: 02/22/20 09:13 Dose: 40 mg Documented by: Furosemide (Lasix Injection -) 40 mg IVPUSH ONCE ONE Stop: 02/22/20 15:01 Insulin Aspart (Novolog Vial Sliding Scale -) 1 vial SQ [facility]; Protocol Last Admin: 02/22/20 06:43 Dose: 4 units Documented by: Isosorbide Mononitrate (Imdur -) 30 mg PO DAILY [facility] Last Admin: 02/22/20 09:13 Dose: 30 mg Documented by: Latanoprost (Xalatan 0.005% Eye Drops -) 1 drop OU HS [facility] Last Admin: 02/21/20 22:05 Dose: 1 drop Documented by: Tamsulosin HCl (Flomax -) 0.4 mg PO DAILY@0830 [facility] Last Admin: 02/22/20 08:16 Dose: 0.4 mg Documented by: - Objective Vital Signs: Vital Signs Temperature 98.2 F 02/22/20 06:00 Pulse Rate 76 02/22/20 06:00 Respiratory Rate 20 02/22/20 06:00 Blood Pressure 140/77 02/22/20 06:00 O2 Sat by Pulse Oximetry (%) 92 L 02/22/20 06:00 Constitutional: Yes: Anxious Eyes: Yes: WNL HENT: Yes: WNL Neck: Yes: WNL Cardiovascular: Yes: WNL Respiratory: Yes: WNL Gastrointestinal: Yes: WNL ...Rectal Exam: Yes: WNL Genitourinary: Yes: WNL Edema: No Labs: CBC, BMP 02/18/20 16:10 02/22/20 06:07 INR, PTT INR 2.47 (0.83-1.09) H 02/18/20 16:10 Assessment/Plan Start enteresto
[2020-02-22] MEDS: SACUBITRIL/VALSARTAN 24 MG-26 MG TABLET PO SCH ×2 (10:29→21:07)
[2020-02-22] MEDS ORDERED: INSULIN (NOVOLOG) ASPART 100 UNITS/ML 10ML VIAL ONE (11:42)
[2020-02-22] MEDS ORDERED: FUROSEMIDE 40 MG/4 ML INJECTABLE VIAL IVPUSH ONE (15:00)
[2020-02-22] MEDS ORDERED: PT OWN MED DRAWER 7, Y5N ONE (20:56)
[2020-02-22] MEDS: LATANOPROST 0.005% OPHTH SOLN 2.5ML BOTTLE OU SCH (21:07)
[2020-02-23] MEDS: INSULIN SLIDING SCALE (NOVOLOG) 1 VIAL SQ SCH ×4 (06:31→21:49)
[2020-02-23 07:40] LABS: BLOOD UREA NITROGEN 44.5 mg/dL (7-18); CALCIUM 8.1 mg/dL (8.5-10.1); CREATININE 1.7 mg/dL (0.55-1.3); MAGNESIUM 2.1 mg/dL (1.8-2.4); POTASSIUM 4.2 mmol/L (3.5-5.1)
--- NOTE | 2020-02-23 08:47 | PN ---
Progress Note, Physician Chief Complaint: comfortable - Current Medication List Current Medications: Active Medications Apixaban (Eliquis -) 5 mg PO BID [facility] Last Admin: 02/22/20 21:07 Dose: 5 mg Documented by: Brimonidine Tartrate (Alphagan 0.2% -) 1 drop OU BID [facility] Last Admin: 02/22/20 21:06 Dose: 1 drop Documented by: Carvedilol (Coreg -) 25 mg PO BID [facility] Last Admin: 02/22/20 21:07 Dose: 25 mg Documented by: Furosemide (Lasix Injection -) 40 mg IVPUSH DAILY [facility] Last Admin: 02/22/20 09:13 Dose: 40 mg Documented by: Insulin Aspart (Novolog Vial Sliding Scale -) 1 vial SQ [facility]; Protocol Last Admin: 02/23/20 06:31 Dose: 2 units Documented by: Isosorbide Mononitrate (Imdur -) 30 mg PO DAILY [facility] Last Admin: 02/22/20 09:13 Dose: 30 mg Documented by: Latanoprost (Xalatan 0.005% Eye Drops -) 1 drop OU HS [facility] Last Admin: 02/22/20 21:07 Dose: 1 drop Documented by: Sacubitril/Valsartan (Entresto 24 Mg-26 Mg Tablet) 1 tab PO BID [facility] Last Admin: 02/22/20 21:07 Dose: 1 tab Documented by: Tamsulosin HCl (Flomax -) 0.4 mg PO DAILY@0830 [facility] Last Admin: 02/22/20 08:16 Dose: 0.4 mg Documented by: - Objective Vital Signs: Vital Signs Temperature 98.5 F 02/23/20 05:58 Pulse Rate 94 H 02/23/20 05:58 Respiratory Rate 20 02/23/20 05:58 Blood Pressure 122/77 02/23/20 05:58 O2 Sat by Pulse Oximetry (%) 96 02/23/20 05:58 Elderly man not in distress HEENT:MM moist, no anemia, PERRLA EOMI NECK: No JVd No Bruit CJEST: Non tender B/L crepts CVS: S1S2 R ABD: no distention , non tender Bs + EXT: No edema, feet [employer]ER: AOX3 non focal Labs: CBC, BMP 02/18/20 16:10 02/23/20 06:10 INR, PTT INR 2.47 (0.83-1.09) H 02/18/20 16:10 Problem List - Problems (1) Acute on chronic congestive heart failure Assessment/Plan: Acute decompensation of HfpEF cont current management F/U BMP Problems reviewed: Yes Code(s): I50.9 - HEART FAILURE, UNSPECIFIED Qualifiers: Heart failure type: unspecified Qualified Code(s): I50.9 - Heart failure, unspecified (2) Atrial fibrillation Assessment/Plan: PAfib s/p pacemaker on Eliquis Problems reviewed: Yes Code(s): I48.91 - UNSPECIFIED ATRIAL FIBRILLATION Qualifiers: (3) Coronary artery disease Assessment/Plan: S/P IN and PCI cont ASA, B Blockers andd Statin Code(s): I25.10 - ATHSCL HEART DISEASE OF [place] CORONARY ARTERY W/O ANG PCTRS (4) Cardiac pacemaker in situ Assessment/Plan: 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 Problems reviewed: Yes Code(s): Z95.0 - PRESENCE OF CARDIAC PACEMAKER (5) Cerebrovascular accident (CVA) Code(s): I63.9 - CEREBRAL INFARCTION, UNSPECIFIED (6) Chronic renal insufficiency Assessment/Plan: CKD stage 3 present with DALI now improving Code(s): N18.9 - CHRONIC KIDNEY DISEASE, UNSPECIFIED Qualifiers: Chronic kidney disease stage: stage 3 (moderate) (7) S/P coronary artery stent placement Assessment/Plan: S/P PCI no acute issue Code(s): Z95.5 - PRESENCE OF CORONARY ANGIOPLASTY IMPLANT AND GRAFT (8) Type 2 diabetes mellitus Assessment/Plan: Optimize Glycemic control add low dose Basal insulin Levimir 5 unit at bed time Problems reviewed: Yes Code(s): E11.9 - TYPE 2 DIABETES MELLITUS WITHOUT COMPLICATIONS
[2020-02-23] MEDS ORDERED: PT OWN MED DRAWER 7, Y5N ONE ×2 (09:06→21:26)
[2020-02-23] MEDS: FUROSEMIDE 40 MG/4 ML INJECTABLE VIAL IVPUSH SCH (09:33)
[2020-02-23] MEDS: RANOLAZINE E.R. 500 MG TABLET (FP) PO SCH (09:33)
[2020-02-23] MEDS: CARVEDILOL 25 MG TABLET (FP) PO SCH ×2 (09:33→21:27)
[2020-02-23] MEDS: APIXABAN 5 MG TABLET PO SCH ×2 (09:33→21:27)
[2020-02-23] MEDS: TAMSULOSIN HCL 0.4 MG CAP PO SCH (09:33)
[2020-02-23] MEDS: ISOSORBIDE MONONITRATE 30 MG TAB.SR.24H (FP) PO SCH (09:34)
[2020-02-23] MEDS: SACUBITRIL/VALSARTAN 24 MG-26 MG TABLET PO SCH ×2 (09:34→21:27)
[2020-02-23] MEDS: BRIMONIDINE TARTRATE 0.2% OPHTHALMIC 5 ML BOTTLE OU SCH ×2 (09:41→21:28)
--- NOTE | 2020-02-23 10:18 | PN ---
Progress Note (short form) - Note Progress Note: Chief Complaint: shortness of breath s: breathing better and le edema better, but not at baseline yet. no chest pain, palps, dizziness Current Medications Generic Name Dose Route Start Last Admin Trade Name Americo PRN Reason Stop Dose Admin Apixaban 5 mg 02/19/20 10:00 02/23/20 09:33 Eliquis - PO 5 mg BID [facility] Administration Brimonidine Tartrate 1 drop 02/19/20 10:00 02/23/20 09:41 Alphagan 0.2% - OU 1 drop BID [facility] Administration Carvedilol 25 mg 02/19/20 10:00 02/23/20 09:33 Coreg - PO 25 mg BID [facility] Administration Furosemide 40 mg 02/20/20 10:00 02/23/20 09:33 Lasix Injection - IVPUSH 40 mg DAILY [facility] Administration Furosemide 40 mg 02/23/20 16:00 Lasix Injection - IVPUSH 02/23/20 16:01 ONCE ONE Insulin Aspart 1 vial 02/18/20 22:00 02/23/20 06:31 Novolog Vial Sliding Scale - SQ 2 units ACHS [facility] Administration Protocol Isosorbide Mononitrate 30 mg 02/19/20 10:00 02/23/20 09:34 Imdur - PO 30 mg DAILY [facility] Administration Latanoprost 1 drop 02/19/20 22:00 02/22/20 21:07 Xalatan 0.005% Eye Drops - OU 1 drop HS [facility] Administration Ranolazine 500 mg 02/23/20 10:00 02/23/20 09:33 Ranexa - PO 500 mg DAILY [facility] Administration Sacubitril/Valsartan 1 tab 02/22/20 10:00 02/23/20 09:34 Entresto 24 Mg-26 Mg Tablet PO 1 tab BID [facility] Administration Tamsulosin HCl 0.4 mg 02/20/20 08:30 02/23/20 09:33 Flomax - PO 0.4 mg DAILY@0830 [facility] Administration Vital Signs Period Temp Pulse Resp BP Sys/Guardado Pulse Ox Last 24 Hr 97.4 F-98.5 F 66-102 18-20 121-143/68-80 93-99 Constitutional: Yes: No Distress, Calm Eyes: Yes: Conjunctiva Clear Neck: Yes: Supple, Trachea Midline Respiratory: Yes: Regular, Rales (bases bilaterally) Gastrointestinal: Yes: Normal Bowel Sounds, Soft Cardiovascular: Yes: Regular Rate and Rhythm JVD: No Heart Sounds: Yes: S1, S2 Musculoskeletal: No: Back Pain Extremities: No: Cold Edema: Yes Edema: LLE: 1+, RLE: 1+ Integumentary: No: Jaundice Neurological: Yes: Alert, Oriented Psychiatric: No: Agitated CBC, BMP 02/18/20 16:10 02/23/20 06:10 Assessment/Plan EKG: AV paced, PVC CXR: +congestion echo 01/2018 nl LV/RV function, LA borderline dilated, tr TR, tr to mild MR tele: sr, ap, vp compliance, PVCs 79M h/o HTN, HLD, CAD, paroxysmal afib s/p PPM, afib, DM, CKD p/w weakness, dyspnea on exertion, bilateral lower ext swelling acute on chronic diastolic heart failure - +congestion on CXR, BNP >34,000, appears volume overloaded - prior admissions for CHF exacerbation in setting of dietary noncompliance - symptoms improving with IV lasix, wt down, cr improving. Cont iv lasix, will give extra dose 40 iv this afternoon. - cont coreg, imdur - monitor Cr, lytes, daily weights DALI on CKD - Cr 2.6, prior admission 11/2018 bl 1.9-2.2 - improving with diuresis, likely cardiorenal CAD - s/p [place], PCI - cont eliquis - unclear why not on statin HTN - cont current meds DM - manage per primary s/p PPM - nl function on EKG, tele - outpatient follow up aflutter - continue eliquis, carvedilol
[2020-02-23] MEDS ORDERED: FUROSEMIDE 40 MG/4 ML INJECTABLE VIAL IVPUSH ONE (16:00)
[2020-02-23] MEDS: ATORVASTATIN CA 20 MG TABLET (FP) PO SCH (21:27)
[2020-02-23] MEDS: INSULIN (LEVEMIR) 100 UNITS/ML UNITS SQ SCH (21:28)
[2020-02-23] MEDS: LATANOPROST 0.005% OPHTH SOLN 2.5ML BOTTLE OU SCH (21:28)
[2020-02-24] MEDS: INSULIN SLIDING SCALE (NOVOLOG) 1 VIAL SQ SCH ×4 (06:39→21:40)
[2020-02-24 07:08] LABS: BASO % 1.2 % (0-2.0); HEMOGLOBIN 9.9 GM/dL (11.7-16.9); LYMPH % 13.4 % (8-40); MCH 26.7 pg (25.7-33.7); MCHC 33.2 g/dl (32.0-35.9); MEAN CELL VOLUME 80.5 fl (80-96); MONO % 10.9 % (3.8-10.2); NEUT % 66.5 % (42.8-82.8); PLATELET COUNT 236 K/MM3 (134-434); RBC 3.72 M/mm3 (4.00-5.60); RDW 17.7 % (11.9-15.9); WHITE BLOOD COUNT 5.5 K/mm3 (4.0-10.0)
[2020-02-24 07:24] LABS: BLOOD UREA NITROGEN 44.5 mg/dL (7-18); CALCIUM 8.1 mg/dL (8.5-10.1); CREATININE 1.6 mg/dL (0.55-1.3); POTASSIUM 3.8 mmol/L (3.5-5.1)
[2020-02-24] MEDS: RANOLAZINE E.R. 500 MG TABLET (FP) PO SCH (10:18)
[2020-02-24] MEDS: ISOSORBIDE MONONITRATE 30 MG TAB.SR.24H (FP) PO SCH (10:18)
[2020-02-24] MEDS: FUROSEMIDE 40 MG/4 ML INJECTABLE VIAL IVPUSH SCH (10:18)
[2020-02-24] MEDS: CARVEDILOL 25 MG TABLET (FP) PO SCH ×2 (10:18→21:40)
[2020-02-24] MEDS: APIXABAN 5 MG TABLET PO SCH ×2 (10:18→21:40)
[2020-02-24] MEDS: BRIMONIDINE TARTRATE 0.2% OPHTHALMIC 5 ML BOTTLE OU SCH ×2 (10:19→21:39)
[2020-02-24] MEDS: TAMSULOSIN HCL 0.4 MG CAP PO SCH (10:19)
[2020-02-24] MEDS: SACUBITRIL/VALSARTAN 24 MG-26 MG TABLET PO SCH ×2 (10:20→21:42)
--- NOTE | 2020-02-24 10:31 | PN ---
Progress Note, Physician Chief Complaint: comfortable - Current Medication List Current Medications: Active Medications Apixaban (Eliquis -) 5 mg PO BID [facility] Last Admin: 02/24/20 10:18 Dose: 5 mg Documented by: Atorvastatin Calcium (Lipitor -) 20 mg PO HS [facility] Last Admin: 02/23/20 21:27 Dose: 20 mg Documented by: Brimonidine Tartrate (Alphagan 0.2% -) 1 drop OU BID [facility] Last Admin: 02/24/20 10:19 Dose: 1 drop Documented by: Carvedilol (Coreg -) 25 mg PO BID [facility] Last Admin: 02/24/20 10:18 Dose: 25 mg Documented by: Furosemide (Lasix Injection -) 40 mg IVPUSH DAILY [facility] Last Admin: 02/24/20 10:18 Dose: 40 mg Documented by: Insulin Aspart (Novolog Vial Sliding Scale -) 1 vial SQ [facility]; Protocol Last Admin: 02/24/20 06:39 Dose: 2 units Documented by: Insulin Detemir (Levemir Vial) 5 units SQ [facility] Last Admin: 02/23/20 21:28 Dose: 5 units Documented by: Isosorbide Mononitrate (Imdur -) 30 mg PO DAILY [facility] Last Admin: 02/24/20 10:18 Dose: 30 mg Documented by: Latanoprost (Xalatan 0.005% Eye Drops -) 1 drop OU [facility] Last Admin: 02/23/20 21:28 Dose: 1 drop Documented by: Ranolazine (Ranexa -) 500 mg PO DAILY [facility] Last Admin: 02/24/20 10:18 Dose: 500 mg Documented by: Sacubitril/Valsartan (Entresto 24 Mg-26 Mg Tablet) 1 tab PO BID [facility] Last Admin: 02/24/20 10:20 Dose: 1 tab Documented by: Tamsulosin HCl (Flomax -) 0.4 mg PO DAILY@0830 [facility] Last Admin: 02/24/20 10:19 Dose: 0.4 mg Documented by: - Objective Vital Signs: Vital Signs Temperature 97.5 F L 02/24/20 05:48 Pulse Rate 70 02/24/20 05:48 Respiratory Rate 20 02/24/20 05:48 Blood Pressure 118/65 02/24/20 05:48 O2 Sat by Pulse Oximetry (%) 98 02/24/20 05:48 Elderly man not in distress HEENT:MM moist, no anemia, PERRLA EOMI NECK: No JVd No Bruit CJEST: Non tender B/L crepts CVS: S1S2 R ABD: no distention , non tender Bs + EXT: No edema, feet IN HOUSE CRA: AOX3 non focal Labs: CBC, BMP 02/24/20 06:00 02/24/20 06:00 INR, PTT INR 2.47 (0.83-1.09) H 02/18/20 16:10 Problem List - Problems (1) Acute on chronic congestive heart failure Assessment/Plan: Acute decompensation of HfpEF cont current management F/U BMP Code(s): I50.9 - HEART FAILURE, UNSPECIFIED Qualifiers: Heart failure type: unspecified Qualified Code(s): I50.9 - Heart failure, unspecified (2) Atrial fibrillation Assessment/Plan: PAfib s/p pacemaker on Eliquis Code(s): I48.91 - UNSPECIFIED ATRIAL FIBRILLATION Qualifiers: (3) Coronary artery disease Assessment/Plan: S/P [place] and PCI cont ASA, B Blockers andd Statin Code(s): I25.10 - ATHSCL HEART DISEASE OF [place] CORONARY ARTERY W/O ANG PCTRS (4) Cardiac pacemaker in situ Assessment/Plan: 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 Code(s): Z95.0 - PRESENCE OF CARDIAC PACEMAKER (5) Cerebrovascular accident (CVA) Code(s): I63.9 - CEREBRAL INFARCTION, UNSPECIFIED (6) Chronic renal insufficiency Code(s): N18.9 - CHRONIC KIDNEY DISEASE, UNSPECIFIED Qualifiers: Chronic kidney disease stage: stage 3 (moderate) (7) S/P coronary artery stent placement Assessment/Plan: S/P PCI no acute issue Code(s): Z95.5 - PRESENCE OF CORONARY ANGIOPLASTY IMPLANT AND GRAFT (8) Type 2 diabetes mellitus Assessment/Plan: Optimize Glycemic control add low dose Basal insulin Levimir 5 unit at bed time Code(s): E11.9 - TYPE 2 DIABETES MELLITUS WITHOUT COMPLICATIONS
--- NOTE | 2020-02-24 10:44 | PN ---
Progress Note (short form) - Note Progress Note: Chief Complaint: shortness of breath s: breathing better and le edema better, almost at baseline. no chest pain, palps, dizziness Current Medications Generic Name Dose Route Start Last Admin Trade Name Americo PRN Reason Stop Dose Admin Apixaban 5 mg 02/19/20 10:00 02/24/20 10:18 Eliquis - PO 5 mg BID [facility] Administration Atorvastatin Calcium 20 mg 02/23/20 22:00 02/23/20 21:27 Lipitor - PO 20 mg HS [facility] Administration Brimonidine Tartrate 1 drop 02/19/20 10:00 02/24/20 10:19 Alphagan 0.2% - OU 1 drop BID [facility] Administration Carvedilol 25 mg 02/19/20 10:00 02/24/20 10:18 Coreg - PO 25 mg BID [facility] Administration Furosemide 40 mg 02/20/20 10:00 02/24/20 10:18 Lasix Injection - IVPUSH 40 mg DAILY [facility] Administration Insulin Aspart 1 vial 02/18/20 22:00 02/24/20 06:39 Novolog Vial Sliding Scale - SQ 2 units ACHS [facility] Administration Protocol Insulin Detemir 5 units 02/23/20 22:00 02/23/20 21:28 Levemir Vial SQ 5 units HS [facility] Administration Isosorbide Mononitrate 30 mg 02/19/20 10:00 02/24/20 10:18 Imdur - PO 30 mg DAILY [facility] Administration Latanoprost 1 drop 02/19/20 22:00 02/23/20 21:28 Xalatan 0.005% Eye Drops - OU 1 drop HS [facility] Administration Ranolazine 500 mg 02/23/20 10:00 02/24/20 10:18 Ranexa - PO 500 mg DAILY [facility] Administration Sacubitril/Valsartan 1 tab 02/22/20 10:00 02/24/20 10:20 Entresto 24 Mg-26 Mg Tablet PO 1 tab BID [facility] Administration Tamsulosin HCl 0.4 mg 02/20/20 08:30 02/24/20 10:19 Flomax - PO 0.4 mg DAILY@0830 [facility] Administration Vital Signs Period Temp Pulse Resp BP Sys/Guardado Pulse Ox Last 24 Hr 97.3 F-98.6 F 64-78 20-20 113-125/51-74 98-100 Constitutional: Yes: No Distress, Calm Eyes: Yes: Conjunctiva Clear Neck: Yes: Supple, Trachea Midline Respiratory: Yes: Regular, Rales (bases bilaterally) Gastrointestinal: Yes: Normal Bowel Sounds, Soft Cardiovascular: Yes: Regular Rate and Rhythm JVD: No Heart Sounds: Yes: S1, S2 Musculoskeletal: No: Back Pain Extremities: No: Cold Edema:trace Integumentary: No: Jaundice Neurological: Yes: Alert, Oriented Psychiatric: No: Agitated CBC, BMP 02/24/20 06:00 02/24/20 06:00 Assessment/Plan EKG: AV paced, PVC CXR: +congestion echo 01/2018 nl LV/RV function, LA borderline dilated, tr TR, tr to mild MR tele: sr, ap, svp, PVCs 79M h/o HTN, HLD, CAD, paroxysmal afib s/p PPM, afib, DM, CKD p/w weakness, dyspnea on exertion, bilateral lower ext swelling acute on chronic diastolic heart failure - +congestion on CXR, BNP >34,000, appears volume overloaded - prior admissions for CHF exacerbation in setting of dietary noncompliance - symptoms improving with IV lasix, wt down, cr improving, almost near baseline. Cont iv lasix today, likely change to po lasix 40 bid tomorrow - cont coreg, imdur - monitor Cr, lytes, daily weights DALI on CKD - Cr 2.6, prior admission 11/2018 bl 1.9-2.2 - improving with diuresis, likely cardiorenal CAD - s/p [place], PCI - cont eliquis - unclear why not on statin HTN - cont current meds DM - manage per primary s/p PPM - nl function on EKG, tele - outpatient follow up aflutter - continue eliquis, carvedilol
[2020-02-24] MEDS ORDERED: FUROSEMIDE 40 MG/4 ML INJECTABLE VIAL IVPUSH ONE (16:00)
[2020-02-24] MEDS: ATORVASTATIN CA 20 MG TABLET (FP) PO SCH (21:40)
[2020-02-24] MEDS: INSULIN (LEVEMIR) 100 UNITS/ML UNITS SQ SCH (21:40)
[2020-02-24] MEDS ORDERED: PT OWN MED DRAWER 7, Y5N ONE (21:42)
[2020-02-24] MEDS: LATANOPROST 0.005% OPHTH SOLN 2.5ML BOTTLE OU SCH (21:43)
[2020-02-25] MEDS ORDERED: FUROSEMIDE 40 MG TABLET (FP) PO SCH (06:00)
[2020-02-25] MEDS: INSULIN SLIDING SCALE (NOVOLOG) 1 VIAL SQ SCH ×2 (06:24→12:01)
[2020-02-25 06:47] LABS: BASO % 1.1 % (0-2.0); EOS % 7.2 % (0-4.5); HEMATOCRIT 29.7 % (35.4-49); HEMOGLOBIN 9.9 GM/dL (11.7-16.9); LYMPH % 12.7 % (8-40); MCHC 33.3 g/dl (32.0-35.9); MEAN CELL VOLUME 81.1 fl (80-96); MONO % 10.3 % (3.8-10.2); NEUT % 68.7 % (42.8-82.8); PLATELET COUNT 245 K/MM3 (134-434); RBC 3.66 M/mm3 (4.00-5.60); RDW 18.3 % (11.9-15.9); WHITE BLOOD COUNT 5.3 K/mm3 (4.0-10.0)
[2020-02-25 07:20] LABS: BLOOD UREA NITROGEN 43.7 mg/dL (7-18); CALCIUM 8.5 mg/dL (8.5-10.1); CREATININE 1.7 mg/dL (0.55-1.3)
[2020-02-25] MEDS ORDERED: PT OWN MED DRAWER 7, Y5N ONE (09:08)
[2020-02-25] MEDS: ISOSORBIDE MONONITRATE 30 MG TAB.SR.24H (FP) PO SCH (09:14)
[2020-02-25] MEDS: TAMSULOSIN HCL 0.4 MG CAP PO SCH (09:14)
[2020-02-25] MEDS: SACUBITRIL/VALSARTAN 24 MG-26 MG TABLET PO SCH (09:14)
[2020-02-25] MEDS: CARVEDILOL 25 MG TABLET (FP) PO SCH (09:14)
[2020-02-25] MEDS: APIXABAN 5 MG TABLET PO SCH (09:14)
[2020-02-25] MEDS: RANOLAZINE E.R. 500 MG TABLET (FP) PO SCH (09:14)
[2020-02-25] MEDS: BRIMONIDINE TARTRATE 0.2% OPHTHALMIC 5 ML BOTTLE OU SCH (09:15)
--- NOTE | 2020-02-25 09:41 | PN ---
Progress Note, Physician Chief Complaint: Feels better,no SOB History of Present Illness: Admitted with CHF ,treated with IV lasix and added enteresto Lost about 8lbs ,no leg swellings ,lugs improved and he is walking DC home ,daughter called - Current Medication List Current Medications: Active Medications Apixaban (Eliquis -) 5 mg PO BID [facility] Last Admin: 02/25/20 09:14 Dose: 5 mg Documented by: Atorvastatin Calcium (Lipitor -) [address] [facility] Last Admin: 02/24/20 21:40 Dose: 20 mg Documented by: Brimonidine Tartrate (Alphagan 0.2% -) 1 drop OU BID [facility] Last Admin: 02/25/20 09:15 Dose: 1 drop Documented by: Carvedilol (Coreg -) 25 mg PO BID [facility] Last Admin: 02/25/20 09:14 Dose: 25 mg Documented by: Furosemide (Lasix -) 40 mg PO BID@0600,1400 [facility] Last Admin: 02/25/20 05:44 Dose: 40 mg Documented by: Insulin Aspart (Novolog Vial Sliding Scale -) 1 vial SQ [facility]; Protocol Last Admin: 02/25/20 06:24 Dose: Not Given Documented by: Insulin Detemir (Levemir Vial) [address] [facility] Last Admin: 02/24/20 21:40 Dose: 5 units Documented by: Isosorbide Mononitrate (Imdur -) 30 mg PO DAILY [facility] Last Admin: 02/25/20 09:14 Dose: 30 mg Documented by: Latanoprost (Xalatan 0.005% Eye Drops -) [address] [facility] Last Admin: 02/24/20 21:43 Dose: 1 drop Documented by: Ranolazine (Ranexa -) 500 mg PO DAILY [facility] Last Admin: 02/25/20 09:14 Dose: 500 mg Documented by: Sacubitril/Valsartan (Entresto 24 Mg-26 Mg Tablet) 1 tab PO BID [facility] Last Admin: 02/25/20 09:14 Dose: 1 tab Documented by: Tamsulosin HCl (Flomax -) 0.4 mg PO DAILY@0830 [facility] Last Admin: 02/25/20 09:14 Dose: 0.4 mg Documented by: - Objective Vital Signs: Vital Signs Temperature 97.8 F 02/25/20 06:00 Pulse Rate 65 02/25/20 06:00 Respiratory Rate 20 02/25/20 06:00 Blood Pressure 121/65 02/25/20 06:00 O2 Sat by Pulse Oximetry (%) 97 02/24/20 22:00 Constitutional: Yes: No Distress Eyes: Yes: WNL HENT: Yes: WNL Neck: Yes: WNL Cardiovascular: Yes: WNL Respiratory: Yes: WNL Gastrointestinal: Yes: WNL ...Rectal Exam: Yes: Deferred Edema: No Neurological: Yes: Alert Labs: CBC, BMP 02/25/20 05:50 02/25/20 05:50 INR, PTT INR 2.47 (0.83-1.09) H 02/18/20 16:10 - ....Imaging Chest X-ray: Image Reviewed
[2020-02-25 10:36] VITALS: BP 126/64; PULSE 66; TEMP 98
--- NOTE | 2020-02-25 11:57 | PN ---
Progress Note (short form) - Note Progress Note: Chief Complaint: shortness of breath s: no sob, chest pain, palps, dizziness, le edema, feels at baseline Current Medications Generic Name Dose Route Start Last Admin Trade Name Americo PRN Reason Stop Dose Admin Apixaban 5 mg 02/19/20 10:00 02/25/20 09:14 Eliquis - PO 5 mg BID [facility] Administration Atorvastatin Calcium 20 mg 02/23/20 22:00 02/24/20 21:40 Lipitor - PO 20 mg HS [facility] Administration Brimonidine Tartrate 1 drop 02/19/20 10:00 02/25/20 09:15 Alphagan 0.2% - OU 1 drop BID [facility] Administration Carvedilol 25 mg 02/19/20 10:00 02/25/20 09:14 Coreg - PO 25 mg BID [facility] Administration Furosemide 40 mg 02/25/20 06:00 02/25/20 05:44 Lasix - PO 40 mg BID@0600,1400 [facility] Administration Insulin Aspart 1 vial 02/18/20 22:00 02/25/20 06:24 Novolog Vial Sliding Scale - SQ Not Given [facility] Protocol Insulin Detemir 5 units 02/23/20 22:00 02/24/20 21:40 Levemir Vial SQ 5 units HS [facility] Administration Isosorbide Mononitrate 30 mg 02/19/20 10:00 02/25/20 09:14 Imdur - PO 30 mg DAILY [facility] Administration Latanoprost 1 drop 02/19/20 22:00 02/24/20 21:43 Xalatan 0.005% Eye Drops - OU 1 drop HS [facility] Administration Ranolazine 500 mg 02/23/20 10:00 02/25/20 09:14 Ranexa - PO 500 mg DAILY [facility] Administration Sacubitril/Valsartan 1 tab 02/22/20 10:00 02/25/20 09:14 Entresto 24 Mg-26 Mg Tablet PO 1 tab BID [facility] Administration Tamsulosin HCl 0.4 mg 02/20/20 08:30 02/25/20 09:14 Flomax - PO 0.4 mg DAILY@0830 [facility] Administration Vital Signs Period Temp Pulse Resp BP Sys/Guardado Pulse Ox Last 24 Hr 97.4 F-98.1 F 65-99 18-20 115-132/56-70 97-99 Constitutional: Yes: No Distress, Calm Eyes: Yes: Conjunctiva Clear Neck: Yes: Supple, Trachea Midline Respiratory: Yes:cta bl nl eff Gastrointestinal: Yes: Normal Bowel Sounds, Soft Cardiovascular: Yes: Regular Rate and Rhythm JVD: No Heart Sounds: Yes: S1, S2 Musculoskeletal: No: Back Pain Extremities: No: Cold Edema:no Integumentary: No: Jaundice Neurological: Yes: Alert, Oriented Psychiatric: No: Agitated CBC, BMP 02/25/20 05:50 02/25/20 05:50 Assessment/Plan EKG: AV paced, PVC CXR: +congestion echo 01/2018 nl LV/RV function, LA borderline dilated, tr TR, tr to mild MR tele: sr, ap, vp product, PVCs 79M h/o HTN, HLD, CAD, paroxysmal afib s/p PPM, afib, DM, CKD p/w weakness, dyspnea on exertion, bilateral lower ext swelling acute on chronic diastolic heart failure - +congestion on CXR, BNP >34,000, appears volume overloaded - prior admissions for CHF exacerbation in setting of dietary noncompliance - vol status improved with iv lasix, at baseline now, cont with po lasix for maintenance. - cont coreg, imdur DALI on CKD - Cr 2.6, prior admission 11/2018 bl 1.9-2.2 - improved with diuresis, likely cardiorenal CAD - s/p [place], PCI - cont eliquis - unclear why not on statin HTN - cont current meds DM - manage per primary s/p PPM - nl function on EKG, tele - outpatient follow up aflutter - continue eliquis, carvedilol cardiac an[place] stable for dc
== END 2020-02-25 13:22 | disposition home health service (06) | DRG 291 ==
LOC: JER 14:53 → JERBED 17:27 → J4W 18:50
PROVIDERS: ADMIT Internal Medicine; ATTEND Internal Medicine
DX: I13.0 Hypertensive heart and chronic kidney disease with heart failure and stage 1 through stage 4 chronic kidney disease, or unspecified chronic kidney disease (principal); I50.33 Acute on chronic diastolic (congestive) heart failure; N17.9 Acute kidney failure, unspecified; I48.92 Unspecified atrial flutter; I25.10 Atherosclerotic heart disease of native coronary artery without angina pectoris; E11.22 Type 2 diabetes mellitus with diabetic chronic kidney disease; I48.0 Paroxysmal atrial fibrillation; Z95.5 Presence of coronary angioplasty implant and graft; I25.2 Old myocardial infarction; Z95.0 Presence of cardiac pacemaker; N18.31 Chronic kidney disease, stage 3a; E78.5 Hyperlipidemia, unspecified
CPT/HCPCS: 36415; 71045-TC-FY; 80048; 80053; 80061; 81003; 82550; 82962; 83036; 83721; 83735; 83880; 84443; 84484; 85025; 85610; 86850; 86900; 86901; 87086; 93005; 93010; 97116-GP; 97161-GP; 99285-25; U0003

== ENCOUNTER 2020-06-21 13:38 | Inpatient (IN) | payer OTHER ==
[2020-06-21 15:32] LABS: BASO % 0.7 % (0-2.0); EOS % 1.1 % (0-4.5); HEMOGLOBIN 12.6 GM/dL (11.7-16.9); LYMPH % 7.5 % (8-40); MCHC 32.4 g/dl (32.0-35.9); MEAN CELL VOLUME 86.4 fl (80-96); MEAN PLT VOLUME 8.2 fl (7.5-11.1); MONO % 10.2 % (3.8-10.2); NEUT % 80.5 % (42.8-82.8); PLATELET COUNT 260 K/MM3 (134-434); RBC 4.52 M/mm3 (4.00-5.60); RDW 18.3 % (11.9-15.9); WHITE BLOOD COUNT 5.4 K/mm3 (4.0-10.0)
[2020-06-21 15:43] LABS: INR 1.93 (0.83-1.09); PROTHROMBIN TIME (PATIENT) 23.3 SEC (9.7-13.0)
[2020-06-21 15:46] LABS: ACTIVATED PTT 41.1 SECONDS (25.2-36.5)
[2020-06-21 15:52] LABS: CHLORIDE 105 mmol/L (98-107); SODIUM 139 mmol/L (136-145)
[2020-06-21 15:54] LABS: CALCIUM 8.5 mg/dL (8.5-10.1)
[2020-06-21 15:55] LABS: ALBUMIN 2.6 g/dl (3.4-5.0); ANION GAP 8 MMOL/L (8-16); BLOOD UREA NITROGEN 58.3 mg/dL (7-18); CO2 26 mmol/L (21-32); GLUCOSE,RANDOM 343 mg/dL (74-106)
[2020-06-21 15:57] LABS: BILIRUBIN,DIRECT 0.4 mg/dL (0.0-0.2)
[2020-06-21 15:58] LABS: CREATININE 2.6 mg/dL (0.55-1.3); SGOT/AST 14 U/L (15-37); SGPT/ALT 19 U/L (13-61)
[2020-06-21 16:00] LABS: BILIRUBIN,TOTAL 0.7 mg/dL (0.2-1); TOT PROT 6.3 g/dl (6.4-8.2)
[2020-06-21 16:01] LABS: ALK PHOS 100 U/L (45-117)
[2020-06-21] MEDS ORDERED: SODIUM CHLORIDE 1,000 ML IV STA (16:08)
[2020-06-21 16:16] LABS: N-TERMINAL BNP 53272.2 pg/ml (5-450)
[2020-06-22] MEDS ORDERED: INSULIN SLIDING SCALE (NOVOLOG) 1 VIAL SQ SCH (07:00)
[2020-06-22] MEDS ORDERED: APIXABAN 5 MG TABLET PO SCH ×2 (10:00→21:03)
[2020-06-22] MEDS ORDERED: CARVEDILOL 25 MG TABLET (FP) PO SCH (10:00)
[2020-06-22] MEDS ORDERED: FUROSEMIDE 40 MG/4 ML INJECTABLE VIAL IVPUSH SCH (10:00)
[2020-06-22] MEDS: FUROSEMIDE 40 MG/4 ML INJECTABLE VIAL IVPUSH SCH (10:05)
[2020-06-22] MEDS: TAMSULOSIN HCL 0.4 MG CAP PO SCH (10:05)
[2020-06-22] MEDS: ISOSORBIDE MONONITRATE 30 MG TAB.SR.24H (FP) PO SCH (10:05)
[2020-06-22] MEDS: BRIMONIDINE TARTRATE 0.2% OPHTHALMIC 5 ML BOTTLE OU SCH ×2 (10:05→21:55)
[2020-06-22] MEDS: CARVEDILOL 25 MG TABLET (FP) PO SCH ×2 (10:05→22:09)
[2020-06-22] MEDS: INSULIN SLIDING SCALE (NOVOLOG) 1 VIAL SQ SCH ×2 (11:30→16:10)
[2020-06-22 13:49] LABS: HEMATOCRIT 34.1 % (35.4-49); MCH 27.6 pg (25.7-33.7); MCHC 32.3 g/dl (32.0-35.9); MEAN CELL VOLUME 85.4 fl (80-96); MEAN PLT VOLUME 7.8 fl (7.5-11.1); PLATELET COUNT 231 K/MM3 (134-434); RBC 3.99 M/mm3 (4.00-5.60); RDW 18.3 % (11.9-15.9)
[2020-06-22 14:09] LABS: POTASSIUM 4.9 mmol/L (3.5-5.1)
[2020-06-22 14:11] LABS: BLOOD UREA NITROGEN 60.6 mg/dL (7-18); CALCIUM 8.3 mg/dL (8.5-10.1)
[2020-06-22 14:14] LABS: CREATININE 2.4 mg/dL (0.55-1.3)
[2020-06-22] MEDS: LATANOPROST 0.005% OPHTH SOLN 2.5ML BOTTLE OU SCH (21:55)
[2020-06-22] MEDS ORDERED: INSULIN (LEVEMIR) 100 UNITS/ML UNITS SQ SCH (22:00)
[2020-06-22] MEDS: MELATONIN 5 MG TABLETS PO PRN (22:09)
[2020-06-22] MEDS: ATORVASTATIN CA 20 MG TABLET (FP) PO SCH (22:09)
[2020-06-22] MEDS ORDERED: APIXABAN 2.5 MG TABLET PO SCH (22:30)
[2020-06-23] MEDS: INSULIN SLIDING SCALE (NOVOLOG) 1 VIAL SQ SCH ×3 (06:13→16:24)
[2020-06-23 07:53] LABS: EOS % 4.4 % (0-4.5); HEMATOCRIT 31.5 % (35.4-49); HEMOGLOBIN 10.5 GM/dL (11.7-16.9); LYMPH % 9.6 % (8-40); MCH 28.2 pg (25.7-33.7); MCHC 33.4 g/dl (32.0-35.9); MEAN CELL VOLUME 84.2 fl (80-96); MEAN PLT VOLUME 7.7 fl (7.5-11.1); MONO % 11.1 % (3.8-10.2); NEUT % 73.9 % (42.8-82.8); PLATELET COUNT 238 K/MM3 (134-434); RBC 3.74 M/mm3 (4.00-5.60); RDW 17.5 % (11.9-15.9); WHITE BLOOD COUNT 6.3 K/mm3 (4.0-10.0)
[2020-06-23 08:00] LABS: POTASSIUM 4.4 mmol/L (3.5-5.1)
[2020-06-23 08:02] LABS: BLOOD UREA NITROGEN 57.1 mg/dL (7-18); MAGNESIUM 2.2 mg/dL (1.8-2.4)
[2020-06-23 08:05] LABS: CREATININE 2.1 mg/dL (0.55-1.3)
[2020-06-23] MEDS: TAMSULOSIN HCL 0.4 MG CAP PO SCH (09:23)
[2020-06-23] MEDS: ASPIRIN 81 MG CHEWABLE TABLETS PO SCH (09:23)
[2020-06-23] MEDS: CARVEDILOL 25 MG TABLET (FP) PO SCH ×2 (09:23→21:42)
[2020-06-23] MEDS: PANTOPRAZOLE 20 MG TABLET PO SCH (09:23)
[2020-06-23] MEDS: ISOSORBIDE MONONITRATE 30 MG TAB.SR.24H (FP) PO SCH (09:23)
[2020-06-23] MEDS: FUROSEMIDE 40 MG/4 ML INJECTABLE VIAL IVPUSH SCH (09:24)
[2020-06-23] MEDS: BRIMONIDINE TARTRATE 0.2% OPHTHALMIC 5 ML BOTTLE OU SCH ×2 (09:24→21:42)
[2020-06-23] MEDS: RANOLAZINE E.R. 500 MG TABLET (FP) PO SCH (09:52)
[2020-06-23] MEDS: APIXABAN 2.5 MG TABLET PO SCH ×2 (09:52→21:42)
[2020-06-23] MEDS: LATANOPROST 0.005% OPHTH SOLN 2.5ML BOTTLE OU SCH (21:42)
[2020-06-23] MEDS: MELATONIN 5 MG TABLETS PO PRN (21:42)
[2020-06-23] MEDS: ATORVASTATIN CA 20 MG TABLET (FP) PO SCH (21:42)
[2020-06-23] MEDS: hydrALAZINE HCL 25 MG TABLET (FP) PO SCH (21:42)
[2020-06-24] MEDS: hydrALAZINE HCL 25 MG TABLET (FP) PO SCH ×3 (05:57→21:07)
[2020-06-24] MEDS: INSULIN SLIDING SCALE (NOVOLOG) 1 VIAL SQ SCH ×3 (06:01→17:00)
[2020-06-24 08:11] LABS: BASO % 1.2 % (0-2.0); EOS % 5.7 % (0-4.5); HEMATOCRIT 34.4 % (35.4-49); HEMOGLOBIN 11.5 GM/dL (11.7-16.9); LYMPH % 11.5 % (8-40); MCH 28.4 pg (25.7-33.7); MCHC 33.3 g/dl (32.0-35.9); MEAN CELL VOLUME 85.1 fl (80-96); MEAN PLT VOLUME 7.5 fl (7.5-11.1); MONO % 12.1 % (3.8-10.2); NEUT % 69.5 % (42.8-82.8); PLATELET COUNT 201 K/MM3 (134-434); RBC 4.04 M/mm3 (4.00-5.60); RDW 17.7 % (11.9-15.9); WHITE BLOOD COUNT 4.7 K/mm3 (4.0-10.0)
[2020-06-24 08:25] LABS: POTASSIUM 4.6 mmol/L (3.5-5.1)
[2020-06-24 08:30] LABS: BLOOD UREA NITROGEN 52.4 mg/dL (7-18); MAGNESIUM 2.2 mg/dL (1.8-2.4)
[2020-06-24 08:31] LABS: CALCIUM 8.4 mg/dL (8.5-10.1)
[2020-06-24] MEDS: CARVEDILOL 25 MG TABLET (FP) PO SCH ×2 (09:40→21:06)
[2020-06-24] MEDS: ASPIRIN 81 MG CHEWABLE TABLETS PO SCH (09:40)
[2020-06-24] MEDS: RANOLAZINE E.R. 500 MG TABLET (FP) PO SCH (09:40)
[2020-06-24] MEDS: PANTOPRAZOLE 20 MG TABLET PO SCH (09:41)
[2020-06-24] MEDS: TAMSULOSIN HCL 0.4 MG CAP PO SCH (09:41)
[2020-06-24] MEDS: FUROSEMIDE 40 MG/4 ML INJECTABLE VIAL IVPUSH SCH (09:41)
[2020-06-24] MEDS: APIXABAN 2.5 MG TABLET PO SCH ×2 (09:41→21:06)
[2020-06-24] MEDS: ISOSORBIDE MONONITRATE 30 MG TAB.SR.24H (FP) PO SCH (09:41)
[2020-06-24] MEDS: BRIMONIDINE TARTRATE 0.2% OPHTHALMIC 5 ML BOTTLE OU SCH ×2 (10:44→21:07)
[2020-06-24] MEDS: ATORVASTATIN CA 20 MG TABLET (FP) PO SCH (21:06)
[2020-06-24] MEDS: LATANOPROST 0.005% OPHTH SOLN 2.5ML BOTTLE OU SCH (21:07)
[2020-06-24] MEDS: MELATONIN 5 MG TABLETS PO PRN (21:08)
[2020-06-25] MEDS: hydrALAZINE HCL 25 MG TABLET (FP) PO SCH ×3 (05:04→21:18)
[2020-06-25] MEDS: INSULIN SLIDING SCALE (NOVOLOG) 1 VIAL SQ SCH ×3 (06:19→16:56)
[2020-06-25] MEDS: APIXABAN 2.5 MG TABLET PO SCH ×2 (10:00→21:18)
[2020-06-25] MEDS: RANOLAZINE E.R. 500 MG TABLET (FP) PO SCH (10:00)
[2020-06-25] MEDS: CARVEDILOL 25 MG TABLET (FP) PO SCH ×2 (10:00→21:19)
[2020-06-25] MEDS: ASPIRIN 81 MG CHEWABLE TABLETS PO SCH (10:00)
[2020-06-25] MEDS: FUROSEMIDE 40 MG/4 ML INJECTABLE VIAL IVPUSH SCH (10:00)
[2020-06-25] MEDS: BRIMONIDINE TARTRATE 0.2% OPHTHALMIC 5 ML BOTTLE OU SCH ×2 (10:01→23:33)
[2020-06-25] MEDS: ISOSORBIDE MONONITRATE 30 MG TAB.SR.24H (FP) PO SCH (10:01)
[2020-06-25] MEDS: TAMSULOSIN HCL 0.4 MG CAP PO SCH (10:01)
[2020-06-25] MEDS: PANTOPRAZOLE 20 MG TABLET PO SCH (10:02)
[2020-06-25 10:19] LABS: CALCIUM 8.5 mg/dL (8.5-10.1)
[2020-06-25 10:20] LABS: MAGNESIUM 2.1 mg/dL (1.8-2.4)
[2020-06-25 10:25] LABS: BLOOD UREA NITROGEN 49.6 mg/dL (7-18); CREATININE 1.9 mg/dL (0.55-1.3); POTASSIUM 4.7 mmol/L (3.5-5.1)
[2020-06-25] MEDS: ATORVASTATIN CA 20 MG TABLET (FP) PO SCH (21:18)
[2020-06-25] MEDS: QUEtiapine FUMARATE 25 MG TABLET PO SCH (21:19)
[2020-06-25] MEDS: LATANOPROST 0.005% OPHTH SOLN 2.5ML BOTTLE OU SCH (23:33)
[2020-06-26] MEDS: hydrALAZINE HCL 25 MG TABLET (FP) PO SCH ×3 (06:14→22:41)
[2020-06-26] MEDS: INSULIN SLIDING SCALE (NOVOLOG) 1 VIAL SQ SCH ×3 (06:27→16:14)
[2020-06-26] MEDS: ISOSORBIDE MONONITRATE 30 MG TAB.SR.24H (FP) PO SCH (09:32)
[2020-06-26] MEDS: CARVEDILOL 25 MG TABLET (FP) PO SCH ×2 (09:33→22:41)
[2020-06-26] MEDS: RANOLAZINE E.R. 500 MG TABLET (FP) PO SCH (09:33)
[2020-06-26] MEDS: ASPIRIN 81 MG CHEWABLE TABLETS PO SCH (09:34)
[2020-06-26] MEDS: TAMSULOSIN HCL 0.4 MG CAP PO SCH (09:35)
[2020-06-26] MEDS: APIXABAN 2.5 MG TABLET PO SCH ×2 (09:35→22:41)
[2020-06-26] MEDS: PANTOPRAZOLE 20 MG TABLET PO SCH (09:35)
[2020-06-26] MEDS: BRIMONIDINE TARTRATE 0.2% OPHTHALMIC 5 ML BOTTLE OU SCH ×2 (09:35→22:38)
[2020-06-26] MEDS: FUROSEMIDE 40 MG/4 ML INJECTABLE VIAL IVPUSH SCH (09:35)
[2020-06-26] MEDS ORDERED: PT OWN MED DRAWER 7, Y5N ONE (22:34)
[2020-06-26] MEDS: LATANOPROST 0.005% OPHTH SOLN 2.5ML BOTTLE OU SCH (22:40)
[2020-06-26] MEDS: MELATONIN 5 MG TABLETS PO PRN (22:41)
[2020-06-26] MEDS: QUEtiapine FUMARATE 25 MG TABLET PO SCH (22:41)
[2020-06-26] MEDS: ATORVASTATIN CA 20 MG TABLET (FP) PO SCH (22:41)
[2020-06-27] MEDS: INSULIN SLIDING SCALE (NOVOLOG) 1 VIAL SQ SCH ×3 (08:08→17:20)
[2020-06-27] MEDS: hydrALAZINE HCL 25 MG TABLET (FP) PO SCH ×3 (08:12→21:15)
[2020-06-27] MEDS: TAMSULOSIN HCL 0.4 MG CAP PO SCH (09:33)
[2020-06-27] MEDS: BRIMONIDINE TARTRATE 0.2% OPHTHALMIC 5 ML BOTTLE OU SCH ×2 (09:34→21:20)
[2020-06-27] MEDS: ASPIRIN 81 MG CHEWABLE TABLETS PO SCH (09:34)
[2020-06-27] MEDS: PANTOPRAZOLE 20 MG TABLET PO SCH (09:34)
[2020-06-27] MEDS: ISOSORBIDE MONONITRATE 30 MG TAB.SR.24H (FP) PO SCH (09:34)
[2020-06-27] MEDS: CARVEDILOL 25 MG TABLET (FP) PO SCH ×2 (09:34→21:14)
[2020-06-27] MEDS: APIXABAN 2.5 MG TABLET PO SCH ×2 (09:34→21:15)
[2020-06-27] MEDS: FUROSEMIDE 40 MG/4 ML INJECTABLE VIAL IVPUSH SCH (09:34)
[2020-06-27] MEDS: RANOLAZINE E.R. 500 MG TABLET (FP) PO SCH (09:35)
[2020-06-27 13:38] LABS: CALCIUM 8.3 mg/dL (8.5-10.1); MAGNESIUM 2.1 mg/dL (1.8-2.4)
[2020-06-27 13:42] LABS: CREATININE 2.1 mg/dL (0.55-1.3)
[2020-06-27] MEDS: QUEtiapine FUMARATE 25 MG TABLET PO SCH (21:14)
[2020-06-27] MEDS: ATORVASTATIN CA 20 MG TABLET (FP) PO SCH (21:14)
[2020-06-27] MEDS: MELATONIN 5 MG TABLETS PO PRN (21:15)
[2020-06-27] MEDS: LATANOPROST 0.005% OPHTH SOLN 2.5ML BOTTLE OU SCH (21:19)
[2020-06-28] MEDS: INSULIN SLIDING SCALE (NOVOLOG) 1 VIAL SQ SCH ×3 (06:34→17:31)
[2020-06-28] MEDS: hydrALAZINE HCL 25 MG TABLET (FP) PO SCH ×3 (06:34→22:55)
[2020-06-28] MEDS: TAMSULOSIN HCL 0.4 MG CAP PO SCH (09:22)
[2020-06-28] MEDS: PANTOPRAZOLE 20 MG TABLET PO SCH (09:22)
[2020-06-28] MEDS: ISOSORBIDE MONONITRATE 30 MG TAB.SR.24H (FP) PO SCH (09:22)
[2020-06-28] MEDS: ASPIRIN 81 MG CHEWABLE TABLETS PO SCH (09:22)
[2020-06-28] MEDS: APIXABAN 2.5 MG TABLET PO SCH ×2 (09:22→22:55)
[2020-06-28] MEDS: FUROSEMIDE 40 MG/4 ML INJECTABLE VIAL IVPUSH SCH (09:23)
[2020-06-28] MEDS: RANOLAZINE E.R. 500 MG TABLET (FP) PO SCH (09:23)
[2020-06-28] MEDS: CARVEDILOL 25 MG TABLET (FP) PO SCH ×2 (09:23→22:55)
[2020-06-28] MEDS: BRIMONIDINE TARTRATE 0.2% OPHTHALMIC 5 ML BOTTLE OU SCH ×2 (09:24→22:55)
[2020-06-28 14:56] LABS: POTASSIUM 4.5 mmol/L (3.5-5.1)
[2020-06-28 14:58] LABS: BLOOD UREA NITROGEN 58.4 mg/dL (7-18); CALCIUM 8.2 mg/dL (8.5-10.1)
[2020-06-28 15:01] LABS: CREATININE 2.3 mg/dL (0.55-1.3)
[2020-06-28] MEDS: ATORVASTATIN CA 20 MG TABLET (FP) PO SCH (22:55)
[2020-06-28] MEDS: QUEtiapine FUMARATE 25 MG TABLET PO SCH (22:55)
[2020-06-28] MEDS: LATANOPROST 0.005% OPHTH SOLN 2.5ML BOTTLE OU SCH (22:56)
[2020-06-29] MEDS: hydrALAZINE HCL 25 MG TABLET (FP) PO SCH ×3 (06:53→21:02)
[2020-06-29] MEDS: INSULIN SLIDING SCALE (NOVOLOG) 1 VIAL SQ SCH ×3 (06:53→16:39)
[2020-06-29 08:15] LABS: BASO % 1.2 % (0-2.0); EOS % 4.5 % (0-4.5); HEMATOCRIT 35.3 % (35.4-49); HEMOGLOBIN 11.6 GM/dL (11.7-16.9); LYMPH % 11.3 % (8-40); MCH 28.1 pg (25.7-33.7); MCHC 32.9 g/dl (32.0-35.9); MEAN CELL VOLUME 85.3 fl (80-96); MEAN PLT VOLUME 7.9 fl (7.5-11.1); MONO % 14.6 % (3.8-10.2); NEUT % 68.4 % (42.8-82.8); PLATELET COUNT 202 K/MM3 (134-434); RBC 4.14 M/mm3 (4.00-5.60); RDW 17.9 % (11.9-15.9); WHITE BLOOD COUNT 4.6 K/mm3 (4.0-10.0)
[2020-06-29 08:30] LABS: BLOOD UREA NITROGEN 58.4 mg/dL (7-18)
[2020-06-29 08:32] LABS: CALCIUM 8.7 mg/dL (8.5-10.1)
[2020-06-29 08:33] LABS: CREATININE 2.2 mg/dL (0.55-1.3)
[2020-06-29] MEDS: FUROSEMIDE 40 MG/4 ML INJECTABLE VIAL IVPUSH SCH ×2 (09:08→16:33)
[2020-06-29] MEDS: PANTOPRAZOLE 20 MG TABLET PO SCH (09:08)
[2020-06-29] MEDS: ISOSORBIDE MONONITRATE 30 MG TAB.SR.24H (FP) PO SCH (09:08)
[2020-06-29] MEDS: ASPIRIN 81 MG CHEWABLE TABLETS PO SCH (09:08)
[2020-06-29] MEDS: CARVEDILOL 25 MG TABLET (FP) PO SCH ×2 (09:08→21:02)
[2020-06-29] MEDS: RANOLAZINE E.R. 500 MG TABLET (FP) PO SCH (09:08)
[2020-06-29] MEDS: APIXABAN 2.5 MG TABLET PO SCH ×2 (09:08→21:02)
[2020-06-29] MEDS: TAMSULOSIN HCL 0.4 MG CAP PO SCH (09:08)
[2020-06-29] MEDS: BRIMONIDINE TARTRATE 0.2% OPHTHALMIC 5 ML BOTTLE OU SCH ×2 (09:09→21:02)
[2020-06-29] MEDS ORDERED: PT OWN MED DRAWER 7, Y5N ONE (20:42)
[2020-06-29] MEDS: QUEtiapine FUMARATE 25 MG TABLET PO SCH (21:02)
[2020-06-29] MEDS: MELATONIN 5 MG TABLETS PO PRN (21:02)
[2020-06-29] MEDS: LATANOPROST 0.005% OPHTH SOLN 2.5ML BOTTLE OU SCH (21:02)
[2020-06-29] MEDS: ATORVASTATIN CA 20 MG TABLET (FP) PO SCH (21:02)
[2020-06-30] MEDS: hydrALAZINE HCL 25 MG TABLET (FP) PO SCH ×3 (05:54→21:20)
[2020-06-30] MEDS: FUROSEMIDE 40 MG/4 ML INJECTABLE VIAL IVPUSH SCH ×2 (06:01→13:32)
[2020-06-30] MEDS: INSULIN SLIDING SCALE (NOVOLOG) 1 VIAL SQ SCH ×3 (06:01→16:25)
[2020-06-30 08:45] LABS: POTASSIUM 4.9 mmol/L (3.5-5.1)
[2020-06-30 08:49] LABS: BLOOD UREA NITROGEN 58.9 mg/dL (7-18); MAGNESIUM 1.9 mg/dL (1.8-2.4)
[2020-06-30 08:52] LABS: CALCIUM 8.7 mg/dL (8.5-10.1); CREATININE 2.1 mg/dL (0.55-1.3)
[2020-06-30] MEDS: APIXABAN 2.5 MG TABLET PO SCH ×2 (09:21→21:20)
[2020-06-30] MEDS: CARVEDILOL 25 MG TABLET (FP) PO SCH ×2 (09:21→21:20)
[2020-06-30] MEDS: TAMSULOSIN HCL 0.4 MG CAP PO SCH (09:21)
[2020-06-30] MEDS: RANOLAZINE E.R. 500 MG TABLET (FP) PO SCH (09:21)
[2020-06-30] MEDS: ISOSORBIDE MONONITRATE 30 MG TAB.SR.24H (FP) PO SCH (09:21)
[2020-06-30] MEDS: ASPIRIN 81 MG CHEWABLE TABLETS PO SCH (09:21)
[2020-06-30] MEDS: PANTOPRAZOLE 20 MG TABLET PO SCH (09:21)
[2020-06-30] MEDS: BRIMONIDINE TARTRATE 0.2% OPHTHALMIC 5 ML BOTTLE OU SCH ×2 (09:22→21:24)
[2020-06-30] MEDS: MELATONIN 5 MG TABLETS PO PRN (21:20)
[2020-06-30] MEDS: QUEtiapine FUMARATE 25 MG TABLET PO SCH (21:20)
[2020-06-30] MEDS: ATORVASTATIN CA 20 MG TABLET (FP) PO SCH (21:20)
[2020-06-30] MEDS: LATANOPROST 0.005% OPHTH SOLN 2.5ML BOTTLE OU SCH (21:24)
[2020-07-01] MEDS: INSULIN SLIDING SCALE (NOVOLOG) 1 VIAL SQ SCH ×3 (06:10→16:43)
[2020-07-01] MEDS: hydrALAZINE HCL 25 MG TABLET (FP) PO SCH ×3 (06:10→21:42)
[2020-07-01] MEDS: FUROSEMIDE 40 MG/4 ML INJECTABLE VIAL IVPUSH SCH ×2 (06:10→13:59)
[2020-07-01] MEDS: TAMSULOSIN HCL 0.4 MG CAP PO SCH (08:27)
[2020-07-01] MEDS: ISOSORBIDE MONONITRATE 30 MG TAB.SR.24H (FP) PO SCH (10:25)
[2020-07-01] MEDS: BRIMONIDINE TARTRATE 0.2% OPHTHALMIC 5 ML BOTTLE OU SCH ×2 (10:25→21:54)
[2020-07-01] MEDS: PANTOPRAZOLE 20 MG TABLET PO SCH (10:25)
[2020-07-01] MEDS: RANOLAZINE E.R. 500 MG TABLET (FP) PO SCH (10:26)
[2020-07-01] MEDS: APIXABAN 2.5 MG TABLET PO SCH ×2 (10:26→21:42)
[2020-07-01] MEDS: ASPIRIN 81 MG CHEWABLE TABLETS PO SCH (10:26)
[2020-07-01] MEDS: CARVEDILOL 25 MG TABLET (FP) PO SCH ×2 (10:26→21:42)
[2020-07-01 17:48] LABS: BLOOD UREA NITROGEN 59.8 mg/dL (7-18); CALCIUM 8.3 mg/dL (8.5-10.1); CREATININE 2.2 mg/dL (0.55-1.3); POTASSIUM 4.6 mmol/L (3.5-5.1)
[2020-07-01] MEDS: QUEtiapine FUMARATE 25 MG TABLET PO SCH (21:43)
[2020-07-01] MEDS: ATORVASTATIN CA 20 MG TABLET (FP) PO SCH (21:43)
[2020-07-01] MEDS: LATANOPROST 0.005% OPHTH SOLN 2.5ML BOTTLE OU SCH (21:54)
[2020-07-02] MEDS: FUROSEMIDE 40 MG/4 ML INJECTABLE VIAL IVPUSH SCH ×2 (06:39→15:15)
[2020-07-02] MEDS: hydrALAZINE HCL 25 MG TABLET (FP) PO SCH ×3 (06:39→22:08)
[2020-07-02] MEDS: INSULIN SLIDING SCALE (NOVOLOG) 1 VIAL SQ SCH ×3 (06:39→17:17)
[2020-07-02 07:34] LABS: POTASSIUM 4.3 mmol/L (3.5-5.1)
[2020-07-02 07:36] LABS: BLOOD UREA NITROGEN 63.2 mg/dL (7-18); CALCIUM 8.5 mg/dL (8.5-10.1)
[2020-07-02 07:40] LABS: CREATININE 2.1 mg/dL (0.55-1.3)
[2020-07-02] MEDS ORDERED: PT OWN MED DRAWER 7, Y5N ONE (10:16)
[2020-07-02] MEDS: ASPIRIN 81 MG CHEWABLE TABLETS PO SCH (11:13)
[2020-07-02] MEDS: ISOSORBIDE MONONITRATE 30 MG TAB.SR.24H (FP) PO SCH (11:13)
[2020-07-02] MEDS: CARVEDILOL 25 MG TABLET (FP) PO SCH ×2 (11:13→22:07)
[2020-07-02] MEDS: APIXABAN 2.5 MG TABLET PO SCH ×2 (11:13→22:07)
[2020-07-02] MEDS: PANTOPRAZOLE 20 MG TABLET PO SCH (11:13)
[2020-07-02] MEDS: TAMSULOSIN HCL 0.4 MG CAP PO SCH (11:13)
[2020-07-02] MEDS: RANOLAZINE E.R. 500 MG TABLET (FP) PO SCH (11:14)
[2020-07-02] MEDS: BRIMONIDINE TARTRATE 0.2% OPHTHALMIC 5 ML BOTTLE OU SCH ×2 (15:15→22:07)
[2020-07-02] MEDS: LATANOPROST 0.005% OPHTH SOLN 2.5ML BOTTLE OU SCH (22:07)
[2020-07-02] MEDS: QUEtiapine FUMARATE 25 MG TABLET PO SCH (22:07)
[2020-07-02] MEDS: ATORVASTATIN CA 20 MG TABLET (FP) PO SCH (22:07)
[2020-07-03] MEDS: FUROSEMIDE 40 MG/4 ML INJECTABLE VIAL IVPUSH SCH ×2 (06:44→14:21)
[2020-07-03] MEDS: hydrALAZINE HCL 25 MG TABLET (FP) PO SCH ×3 (06:44→21:26)
[2020-07-03] MEDS: INSULIN SLIDING SCALE (NOVOLOG) 1 VIAL SQ SCH ×3 (06:46→16:51)
[2020-07-03] MEDS ORDERED: PT OWN MED DRAWER 7, Y5N ONE (09:37)
[2020-07-03] MEDS: APIXABAN 2.5 MG TABLET PO SCH ×2 (09:44→21:26)
[2020-07-03] MEDS: PANTOPRAZOLE 20 MG TABLET PO SCH (09:44)
[2020-07-03] MEDS: ASPIRIN 81 MG CHEWABLE TABLETS PO SCH (09:44)
[2020-07-03] MEDS: RANOLAZINE E.R. 500 MG TABLET (FP) PO SCH (09:44)
[2020-07-03] MEDS: CARVEDILOL 25 MG TABLET (FP) PO SCH ×2 (09:44→21:25)
[2020-07-03] MEDS: TAMSULOSIN HCL 0.4 MG CAP PO SCH (09:44)
[2020-07-03] MEDS: ISOSORBIDE MONONITRATE 30 MG TAB.SR.24H (FP) PO SCH (09:44)
[2020-07-03] MEDS: BRIMONIDINE TARTRATE 0.2% OPHTHALMIC 5 ML BOTTLE OU SCH ×2 (09:49→21:26)
[2020-07-03 10:51] LABS: POTASSIUM 3.9 mmol/L (3.5-5.1)
[2020-07-03 10:55] LABS: CALCIUM 8.9 mg/dL (8.5-10.1)
[2020-07-03 10:56] LABS: BLOOD UREA NITROGEN 61.5 mg/dL (7-18)
[2020-07-03] MEDS: DEXAMETHASONE SOD PHOSPHATE 4 MG/1 ML VIAL IVPUSH SCH (14:21)
[2020-07-03] MEDS: ATORVASTATIN CA 20 MG TABLET (FP) PO SCH (21:25)
[2020-07-03] MEDS: LATANOPROST 0.005% OPHTH SOLN 2.5ML BOTTLE OU SCH (21:26)
[2020-07-03] MEDS: QUEtiapine FUMARATE 25 MG TABLET PO SCH (21:26)
[2020-07-04] MEDS: hydrALAZINE HCL 25 MG TABLET (FP) PO SCH ×3 (05:40→21:20)
[2020-07-04] MEDS: FUROSEMIDE 40 MG/4 ML INJECTABLE VIAL IVPUSH SCH ×2 (05:40→14:42)
[2020-07-04] MEDS: INSULIN SLIDING SCALE (NOVOLOG) 1 VIAL SQ SCH ×3 (06:19→17:03)
[2020-07-04] MEDS ORDERED: INSULIN SLIDING SCALE (NOVOLOG) 1 VIAL SQ ONE (08:23)
[2020-07-04 08:28] LABS: POTASSIUM 4.7 mmol/L (3.5-5.1)
[2020-07-04 09:03] LABS: BLOOD UREA NITROGEN 74.4 mg/dL (7-18); CALCIUM 8.7 mg/dL (8.5-10.1)
[2020-07-04 09:13] LABS: CREATININE 2.2 mg/dL (0.55-1.3)
[2020-07-04] MEDS: APIXABAN 2.5 MG TABLET PO SCH ×2 (09:21→21:20)
[2020-07-04] MEDS: TAMSULOSIN HCL 0.4 MG CAP PO SCH (09:21)
[2020-07-04] MEDS: RANOLAZINE E.R. 500 MG TABLET (FP) PO SCH (09:21)
[2020-07-04] MEDS: ASPIRIN 81 MG CHEWABLE TABLETS PO SCH (09:21)
[2020-07-04] MEDS: DEXAMETHASONE SOD PHOSPHATE 4 MG/1 ML VIAL IVPUSH SCH (09:21)
[2020-07-04] MEDS: ISOSORBIDE MONONITRATE 30 MG TAB.SR.24H (FP) PO SCH (09:21)
[2020-07-04] MEDS: PANTOPRAZOLE 20 MG TABLET PO SCH (09:21)
[2020-07-04] MEDS: CARVEDILOL 25 MG TABLET (FP) PO SCH ×2 (09:21→21:20)
[2020-07-04] MEDS: BRIMONIDINE TARTRATE 0.2% OPHTHALMIC 5 ML BOTTLE OU SCH ×2 (10:08→21:20)
[2020-07-04 17:49] VITALS: BMI 24.7
[2020-07-04] MEDS: QUEtiapine FUMARATE 25 MG TABLET PO SCH (21:20)
[2020-07-04] MEDS: ATORVASTATIN CA 20 MG TABLET (FP) PO SCH (21:20)
[2020-07-04] MEDS: LATANOPROST 0.005% OPHTH SOLN 2.5ML BOTTLE OU SCH (21:21)
[2020-07-05] MEDS: FUROSEMIDE 40 MG/4 ML INJECTABLE VIAL IVPUSH SCH ×2 (05:48→13:29)
[2020-07-05] MEDS: hydrALAZINE HCL 25 MG TABLET (FP) PO SCH ×3 (05:49→21:09)
[2020-07-05] MEDS: INSULIN SLIDING SCALE (NOVOLOG) 1 VIAL SQ SCH ×3 (06:12→17:15)
[2020-07-05 09:32] LABS: POTASSIUM 4.6 mmol/L (3.5-5.1)
[2020-07-05] MEDS: ASPIRIN 81 MG CHEWABLE TABLETS PO SCH (09:40)
[2020-07-05] MEDS: CARVEDILOL 25 MG TABLET (FP) PO SCH ×2 (09:40→21:09)
[2020-07-05] MEDS: ISOSORBIDE MONONITRATE 30 MG TAB.SR.24H (FP) PO SCH (09:40)
[2020-07-05] MEDS: TAMSULOSIN HCL 0.4 MG CAP PO SCH (09:40)
[2020-07-05] MEDS: PANTOPRAZOLE 20 MG TABLET PO SCH (09:40)
[2020-07-05] MEDS: APIXABAN 2.5 MG TABLET PO SCH ×2 (09:40→21:09)
[2020-07-05] MEDS: RANOLAZINE E.R. 500 MG TABLET (FP) PO SCH (09:40)
[2020-07-05] MEDS: DEXAMETHASONE SOD PHOSPHATE 4 MG/1 ML VIAL IVPUSH SCH (09:40)
[2020-07-05] MEDS: BRIMONIDINE TARTRATE 0.2% OPHTHALMIC 5 ML BOTTLE OU SCH ×2 (09:41→21:10)
[2020-07-05 09:43] LABS: BLOOD UREA NITROGEN 83.8 mg/dL (7-18)
[2020-07-05 09:47] LABS: CALCIUM 8.5 mg/dL (8.5-10.1)
[2020-07-05 09:48] LABS: CREATININE 2.4 mg/dL (0.55-1.3)
[2020-07-05] MEDS: ATORVASTATIN CA 20 MG TABLET (FP) PO SCH (21:09)
[2020-07-05] MEDS: QUEtiapine FUMARATE 25 MG TABLET PO SCH (21:09)
[2020-07-05] MEDS: LATANOPROST 0.005% OPHTH SOLN 2.5ML BOTTLE OU SCH (21:10)
[2020-07-05] MEDS: MELATONIN 5 MG TABLETS PO PRN (23:30)
[2020-07-06] MEDS: hydrALAZINE HCL 25 MG TABLET (FP) PO SCH ×3 (06:04→22:26)
[2020-07-06] MEDS: FUROSEMIDE 40 MG TABLET (FP) PO SCH ×2 (06:04→14:03)
[2020-07-06] MEDS: INSULIN SLIDING SCALE (NOVOLOG) 1 VIAL SQ SCH ×3 (06:07→16:58)
[2020-07-06 08:15] LABS: POTASSIUM 4.6 mmol/L (3.5-5.1)
[2020-07-06 08:21] LABS: BLOOD UREA NITROGEN 91.7 mg/dL (7-18); CALCIUM 8.3 mg/dL (8.5-10.1)
[2020-07-06 08:25] LABS: CREATININE 2.5 mg/dL (0.55-1.3)
[2020-07-06] MEDS ORDERED: PT OWN MED DRAWER 7, Y5N ONE (09:19)
[2020-07-06] MEDS: CARVEDILOL 25 MG TABLET (FP) PO SCH ×2 (09:56→22:26)
[2020-07-06] MEDS: APIXABAN 2.5 MG TABLET PO SCH ×2 (09:56→22:26)
[2020-07-06] MEDS: ISOSORBIDE MONONITRATE 30 MG TAB.SR.24H (FP) PO SCH (09:56)
[2020-07-06] MEDS: PANTOPRAZOLE 20 MG TABLET PO SCH (09:56)
[2020-07-06] MEDS: TAMSULOSIN HCL 0.4 MG CAP PO SCH (09:56)
[2020-07-06] MEDS: ASPIRIN 81 MG CHEWABLE TABLETS PO SCH (09:57)
[2020-07-06] MEDS: RANOLAZINE E.R. 500 MG TABLET (FP) PO SCH (09:57)
[2020-07-06] MEDS: DEXAMETHASONE SOD PHOSPHATE 4 MG/1 ML VIAL IVPUSH SCH (09:58)
[2020-07-06] MEDS: BRIMONIDINE TARTRATE 0.2% OPHTHALMIC 5 ML BOTTLE OU SCH ×2 (09:58→22:26)
[2020-07-06] MEDS: LATANOPROST 0.005% OPHTH SOLN 2.5ML BOTTLE OU SCH (22:26)
[2020-07-06] MEDS: QUEtiapine FUMARATE 25 MG TABLET PO SCH (22:26)
[2020-07-06] MEDS: ATORVASTATIN CA 20 MG TABLET (FP) PO SCH (22:26)
[2020-07-07] MEDS: INSULIN SLIDING SCALE (NOVOLOG) 1 VIAL SQ SCH ×3 (06:26→16:48)
[2020-07-07] MEDS: FUROSEMIDE 40 MG TABLET (FP) PO SCH ×2 (06:27→14:14)
[2020-07-07] MEDS: hydrALAZINE HCL 25 MG TABLET (FP) PO SCH ×3 (06:27→22:03)
[2020-07-07 07:12] LABS: HEMATOCRIT 28.2 % (35.4-49); HEMOGLOBIN 9.5 GM/dL (11.7-16.9); LYMPH % 5.9 % (8-40); MCH 28.1 pg (25.7-33.7); MCHC 33.7 g/dl (32.0-35.9); MEAN CELL VOLUME 83.5 fl (80-96); MEAN PLT VOLUME 7.8 fl (7.5-11.1); MONO % 7.1 % (3.8-10.2); PLATELET COUNT 196 K/MM3 (134-434); RBC 3.38 M/mm3 (4.00-5.60); RDW 17.8 % (11.9-15.9); WHITE BLOOD COUNT 5.5 K/mm3 (4.0-10.0)
[2020-07-07 07:38] LABS: POTASSIUM 4.6 mmol/L (3.5-5.1)
[2020-07-07 07:40] LABS: CALCIUM 8.5 mg/dL (8.5-10.1)
[2020-07-07 07:41] LABS: BLOOD UREA NITROGEN 95.9 mg/dL (7-18)
[2020-07-07 07:44] LABS: CREATININE 2.3 mg/dL (0.55-1.3)
[2020-07-07] MEDS ORDERED: PT OWN MED DRAWER 7, Y5N ONE (09:11)
[2020-07-07] MEDS: TAMSULOSIN HCL 0.4 MG CAP PO SCH (09:54)
[2020-07-07] MEDS: DEXAMETHASONE SOD PHOSPHATE 4 MG/1 ML VIAL IVPUSH SCH (09:54)
[2020-07-07] MEDS: PANTOPRAZOLE 20 MG TABLET PO SCH (09:54)
[2020-07-07] MEDS: APIXABAN 2.5 MG TABLET PO SCH ×2 (09:54→22:04)
[2020-07-07] MEDS: CARVEDILOL 25 MG TABLET (FP) PO SCH ×2 (09:54→22:04)
[2020-07-07] MEDS: ISOSORBIDE MONONITRATE 30 MG TAB.SR.24H (FP) PO SCH (09:54)
[2020-07-07] MEDS: ASPIRIN 81 MG CHEWABLE TABLETS PO SCH (09:54)
[2020-07-07] MEDS: RANOLAZINE E.R. 500 MG TABLET (FP) PO SCH (09:54)
[2020-07-07] MEDS: BRIMONIDINE TARTRATE 0.2% OPHTHALMIC 5 ML BOTTLE OU SCH ×2 (09:56→22:47)
[2020-07-07] MEDS: QUEtiapine FUMARATE 25 MG TABLET PO SCH (22:04)
[2020-07-07] MEDS: ATORVASTATIN CA 20 MG TABLET (FP) PO SCH (22:04)
[2020-07-07] MEDS: INSULIN (LEVEMIR) 100 UNITS/ML UNITS SQ SCH (22:05)
[2020-07-07] MEDS: LATANOPROST 0.005% OPHTH SOLN 2.5ML BOTTLE OU SCH (22:48)
[2020-07-07] MEDS: MELATONIN 5 MG TABLETS PO PRN (23:56)
[2020-07-08] MEDS: hydrALAZINE HCL 25 MG TABLET (FP) PO SCH ×3 (06:03→21:32)
[2020-07-08] MEDS: FUROSEMIDE 40 MG TABLET (FP) PO SCH ×2 (06:03→13:55)
[2020-07-08] MEDS: INSULIN SLIDING SCALE (NOVOLOG) 1 VIAL SQ SCH ×3 (06:04→17:49)
[2020-07-08] MEDS: RANOLAZINE E.R. 500 MG TABLET (FP) PO SCH (10:05)
[2020-07-08] MEDS: TAMSULOSIN HCL 0.4 MG CAP PO SCH (10:05)
[2020-07-08] MEDS: ISOSORBIDE MONONITRATE 30 MG TAB.SR.24H (FP) PO SCH (10:05)
[2020-07-08] MEDS: APIXABAN 2.5 MG TABLET PO SCH ×2 (10:05→21:35)
[2020-07-08] MEDS: CARVEDILOL 25 MG TABLET (FP) PO SCH ×2 (10:05→21:32)
[2020-07-08] MEDS: ASPIRIN 81 MG CHEWABLE TABLETS PO SCH (10:05)
[2020-07-08] MEDS: DEXAMETHASONE SOD PHOSPHATE 4 MG/1 ML VIAL IVPUSH SCH (10:05)
[2020-07-08] MEDS: PANTOPRAZOLE 20 MG TABLET PO SCH (10:05)
[2020-07-08] MEDS: BRIMONIDINE TARTRATE 0.2% OPHTHALMIC 5 ML BOTTLE OU SCH ×2 (10:12→21:35)
[2020-07-08] MEDS: ATORVASTATIN CA 20 MG TABLET (FP) PO SCH (21:32)
[2020-07-08] MEDS: QUEtiapine FUMARATE 25 MG TABLET PO SCH (21:33)
[2020-07-08] MEDS: LATANOPROST 0.005% OPHTH SOLN 2.5ML BOTTLE OU SCH (21:33)
[2020-07-08] MEDS: INSULIN (LEVEMIR) 100 UNITS/ML UNITS SQ SCH (21:33)
[2020-07-08] MEDS: MELATONIN 5 MG TABLETS PO PRN (21:35)
[2020-07-09] MEDS: FUROSEMIDE 40 MG TABLET (FP) PO SCH ×2 (06:38→13:29)
[2020-07-09] MEDS: hydrALAZINE HCL 25 MG TABLET (FP) PO SCH ×2 (06:38→13:29)
[2020-07-09] MEDS: INSULIN SLIDING SCALE (NOVOLOG) 1 VIAL SQ SCH ×3 (06:38→16:21)
[2020-07-09] MEDS: APIXABAN 2.5 MG TABLET PO SCH (10:33)
[2020-07-09] MEDS: ISOSORBIDE MONONITRATE 30 MG TAB.SR.24H (FP) PO SCH (10:33)
[2020-07-09] MEDS: CARVEDILOL 25 MG TABLET (FP) PO SCH (10:33)
[2020-07-09] MEDS: TAMSULOSIN HCL 0.4 MG CAP PO SCH (10:33)
[2020-07-09] MEDS: BRIMONIDINE TARTRATE 0.2% OPHTHALMIC 5 ML BOTTLE OU SCH (10:35)
[2020-07-09] MEDS: ASPIRIN 81 MG CHEWABLE TABLETS PO SCH (10:35)
[2020-07-09] MEDS: RANOLAZINE E.R. 500 MG TABLET (FP) PO SCH (10:36)
[2020-07-09] MEDS: PANTOPRAZOLE 20 MG TABLET PO SCH (10:36)
[2020-07-09] MEDS: DEXAMETHASONE SOD PHOSPHATE 4 MG/1 ML VIAL IVPUSH SCH (10:42)
[2020-07-09 13:24] VITALS: BP 135/58; PULSE 60; TEMP 97.7
[2020-07-10] MEDS ORDERED: predniSONE 20 MG TABLET (UD) PO SCH (10:00)
== END 2020-07-09 17:00 | DRG 291 ==
LOC: JER 13:38 → JERBED 16:27 → J4W 22:12 → J4S 07-02 19:13
PROVIDERS: ADMIT Internal Medicine; ATTEND Internal Medicine
DX: I13.0 Hypertensive heart and chronic kidney disease with heart failure and stage 1 through stage 4 chronic kidney disease, or unspecified chronic kidney disease (principal); I50.33 Acute on chronic diastolic (congestive) heart failure; N17.9 Acute kidney failure, unspecified; I48.92 Unspecified atrial flutter; I47.2 Ventricular tachycardia; I48.0 Paroxysmal atrial fibrillation; I25.10 Atherosclerotic heart disease of native coronary artery without angina pectoris; N40.0 Benign prostatic hyperplasia without lower urinary tract symptoms; I25.5 Ischemic cardiomyopathy; E11.22 Type 2 diabetes mellitus with diabetic chronic kidney disease; N18.30 Chronic kidney disease, stage 3 unspecified; Z95.0 Presence of cardiac pacemaker; Z86.73 Personal history of transient ischemic attack (TIA), and cerebral infarction without residual deficits
CPT/HCPCS: 36415; 70450-TC; 71045-TC-FY; 71250-TC; 80048; 80053; 82140; 82248; 82550; 82728; 82962; 83036; 83605; 83615; 83735; 83880; 84443; 84484; 85025; 85027; 85379; 85610; 85730; 86140; 86769; 86850; 86900; 86901; 87804; 93005; 93010; 93306-TC; 97116-GP; 99285-25; C9803; U0003

== ENCOUNTER 2020-07-18 11:34 | Inpatient (IN) | payer OTHER ==
[2020-07-18] MEDS ORDERED: LACTATED RINGERS SOLUTION 1000 ML INFUS.BAG IV ONE ×2 (12:34→13:02)
[2020-07-18 12:48] VITALS: BMI 24.1
[2020-07-18 14:20] LABS: BASO % 0.5 % (0-2.0); HEMATOCRIT 26.3 % (35.4-49); HEMOGLOBIN 8.8 GM/dL (11.7-16.9); LYMPH % 5.6 % (8-40); MCH 27.4 pg (25.7-33.7); MCHC 33.6 g/dl (32.0-35.9); MEAN CELL VOLUME 81.3 fl (80-96); MEAN PLT VOLUME 7.8 fl (7.5-11.1); MONO % 7.5 % (3.8-10.2); NEUT % 83.4 % (42.8-82.8); PLATELET COUNT 178 K/MM3 (134-434); RBC 3.23 M/mm3 (4.00-5.60); RDW 18.6 % (11.9-15.9); WHITE BLOOD COUNT 6.1 K/mm3 (4.0-10.0)
[2020-07-18 14:27] LABS: INR 2.47 (0.83-1.09); PROTHROMBIN TIME (PATIENT) 29.6 SEC (9.7-13.0)
[2020-07-18 14:30] LABS: ACTIVATED PTT 39.3 SECONDS (25.2-36.5)
[2020-07-18 14:57] LABS: ALBUMIN 1.9 g/dl (3.4-5.0); BILIRUBIN,TOTAL 0.5 mg/dL (0.2-1); BLOOD UREA NITROGEN 62.9 mg/dL (7-18); CALCIUM 7.8 mg/dL (8.5-10.1); CREATININE 2.5 mg/dL (0.55-1.3); POTASSIUM 4.6 mmol/L (3.5-5.1); TOT PROT 4.9 g/dl (6.4-8.2)
[2020-07-18 17:37] LABS: EPI CELLS 33 /uL (0-25.1); HYALINE CASTS 3 /uL (0-3.1); URINE APPEARANCE CLOUDY; URINE BACTERIA 81 /uL (0-1359); URINE BILIRUBIN 1+ (NEGATIVE); URINE COLOR DK YELLOW; URINE GLUCOSE (UA) NEGATIVE (NEGATIVE); URINE KETONE NEGATIVE (NEGATIVE); URINE LEUK ESTERASE 2+ (NEGATIVE); URINE NITRITE NEGATIVE (NEGATIVE); URINE PROTEIN 2+ (NEGATIVE); URINE RBC 31 /uL (0-23.9); URINE UROBILINOGEN 0.2 mg/dL (0.2-1.0); URINE WBC 145 /uL (0-25.8)
[2020-07-18] MEDS ORDERED: CEFTRIAXONE 1,000 MG in DEXTROSE 5%-WATER - 50 ML IVPB ONE (18:11)
[2020-07-18] MEDS ORDERED: AZITHROMYCIN IVPB 500 MG in DEXTROSE 5%-WATER - 250 ML IVPB ONE (18:16)
[2020-07-18] MEDS ORDERED: MELATONIN 5 MG TABLETS PO PRN (19:12)
[2020-07-18] MEDS ORDERED: CEFTRIAXONE 1 GM/50 ML BAG ONE (19:35)
[2020-07-18] MEDS ORDERED: AZITHROMYCIN IVPB 500 MG/250 ML BAG IVPB ONE (19:36)
[2020-07-18] MEDS ORDERED: PANTOPRAZOLE SODIUM 40 MG VIAL ONE (19:36)
[2020-07-18] MEDS: PANTOPRAZOLE SODIUM 40 MG VIAL IVPUSH SCH (19:40)
[2020-07-18] MEDS: CEFTRIAXONE 1 GM in DEXTROSE 5%-WATER - 50 ML IVPB SCH (19:40)
[2020-07-18] MEDS ORDERED: ATORVASTATIN CA 20 MG TABLET (FP) ONE (21:11)
[2020-07-18] MEDS ORDERED: CARVEDILOL 12.5 MG TABLET (FP) ONE (21:11)
[2020-07-18] MEDS ORDERED: QUEtiapine FUMARATE 25 MG TABLET ONE (21:12)
[2020-07-18] MEDS: BRIMONIDINE TARTRATE 0.2% OPHTHALMIC 5 ML BOTTLE OU SCH (21:58)
[2020-07-18] MEDS ORDERED: QUEtiapine FUMARATE 25 MG TABLET PO SCH (22:00)
[2020-07-18] MEDS ORDERED: CARVEDILOL 25 MG TABLET (FP) PO SCH ×2 (22:00)
[2020-07-18] MEDS ORDERED: LATANOPROST 0.005% OPHTH SOLN 2.5ML BOTTLE OU SCH (22:00)
[2020-07-18] MEDS ORDERED: ATORVASTATIN CA 20 MG TABLET (FP) PO SCH (22:00)
[2020-07-19] MEDS ORDERED: CARVEDILOL 12.5 MG TABLET (FP) PO SCH (05:26)
[2020-07-19] MEDS ORDERED: FUROSEMIDE 40 MG TABLET (FP) PO SCH (06:00)
[2020-07-19] MEDS ORDERED: FUROSEMIDE 40 MG TABLET (FP) ONE (06:44)
[2020-07-19] MEDS: INSULIN SLIDING SCALE (NOVOLOG) 1 VIAL SQ SCH ×2 (06:50→11:00)
[2020-07-19 08:21] LABS: BASO % 0.6 % (0-2.0); EOS % 3.8 % (0-4.5); HEMATOCRIT 29.6 % (35.4-49); HEMOGLOBIN 9.8 GM/dL (11.7-16.9); LYMPH % 6.1 % (8-40); MCH 27.4 pg (25.7-33.7); MCHC 33.2 g/dl (32.0-35.9); MEAN CELL VOLUME 82.6 fl (80-96); MEAN PLT VOLUME 8.3 fl (7.5-11.1); MONO % 8.6 % (3.8-10.2); NEUT % 80.9 % (42.8-82.8); PLATELET COUNT 172 K/MM3 (134-434); RBC 3.58 M/mm3 (4.00-5.60); RDW 17.6 % (11.9-15.9); WHITE BLOOD COUNT 6.3 K/mm3 (4.0-10.0)
[2020-07-19] MEDS ORDERED: TAMSULOSIN HCL 0.4 MG CAP PO SCH (08:30)
[2020-07-19 08:46] LABS: POTASSIUM 4.8 mmol/L (3.5-5.1)
[2020-07-19] MEDS ORDERED: TAMSULOSIN HCL 0.4 MG CAP ONE (08:58)
[2020-07-19 09:12] LABS: CALCIUM 7.7 mg/dL (8.5-10.1)
[2020-07-19 09:13] LABS: BLOOD UREA NITROGEN 67.6 mg/dL (7-18)
[2020-07-19 09:16] LABS: CREATININE 2.5 mg/dL (0.55-1.3)
[2020-07-19] MEDS: BRIMONIDINE TARTRATE 0.2% OPHTHALMIC 5 ML BOTTLE OU SCH (10:00)
[2020-07-19] MEDS ORDERED: RANOLAZINE E.R. 500 MG TABLET (FP) PO SCH (10:00)
[2020-07-19] MEDS ORDERED: FUROSEMIDE 40 MG/4 ML INJECTABLE VIAL IVPUSH SCH (10:00)
[2020-07-19] MEDS: PANTOPRAZOLE SODIUM 40 MG VIAL IVPUSH SCH (10:20)
[2020-07-19] MEDS: CEFTRIAXONE 1 GM in DEXTROSE 5%-WATER - 50 ML IVPB SCH (10:20)
[2020-07-19] MEDS ORDERED: CARVEDILOL 12.5 MG TABLET (FP) ONE (11:09)
[2020-07-19] MEDS ORDERED: FUROSEMIDE 40 MG/4 ML INJECTABLE VIAL ONE (11:10)
[2020-07-19] MEDS ORDERED: PANTOPRAZOLE SODIUM 40 MG VIAL ONE (11:11)
[2020-07-19] MEDS ORDERED: CEFTRIAXONE 1 GM/50 ML BAG ONE (11:12)
[2020-07-19 11:36] VITALS: BP 116/67; PULSE 63; TEMP 97.7
== END 2020-07-19 13:18 | disposition home or self-care (01) | DRG 291 ==
LOC: JER 11:34 → JERBED 18:17
PROVIDERS: ADMIT Internal Medicine; ATTEND Internal Medicine
PROC: 30233N1 Transfusion of Nonautologous Red Blood Cells into Peripheral Vein, Percutaneous Approach (ICD-10-PCS; principal; 2020-07-18)
DX: I13.0 Hypertensive heart and chronic kidney disease with heart failure and stage 1 through stage 4 chronic kidney disease, or unspecified chronic kidney disease (principal); I50.23 Acute on chronic systolic (congestive) heart failure; N39.0 Urinary tract infection, site not specified; I47.1 Supraventricular tachycardia; I48.92 Unspecified atrial flutter; D63.8 Anemia in other chronic diseases classified elsewhere; I25.10 Atherosclerotic heart disease of native coronary artery without angina pectoris; Z95.0 Presence of cardiac pacemaker; Z98.61 Coronary angioplasty status; Z79.01 Long term (current) use of anticoagulants; E11.22 Type 2 diabetes mellitus with diabetic chronic kidney disease; N18.9 Chronic kidney disease, unspecified; I50.9 Heart failure, unspecified; I48.0 Paroxysmal atrial fibrillation; Z79.4 Long term (current) use of insulin; E78.5 Hyperlipidemia, unspecified
CPT/HCPCS: 36415; 36430; 71045-TC-FY; 74176-TC; 80048; 80053; 81003; 82272; 82962; 84443; 85025; 85610; 85730; 86850; 86900; 86901; 86922; 87077; 87086; 93005; 93010; 99285-25; C9803; P9058; U0003

== ENCOUNTER 2020-07-23 20:21 | Inpatient (IN) | payer OTHER ==
[2020-07-23] MEDS ORDERED: FUROSEMIDE 40 MG/4 ML INJECTABLE VIAL IVPUSH ONE (20:27)
[2020-07-23] MEDS ORDERED: FUROSEMIDE 40 MG/4 ML INJECTABLE VIAL ONE (20:46)
[2020-07-23 20:49] LABS: BASO % 1.2 % (0-2.0); EOS % 5.4 % (0-4.5); HEMATOCRIT 34.3 % (35.4-49); HEMOGLOBIN 11.2 GM/dL (11.7-16.9); LYMPH % 9.8 % (8-40); MCHC 32.7 g/dl (32.0-35.9); MEAN CELL VOLUME 82.4 fl (80-96); MEAN PLT VOLUME 7.7 fl (7.5-11.1); MONO % 10.6 % (3.8-10.2); PLATELET COUNT 275 K/MM3 (134-434); RBC 4.17 M/mm3 (4.00-5.60); RDW 18.3 % (11.9-15.9); WHITE BLOOD COUNT 6.1 K/mm3 (4.0-10.0)
[2020-07-23 21:20] LABS: POTASSIUM 5.1 mmol/L (3.5-5.1)
[2020-07-23 21:22] LABS: BLOOD UREA NITROGEN 69.3 mg/dL (7-18)
[2020-07-23 21:26] LABS: CREATININE 2.2 mg/dL (0.55-1.3)
[2020-07-23 21:27] LABS: BILIRUBIN,TOTAL 0.8 mg/dL (0.2-1); TOT PROT 6.6 g/dl (6.4-8.2)
[2020-07-23 21:36] LABS: ALBUMIN 2.6 g/dl (3.4-5.0); CALCIUM 8.9 mg/dL (8.5-10.1)
[2020-07-23 22:13] LABS: N-TERMINAL BNP 113988.6 pg/ml (5-450)
[2020-07-24] MEDS: FUROSEMIDE 40 MG/4 ML INJECTABLE VIAL IVPUSH SCH (10:54)
[2020-07-24] MEDS: INSULIN SLIDING SCALE (NOVOLOG) 1 VIAL SQ SCH (17:02)
[2020-07-24] MEDS: ACETAMINOPHEN 325 MG TABLET (FP) PO PRN (17:02)
[2020-07-24] MEDS: APIXABAN 2.5 MG TABLET PO SCH (21:34)
[2020-07-24] MEDS: RANOLAZINE E.R. 500 MG TABLET (FP) PO SCH (21:34)
[2020-07-24] MEDS: QUEtiapine FUMARATE 25 MG TABLET PO SCH (21:34)
[2020-07-24] MEDS: CARVEDILOL 25 MG TABLET (FP) PO SCH (21:34)
[2020-07-24] MEDS ORDERED: PT OWN MED DRAWER 7, Y5N ONE (21:36)
[2020-07-24] MEDS: LATANOPROST 0.005% OPHTH SOLN 2.5ML BOTTLE OU SCH (21:37)
[2020-07-24] MEDS ORDERED: INSULIN (LEVEMIR) 100 UNITS/ML UNITS SQ SCH (22:00)
[2020-07-24] MEDS: BRIMONIDINE TARTRATE 0.2% OPHTHALMIC 5 ML BOTTLE OU SCH (22:16)
[2020-07-25] MEDS: INSULIN SLIDING SCALE (NOVOLOG) 1 VIAL SQ SCH ×2 (06:06→17:11)
[2020-07-25] MEDS: TAMSULOSIN HCL 0.4 MG CAP PO SCH (09:17)
[2020-07-25] MEDS: ISOSORBIDE MONONITRATE 60 MG TAB.SR.24H (FP) PO SCH (09:17)
[2020-07-25] MEDS: CARVEDILOL 25 MG TABLET (FP) PO SCH ×2 (09:17→21:48)
[2020-07-25] MEDS: amLODIPine BESYLATE 5 MG TABLET (FP) PO SCH (09:17)
[2020-07-25] MEDS: FUROSEMIDE 40 MG/4 ML INJECTABLE VIAL IVPUSH SCH (09:17)
[2020-07-25] MEDS: APIXABAN 2.5 MG TABLET PO SCH ×2 (09:17→21:48)
[2020-07-25] MEDS: ACETAMINOPHEN 325 MG TABLET (FP) PO PRN ×2 (09:17→21:49)
[2020-07-25] MEDS: LOSARTAN POTASSIUM 50 MG TABLET PO SCH (09:19)
[2020-07-25] MEDS: RANOLAZINE E.R. 500 MG TABLET (FP) PO SCH ×2 (09:19→21:48)
[2020-07-25] MEDS: BRIMONIDINE TARTRATE 0.2% OPHTHALMIC 5 ML BOTTLE OU SCH ×2 (09:19→21:51)
[2020-07-25] MEDS: QUEtiapine FUMARATE 25 MG TABLET PO SCH (21:48)
[2020-07-25] MEDS: LATANOPROST 0.005% OPHTH SOLN 2.5ML BOTTLE OU SCH (21:50)
[2020-07-26] MEDS: INSULIN SLIDING SCALE (NOVOLOG) 1 VIAL SQ SCH ×2 (06:15→16:44)
[2020-07-26] MEDS: amLODIPine BESYLATE 5 MG TABLET (FP) PO SCH (09:05)
[2020-07-26] MEDS: CARVEDILOL 25 MG TABLET (FP) PO SCH ×2 (09:05→21:48)
[2020-07-26] MEDS: APIXABAN 2.5 MG TABLET PO SCH ×2 (09:05→21:48)
[2020-07-26] MEDS: LOSARTAN POTASSIUM 50 MG TABLET PO SCH (09:05)
[2020-07-26] MEDS: FUROSEMIDE 40 MG/4 ML INJECTABLE VIAL IVPUSH SCH ×2 (09:05→13:10)
[2020-07-26] MEDS: BRIMONIDINE TARTRATE 0.2% OPHTHALMIC 5 ML BOTTLE OU SCH ×2 (09:05→21:49)
[2020-07-26] MEDS: TAMSULOSIN HCL 0.4 MG CAP PO SCH (09:05)
[2020-07-26] MEDS: RANOLAZINE E.R. 500 MG TABLET (FP) PO SCH ×2 (09:05→21:48)
[2020-07-26] MEDS: ISOSORBIDE MONONITRATE 60 MG TAB.SR.24H (FP) PO SCH (09:05)
[2020-07-26 10:39] LABS: POTASSIUM 4.5 mmol/L (3.5-5.1)
[2020-07-26 10:40] LABS: CALCIUM 8.6 mg/dL (8.5-10.1)
[2020-07-26 10:41] LABS: BLOOD UREA NITROGEN 72.2 mg/dL (7-18)
[2020-07-26 10:44] LABS: CREATININE 2.2 mg/dL (0.55-1.3)
[2020-07-26] MEDS ORDERED: INSULIN (NOVOLOG) ASPART 100 UNITS/ML 10ML VIAL ONE (16:47)
[2020-07-26] MEDS: QUEtiapine FUMARATE 25 MG TABLET PO SCH (21:48)
[2020-07-26] MEDS: LATANOPROST 0.005% OPHTH SOLN 2.5ML BOTTLE OU SCH (21:54)
[2020-07-27] MEDS: FUROSEMIDE 40 MG/4 ML INJECTABLE VIAL IVPUSH SCH ×2 (06:33→14:43)
[2020-07-27] MEDS: INSULIN SLIDING SCALE (NOVOLOG) 1 VIAL SQ SCH ×2 (06:41→16:47)
[2020-07-27] MEDS: ISOSORBIDE MONONITRATE 60 MG TAB.SR.24H (FP) PO SCH (09:09)
[2020-07-27] MEDS: amLODIPine BESYLATE 5 MG TABLET (FP) PO SCH (09:09)
[2020-07-27] MEDS: APIXABAN 2.5 MG TABLET PO SCH ×2 (09:09→21:14)
[2020-07-27] MEDS: TAMSULOSIN HCL 0.4 MG CAP PO SCH (09:09)
[2020-07-27] MEDS: RANOLAZINE E.R. 500 MG TABLET (FP) PO SCH ×2 (09:09→21:14)
[2020-07-27] MEDS: CARVEDILOL 25 MG TABLET (FP) PO SCH ×2 (09:09→21:14)
[2020-07-27] MEDS: LOSARTAN POTASSIUM 50 MG TABLET PO SCH (09:11)
[2020-07-27] MEDS: BRIMONIDINE TARTRATE 0.2% OPHTHALMIC 5 ML BOTTLE OU SCH ×2 (09:12→21:15)
[2020-07-27 10:18] LABS: POTASSIUM 4.8 mmol/L (3.5-5.1)
[2020-07-27 10:20] LABS: BLOOD UREA NITROGEN 69.6 mg/dL (7-18); CALCIUM 8.6 mg/dL (8.5-10.1)
[2020-07-27 10:26] LABS: CREATININE 2.3 mg/dL (0.55-1.3)
[2020-07-27] MEDS: QUEtiapine FUMARATE 25 MG TABLET PO SCH (21:14)
[2020-07-27] MEDS: LATANOPROST 0.005% OPHTH SOLN 2.5ML BOTTLE OU SCH (21:15)
[2020-07-28] MEDS: FUROSEMIDE 40 MG/4 ML INJECTABLE VIAL IVPUSH SCH ×2 (05:42→15:30)
[2020-07-28] MEDS: INSULIN SLIDING SCALE (NOVOLOG) 1 VIAL SQ SCH ×2 (06:10→17:57)
[2020-07-28 10:34] LABS: POTASSIUM 4.8 mmol/L (3.5-5.1)
[2020-07-28 10:38] LABS: BLOOD UREA NITROGEN 66.8 mg/dL (7-18)
[2020-07-28 10:41] LABS: CREATININE 2.2 mg/dL (0.55-1.3)
[2020-07-28 10:49] LABS: CALCIUM 8.7 mg/dL (8.5-10.1)
[2020-07-28] MEDS: APIXABAN 2.5 MG TABLET PO SCH ×2 (11:48→22:03)
[2020-07-28] MEDS: CARVEDILOL 25 MG TABLET (FP) PO SCH ×2 (11:48→22:03)
[2020-07-28] MEDS: ISOSORBIDE MONONITRATE 60 MG TAB.SR.24H (FP) PO SCH (11:48)
[2020-07-28] MEDS: TAMSULOSIN HCL 0.4 MG CAP PO SCH (11:48)
[2020-07-28] MEDS: amLODIPine BESYLATE 5 MG TABLET (FP) PO SCH (11:48)
[2020-07-28] MEDS: BRIMONIDINE TARTRATE 0.2% OPHTHALMIC 5 ML BOTTLE OU SCH ×2 (11:48→22:03)
[2020-07-28] MEDS: RANOLAZINE E.R. 500 MG TABLET (FP) PO SCH ×2 (11:48→22:03)
[2020-07-28] MEDS: LOSARTAN POTASSIUM 50 MG TABLET PO SCH (11:48)
[2020-07-28] MEDS ORDERED: PT OWN MED DRAWER 7, Y5N ONE ×2 (18:01→21:54)
[2020-07-28] MEDS: QUEtiapine FUMARATE 25 MG TABLET PO SCH (22:03)
[2020-07-28] MEDS: LATANOPROST 0.005% OPHTH SOLN 2.5ML BOTTLE OU SCH (22:04)
[2020-07-28] MEDS: MIRTAZAPINE 15 MG TABLET (FP) PO SCH (23:55)
[2020-07-29] MEDS: FUROSEMIDE 40 MG/4 ML INJECTABLE VIAL IVPUSH SCH ×2 (05:58→14:57)
[2020-07-29] MEDS: INSULIN SLIDING SCALE (NOVOLOG) 1 VIAL SQ SCH ×2 (06:09→16:43)
[2020-07-29] MEDS: TAMSULOSIN HCL 0.4 MG CAP PO SCH (09:40)
[2020-07-29] MEDS: CARVEDILOL 25 MG TABLET (FP) PO SCH ×2 (09:40→21:54)
[2020-07-29] MEDS: ISOSORBIDE MONONITRATE 60 MG TAB.SR.24H (FP) PO SCH (09:40)
[2020-07-29] MEDS: amLODIPine BESYLATE 5 MG TABLET (FP) PO SCH (09:40)
[2020-07-29] MEDS: RANOLAZINE E.R. 500 MG TABLET (FP) PO SCH ×2 (09:40→21:54)
[2020-07-29] MEDS: LOSARTAN POTASSIUM 50 MG TABLET PO SCH (09:41)
[2020-07-29] MEDS: BRIMONIDINE TARTRATE 0.2% OPHTHALMIC 5 ML BOTTLE OU SCH ×2 (09:41→21:55)
[2020-07-29] MEDS: APIXABAN 2.5 MG TABLET PO SCH ×2 (09:41→21:54)
[2020-07-29 11:56] LABS: CALCIUM 8.8 mg/dL (8.5-10.1); POTASSIUM 4.3 mmol/L (3.5-5.1)
[2020-07-29] MEDS: QUEtiapine FUMARATE 25 MG TABLET PO SCH (21:54)
[2020-07-29] MEDS: MIRTAZAPINE 15 MG TABLET (FP) PO SCH (21:54)
[2020-07-29] MEDS: LATANOPROST 0.005% OPHTH SOLN 2.5ML BOTTLE OU SCH (21:55)
[2020-07-30] MEDS: FUROSEMIDE 40 MG/4 ML INJECTABLE VIAL IVPUSH SCH (05:59)
[2020-07-30] MEDS: INSULIN SLIDING SCALE (NOVOLOG) 1 VIAL SQ SCH ×2 (05:59→17:05)
[2020-07-30 09:13] LABS: POTASSIUM 4.2 mmol/L (3.5-5.1)
[2020-07-30 09:19] LABS: HEMATOCRIT 27.1 % (35.4-49); HEMOGLOBIN 9.2 GM/dL (11.7-16.9); MCH 27.8 pg (25.7-33.7); MCHC 33.8 g/dl (32.0-35.9); MEAN CELL VOLUME 82.1 fl (80-96); MEAN PLT VOLUME 7.1 fl (7.5-11.1); PLATELET COUNT 263 K/MM3 (134-434); RDW 19.3 % (11.9-15.9); WHITE BLOOD COUNT 4.2 K/mm3 (4.0-10.0)
[2020-07-30 09:20] LABS: CALCIUM 8.4 mg/dL (8.5-10.1)
[2020-07-30 09:22] LABS: BLOOD UREA NITROGEN 59.2 mg/dL (7-18)
[2020-07-30 09:26] LABS: CREATININE 2.1 mg/dL (0.55-1.3)
[2020-07-30 09:28] LABS: BILIRUBIN,TOTAL 0.5 mg/dL (0.2-1)
[2020-07-30 09:49] LABS: N-TERMINAL BNP 53598.4 pg/ml (5-450)
[2020-07-30] MEDS: CARVEDILOL 25 MG TABLET (FP) PO SCH ×2 (09:53→21:24)
[2020-07-30] MEDS: amLODIPine BESYLATE 5 MG TABLET (FP) PO SCH (09:53)
[2020-07-30] MEDS: APIXABAN 2.5 MG TABLET PO SCH ×2 (09:53→21:24)
[2020-07-30] MEDS: BRIMONIDINE TARTRATE 0.2% OPHTHALMIC 5 ML BOTTLE OU SCH ×2 (09:53→21:24)
[2020-07-30] MEDS: ISOSORBIDE MONONITRATE 60 MG TAB.SR.24H (FP) PO SCH (09:53)
[2020-07-30] MEDS: LOSARTAN POTASSIUM 50 MG TABLET PO SCH (09:53)
[2020-07-30] MEDS: TAMSULOSIN HCL 0.4 MG CAP PO SCH (09:53)
[2020-07-30] MEDS: RANOLAZINE E.R. 500 MG TABLET (FP) PO SCH ×2 (09:54→21:24)
[2020-07-30] MEDS ORDERED: INSULIN (NOVOLOG) ASPART 100 UNITS/ML 10ML VIAL ONE (17:04)
[2020-07-30] MEDS: LATANOPROST 0.005% OPHTH SOLN 2.5ML BOTTLE OU SCH (21:24)
[2020-07-30] MEDS: QUEtiapine FUMARATE 25 MG TABLET PO SCH (21:24)
[2020-07-30] MEDS: MIRTAZAPINE 15 MG TABLET (FP) PO SCH (21:24)
[2020-07-31] MEDS: INSULIN SLIDING SCALE (NOVOLOG) 1 VIAL SQ SCH ×2 (06:31→16:00)
[2020-07-31] MEDS: TAMSULOSIN HCL 0.4 MG CAP PO SCH (09:39)
[2020-07-31] MEDS: MULTIVITAMINS (DAILY MVI) TABLET (FP) PO SCH (09:40)
[2020-07-31] MEDS: FUROSEMIDE 40 MG TABLET (FP) PO SCH (09:40)
[2020-07-31] MEDS: LOSARTAN POTASSIUM 50 MG TABLET PO SCH (09:40)
[2020-07-31] MEDS: APIXABAN 2.5 MG TABLET PO SCH ×2 (09:40→21:11)
[2020-07-31] MEDS: BRIMONIDINE TARTRATE 0.2% OPHTHALMIC 5 ML BOTTLE OU SCH ×2 (09:40→21:11)
[2020-07-31] MEDS: CARVEDILOL 25 MG TABLET (FP) PO SCH ×2 (09:40→21:11)
[2020-07-31] MEDS: amLODIPine BESYLATE 5 MG TABLET (FP) PO SCH (09:40)
[2020-07-31] MEDS: ISOSORBIDE MONONITRATE 60 MG TAB.SR.24H (FP) PO SCH (09:40)
[2020-07-31] MEDS: RANOLAZINE E.R. 500 MG TABLET (FP) PO SCH ×2 (09:41→21:11)
[2020-07-31] MEDS: MIRTAZAPINE 15 MG TABLET (FP) PO SCH (21:11)
[2020-07-31] MEDS: QUEtiapine FUMARATE 25 MG TABLET PO SCH (21:11)
[2020-07-31] MEDS: LATANOPROST 0.005% OPHTH SOLN 2.5ML BOTTLE OU SCH (21:11)
[2020-08-01] MEDS: INSULIN SLIDING SCALE (NOVOLOG) 1 VIAL SQ SCH ×2 (06:49→17:23)
[2020-08-01] MEDS: TAMSULOSIN HCL 0.4 MG CAP PO SCH (08:45)
[2020-08-01] MEDS: ISOSORBIDE MONONITRATE 60 MG TAB.SR.24H (FP) PO SCH (10:13)
[2020-08-01] MEDS: APIXABAN 2.5 MG TABLET PO SCH ×2 (10:13→22:24)
[2020-08-01] MEDS: FUROSEMIDE 40 MG TABLET (FP) PO SCH (10:13)
[2020-08-01] MEDS: CARVEDILOL 25 MG TABLET (FP) PO SCH ×2 (10:13→22:24)
[2020-08-01] MEDS: RANOLAZINE E.R. 500 MG TABLET (FP) PO SCH ×2 (10:13→22:24)
[2020-08-01] MEDS: amLODIPine BESYLATE 5 MG TABLET (FP) PO SCH (10:13)
[2020-08-01] MEDS: LOSARTAN POTASSIUM 50 MG TABLET PO SCH (10:14)
[2020-08-01] MEDS: MULTIVITAMINS (DAILY MVI) TABLET (FP) PO SCH (10:14)
[2020-08-01] MEDS: BRIMONIDINE TARTRATE 0.2% OPHTHALMIC 5 ML BOTTLE OU SCH ×2 (10:15→22:24)
[2020-08-01] MEDS: MIRTAZAPINE 15 MG TABLET (FP) PO SCH (22:24)
[2020-08-01] MEDS: QUEtiapine FUMARATE 25 MG TABLET PO SCH (22:24)
[2020-08-01] MEDS: LATANOPROST 0.005% OPHTH SOLN 2.5ML BOTTLE OU SCH (22:25)
[2020-08-02] MEDS: INSULIN SLIDING SCALE (NOVOLOG) 1 VIAL SQ SCH ×2 (06:23→16:56)
[2020-08-02] MEDS: ISOSORBIDE MONONITRATE 60 MG TAB.SR.24H (FP) PO SCH (09:25)
[2020-08-02] MEDS: TAMSULOSIN HCL 0.4 MG CAP PO SCH (09:25)
[2020-08-02] MEDS: FUROSEMIDE 40 MG TABLET (FP) PO SCH (09:25)
[2020-08-02] MEDS: LOSARTAN POTASSIUM 50 MG TABLET PO SCH (09:26)
[2020-08-02] MEDS: amLODIPine BESYLATE 5 MG TABLET (FP) PO SCH (09:26)
[2020-08-02] MEDS: APIXABAN 2.5 MG TABLET PO SCH (09:26)
[2020-08-02] MEDS: BRIMONIDINE TARTRATE 0.2% OPHTHALMIC 5 ML BOTTLE OU SCH ×2 (09:26→21:58)
[2020-08-02] MEDS: CARVEDILOL 25 MG TABLET (FP) PO SCH ×2 (09:26→21:57)
[2020-08-02] MEDS: MULTIVITAMINS (DAILY MVI) TABLET (FP) PO SCH (09:27)
[2020-08-02] MEDS: RANOLAZINE E.R. 500 MG TABLET (FP) PO SCH ×2 (09:27→21:57)
[2020-08-02] MEDS: FUROSEMIDE 40 MG/4 ML INJECTABLE VIAL IVPUSH SCH ×2 (12:39→13:02)
[2020-08-02 13:04] LABS: BASO % 1.7 % (0-2.0); EOS % 4.4 % (0-4.5); HEMATOCRIT 30.2 % (35.4-49); HEMOGLOBIN 9.8 GM/dL (11.7-16.9); LYMPH % 14.8 % (8-40); MCHC 32.6 g/dl (32.0-35.9); MEAN PLT VOLUME 7.2 fl (7.5-11.1); MONO % 10.4 % (3.8-10.2); NEUT % 68.7 % (42.8-82.8); PLATELET COUNT 273 K/MM3 (134-434); RBC 3.63 M/mm3 (4.00-5.60); RDW 19.8 % (11.9-15.9); WHITE BLOOD COUNT 4.6 K/mm3 (4.0-10.0)
[2020-08-02 14:10] LABS: BLOOD UREA NITROGEN 58.4 mg/dL (7-18); CALCIUM 8.9 mg/dL (8.5-10.1); POTASSIUM 5.7 mmol/L (3.5-5.1)
[2020-08-02] MEDS ORDERED: INSULIN (NOVOLOG) ASPART 100 UNITS/ML 10ML VIAL ONE (16:55)
[2020-08-02] MEDS: APIXABAN 5 MG TABLET PO SCH (21:57)
[2020-08-02] MEDS: MIRTAZAPINE 15 MG TABLET (FP) PO SCH (21:57)
[2020-08-02] MEDS: LATANOPROST 0.005% OPHTH SOLN 2.5ML BOTTLE OU SCH (21:58)
[2020-08-02] MEDS: QUEtiapine FUMARATE 25 MG TABLET PO SCH (21:58)
[2020-08-03] MEDS: INSULIN SLIDING SCALE (NOVOLOG) 1 VIAL SQ SCH ×2 (05:59→17:13)
[2020-08-03 08:58] LABS: HEMATOCRIT 29.3 % (35.4-49); HEMOGLOBIN 9.7 GM/dL (11.7-16.9); MCH 27.2 pg (25.7-33.7); MCHC 33.1 g/dl (32.0-35.9); MEAN CELL VOLUME 82.2 fl (80-96); MEAN PLT VOLUME 7.2 fl (7.5-11.1); PLATELET COUNT 236 K/MM3 (134-434); RBC 3.56 M/mm3 (4.00-5.60); RDW 19.4 % (11.9-15.9); WHITE BLOOD COUNT 4.6 K/mm3 (4.0-10.0)
[2020-08-03] MEDS: TAMSULOSIN HCL 0.4 MG CAP PO SCH (09:29)
[2020-08-03] MEDS: CARVEDILOL 25 MG TABLET (FP) PO SCH ×2 (09:29→21:03)
[2020-08-03] MEDS: amLODIPine BESYLATE 5 MG TABLET (FP) PO SCH (09:29)
[2020-08-03] MEDS: BRIMONIDINE TARTRATE 0.2% OPHTHALMIC 5 ML BOTTLE OU SCH ×2 (09:29→21:05)
[2020-08-03] MEDS: APIXABAN 5 MG TABLET PO SCH ×2 (09:29→21:03)
[2020-08-03] MEDS: FUROSEMIDE 40 MG/4 ML INJECTABLE VIAL IVPUSH SCH ×2 (09:29→13:21)
[2020-08-03] MEDS: MULTIVITAMINS (DAILY MVI) TABLET (FP) PO SCH (09:29)
[2020-08-03] MEDS: ISOSORBIDE MONONITRATE 60 MG TAB.SR.24H (FP) PO SCH (09:29)
[2020-08-03] MEDS: RANOLAZINE E.R. 500 MG TABLET (FP) PO SCH ×2 (09:29→21:03)
[2020-08-03] MEDS: LOSARTAN POTASSIUM 50 MG TABLET PO SCH (09:30)
[2020-08-03 10:51] LABS: CALCIUM 8.8 mg/dL (8.5-10.1); N-TERMINAL BNP 57933.1 pg/ml (5-450); POTASSIUM 4.5 mmol/L (3.5-5.1)
[2020-08-03] MEDS: ACETAMINOPHEN 325 MG TABLET (FP) PO PRN (21:03)
[2020-08-03] MEDS: QUEtiapine FUMARATE 25 MG TABLET PO SCH (21:04)
[2020-08-03] MEDS: LATANOPROST 0.005% OPHTH SOLN 2.5ML BOTTLE OU SCH (21:05)
[2020-08-03] MEDS: MIRTAZAPINE 15 MG TABLET (FP) PO SCH (21:05)
[2020-08-04] MEDS: FUROSEMIDE 40 MG/4 ML INJECTABLE VIAL IVPUSH SCH ×2 (06:14→15:38)
[2020-08-04] MEDS: INSULIN SLIDING SCALE (NOVOLOG) 1 VIAL SQ SCH ×2 (06:15→17:44)
[2020-08-04 10:22] LABS: POTASSIUM 4.7 mmol/L (3.5-5.1)
[2020-08-04 10:34] LABS: BLOOD UREA NITROGEN 59.6 mg/dL (7-18)
[2020-08-04 10:36] LABS: CALCIUM 9.2 mg/dL (8.5-10.1)
[2020-08-04] MEDS: MULTIVITAMINS (DAILY MVI) TABLET (FP) PO SCH (10:36)
[2020-08-04] MEDS: APIXABAN 5 MG TABLET PO SCH ×2 (10:36→22:05)
[2020-08-04] MEDS: TAMSULOSIN HCL 0.4 MG CAP PO SCH (10:36)
[2020-08-04] MEDS: CARVEDILOL 25 MG TABLET (FP) PO SCH ×2 (10:36→22:05)
[2020-08-04] MEDS: amLODIPine BESYLATE 5 MG TABLET (FP) PO SCH (10:36)
[2020-08-04] MEDS: ISOSORBIDE MONONITRATE 60 MG TAB.SR.24H (FP) PO SCH (10:37)
[2020-08-04] MEDS: BRIMONIDINE TARTRATE 0.2% OPHTHALMIC 5 ML BOTTLE OU SCH ×2 (10:37→22:06)
[2020-08-04] MEDS: LOSARTAN POTASSIUM 50 MG TABLET PO SCH (10:37)
[2020-08-04 10:38] LABS: CREATININE 2.1 mg/dL (0.55-1.3)
[2020-08-04] MEDS: RANOLAZINE E.R. 500 MG TABLET (FP) PO SCH ×2 (10:38→22:05)
[2020-08-04 16:05] VITALS: BMI 23.8
[2020-08-04] MEDS: MIRTAZAPINE 15 MG TABLET (FP) PO SCH (22:05)
[2020-08-04] MEDS: QUEtiapine FUMARATE 25 MG TABLET PO SCH (22:06)
[2020-08-04] MEDS: LATANOPROST 0.005% OPHTH SOLN 2.5ML BOTTLE OU SCH (22:06)
[2020-08-05] MEDS: FUROSEMIDE 40 MG/4 ML INJECTABLE VIAL IVPUSH SCH ×2 (05:49→15:25)
[2020-08-05] MEDS: INSULIN SLIDING SCALE (NOVOLOG) 1 VIAL SQ SCH ×2 (06:21→16:46)
[2020-08-05] MEDS: TAMSULOSIN HCL 0.4 MG CAP PO SCH (08:48)
[2020-08-05] MEDS ORDERED: PT OWN MED DRAWER 7, Y5N ONE (09:27)
[2020-08-05 09:58] LABS: CALCIUM 8.7 mg/dL (8.5-10.1); POTASSIUM 4.2 mmol/L (3.5-5.1)
[2020-08-05] MEDS: CARVEDILOL 25 MG TABLET (FP) PO SCH ×2 (10:02→22:38)
[2020-08-05] MEDS: MULTIVITAMINS (DAILY MVI) TABLET (FP) PO SCH (10:02)
[2020-08-05] MEDS: amLODIPine BESYLATE 5 MG TABLET (FP) PO SCH (10:02)
[2020-08-05] MEDS: APIXABAN 5 MG TABLET PO SCH ×2 (10:02→22:38)
[2020-08-05] MEDS: RANOLAZINE E.R. 500 MG TABLET (FP) PO SCH ×2 (10:03→22:38)
[2020-08-05] MEDS: BRIMONIDINE TARTRATE 0.2% OPHTHALMIC 5 ML BOTTLE OU SCH ×2 (10:03→22:38)
[2020-08-05] MEDS: ISOSORBIDE MONONITRATE 60 MG TAB.SR.24H (FP) PO SCH (10:03)
[2020-08-05] MEDS: LOSARTAN POTASSIUM 50 MG TABLET PO SCH (10:05)
[2020-08-05] MEDS ORDERED: METOLAZONE 2.5 MG TABLET (FP) PO ONE (13:30)
[2020-08-05] MEDS: QUEtiapine FUMARATE 25 MG TABLET PO SCH (22:38)
[2020-08-05] MEDS: LATANOPROST 0.005% OPHTH SOLN 2.5ML BOTTLE OU SCH (22:38)
[2020-08-05] MEDS: MIRTAZAPINE 15 MG TABLET (FP) PO SCH (22:38)
[2020-08-06] MEDS: INSULIN SLIDING SCALE (NOVOLOG) 1 VIAL SQ SCH ×2 (07:05→16:57)
[2020-08-06] MEDS: FUROSEMIDE 40 MG/4 ML INJECTABLE VIAL IVPUSH SCH ×2 (07:09→14:54)
[2020-08-06] MEDS: amLODIPine BESYLATE 5 MG TABLET (FP) PO SCH (09:05)
[2020-08-06] MEDS: LOSARTAN POTASSIUM 50 MG TABLET PO SCH (09:05)
[2020-08-06] MEDS: CARVEDILOL 25 MG TABLET (FP) PO SCH ×2 (09:05→22:25)
[2020-08-06] MEDS: APIXABAN 5 MG TABLET PO SCH ×2 (09:05→22:25)
[2020-08-06] MEDS: TAMSULOSIN HCL 0.4 MG CAP PO SCH (09:05)
[2020-08-06] MEDS: MULTIVITAMINS (DAILY MVI) TABLET (FP) PO SCH (09:05)
[2020-08-06] MEDS: RANOLAZINE E.R. 500 MG TABLET (FP) PO SCH ×2 (09:05→22:25)
[2020-08-06] MEDS: BRIMONIDINE TARTRATE 0.2% OPHTHALMIC 5 ML BOTTLE OU SCH ×2 (09:05→22:26)
[2020-08-06] MEDS: ISOSORBIDE MONONITRATE 60 MG TAB.SR.24H (FP) PO SCH (09:05)
[2020-08-06] MEDS ORDERED: PT OWN MED DRAWER 7, Y5N ONE ×3 (09:18→14:46)
[2020-08-06 10:23] LABS: BLOOD UREA NITROGEN 57.3 mg/dL (7-18); CALCIUM 8.7 mg/dL (8.5-10.1); CREATININE 2.1 mg/dL (0.55-1.3); POTASSIUM 4.4 mmol/L (3.5-5.1)
[2020-08-06] MEDS: SACUBITRIL/VALSARTAN 49 MG-51 MG TABLET PO SCH ×2 (11:42→22:25)
[2020-08-06] MEDS ORDERED: METOLAZONE 5 MG TABLET PO ONE (13:30)
[2020-08-06] MEDS: QUEtiapine FUMARATE 25 MG TABLET PO SCH (22:25)
[2020-08-06] MEDS: MIRTAZAPINE 15 MG TABLET (FP) PO SCH (22:25)
[2020-08-06] MEDS: LATANOPROST 0.005% OPHTH SOLN 2.5ML BOTTLE OU SCH (22:26)
[2020-08-07] MEDS: INSULIN SLIDING SCALE (NOVOLOG) 1 VIAL SQ SCH ×2 (06:41→16:50)
[2020-08-07] MEDS: FUROSEMIDE 40 MG/4 ML INJECTABLE VIAL IVPUSH SCH ×2 (06:43→13:28)
[2020-08-07] MEDS: TAMSULOSIN HCL 0.4 MG CAP PO SCH (08:29)
[2020-08-07 08:46] LABS: POTASSIUM 4.1 mmol/L (3.5-5.1)
[2020-08-07 09:01] LABS: ALBUMIN 2.2 g/dl (3.4-5.0); CALCIUM 8.8 mg/dL (8.5-10.1)
[2020-08-07 09:02] LABS: BLOOD UREA NITROGEN 62.3 mg/dL (7-18); MAGNESIUM 2.1 mg/dL (1.8-2.4); PHOSPHOROUS 3.2 mg/dL (2.5-4.9)
[2020-08-07 09:04] LABS: BILIRUBIN,TOTAL 0.5 mg/dL (0.2-1); TOT PROT 6.6 g/dl (6.4-8.2)
[2020-08-07 09:05] LABS: CREATININE 2.1 mg/dL (0.55-1.3)
[2020-08-07] MEDS ORDERED: PT OWN MED DRAWER 7, Y5N ONE ×2 (09:44→21:33)
[2020-08-07] MEDS: CARVEDILOL 25 MG TABLET (FP) PO SCH ×2 (09:47→21:29)
[2020-08-07] MEDS: MULTIVITAMINS (DAILY MVI) TABLET (FP) PO SCH (09:47)
[2020-08-07] MEDS: amLODIPine BESYLATE 5 MG TABLET (FP) PO SCH (09:47)
[2020-08-07] MEDS: RANOLAZINE E.R. 500 MG TABLET (FP) PO SCH ×2 (09:47→21:29)
[2020-08-07] MEDS: APIXABAN 5 MG TABLET PO SCH ×2 (09:47→21:29)
[2020-08-07] MEDS: SACUBITRIL/VALSARTAN 49 MG-51 MG TABLET PO SCH ×2 (09:48→21:37)
[2020-08-07] MEDS: ISOSORBIDE MONONITRATE 60 MG TAB.SR.24H (FP) PO SCH (09:49)
[2020-08-07] MEDS: BRIMONIDINE TARTRATE 0.2% OPHTHALMIC 5 ML BOTTLE OU SCH ×2 (09:50→21:29)
[2020-08-07] MEDS ORDERED: INSULIN (NOVOLOG) ASPART 100 UNITS/ML 10ML VIAL ONE ×2 (11:43→18:42)
[2020-08-07] MEDS ORDERED: METOLAZONE 5 MG TABLET PO ONE (13:30)
[2020-08-07] MEDS: MIRTAZAPINE 15 MG TABLET (FP) PO SCH (21:29)
[2020-08-07] MEDS: QUEtiapine FUMARATE 25 MG TABLET PO SCH (21:29)
[2020-08-07] MEDS: LATANOPROST 0.005% OPHTH SOLN 2.5ML BOTTLE OU SCH (21:30)
[2020-08-08] MEDS ORDERED: INSULIN (NOVOLOG) ASPART 100 UNITS/ML 10ML VIAL ONE ×2 (06:05→17:20)
[2020-08-08] MEDS: FUROSEMIDE 40 MG/4 ML INJECTABLE VIAL IVPUSH SCH ×2 (06:24→13:58)
[2020-08-08] MEDS: INSULIN SLIDING SCALE (NOVOLOG) 1 VIAL SQ SCH ×2 (06:29→17:30)
[2020-08-08] MEDS ORDERED: PT OWN MED DRAWER 7, Y5N ONE ×3 (06:42→21:36)
[2020-08-08] MEDS: MULTIVITAMINS (DAILY MVI) TABLET (FP) PO SCH (09:06)
[2020-08-08] MEDS: SACUBITRIL/VALSARTAN 49 MG-51 MG TABLET PO SCH ×2 (09:06→21:37)
[2020-08-08] MEDS: ISOSORBIDE MONONITRATE 60 MG TAB.SR.24H (FP) PO SCH (09:06)
[2020-08-08] MEDS: TAMSULOSIN HCL 0.4 MG CAP PO SCH (09:06)
[2020-08-08] MEDS: CARVEDILOL 25 MG TABLET (FP) PO SCH ×2 (09:06→21:15)
[2020-08-08] MEDS: RANOLAZINE E.R. 500 MG TABLET (FP) PO SCH ×2 (09:06→21:16)
[2020-08-08] MEDS: amLODIPine BESYLATE 5 MG TABLET (FP) PO SCH (09:06)
[2020-08-08] MEDS: APIXABAN 5 MG TABLET PO SCH ×2 (09:06→21:15)
[2020-08-08] MEDS: BRIMONIDINE TARTRATE 0.2% OPHTHALMIC 5 ML BOTTLE OU SCH ×2 (12:29→21:16)
[2020-08-08] MEDS: MIRTAZAPINE 15 MG TABLET (FP) PO SCH (21:15)
[2020-08-08] MEDS: LATANOPROST 0.005% OPHTH SOLN 2.5ML BOTTLE OU SCH (21:16)
[2020-08-09] MEDS: INSULIN SLIDING SCALE (NOVOLOG) 1 VIAL SQ SCH ×2 (06:53→17:02)
[2020-08-09] MEDS: FUROSEMIDE 40 MG/4 ML INJECTABLE VIAL IVPUSH SCH ×2 (06:53→14:15)
[2020-08-09] MEDS ORDERED: PT OWN MED DRAWER 7, Y5N ONE (10:42)
[2020-08-09] MEDS: CARVEDILOL 25 MG TABLET (FP) PO SCH ×2 (10:58→21:15)
[2020-08-09] MEDS: TAMSULOSIN HCL 0.4 MG CAP PO SCH (10:58)
[2020-08-09] MEDS: ISOSORBIDE MONONITRATE 60 MG TAB.SR.24H (FP) PO SCH (10:58)
[2020-08-09] MEDS: RANOLAZINE E.R. 500 MG TABLET (FP) PO SCH ×2 (10:58→21:17)
[2020-08-09] MEDS: MULTIVITAMINS (DAILY MVI) TABLET (FP) PO SCH (10:58)
[2020-08-09] MEDS: APIXABAN 5 MG TABLET PO SCH ×2 (10:58→21:15)
[2020-08-09] MEDS: amLODIPine BESYLATE 5 MG TABLET (FP) PO SCH (10:58)
[2020-08-09] MEDS: SACUBITRIL/VALSARTAN 49 MG-51 MG TABLET PO SCH ×2 (10:58→21:15)
[2020-08-09] MEDS: BRIMONIDINE TARTRATE 0.2% OPHTHALMIC 5 ML BOTTLE OU SCH ×2 (10:59→21:17)
[2020-08-09] MEDS: MIRTAZAPINE 15 MG TABLET (FP) PO SCH (21:15)
[2020-08-09] MEDS: LATANOPROST 0.005% OPHTH SOLN 2.5ML BOTTLE OU SCH (21:18)
[2020-08-10] MEDS: FUROSEMIDE 40 MG/4 ML INJECTABLE VIAL IVPUSH SCH ×2 (05:52→14:32)
[2020-08-10] MEDS: INSULIN SLIDING SCALE (NOVOLOG) 1 VIAL SQ SCH ×2 (06:25→16:33)
[2020-08-10] MEDS ORDERED: PT OWN MED DRAWER 7, Y5N ONE ×2 (08:43→21:22)
[2020-08-10] MEDS: amLODIPine BESYLATE 5 MG TABLET (FP) PO SCH (09:10)
[2020-08-10] MEDS: APIXABAN 5 MG TABLET PO SCH ×2 (09:10→21:20)
[2020-08-10] MEDS: MULTIVITAMINS (DAILY MVI) TABLET (FP) PO SCH (09:10)
[2020-08-10] MEDS: BRIMONIDINE TARTRATE 0.2% OPHTHALMIC 5 ML BOTTLE OU SCH ×2 (09:10→21:21)
[2020-08-10] MEDS: RANOLAZINE E.R. 500 MG TABLET (FP) PO SCH ×2 (09:10→21:21)
[2020-08-10] MEDS: ISOSORBIDE MONONITRATE 60 MG TAB.SR.24H (FP) PO SCH (09:10)
[2020-08-10] MEDS: TAMSULOSIN HCL 0.4 MG CAP PO SCH (09:10)
[2020-08-10] MEDS: CARVEDILOL 25 MG TABLET (FP) PO SCH ×2 (09:10→21:20)
[2020-08-10] MEDS: SACUBITRIL/VALSARTAN 49 MG-51 MG TABLET PO SCH ×2 (09:10→21:22)
[2020-08-10] MEDS: MIRTAZAPINE 15 MG TABLET (FP) PO SCH (21:20)
[2020-08-10] MEDS: LATANOPROST 0.005% OPHTH SOLN 2.5ML BOTTLE OU SCH (21:20)
[2020-08-11] MEDS: INSULIN SLIDING SCALE (NOVOLOG) 1 VIAL SQ SCH ×2 (06:29→17:00)
[2020-08-11] MEDS: FUROSEMIDE 40 MG/4 ML INJECTABLE VIAL IVPUSH SCH ×2 (06:30→13:51)
[2020-08-11 09:46] LABS: HEMATOCRIT 27.3 % (35.4-49); HEMOGLOBIN 9.1 GM/dL (11.7-16.9); MCH 27.4 pg (25.7-33.7); MCHC 33.5 g/dl (32.0-35.9); MEAN CELL VOLUME 81.9 fl (80-96); MEAN PLT VOLUME 7.5 fl (7.5-11.1); PLATELET COUNT 213 K/MM3 (134-434); RBC 3.33 M/mm3 (4.00-5.60); RDW 19.7 % (11.9-15.9); WHITE BLOOD COUNT 4.1 K/mm3 (4.0-10.0)
[2020-08-11 10:07] LABS: POTASSIUM 3.6 mmol/L (3.5-5.1)
[2020-08-11] MEDS: amLODIPine BESYLATE 5 MG TABLET (FP) PO SCH (10:09)
[2020-08-11] MEDS: RANOLAZINE E.R. 500 MG TABLET (FP) PO SCH ×2 (10:09→23:35)
[2020-08-11] MEDS: CARVEDILOL 25 MG TABLET (FP) PO SCH ×2 (10:09→23:35)
[2020-08-11] MEDS: SACUBITRIL/VALSARTAN 49 MG-51 MG TABLET PO SCH ×2 (10:09→23:35)
[2020-08-11] MEDS: ISOSORBIDE MONONITRATE 60 MG TAB.SR.24H (FP) PO SCH (10:09)
[2020-08-11] MEDS: TAMSULOSIN HCL 0.4 MG CAP PO SCH (10:09)
[2020-08-11] MEDS: BRIMONIDINE TARTRATE 0.2% OPHTHALMIC 5 ML BOTTLE OU SCH ×2 (10:10→23:40)
[2020-08-11] MEDS: MULTIVITAMINS (DAILY MVI) TABLET (FP) PO SCH (10:11)
[2020-08-11 10:16] LABS: ALBUMIN 2.3 g/dl (3.4-5.0); BILIRUBIN,TOTAL 0.5 mg/dL (0.2-1); BLOOD UREA NITROGEN 65.5 mg/dL (7-18); CALCIUM 8.7 mg/dL (8.5-10.1); TOT PROT 6.7 g/dl (6.4-8.2)
[2020-08-11 10:19] LABS: CREATININE 2.4 mg/dL (0.55-1.3)
[2020-08-11 10:25] LABS: N-TERMINAL BNP 32040.7 pg/ml (5-450)
[2020-08-11] MEDS: APIXABAN 5 MG TABLET PO SCH ×2 (11:50→23:36)
[2020-08-11] MEDS ORDERED: PT OWN MED DRAWER 7, Y5N ONE (23:32)
[2020-08-11] MEDS: MIRTAZAPINE 15 MG TABLET (FP) PO SCH (23:36)
[2020-08-11] MEDS: LATANOPROST 0.005% OPHTH SOLN 2.5ML BOTTLE OU SCH (23:41)
[2020-08-12] MEDS: INSULIN SLIDING SCALE (NOVOLOG) 1 VIAL SQ SCH ×2 (06:53→17:17)
[2020-08-12] MEDS: FUROSEMIDE 40 MG/4 ML INJECTABLE VIAL IVPUSH SCH ×2 (06:57→14:30)
[2020-08-12] MEDS: APIXABAN 5 MG TABLET PO SCH ×2 (09:14→22:23)
[2020-08-12] MEDS: amLODIPine BESYLATE 5 MG TABLET (FP) PO SCH (09:14)
[2020-08-12] MEDS: MULTIVITAMINS (DAILY MVI) TABLET (FP) PO SCH (09:14)
[2020-08-12] MEDS: ISOSORBIDE MONONITRATE 60 MG TAB.SR.24H (FP) PO SCH (09:14)
[2020-08-12] MEDS: TAMSULOSIN HCL 0.4 MG CAP PO SCH (09:14)
[2020-08-12] MEDS: CARVEDILOL 25 MG TABLET (FP) PO SCH ×2 (09:14→22:23)
[2020-08-12] MEDS: SACUBITRIL/VALSARTAN 49 MG-51 MG TABLET PO SCH ×2 (09:14→22:24)
[2020-08-12] MEDS: RANOLAZINE E.R. 500 MG TABLET (FP) PO SCH ×2 (09:14→22:23)
[2020-08-12] MEDS: BRIMONIDINE TARTRATE 0.2% OPHTHALMIC 5 ML BOTTLE OU SCH ×2 (09:15→22:26)
[2020-08-12] MEDS ORDERED: PT OWN MED DRAWER 7, Y5N ONE (22:16)
[2020-08-12] MEDS: MIRTAZAPINE 15 MG TABLET (FP) PO SCH (22:27)
[2020-08-12] MEDS: LATANOPROST 0.005% OPHTH SOLN 2.5ML BOTTLE OU SCH (22:27)
[2020-08-13] MEDS ORDERED: INSULIN (NOVOLOG) ASPART 100 UNITS/ML 10ML VIAL ONE (07:00)
[2020-08-13] MEDS: FUROSEMIDE 40 MG/4 ML INJECTABLE VIAL IVPUSH SCH (07:19)
[2020-08-13] MEDS: INSULIN SLIDING SCALE (NOVOLOG) 1 VIAL SQ SCH ×2 (07:19→17:08)
[2020-08-13] MEDS: TAMSULOSIN HCL 0.4 MG CAP PO SCH (08:52)
[2020-08-13] MEDS: RANOLAZINE E.R. 500 MG TABLET (FP) PO SCH ×2 (10:48→21:49)
[2020-08-13] MEDS: amLODIPine BESYLATE 5 MG TABLET (FP) PO SCH (10:48)
[2020-08-13] MEDS: APIXABAN 5 MG TABLET PO SCH ×2 (10:48→21:50)
[2020-08-13] MEDS: ISOSORBIDE MONONITRATE 60 MG TAB.SR.24H (FP) PO SCH (10:48)
[2020-08-13] MEDS: CARVEDILOL 25 MG TABLET (FP) PO SCH ×2 (10:48→21:49)
[2020-08-13] MEDS: BRIMONIDINE TARTRATE 0.2% OPHTHALMIC 5 ML BOTTLE OU SCH ×2 (10:48→21:50)
[2020-08-13] MEDS: MULTIVITAMINS (DAILY MVI) TABLET (FP) PO SCH (10:48)
[2020-08-13] MEDS: SACUBITRIL/VALSARTAN 49 MG-51 MG TABLET PO SCH ×2 (10:51→21:49)
[2020-08-13] MEDS: FUROSEMIDE 40 MG TABLET (FP) PO SCH (10:52)
[2020-08-13] MEDS ORDERED: PT OWN MED DRAWER 7, Y5N ONE ×2 (11:10→21:43)
[2020-08-13] MEDS: LATANOPROST 0.005% OPHTH SOLN 2.5ML BOTTLE OU SCH (21:50)
[2020-08-13] MEDS: MIRTAZAPINE 15 MG TABLET (FP) PO SCH (21:50)
[2020-08-14] MEDS: INSULIN SLIDING SCALE (NOVOLOG) 1 VIAL SQ SCH (06:31)
[2020-08-14] MEDS: TAMSULOSIN HCL 0.4 MG CAP PO SCH (08:34)
[2020-08-14] MEDS: BRIMONIDINE TARTRATE 0.2% OPHTHALMIC 5 ML BOTTLE OU SCH (10:16)
[2020-08-14] MEDS: CARVEDILOL 25 MG TABLET (FP) PO SCH (10:17)
[2020-08-14] MEDS: RANOLAZINE E.R. 500 MG TABLET (FP) PO SCH (10:17)
[2020-08-14] MEDS: ISOSORBIDE MONONITRATE 60 MG TAB.SR.24H (FP) PO SCH (10:17)
[2020-08-14] MEDS: APIXABAN 5 MG TABLET PO SCH (10:17)
[2020-08-14] MEDS: FUROSEMIDE 40 MG TABLET (FP) PO SCH (10:17)
[2020-08-14] MEDS: MULTIVITAMINS (DAILY MVI) TABLET (FP) PO SCH (10:17)
[2020-08-14] MEDS: amLODIPine BESYLATE 5 MG TABLET (FP) PO SCH (10:17)
[2020-08-14] MEDS: SACUBITRIL/VALSARTAN 49 MG-51 MG TABLET PO SCH (10:18)
[2020-08-14 11:50] VITALS: BP 100/57; PULSE 70; TEMP 98
== END 2020-08-14 14:34 | DRG 291 ==
LOC: JER 20:21 → JERBED 22:38 → J6S 07-24 01:32
PROVIDERS: ADMIT Internal Medicine; ATTEND Internal Medicine
DX: I13.0 Hypertensive heart and chronic kidney disease with heart failure and stage 1 through stage 4 chronic kidney disease, or unspecified chronic kidney disease (principal); I50.23 Acute on chronic systolic (congestive) heart failure; I48.92 Unspecified atrial flutter; N17.9 Acute kidney failure, unspecified; I25.10 Atherosclerotic heart disease of native coronary artery without angina pectoris; E11.22 Type 2 diabetes mellitus with diabetic chronic kidney disease; N18.9 Chronic kidney disease, unspecified; K21.9 Gastro-esophageal reflux disease without esophagitis; E78.5 Hyperlipidemia, unspecified; J44.9 Chronic obstructive pulmonary disease, unspecified; R06.89 Other abnormalities of breathing; I48.0 Paroxysmal atrial fibrillation; Z95.5 Presence of coronary angioplasty implant and graft; Z95.0 Presence of cardiac pacemaker; Z86.73 Personal history of transient ischemic attack (TIA), and cerebral infarction without residual deficits
CPT/HCPCS: 36415; 71045-TC-FY; 71250-TC; 72100-TC-FY; 80048; 80053; 82550; 82728; 82962; 83615; 83735; 83880; 84100; 84484; 85025; 85027; 86140; 93005; 93010; 94010; 94761; 97116-GP; 97162-GP; 99285-25; C9803; U0003